=== PATIENT | male | born 1945 | race Caucasian/White ===

== ENCOUNTER 2016-12-24 14:32 | Inpatient (IN) | payer MEDICARE ==
[~2016-12-24] VITALS: Ht 182.9 cm; Wt 102.5 kg
[2016-12-24] VITALS (10 sets, daily range): BP systolic 120–185; BP diastolic 52–72; PULSE 92–110; RESP 22–29; O2SAT 88–95
[~2016-12-24 14:32] MED LIST: ALBU8.5H4 IH; ASPI-628 PO; AZIT500T5 PO; CEFD300C3 PO; CHOL200012 PO; CITA10TA9 PO; DOCU-41 PO; FOLI1TAB18 PO; INSU100V28 SUBQ; INSU100V7 SUBQ; LOSA25TA2 PO; MELA1TAB11 PO; MULT-892 PO; Metoprolol Tartrate PO; PANT40TA2 PO; QUET25TA PO; SYMINH IH; TAMS0.4C29 PO
[2016-12-24] MEDS ORDERED: 0.9% Sodium Chloride 1,000 ML IV ONE ×2 (14:45→16:25)
[2016-12-24] MEDS ORDERED: Albuterol-Ipratropium 3 mL Inhalation Solution NEB ONE (14:45)
[2016-12-24] MEDS ORDERED: MethylprednisoLONE Sodium Succinate 62.5 mg/mL 2 mL Inj IVPUSH ONE (14:45)
[2016-12-24] MEDS ORDERED: cefTRIAXone Inj 2,000 MG in Dextrose 5% Minibag Plus 50 ML IV ONE (15:15)
[2016-12-24] MEDS ORDERED: Magnesium Sulf 2 Gm/50mL Water 2 GM in IV Premix 1 EACH IV ONE (15:15)
[2016-12-24] MEDS ORDERED: Azithromycin Inj 500 MG in Dextrose 5% w/Vial Mate 250 ML IV ONE (15:15)
[2016-12-24 15:25] LABS: BASOPHILS % (AUTO) 0 % (0-3); EOSINOPHILS % (AUTO) 0 % (0-5); MONOCYTES % (AUTO) 5.6 % (4-12); Mean Corpuscular Hemoglobin 37.4 pg (27.0-35.0); Mean Corpuscular Volume 108.4 fL (81-100); NEUTROPHILS % (AUTO) 91.6 % (40-74); Platelet Count 134 bil/L (150-400)
[2016-12-24 16:11] LABS: APPEARANCE,URINE CLEAR (CLEAR,HAZY); COLOR,URINE YELLOW (YELLOW); OCCULT BLOOD,URINE NEGATIVE (NEGATIVE); PH,URINE 5.5 (5.0-8.0); UROBILINOGEN,URINE NORMAL (NORMAL)
--- NOTE | 2016-12-24 16:17 | DRSVH ---
PROCEDURE: X-RAY CHEST ONE VIEW, PORTABLE ([id number]) INDICATIONS: SHORT OF BREATH TECHNIQUE: One view of the chest was acquired. COMPARISON: [facility], CR, XR CHEST 2VW, 12/18/2016, 12:10. FINDINGS: Surgical changes and devices: None. Lungs and pleura: Slight appearance of increased streaky opacities within the bases, appearing more p rominent when compared to prior exam. Mediastinum: Mediastinal contours appear normal. Heart size is normal. Bones and chest wall: No suspicious bony lesions. Overlying soft tissues appear unremarkable. IMPRESSION: Mild increased prominence of streaky opacities within the bases. Developing infiltrates, atelectasis or focal edema cannot be excluded. Dictated by: Izabela Stockton M.D. on 12/24/2016 at 16:15 Approved by: Izabela Stockton M.D. on 12/24/2016 at 16:16
--- NOTE | 2016-12-24 16:19 | ED.REPORT ---
HPI-Dyspnea / Wheezing Date of Service Dec 24, 2016 ED Provider: Mohamud Stevenson MD Pt is a 71 year old male with a hx of DM, COPD, HTN and prostate cancer presenting to the ED via EMS in respiratory distress. Associated symptoms include SOB onset 4 days ago, dyspnea on exertion, productive cough, weakness, chills. Denies fever, diaphoresis. He states that he has been sick for the past few days and his is sick as well. He denies symptoms this severe previously , and also denies hx of heart problems or recent travel. He reports usually using his Albuterol inhaler two times per day. Nursing Notes Stated Complaint: RULEOUT SEPSIS Chief Complaint: Respiratory Distress Nursing Notes Reviewed: Yes (YouFastUnlock not reconciled) Allergies: Coded Allergies: No Known Allergies (Verified Allergy, Unknown, 06/06/14) Scheduled Alendronate/Vitamin D3 (Alendronate/Vitamin D3) 1 Each Tablet 1 TAB PO every friday Amlodipine (Amlodipine) 10 Mg Tablet 10 MG PO DAILY Aspirin (Aspirin) 81 Mg Tablet 81 MG PO DAILY Bicalutamide (Bicalutamide) 50 Mg Tablet 100 MG PO DAILY Cholecalciferol (Vitamin D3) (Vitamin D3) 2,000 Unit Tablet 2,000 UNIT PO DAILY Folic Acid (Folic Acid) 1 Mg Tablet 1 MG PO DAILY Insulin Glargine (Lantus U100 Insulin Vial) 100 Unit/Ml Vial 15 UNIT SUBQ HS Losartan/HCTZ 50-12.5 mg (Losartan/HCTZ 50-12.5 mg) 1 Each Tablet 1 EACH PO DAILY Meloxicam (Meloxicam) 15 Mg Tablet 15 MG PO DAILY Potassium Chloride (Potassium Chloride) 10 Meq Tab.er.prt 20 MEQ PO BID Tamsulosin ER (Tamsulosin ER) 0.4 Mg Cap.er.24h 0.4 MG PO HS Trazodone (Trazodone) 50 Mg Tablet 50-100 MG PO HS Scheduled PRN Albuterol Sulfate (Ventolin HFA Inhaler) 200 Puff/18 Gm Inhaler 2 PUFFS INH q4- 6 hours PRN PRN For Shortness of Breath Insulin Aspart (NovoLOG U100 Insulin Vial) 100 Unit/Ml Mdv 5 UNITS SUBQ TIDWM PRN PRN hyperglycemia Ketoconazole (Ketoconazole) 120 Ml Shampoo 1 APPLIC TOP DAILY PRN PRN prn General Time Seen by MD: 15:01 Chief Complaint Shortness of breath Hx Obtained From: Patient, EMS Arrived By: Ambulance Sudden in Onset?: No Onset Occurred: 5 - 8 hours ago Symptom Duration: Since onset Severity: Current: No pain currently Severity: Maximum: No pain Recent Healthcare: No recent hospitalization, Recent doctor visit Similar Sx Previous: No Past Medical History Past Medical History 1. Hypertension. 2. Type 2 diabetes mellitus, on insulin. 3. Dyslipidemia. Cholesterol 199, HDL 63, cholesterol/HDL ratio 3.16, LDL 114.2 (June 11, 2013). The patient is not receiving statin therapy. 4. Paroxysmal atrial fibrillation. Echocardiogram (April 11, 2013) showed LVEF 65%-70%; normal valves. A nuclear medicine stress test (May 11, 2013) showed normal myocardial perfusion, normal LV volume and systolic function and no diagnostic ECG changes for ischemia. 5. COPD. 6. History of diverticulosis. 7. Prostate cancer. The patient says he is now receiving Lupron. 8. Prostatism. 9. History of L2 compression fractures and rib fractures. Past Surgical History Reports: Appendectomy Family History His father of COPD. His mother of Alzheimer's disease. Smoking History Current Every Day Smoker, Heavy Tobacco Smoker Social History Drug Use: Denies drug use Other Social History: [place] Review of Systems Constitutional: Reports: Chills, Denies: Fever Respiratory: Reports: Dyspnea on exertion, Prod cough, clear, Shortness of breath, Wheezing Skin: Denies Diaphoresis Complete sys rev & neg: except as marked. Neurologic: Reports: Weakness Physical Exam Initial Vital Signs Vital Signs (First) Date Time Temp Pulse Resp B/P Pulse Ox O2 Delivery O2 Flow Rate FiO2 12/24/16 14:40 37.7 108 22 185/57 95 Nasal Cannula 3 Initial VS: Reviewed, Vital signs abnormal (Temp borderline, tachy RR incr on O2) Head / Eyes: Atraumatic, Normocephalic, PERRL ENT: Mucous membranes moist, Conjunctiva normal, No scleral icterus Abdomen / GI: Soft, Non-tender Neurologic: Alert, Oriented, Nonfocal Psychiatric: Mood/affect normal, Behavior normal, Normal thought content General/Constitutional: Awake, Alert Mildly diaphoretic Neck: No JVD Respiratory / Chest: No chest tenderness Resp Distress / Stridor: Positive: Resp distress moderate Persistant hacking cough. Poor air movement initially with bronchospasm. Cardiovascular: No murmurs Heart Rate / Rhythm: Positive: Tachycardia Lower Extremity / Pelvis / MS: No edema Interpretation & Diagnostics Lab Results Interpretation Result Diagram: 12/24/16 1510 12/24/16 1510 Test 12/24/16 15:10 12/24/16 15:36 White Blood Count 6.5th/mm3 (3.8-10.1) Red Blood Count 2.97mil/mm3 (4.40-5.80) Hemoglobin 11.1g/dL (13.8-17.2) Hematocrit 32.2% (41.0-50.0) Mean Corpuscular Volume 108.4fL (81-100) Mean Corpuscular Hemoglobin 37.4pg (27.0-35.0) Mean Corpuscular Hemoglobin Concent 34.5% (32.0-37.0) Red Cell Distribution Width 12.4% (12.3-15.4) Platelet Count 134bil/L (150-400) Neutrophils (%) (Auto) 91.6% (40-74) Lymphocytes (%) (Auto) 2.6% (14-46) Monocytes (%) (Auto) 5.6% (4-12) Eosinophils (%) (Auto) 0% (0-5) Basophils (%) (Auto) 0% (0-3) Sodium Level 133mEq/L (134-144) Potassium Level 4.4mEq/L (3.5-5.2) Chloride Level 96mEq/L (97-108) Carbon Dioxide Level 17mmol/L (18-29) Blood Urea Nitrogen 23mg/dL (8-27) Creatinine 1.04mg/dL (0.76-1.27) Estimat Glomerular Filtration Rate 74mL/min (>59) Glucose Level 225mg/dL (60-99) Lactic Acid Level 2.8mmol/L (0.4-2.0) Calcium Level 7.8mg/dL (8.5-10.1) Magnesium Level 1.7mg/dL (1.6-2.6) Total Bilirubin 0.7mg/dL (0.0-1.2) Aspartate Amino Transf (AST/SGOT) 29U/L (0-50) Alanine Aminotransferase (ALT/SGPT) 25U/L (0-44) Alkaline Phosphatase 45U/L (25-160) Troponin T < 0.010ug/L (0.0-0.011) Total Protein 6.5g/dL (6.4-8.4) Albumin 4.2g/dL (3.4-5.0) Procalcitonin 0.21ng/mL (0.00-0.08) Urine Color Yellow (YELLOW) Urine Appearance Clear (CLEAR,HAZY) Urine pH 5.5 (5.0-8.0) Urine Specific [place] 1.025 (1.003-1.035) Urine Protein Negativemg/dL (NEG,TRACE) Urine Glucose (UA) Negativemg/dL (NEGATIVE) Urine Ketones Negativemg/dL (NEGATIVE) Urine Occult Blood Negative (NEGATIVE) Urine Nitrite Negative (NEGATIVE) Urine Bilirubin Negative (NEGATIVE) Urine Urobilinogen Normalmg/dL (NORMAL) Urine Leukocyte Esterase Negative (NEGATIVE) Urine RBC 0-2/hpf (0-2) Urine WBC 0-5/hpf (0-5) Urine Epithelial Cells None/hpf (NONE-MOD) Urine Crystals None seen (NONE SEEN) Urine Bacteria None/hpf (NONE-FEW) Urine Hyaline Casts None/lpf (NONE) Urine Granular Casts None seen (NONE SEEN) Urine Waxy Casts None seen (NONE SEEN) Urine Red Blood Cell Casts None seen (NONE SEEN) Urine White Blood Cell Casts None seen (NONE SEEN) Urine Mucus None seen (None Seen) Urine Trichomonas None seen (NONE SEEN) Urine Yeast None (NONE SEEN) Urinalysis Comment None Urine Culture Reflexed Not indicated Lab Results Interpretation: CBC normal MP mildly low CO2 Glucose mildly elevated Lactate is elevated, the patient received aggressive albuterol which can increase the lactate Troponin is negative blood cultures are pending [place] calcitonin mildly elevated Influenza is negative Dr Crystal Rodríguez sent a PCR which is positive for RSV ECG Interpretation ECG Interpretation: Sinus tachycardia, rate 108. Nonspecific ST depression versus wandering baseline. Without cardiac ischemia. Time: 13:52 Interpreted by: ED physician X-Ray Chest Interpretation Chest Xray Interpretation: IMPRESSION: Mild increased prominence of streaky opacities within the bases. Developing infiltrates, atelectasis or focal edema cannot be excluded. Dictated by: Izabela Stockton M.D. on 12/24/2016 at 16:15 View: Portable, 1 view Interpretation / Wet Read by: Interpret - Radiologist Re-Eval/Medical Decision Med Decision/Clinical Course This is a 71-year-old male with baseline CBC last #on an inhaler, but not on home O2 develop a cough, chills and worsening shortness breath over the past few days. He arrives in the department in moderate distress and is Profoundly bronchospastic, short of breath, mildly hypoxic (he is not on home O2), borderline febrile on arrival-reaction went on the spica fulminant fever while in the department. The patient however did respond to aggressive, repeated, multiple doses of albuterol. He did receive Atrovent. He received empiric steroids, magnesium, IV fluids-and Tylenol once he spiked a fever. His chest x-ray to my interpretation is suspicious for pneumonia, as is his clinical presentation and the differential includes COPD exacerbation, he is febrile, so there is a low threshold for Anaprox in this setting. So ceftriaxone and Zithromax were initiated. His formal influenza is negative, but is later PCR is positive for RSV and suggests a component of a viral infection, although not sure the question of whether catheter secondary bacterial infection has been truly answered given his presentation. He is improved, no longer in bridger distress, but is being admitted for continued management. He is still bronchospastic at time of admission. Source of Hx: Old records Re-Evaluation/Progress #1: Time of Eval: 15:08 Patient Status: Condition improved Re-Evaluation/Progress Note: Discussed history of present illness. Re-Evaluation/Progress #2: Time of Eval: 15:50 Patient Status: Condition improved Re-Evaluation/Progress Note: Discussed plan for admission. Pt understands and agrees with plan. Re-Evaluation/Progress #3: Time of Eval: 16:22 Patient Status: Condition improved Re-Evaluation/Progress Note: Pt is still wheezing, not as short of breath but has spiked a fever. Consultation : Referral / Consult Name: Sumeet Beltre MD Consulted With: Hospitalist Call Returned at: 16:33 Attendant [place]ground: Will see patient, Agrees with plan, Accepts admit Counseled Regarding: Diagnosis, Lab results, Need for follow-up, When/why to return to ED Discharge & Departure Impression: Primary Impression: COPD with acute exacerbation Additional Impressions: Pneumonia Pneumonia type: due to unspecified organism Laterality: right Lung location : lower lobe of lung Qualified Code: J18.9 - Pneumonia, unspecified organism RSV (acute bronchiolitis due to respiratory syncytial virus) Disposition: ADMITTED TO HOSPITAL Discharge Condition All VS Reviewed: Yes Condition: Improved Referrals: Luther Fierro MD (PCP) Adinaibjaron Attestation Portions of this note were transcribed by Jennifer Teran. I, Dr. Stevenson personally performed the history, physical exam and medical decision-making; I reviewed and confirmed the accuracy of the information in the transcribed note. Signed by: Victor Hugo Fletcher, 12/24/2016 and 1646. copies to: Luther Fierro MD, Matthew F MD Dec 24, 2016 16:18 JENNIFER TERAN Dec 24, 2016 16:23
[2016-12-24 16:20] LABS: Magnesium 1.7 mg/dL (1.6-2.6); TROPONIN T < 0.010 ug/L (0.0-0.011)
[2016-12-24] MEDS ORDERED: Albuterol 2.5 mg/3 mL Inhalation Solution NEB ONE (16:25)
[2016-12-24] MEDS ORDERED: Ondansetron 2 mg/mL 2 mL Inj IVPUSH PRN (17:10)
[2016-12-24] MEDS ORDERED: Alum-Mag Hydrox-Simeth 30 mL Suspension PO PRN (17:10)
[2016-12-24] MEDS ORDERED: BICA50TA PO (18:07)
[2016-12-24] MEDS ORDERED: LOSA1TAB69 PO (18:07)
[2016-12-24] MEDS ORDERED: NOV100I SUBQ (18:07)
[2016-12-24] MEDS ORDERED: ALBU18HF INH (18:07)
[2016-12-24] MEDS ORDERED: POTA10TA38 PO (18:07)
[2016-12-24] MEDS ORDERED: ALEN70TA46 PO (18:07)
[2016-12-24] MEDS ORDERED: AMLO10TA3 PO (18:07)
[2016-12-24] MEDS ORDERED: KETO120S3 TOP (18:07)
[2016-12-24] MEDS ORDERED: TRAZ-115 PO (18:07)
[2016-12-24] MEDS ORDERED: MELO-253 PO (18:07)
[2016-12-24] MEDS ORDERED: ASPI-973 PO (18:08)
[2016-12-24] MEDS ORDERED: CHOL200025 PO (18:08)
--- NOTE | 2016-12-24 18:39 | NUR ---
Admit to [facility] Pt arrived to [facility] at 1800 from ED. Pt able to ambulate from stretcher to bed, however pt very dyspneic. AAOx3. LS coarse. SpO2 87% on 2L NC, increased to 3L, SpO2 88%. RT called, this RN requested neb tx, RT states they will come up MELIA. Denies pain. Urinal to void. NS at 125 via PIV. Addendum: 12/24/16 at 1916 by DEEPTHI VENTURA RN correction: NS at 100cc/hr
--- NOTE | 2016-12-24 18:47 | PCM.HPMED ---
Subjective Date of Service Dec 24, 2016 Primary Provider: Admitting Physician: Sumeet Beltre MD Primary Care Physician: Luther Fierro MD Attending Physician: Sumeet Beltre MD Chief Complaint: Shortness of breath History of Present Illness: This is a 71 years old male with past medical history of COPD secondary to medical, patient on oxygen at home. He does not have a history of insulin-dependent diabetes mellitus type II, hypertension, prostate cancer, hyperlipidemia. Patient presented to the hospital complaining about expiratory distress/difficulty breathing that has been going on for approximately 4 days and worsening. Patient stated she will get short of minimal exertion such for few steps. He stated his was recently with flulike symptoms Patient endorsed cough with whitish sputum production. He uses his nebulizer with minimal relief of his septum and today he decided to come to the ER. Patient denied chest pain, no fever, no chills, no nausea, no vomiting, no abdominal pain On presentation patient was found to be hypoxic with an oxygen saturation in the mid 80s, which improved peripheral excision via nasal cannula and nebulizer treatment. Chest x-ray showed pneumonia. . Review of Systems: Comprehensive review of system x 12 points is negative except for what is described above in history of present illness Allergies Coded Allergies: No Known Allergies (Verified Allergy, Unknown, 06/06/14) Home Medications ([Metoprolol Tartrate]) 25 MG TABLET 25 MG PO BID Aspirin (Aspir 81) 81 Mg Tablet.dr 81 MG PO DAILY Azithromycin (Azithromycin) 500 Mg Tablet 500 MG PO DAILY Budesonide/Formoterol 160-4.5 mcg Inh (Symbicort 160-4.5 mcg Inh) 1 Puff Inha 2 PUFF IH BID Cefdinir (Cefdinir) 300 Mg Capsule 300 MG PO BID Cholecalciferol (Vitamin D3) (D3-2000) 2,000 Unit Capsule 2,000 UNIT PO DAILY Citalopram (Citalopram) 10 Mg Tablet 10 MG PO DAILY Folic Acid (Folic Acid) 1 Mg Tablet 1 MG PO DAILY Insulin Glargine (Lantus U100 Insulin Vial) 100 Unit/Ml Vial 15 UNIT SUBQ QAM Insulin Glargine (Lantus U100 Insulin Vial) 100 Unit/Ml Vial 10 UNIT SUBQ QPM Insulin Regular, Human (HUMulin-R U100 Insulin Vial) 100 Unit/1 Ml Vial UNIT SUBQ SS Losartan Potassium (Cozaar) 25 Mg Tablet 25 MG PO DAILY Melatonin/Pyridoxine (Melatonin 3 mg Tablet) 1 Each Tablet 1 EACH PO QPM Multivitamin (Daily Value) 1 Each Tablet 1 EACH PO DAILY Pantoprazole DR (Protonix) 40 Mg Tablet 40 MG PO DAILYAC Tamsulosin ER (Tamsulosin ER) 0.4 Mg Cap.er.24h 0.4 MG PO HS PMH 1. Hypertension. 2. Type 2 diabetes mellitus, on insulin. 3. Dyslipidemia. Cholesterol 199, HDL 63, cholesterol/HDL ratio 3.16, LDL 114.2 (June 11, 2013). The patient is not receiving statin therapy. 4. Paroxysmal atrial fibrillation. Echocardiogram (April 11, 2013) showed LVEF 65%-70%; normal valves. A nuclear medicine stress test (May 11, 2013) showed normal myocardial perfusion, normal LV volume and systolic function and no diagnostic ECG changes for ischemia. 5. COPD. 6. History of diverticulosis. 7. Prostate cancer. The patient says he is now receiving Lupron. 8. Prostatism. 9. History of L2 compression fractures and rib fractures Surgical History Reports: Appendectomy Family History Family history reviewed. His father of COPD. His mother of Alzheimer's disease. Social History Hx Alcohol Use: Yes Alcoholic Drinks Per Day: 1/2 5th vodka per day Hx Substance Use: No Smoking Status: Current Every Day Smoker, Heavy Tobacco Smoker Exam Vital Signs Vital Sign - Last Date Time Temp Pulse Resp B/P Pulse Ox O2 Delivery O2 Flow Rate FiO2 12/24/16 18:11 105 12/24/16 17:12 29 147/67 90 Nasal Cannula 2 12/24/16 15:54 38.8 Exam General: Obese man in bed comfortably, not in distress, able to speak in full sentences. HEENT: PERRL, sclerae anicteric. Neck: Trachea is midline, no tenderness, no cervical lymphadenopathy, no JVD Chest: No use of accessory muscles of respiration, no chest wall tenderness. This better effort is shallow Lung: Decreased air entry bilaterally, bilateral wheezing. No crackles. Heart: S1, S2 regular rate and rhythm, no gallop, no murmur. Abdomen: Audible bowel sounds present, obese, nontender, distended. Extremity: 1+ edema bilaterally, no calf tenderness, no cyanosis. Skin: No rash, no ulcers. Neuro: Awake, alert oriented 3. Grossly nonfocal. Lab and Diagnostics Result Diagram: 12/24/16 1510 12/24/16 1510 Microbiology Blood culture: In process X-Rays, CTs and MRIs Chest x-ray reviewed IMPRESSION: Mild increased prominence of streaky opacities within the bases. Developing infiltrates, atelectasis or focal edema cannot be excluded. Assessment & Plan 1. Acute hypoxic respiratory failure : acute present on admission. - Supplemental oxygen 2 L via nasal cannula for adequate saturation - Nebulizer, pulmonary toilet, bronchodilator: DuoNeb every 6 hours. - Respiratory failure is due to pneumonia and COPD exacerbation. 2. Pneumonia : Acute,present on admission. Stat empiric levofloxacin. 3. COPD exacerbation : Acute, with emissions Bronchodilator as above #1 Solu-Medrol 40 mg IV every 8 hours. Smoking cessation counseling provided Nicotine patch for smoking average Chronic medical problems : 1. Obesity : Chronic 2. Insulin-dependent diabetes mellitus type II : Diabetic diet. Home insulin regimen. Sliding scale with coverage 3. Hypertension : Continue home antihypertensive medication 4. Prostate cancer : On Becalutamide 5. Paroxysmal atrial fibrillation : Normal sinus rhythm. Not on anticoagulation for unknown reasons 6. Hyperlipidemia : Statins 7. Tobaccoism This is a very sick patient admitted with respiratory failure secondary to pneumonia and COPD exacerbation. Patient has long-standing COPD but not on oxygen at home. He is an avid smoker despite his COPD. Plan of care is as above and will be adjusted as per clinical course. Heparin for DVT prophylaxis [facility] in 3-4 days anticipated and recovery is expected. VTE Prophylaxis: Sub-Q Enoxaparin Time spent 75 minutes Sumeet Beltre MD Dec 24, 2016 18:47
[2016-12-24] MEDS: MethylprednisoLONE Sodium Succinate 40 mg/mL Inj IVPUSH SCH (18:53)
[2016-12-24] MEDS: 0.9% Sodium Chloride 1,000 ML IV SCH ×2 (18:55)
[2016-12-24] MEDS: Albuterol-Ipratropium 3 mL Inhalation Solution NEB SCH (20:16)
[2016-12-24] MEDS: Insulin Human REGular 300 Unit/3 mL Inj SUBQ SCH (20:30)
[2016-12-24] MEDS: Insulin GLARgine 100 Unit/mL Syringe SUBQ SCH (21:44)
[2016-12-25] VITALS (16 sets, daily range): BP systolic 117–183; BP diastolic 55–89; PULSE 88–112; RESP 20–34; O2SAT 88–98
[2016-12-25] MEDS: MethylprednisoLONE Sodium Succinate 40 mg/mL Inj IVPUSH SCH ×3 (02:04→16:29)
[2016-12-25] MEDS: Albuterol-Ipratropium 3 mL Inhalation Solution NEB SCH ×4 (02:18→22:19)
[2016-12-25] MEDS: Insulin Human REGular 300 Unit/3 mL Inj SUBQ SCH ×2 (02:59→08:56)
[2016-12-25] MEDS: 0.9% Sodium Chloride 1,000 ML IV SCH ×4 (05:04→13:06)
--- NOTE | 2016-12-25 05:42 | NUR ---
activity Pt remained in bed for the shift, used urinal, no complaints of pain. Coughing intermittently with clear to white sputum. On cont. pulse ox and 3L O2 with sats at 90 to 93%. Left room with call light at bedside.
[2016-12-25 07:20] LABS: Mean Corpuscular Hemoglobin 37.4 pg (27.0-35.0); Mean Corpuscular Volume 109.7 fL (81-100)
[2016-12-25] MEDS ORDERED: levoFLOXacin Inj 750 MG in IV Premix 1 EACH IV SCH (08:30)
[2016-12-25] MEDS ORDERED: Influenza (Adult) Vaccine 0.5 mL Syringe IM ONE (08:30)
[2016-12-25] MEDS ORDERED: predniSONE 20 mg Tablet PO SCH (08:40)
[2016-12-25] MEDS ORDERED: Glucose 40% Oral Gel 15 Gm Tube PO PRN (10:50)
--- NOTE | 2016-12-25 11:17 | NUR ---
SOB pt complains of SOB. sat pt upright, instructed pt on pursed lip breathing pt thinks that his O2 level is low because he has been talking a lot
[2016-12-25] MEDS ORDERED: cefTRIAXone Inj 2,000 MG in Dextrose 5% Minibag Plus 50 ML IV SCH (12:15)
[2016-12-25] MEDS: Insulin LISPRO 300 Unit/3 mL Inj SUBQ SCH ×3 (12:17→22:18)
--- NOTE | 2016-12-25 14:14 | NUR ---
Social Work: Initial Assessment Data: Pt is a 71 y/o male admitted for COPD, pneumonia. Pt's PCP is Dr Fierro, pt's insurance is Medicare. EMR reviewed, readmit score is 3, high. METAL WEIGHER met with pt at bedside, role explained. Pt states that he lives on [address] with his spouse in a single story home where he uses no DME. Pt dries, has hx of HH with [facility], hx of SNF at [facility], no LTC or VA benefits, and is not a caregiver. Pt states he does not have an AD/DPOA, pt accepted info given by METAL WEIGHER. METAL WEIGHER addressed pts alcohol use, see Chemical Dependency Assessment. Likely no further d/c planning needs. METAL WEIGHER will continue to follow if needs arise. Assessment: Pt who is independent at baseline, alcohol abuse. Plan: Pt will d/c home via POV with spouse when medically stable. See Chemical Dependency Assessment. Likely no further d/c planning needs. METAL WEIGHER will continue to follow if needs arise. BRETT Calabrese Addendum: 12/25/16 at 1417 by MARIAH HALL Amended: Links added.
[2016-12-25] MEDS: cefTRIAXone Inj 2,000 MG in Dextrose 5% Minibag Plus 50 ML IV SCH (14:53)
--- NOTE | 2016-12-25 15:27 | DRSVH ---
PROCEDURE: X-RAY CHEST ONE VIEW, PORTABLE ([id number]) INDICATIONS: sob TECHNIQUE: One view of the chest was acquired. COMPARISON: Merged With [facility], CR, XR CHEST 1VW (PORTABLE), 12/24/2016, 14:37. [facility], CR, XR CHEST 2VW, 12/18/2016, 12:10. FINDINGS: Surgical changes and devices: None. Lungs and pleura: No pleural effusions or pneumothorax. Lungs are abnormal with pneumonia at each l ower and midlung, greater on the right than the left. Mediastinum: Mediastinal contours appear normal. Heart size is normal. Bones and chest wall: No suspicious bony lesions. Overlying soft tissues appear unremarkable. IMPRESSION: Right-sided pneumonia is greater than on the left and both lungs have pneumonia infiltrat ion within the middle and lower thirds of the parenchyma. No effusion is seen. Dictated by: Pernell Garcia M.D. on 12/25/2016 at 15:19 Approved by: Pernell Garcia M.D. on 12/25/2016 at 15:25
[2016-12-25] MEDS ORDERED: MethylprednisoLONE Sodium Succinate 40 mg/mL Inj IVPUSH SCH (16:30)
[2016-12-25] MEDS: Albuterol 2.5 mg/3 mL Inhalation Solution NEB PRN ×2 (16:30→19:27)
--- NOTE | 2016-12-25 17:19 | NUR ---
Social Work: Chemical Dependency Assessment Current Circumstances/ Reason for referral: Pt was admitted on 12/24/16 for COPD, Pneumonia. Pt states he is here for these reasons. Pt reported per H&P that he used to drink 5th of vodka per day. RN states pt told them that his last drink was 2 weeks ago. [facility] [employer] following up for chemical dependency assessment. Hx of substance abuse: Pt states he started drinking in his 20s. Pt states he has had one period of sobriety for 10 years in the 90s. Hx of treatment: Pt states he has been to treatment twice for alcoholism at [facility] and once in [place], but he could not remember the name of it. Pt also reports going to in the past and has no hx with outpt treatment for CD. Hx of withdrawal: Pt reports hx of shakes, no seizures. Family support: Pt states both of his parents drank and one of his brothers. Hx of Sobriety and supports: Pt states his is his best support, he states his brother who no longer drinks is also a good support. Pt states that he plans to go to AA as that has been a good support in his past. Pts perception of use: Pt states he plans to continue sobriety. He does not want to drink any longer. Suicide Risk Assessment: Pt reports no suicide or homicidal thoughts, ideation, or plans. Recommendations: [facility] [employer] recommended pt speak with his further about staying sober. Pt accepted CD resources in the areas and states he plans to call. [facility] [employer] offered assistance if pt needed it, pt declined. [facility] [employer] provided rethinking drinking resources. BRETT Calabrese
--- NOTE | 2016-12-25 18:18 | PCM.PNMED ---
Subjective Date of Service Dec 25, 2016 Subjective Patient is a 71 year-old man with COPD not on oxygen at home who presented to the hospital with worsening difficulty breathing for 4 days. In the ED, he had an O2 saturation of mid-80s. This is day 2. Overnight there were no acute events. Patient reports easier breathing. He is eating but not ambulating. Exam Vital Signs Vital Sign - Last Date Time Temp Pulse Resp B/P Pulse Ox O2 Delivery O2 Flow Rate FiO2 12/25/16 16:30 104 26 88 OxyMask 6.00 12/25/16 13:34 37.6 156/68 Intake and Output 12/24/16 12/24/16 12/25/16 Cumulative From/Thru 15:00 23:00 07:00 12/24/16 14:40 - 12/25/16 05:29 Intake Total 1300 ml 1462 ml 2762 ml Output Total 800 ml 800 ml Balance 1300 ml 662 ml 1962 ml Intake Oral 400 ml 400 ml IV Total 1300 ml 1062 ml 2362 ml Output Urine Total 800 ml 800 ml # Bowel Movements 0 0 Exam General: Obese man lying in bed in no distress and able to speak in full sentences. HEENT: sclerae anicteric. Neck: Trachea is midline, no tenderness, no cervical lymphadenopathy, no JVD Chest: No use of accessory muscles of respiration. Lung: Decreased air entry bilaterally, course breath sounds, bilateral expiratory wheezing. No crackles. Heart: S1, S2 regular rate and rhythm, no gallop, no murmur. Abdomen: Audible bowel sounds present, obese, nontender, distended. Extremity: No LE edema, no calf tenderness, no cyanosis. Skin: No rash, no ulcers. . IVs and Medications Medications Reviewed: Medications were reviewed in detail Lab and Diagnostics Result Diagram: 12/25/1662912/25/16629 Microbiology Blood culture: Negative first 24 hours Urine culture: Strep pneumonia + RSV + X-Rays, CTs and MRIs Chest x-ray reviewed IMPRESSION: Mild increased prominence of streaky opacities within the bases. Developing infiltrates, atelectasis or focal edema cannot be excluded. Assessment & Plan Patient is a 71 year-old man with COPD not on oxygen at home who presented to the hospital with worsening difficulty breathing for 4 days. In the ED, he had an O2 saturation of mid-80s. This is day 2. 1. Sepsis, present on admission, Resolved. - Fever 38.8; HR 108; RR 23 - Lactic acidosis 2.8 initially, now normal - IV NS 100ml/hr initially now 80 ml/hr - Treat underlying condition 2. Acute hypoxic respiratory failure, present on admission - Supplemental oxygen to keep sats between 88% and 92% - DuoNeb every 6 hours, albuterol PRN every 2 hours, acapella - Respiratory failure is due to pneumonia and COPD exacerbation. - Telemetry 3. Community acquired bibasilar pneumonia, RSV+, Strep pneumonia antigen positive, acute, present on admission. - Azithromycin and ceftriaxone daily - Rapid flu negative, blood cultures pending, legionella and strep antigens pending, MRSA pending - Repeat x-ray today: Right-sided pneumonia is greater than on the left and both lungs have pneumonia infiltration within the middle and lower thirds of the parenchyma. No effusion is seen. - Procalcitonin 2.1 4. COPD exacerbation, acute, present on admission Bronchodilators as above #1 Solu-Medrol 40 mg IV every 8 hours. Consider changing to 40mg PO daily Smoking cessation counseling provided Chronic: 5. Obesity, BMI 32 6. Alcohol use disorder, present on admission, chronic - Patient stated to nurse has not had alcohol in three weeks, but unknown if that is true - Ativan 0.5mg Q 8 hrs PRN - Consider CIWA - Thiamine 100mg IV daily X 2 days then PO - Folate 7. Insulin-using diabetes mellitus type II - A1c 7.1 - Diabetic diet. - Home insulin: patient uses 11 units lantus and 5 units humalog prior to meals daily unless his BG is normal than he skips the 5 units. - Reviewed in-house blood glucose readings and changed to 20 units lantus HS and 4 units of nutritional insulin plus a medium dose correction scale - Continue to review and adjust 8. Hypertension : Continue home antihypertensive medication 9. Prostate cancer : Continue Becalutamide and Flomax 10. Paroxysmal atrial fibrillation : - Curently normal sinus rhythm. - On aspirin. - Not on anticoagulation for unknown reasons. Will investigate this further prior to discharge - Telemetry 11. Hyperlipidemia: - Patient not on a statins. Will investigate this further prior to discharge 12. Tobacco use disorder, present on admission, chronic. - Nicotine patch Heparin for DVT prophylaxis [facility] in 3-4 days anticipated and recovery is expected. Disposition Home +/- oxygen VTE Prophylaxis: Sub-Q Enoxaparin Resuscitation Status: CPR: Attempt Resuscitation Attending Statement The patient was seen and examined together with Dr. Forbes on 12-25-16 and I agree with the history, exam and plan as outlined in the note above. Nazanin Forbes DO Dec 25, 2016 18:18 Corby Hernandez MD Dec 26, 2016 13:57
[2016-12-25] MEDS: LORazepam 0.5 mg Tablet PO PRN (18:36)
[2016-12-25] MEDS ORDERED: Furosemide 10 mg/mL 4 mL Inj ONE (22:02)
[2016-12-25] MEDS: Insulin GLARgine 100 Unit/mL Syringe SUBQ SCH (22:16)
--- NOTE | 2016-12-25 22:41 | NUR ---
Transfer Transferred to [facility] via bed with BiPAP, medications and personal belongings. Report given to receiving RN.
[2016-12-25] MEDS ORDERED: Furosemide 10 mg/mL 4 mL Inj IVPUSH ONE (22:45)
[2016-12-26] VITALS (14 sets, daily range): BP systolic 124–178; BP diastolic 59–90; PULSE 74–122; RESP 20–36; O2SAT 91–97
[2016-12-26] MEDS: 0.9% Sodium Chloride 1,000 ML IV SCH ×3 (00:25→17:55)
[2016-12-26] MEDS: MethylprednisoLONE Sodium Succinate 40 mg/mL Inj IVPUSH SCH ×3 (01:18→19:51)
[2016-12-26] MEDS: Albuterol-Ipratropium 3 mL Inhalation Solution NEB SCH ×4 (02:30→20:30)
[2016-12-26 03:02] LABS: BASOPHILS % (AUTO) 0 % (0-3); EOSINOPHILS % (AUTO) 0 % (0-5); Mean Corpuscular Hemoglobin 37.5 pg (27.0-35.0); Mean Corpuscular Volume 111.6 fL (81-100); Platelet Count 112 bil/L (150-400)
--- NOTE | 2016-12-26 03:08 | NUR ---
Transfer Pt transferred from [facility] via bed. Pt alert and oriented with a wet cough. On BIPAP at 40% Fi02. Stat order obtained for 40mg IV push Lasix. Sp02 96%.
--- NOTE | 2016-12-26 03:10 | NUR ---
Afib RVR Pt converted from ST to Afib RVR at 0302. HR 130-150. Asymptomatic. Pt has a history of paroxysmal afib. Stat EKG ordered, resident notified and ordered received for diltiazem 5mg IV push x3 doses if needed.
[2016-12-26 03:23] LABS: MONOCYTES % (AUTO) 4 % (4-12); NEUTROPHILS % (AUTO) 78 % (40-74)
[2016-12-26] MEDS: Diltiazem 5 mg/mL 5 mL Inj IVPUSH PRN ×3 (03:23→04:08)
[2016-12-26] MEDS: Diltiazem Inj 125 MG in Dextrose 5% 100 ML IV SCH ×2 (04:50→22:11)
--- NOTE | 2016-12-26 05:50 | NUR ---
HR Pt started on a diltiazem drip at 5ml/hr. HR in 60 mins ranges from 80-120. Target HR below 100. BP taken, 124/75. Diltiazem drip turned up to 10ml/hr. Continue to monitor.
[2016-12-26] MEDS: Insulin LISPRO 300 Unit/3 mL Inj SUBQ SCH ×4 (07:44→21:30)
[2016-12-26] MEDS: Thiamine Inj 100 MG in Dextrose 5% 50 ML IV SCH (09:13)
[2016-12-26] MEDS ORDERED: Furosemide 10 mg/mL 4 mL Inj IVPUSH ONE (12:30)
[2016-12-26] MEDS ORDERED: Glucose 40% Oral Gel 15 Gm Tube PO PRN (12:35)
--- NOTE | 2016-12-26 13:38 | CONS ---
[address] [address] CONSULTATION REPORT PATIENT: JAGDISH MATHIS : 1945 MR#: [id number] ADMIT: 12/24/2016 JOB ID: [id number] DATE OF SERVICE: 12/26/2016 INFECTIOUS DISEASE CONSULT: I thank Dr. Kimbrough for this timely consult. REASON FOR CONSULTATION: Pneumococcal pneumonia following respiratory syncytial viral infection. HISTORY OF THE PRESENT ILLNESS: The patient is a 71-year-old gentleman with multiple medical problems including COPD, alcoholism and a history of atrial arrhythmias. The patient has underlying COPD but does not use oxygen at home. He reports several days ago both he and his developed a flu-like illness characterized by cough and malaise. His symptoms accelerated over several days leading up to this admission and then he primarily just developed increasing shortness of breath. This was not associated, he states, with any fevers or chills, though he did feel quite fatigued. He notes that he may have had an increase in his chronic baseline cough but it was minimally productive of some whitish sputum and at no point was there any brown or red sputum production. He denies any pleuritic chest pain and was unable to say whether he had any pain with deep inspiration on either side of his chest. There was very little in the way of any other associated symptoms other than just weakness, decreased ability to get around, increased work of breathing and some increase in his cough. He denies associated sore throat. He has had a minimal headache in association with these other symptoms but really nothing else and specifically, no GI or symptoms. He was admitted to the hospital on the , two days ago, because he was evaluated and found in the ED to be desaturating and an x-ray showed new infiltrates. Since admission, the patient has been treated with antibiotics, which included ceftriaxone, Levaquin and azithromycin. The levofloxacin was discontinued and replaced basically with azithromycin. He reports he is starting to feel a little bit better but is still quite short of breath and requiring aggressive oxygen supplementation. He still has no fevers, chills, sweats, or pleuritic pain. PAST MEDICAL HISTORY: 1. COPD. 2. Hypertension. 3. Hyperlipidemia. 4. Paroxysmal atrial fibrillation. 5. Prostate cancer. 6. L2 compression fracture. 7. Alcohol abuse. ALLERGIES: The patient has no known allergies to antibiotics. SOCIAL HISTORY: The patient tells me he worked at a variety of jobs through his career. He has been consuming alcohol quite aggressively for many years including he tells me multiple drinks per day up until last week when he decided to quit. A note from one of the ED interviews suggests that he drank up to a half of a 5th of vodka daily, though he tells me more in the 3-5 shots range per day but in any event, a substantial amount of alcohol. He has also been a cigarette smoker his adult life and also reports that at the onset of his URI symptoms last week he decided to give up smoking as well. He has never lived outside the [place] has never served in the [place] and has no exotic exposures. FAMILY HISTORY: Negative for TB in his parents, siblings and children. His dad of COPD. REVIEW OF SYSTEMS: Done. It was a little bit difficult to do the review of systems because the patient has a BiPAP mask in place and his voice is a bit muffled but basically, he says he had some minimal headache over the last few days which is unusual for him but not severe. No stiff neck and no confusion. No change in vision. No problems with his nose, and no sore throat or stiff neck. He discusses his increasing work of breathing and cough as noted above. No pleuritic chest pain. No substernal chest pain. No nausea or vomiting. No diarrhea, dysuria, urgency, or frequency. No swelling of the joints. No skin rash and no neurologic complaints. Remainder of the review of systems is negative. PHYSICAL EXAMINATION: Reveals an afebrile gentleman lying in bed, using a BiPAP mask and conversing with the nurse when I first entered the room. His temperature is 37 degrees, and it was as high as 38.8 in the ED when he first presented. His pulse is 106, respiratory rate 34, blood pressure 146/59. He is saturating 92% on 40% inspired FiO2 on the BiPAP mask. His head is without evidence of trauma. His eyes without conjunctivitis. No scleral icterus. His mental status is clear. Oral cavity difficult to examine because he cannot take the BiPAP off but I see no herpetic lesions or obvious thrush. I cannot see the posterior pharynx. His neck is fairly supple without notable adenopathy. He has full range of motion of his neck. His lungs are notable for rales at the right lower lung field which are quite that unilateral, as none are heard on the left. Cardiac tones distant but regular rate and rhythm at this point, and I do not appreciate a significant murmur but it is hard to hear over the BiPAP machine. His abdomen is somewhat distended, soft and nontender. No hepatosplenomegaly or ascites. No suprapubic fullness. He does not have a Molina catheter. Examination of the extremities reveals no significant edema, and his feet are actually fairly well perfused with good capillary refill. Sensation and good strength in the lower extremities. In general, he is well muscled and without any muscle tenderness or pain with palpation. No evidence of synovitis anywhere, and no skin rash. No thyromegaly is noted. His back is without notable abnormality. Remainder of the physical benign. LABORATORIES: Include white count 15,000 yesterday, now 9000. He has 14% bands, so he has quite a dramatic left shift. His creatinine 1.05. Liver function tests normal despite his alcohol history. Procalcitonin 0.21 on admission, the . I have ordered a repeat for this morning. Albumin 4.1. Glucose 308. Urinalysis without white cells. Urine legionella antigen negative but urine pneumococcal antigen is positive. On the multiplex PCR respiratory panel, the RSV is positive. Blood cultures are negative. IMAGING: I carefully reviewed his imaging. he has quite an extensive right-sided pneumonia. There is lesser degree of a left-sided pneumonia. IMPRESSION: This unfortunate gentleman has longstanding chronic obstructive pulmonary disease with ongoing cigarette smoking, as well as heavy alcohol consumption. He and his both acquired what sounds to be a respiratory syncytial virus upper respiratory tract infection which sets our patient up for pneumococcal pneumonia. His pneumococcal pneumonia is bilateral, though the vast majority of the infiltrate is on the right side. He is not bacteremic but we do have a diagnosis on the basis of our urine antigen test which is very highly specific. All isolates of pneumococcus isolated last year at [facility] are sensitive to penicillin and ceftriaxone at levels achieved outside the cerebrospinal fluid and so, either of these will be acceptable as the main drug for treatment of this infection. There is some evidence in the literature that the addition of a macrolide such as azithromycin to the beta-lactam improves survival but this seems to be confined to the people that are bacteremic and as of yet, it appears this patient is not bacteremic but rather just has a positive urine antigen. Bilateral pneumococcal pneumonia is associated with a fairly significant mortality rate and will be more likely to prove mortal in a patient such as this who has underlying chronic obstructive pulmonary disease and alcohol issues. The patient will obviously need to be a very aggressively managed here in the hospital over the next several days and probably most of his beta-lactam antibiotic therapy will be intravenous just because of the severity of his illness and the likelihood of a prolonged hospital stay. RECOMMENDATIONS: 1. I agree with the azithromycin but I would limit its use to about five days, and I have entered a stop date in the computer. 2. We could use ceftriaxone or penicillin, and there is probably little difference between the two as our main treatment. He is already on ceftriaxone 2 g a day, and I think that is reasonable to continue, as it is more convenient than giving more frequent injections of penicillin. 3. I would keep an eye on the QTc interval, as we proceed to give this patient a g and a half or so of azithromycin. Should his QTc interval elongate significantly, I would simply discontinue the azithromycin, as it is probably not essential in this nonbacteremic case. Note that his QTc is 0.465 on the original EKG which is now in the chart. I would repeat one in a day or two. 4. The total duration of therapy for a serious pneumococcal pneumonia like this should probably be about one week. I repeat a procalcitonin today, and I would follow it going forward. If the procalcitonin is elevated today and then comes back down to levels less than 0.25, that would be helpful in terms of helping manage his duration of therapy but if the procalcitonin turns out not to be a very good marker, I would simply figure on about one week of intravenous therapy. If he does extremely well, he could be discharged earlier on high-dose oral amoxicillin to finish his one-week course of therapy. 5. As I will be leaving the country for about 10 days later today, I will go ahead and sign off on this case of what appears to be a fairly straightforward serious pneumococcal pneumonia, complicating COPD. If there are questions about this or any other patients, I can be reached by telephone through tomorrow morning and after that by email, so it will be a bit cumbersome.
[2016-12-26] MEDS: cefTRIAXone Inj 2,000 MG in Dextrose 5% Minibag Plus 50 ML IV SCH (14:08)
--- NOTE | 2016-12-26 15:47 | NUR ---
BiPAP/ Diltiazem Patient on BiPAP FiO2 at 40%. Maintaining SPO2 in the high 80s-low 90s. Patient desats to low 80s with any activity. Attempted to take BiPAP off and eat breakfast wearing only NC at 6L, patient O2 levels dropped to low 80s within a few minutes. BiPAP immediately placed back on patient. Patient tolerating mask ok, small mount of redness on thelma. Mepilex in place for protection. Patient on diltiazem drip at 15mg/hr for Afib. Patient has been on A fib throughout shift, rate in the 100s-120s. Patient on MP30 for close monitoring.
--- NOTE | 2016-12-26 15:53 | PCM.PNMED ---
Subjective Date of Service Dec 26, 2016 Subjective Patient is a 71 year-old man with COPD not on oxygen at home who presented to the hospital with worsening difficulty breathing for 4 days. In the ED, he had an O2 saturation of mid-80s. This is day 2. Overnight events: Patient has history of paroxysmal afib and overnight his heart flipped into A fib with RvR, started to require increasing amounts of O2 from 7L to 14L and was subsequently placed on BiPAP. Today: Patient remains on BiPAP. Exam Vital Signs Vital Sign - Last Date Time Temp Pulse Resp B/P Pulse Ox O2 Delivery O2 Flow Rate FiO2 12/26/16 11:29 37.0 106 34 146/59 92 BiPAP 40 12/25/16 19:39 15.00 Intake and Output 12/25/16 12/25/16 12/26/16 Cumulative From/Thru 15:00 23:00 07:00 12/24/16 14:40 - 12/26/16 07:00 Intake Total 2449 ml 270 ml 5481 ml Output Total 1550 ml 600 ml 2950 ml Balance 899 ml -330 ml 2531 ml Intake Oral 1420 ml 100 ml 1920 ml IV Total 1029 ml 170 ml 3561 ml Output Urine Total 1550 ml 600 ml 2950 ml # Voids 1 1 # Bowel Movements 0 0 0 Exam General: Obese man lying in bed with respiratory needs supported with BIPAP at 40 % FiO2.. HEENT: sclerae anicteric. Neck: Trachea is midline, no tenderness, no cervical lymphadenopathy, no JVD Chest: No use of accessory muscles of respiration. Lung: Decreased air entry bilaterally, course breath sounds, bilateral expiratory wheezing. No crackles. Heart: S1, S2 regular rate and rhythm, no gallop, no murmur. Abdomen: Audible bowel sounds present, obese, nontender, distended. Extremity: No LE edema, no calf tenderness, no cyanosis. Skin: No rash, no ulcers. . IVs and Medications Medications Reviewed: Medications were reviewed in detail Lab and Diagnostics Result Diagram: 12/26/1625612/26/16256 Microbiology Blood culture: Negative first 24 hours Urine culture: Strep pneumonia + RSV + X-Rays, CTs and MRIs Chest x-ray reviewed IMPRESSION: Mild increased prominence of streaky opacities within the bases. Developing infiltrates, atelectasis or focal edema cannot be excluded. Assessment & Plan Patient is a 71 year-old man with COPD not on oxygen at home who presented to the hospital with worsening difficulty breathing for 4 days. In the ED, he had an O2 saturation of mid-80s. This is day 3. 1. Acute hypoxic respiratory failure, present on admission. Active. - Placed on BiPAP. - DuoNeb every 6 hours, albuterol PRN every 2 hours, acapella - Respiratory failure is due to bacterial and viral pneumonia and COPD exacerbation. - Telemetry 2. Community acquired bibasilar pneumonia, RSV+, Strep pneumonia antigen positive, acute, present on admission. - Azithromycin and Ceftriaxone daily - Infectious disease following, time and recommendations appreciated. - Rapid flu negative, blood cultures pending, legionella and strep antigens pending, MRSA pending - Repeat x-ray today: Right-sided pneumonia is greater than on the left and both lungs have pneumonia infiltration within the middle and lower thirds of the parenchyma. No effusion is seen. - Procalcitonin 2.1 3. COPD exacerbation, acute, present on admission - Bronchodilators as above #1 - Solu-Medrol 40 mg IV every 12 hours. will Decrease to 40 IV Daily tomorrow. - Smoking cessation counseling provided 4. Sepsis, present on admission, Resolved. - Fever 38.8; HR 108; RR 23 - Lactic acidosis 2.8 initially, now normal - IV NS 100ml/hr initially now 80 ml/hr - Treat underlying condition Chronic: 5. Obesity, BMI 32 6. Alcohol use disorder, present on admission, chronic - Patient stated to nurse has not had alcohol in three weeks, but unknown if that is true - Ativan 0.5mg Q 8 hrs PRN - Consider CIWA - Thiamine 100mg IV daily X 2 days then PO - Folate 7. Insulin-using diabetes mellitus type II - A1c 7.1 - Diabetic diet. - Home insulin: patient uses 11 units lantus and 5 units humalog prior to meals daily unless his BG is normal than he skips the 5 units. - Reviewed in-house blood glucose readings and changed to 20 units lantus HS and 4 units of nutritional insulin plus a High dose correction scale - Continue to review and adjust 8. Hypertension : Continue home antihypertensive medication 9. Prostate cancer : Continue Becalutamide and Flomax 10. Paroxysmal atrial fibrillation converted to Afib with RVR. - Continue Diltiazem ggt. - Curently normal sinus rhythm. - On aspirin. - Not on anticoagulation for unknown reasons. Will investigate this further prior to discharge - Telemetry 11. Hyperlipidemia: - Patient not on a statins. Will investigate this further prior to discharge 12. Tobacco use disorder, present on admission, chronic. - Nicotine patch Heparin for DVT prophylaxis [facility] in 3-4 days anticipated and recovery is expected. Disposition Home +/- oxygen Pain Evaluation: Adequate Pain Control VTE Prophylaxis: Sub-Q Enoxaparin VTE Mechanical Devices: Venous Foot Pump Resuscitation Status: CPR: Attempt Resuscitation Attending Statement The patient was seen and examined together with Dr. Waddell on 12/26/2016 and I agree with the history, exam and plan as outlined in the note above. . DAVI WADDELL DO Dec 26, 2016 15:53 Tyler Kimbrough MD Dec 29, 2016 08:32
[2016-12-26] MEDS ORDERED: Labetalol 5 mg/mL 4 mL Inj IVPUSH ONE (16:30)
--- NOTE | 2016-12-26 18:07 | NUR ---
Hypertension Patient increasingly hypertensive throughout shift. BP 178/82 this afternoon. MD notified and 20mg labetalol ordred and given. Systolic BP in the 120s. Will continue to monitor.
[2016-12-26] MEDS: Insulin GLARgine 100 Unit/mL Syringe SUBQ SCH (21:06)
[2016-12-27] VITALS (12 sets, daily range): BP systolic 119–160; BP diastolic 61–86; PULSE 75–117; RESP 18–28; O2SAT 90–93
[2016-12-27 03:06] LABS: BASOPHILS % (AUTO) 0 % (0-3); EOSINOPHILS % (AUTO) 0 % (0-5); MONOCYTES % (AUTO) 4.3 % (4-12); Mean Corpuscular Hemoglobin 37.4 pg (27.0-35.0); Mean Corpuscular Volume 113.9 fL (81-100); Platelet Count 129 bil/L (150-400)
--- NOTE | 2016-12-27 04:58 | NUR ---
Cardiac/ Respiratory: Tele Afib 70-100 overnight. Dilt gtt titrated to 10ml/hr. BP stable- SBP 120-130. Pt on BIPAP @40%- Sp02 88- low 90s. Pt a/ox3. Pt tolerating BIPAP being removed for oral care/ sips of water.
--- NOTE | 2016-12-27 05:18 | ABG ---
DateTimeAnalyzed 05:10:00 -_ pH ____7.475 - 7.350 7.450 pCO2 ___29.1__ -mmHg 35.0 45.0 pO2 ___73.3__ -mmHg 69.0 116 HCO3- ___21.2__ -mmol/L 22.0 26.0 ABE ___-1.3__ -mmol/L -2.0 2.0 tHb ___10.1__ -g/dL O2Hb ___93.4__ -% COHb ____1.5__ -% MetHb ____0.9__ -% sO2 ___95.7__ -% 25.0 FIO2 ___40.0__ -% CPAP ___12.0__ -cmH2O PEEP ____6.0__ -cmH2O Set_RR ___20.0__ -b/min Drawn By MK - Date/Time Notified____ 05:17:00 -_ Spontaneous_RR ___26.0__ -b/min Oxygen Device 1 ____BIPAP - B 760 -mmHg tO2 ___13.4__ -Vol% Reza test _Positive -
[2016-12-27] MEDS: Albuterol-Ipratropium 3 mL Inhalation Solution NEB SCH ×4 (05:19→20:22)
[2016-12-27] MEDS: 0.9% Sodium Chloride 1,000 ML IV SCH (07:15)
[2016-12-27] MEDS: Diltiazem Inj 125 MG in Dextrose 5% 100 ML IV SCH ×2 (08:14→17:16)
[2016-12-27] MEDS: MethylprednisoLONE Sodium Succinate 40 mg/mL Inj IVPUSH SCH ×2 (08:14→20:29)
[2016-12-27] MEDS: Thiamine Inj 100 MG in Dextrose 5% 50 ML IV SCH (08:14)
[2016-12-27] MEDS: Insulin LISPRO 300 Unit/3 mL Inj SUBQ SCH ×4 (08:18→20:33)
--- NOTE | 2016-12-27 10:10 | NUR ---
NUTRITION ASSESSMENT Assess: 71 yo M w/ acute respiratory failure related to COPD and pneumonia. Pt requiring BiPAP. PO intake has been poor. Visited pt while trialing PO intake on nasal cannula. Pt amenable to having Glucerna sent to boost protein/calorie intake. PMHx: DM 2, HTN, Dyslipidemia, Afib, COPD, Diverticulosis, Prostate cancer LABS: Reviewed. Na 146, BUN 41, Glu 240, Ca 7.6 MEDICATIONS: Reviewed. Solumedrol, Thiamine, Folic Acid, Insulin DIET: Consistent Carb, PO 10-50% NUTRITION FOCUSED PHYSICAL ASSESSMENT: GI symptoms/stool: BM x1 12/26Braden: 16 Skin integrity: No issues noted Overall Appearance: Obese man eating breakfast w/ nasal cannula in place - no signs of wasting. ANTHROPOMETRICS: Current Wt: 100.6 kg BMI: 30.1 kg.[id number] Wt: 100.6 kg IBW: 80.9 kgRecent wt changes: None noted ESTIMATED NEEDS: COPD/BMI Calories: 2787-1566 kcal/d (22-25 kcal/kg/d) Protein: 120-145 g/d (1.5-1.8 g/kg/d IBW) Fluids: 7622-3272 ml/d (22-25 ml/kcal/d) NUTRITION DIAGNOSIS: 1) Increased nutrient needs related to increased work of breathing as evidenced by COPD. 2) Inadequate PO intake related to acute illness as evidenced by need for BiPAP and PO intake of 10-50%. INTERVENTION: 1) Will send Glucerna TID. MONITOR/EVALUATE: PO intake, Labs, Wt, Nutrition status, POC. Will follow per moderate nutrition risk guidelines.
--- NOTE | 2016-12-27 10:55 | DRSVH ---
PROCEDURE: X-RAY CHEST ONE VIEW, PORTABLE ([id number]) INDICATIONS: Respiratory failure TECHNIQUE: One view of the chest was acquired. COMPARISON: [facility], CR, XR CHEST 1VW (PORTABLE), 12/25/2016, 14:35. FINDINGS: Surgical changes and devices: None. Lungs and pleura: Lung volumes and increased and there is persistent widespread, bilateral interstiti al and airspace opacities, right greater than left. Mediastinum: Mediastinal contours appear normal. Heart size is normal. Bones and chest wall: No suspicious bony lesions. Overlying soft tissues appear unremarkable. IMPRESSION: Pulmonary edema and/or diffuse bilateral pneumonia similar to prior examination. Dictated by: Brian Wilson RR Interpreted: Pernell Garcia MD on 12/27/2016 at 10:53 Transcribed by: MAHSA on 12/27/2016 at 10:54 Approved by: Pernell Garcia M.D. on 12/27/2016 at 16:22
--- NOTE | 2016-12-27 12:01 | NUR ---
Evaluation completed. Please go to "Notes" then click on "Assessments and Notes" (bottom left corner of screen). Then select appropriate discipline tab on top of screen.
[2016-12-27] MEDS ORDERED: Insulin GLARgine 100 Unit/mL Syringe SUBQ ONE (12:05)
--- NOTE | 2016-12-27 12:31 | NUR ---
took over patient care 1230pm
[2016-12-27] MEDS: cefTRIAXone Inj 2,000 MG in Dextrose 5% Minibag Plus 50 ML IV SCH (14:55)
[2016-12-27] MEDS: LORazepam 0.5 mg Tablet PO PRN (18:15)
--- NOTE | 2016-12-27 18:19 | NUR ---
Bipap/O2/Anxiety The pt was on bipap @40% for approx 50% of the day, and on 10-14L oxymask the rest of the day. The pt was able to alert staff as to when he felt the need to be back on bipap, and was able to eat without significant desat's. He got up with PT to the side of the bed, and began to desat, needing bipap to recover. This evening, he became anxious on bipap, and was given lorazepam to help.
--- NOTE | 2016-12-27 19:03 | PCM.PNMED ---
Subjective Date of Service Dec 27, 2016 Subjective Patient is a 71 year-old man with COPD not on oxygen at home who presented to the hospital with worsening difficulty breathing for 4 days. In the ED, he had an O2 saturation of mid-80s. This is day 3. Overnight events: Patient has history of paroxysmal afib and overnight his heart flipped into A fib with RvR, started to require increasing amounts of O2 from 7L to 14L and was subsequently placed on BiPAP. Today: Patient remains on BiPAP. Exam Vital Signs Vital Sign - Last Date Time Temp Pulse Resp B/P Pulse Ox O2 Delivery O2 Flow Rate FiO2 12/27/16 16:20 36.9 80 18 137/65 91 BiPAP 40 12/27/16 12:00 12.00 Intake and Output 12/26/16 12/26/16 12/27/16 Cumulative From/Thru 15:00 23:00 07:00 12/24/16 14:40 - 12/27/16 05:18 Intake Total 582 ml 777 ml 6840 ml Output Total 1100 ml 400 ml 4450 ml Balance -518 ml 377 ml 2390 ml Intake Oral 200 ml 0 ml 2120 ml IV Total 382 ml 777 ml 4720 ml Output Urine Total 1100 ml 400 ml 4450 ml # Voids 1 # Bowel Movements 1 1 Exam General: Obese man lying in bed with respiratory needs supported with BIPAP at 40 % FiO2.. HEENT: sclerae anicteric. Neck: Trachea is midline, no tenderness, no cervical lymphadenopathy, no JVD Chest: No use of accessory muscles of respiration. Lung: Decreased air entry bilaterally, course breath sounds, bilateral expiratory wheezing. No crackles. Heart: S1, S2 regular rate and rhythm, no gallop, no murmur. Abdomen: Audible bowel sounds present, obese, nontender, distended. Extremity: No LE edema, no calf tenderness, no cyanosis. Skin: No rash, no ulcers. IVs and Medications Medications Reviewed: Medications were reviewed in detail Lab and Diagnostics Result Diagram: 12/27/1624012/27/16240 Microbiology Blood culture: Negative first 24 hours Urine culture: Strep pneumonia + RSV + X-Rays, CTs and MRIs Chest x-ray reviewed IMPRESSION: Mild increased prominence of streaky opacities within the bases. Developing infiltrates, atelectasis or focal edema cannot be excluded. Assessment & Plan Patient is a 71 year-old man with COPD not on oxygen at home who presented to the hospital with worsening difficulty breathing for 4 days. In the ED, he had an O2 saturation of mid-80s. This is day 3. 1. Acute hypoxic respiratory failure, present on admission. Active. - Placed on BiPAP at night. - DuoNeb every 6 hours, albuterol PRN every 2 hours, acapella - Respiratory failure is due to bacterial and viral pneumonia and COPD exacerbation. - Telemetry 2. Community acquired bibasilar pneumonia, RSV+, Strep pneumonia antigen positive, acute, present on admission. - Azithromycin and Ceftriaxone daily - Infectious disease following, time and recommendations appreciated. - Rapid flu negative, blood cultures pending, legionella and strep antigens pending, MRSA pending - Repeat x-ray today: Right-sided pneumonia is greater than on the left and both lungs have pneumonia infiltration within the middle and lower thirds of the parenchyma. No effusion is seen. - Procalcitonin 4.79 3. COPD exacerbation, acute, present on admission - Bronchodilators as above #1 - Solu-Medrol 40 mg IV daily. - Smoking cessation counseling provided 4. Sepsis, present on admission, Resolved. - Fever 38.8; HR 108; RR 23 - Lactic acidosis 2.8 initially, now normal - IV NS 100ml/hr initially now 80 ml/hr - Treat underlying condition Chronic: 5. Obesity, BMI 32 6. Alcohol use disorder, present on admission, chronic - Patient stated to nurse has not had alcohol in three weeks, but unknown if that is true - Ativan 0.5mg Q 8 hrs PRN - Consider CIWA - Thiamine 100mg IV daily X 2 days then PO - Folate 7. Insulin-using diabetes mellitus type II - A1c 7.1 - Diabetic diet. - Home insulin: patient uses 11 units lantus and 5 units humalog prior to meals daily unless his BG is normal than he skips the 5 units. - Reviewed in-house blood glucose readings and changed to 20 units lantus HS, 10 lantus daily, and 4 units of nutritional insulin plus a High dose correction scale - Continue to review and adjust 8. Hypertension : Continue home antihypertensive medication 9. Prostate cancer : Continue Becalutamide and Flomax 10. Paroxysmal atrial fibrillation converted to Afib with RVR. - Continue Diltiazem ggt. - Curently normal sinus rhythm. - On aspirin. - Not on anticoagulation for unknown reasons. Will investigate this further prior to discharge - Telemetry 11. Hyperlipidemia: - Patient not on a statins. Will investigate this further prior to discharge 12. Tobacco use disorder, present on admission, chronic. - Nicotine patch Heparin for DVT prophylaxis [facility] in 3-4 days anticipated and recovery is expected. Disposition Home +/- oxygen Pain Evaluation: Adequate Pain Control VTE Prophylaxis: Sub-Q Enoxaparin VTE Mechanical Devices: Venous Foot Pump Resuscitation Status: CPR: Attempt Resuscitation Attending Statement The patient was seen and examined together with Dr. Waddell on 12/27/2016 and I agree with the history, exam and plan as outlined in the note above. . DAVI WADDELL DO Dec 27, 2016 19:03 Tyler Kimbrough MD Dec 29, 2016 08:33
[2016-12-27] MEDS: Insulin GLARgine 100 Unit/mL Syringe SUBQ SCH (20:30)
[2016-12-28] VITALS (19 sets, daily range): BP systolic 128–164; BP diastolic 58–112; PULSE 72–108; RESP 17–27; O2SAT 87–94
[2016-12-28] MEDS: Albuterol-Ipratropium 3 mL Inhalation Solution NEB SCH ×4 (02:30→20:39)
[2016-12-28 03:24] LABS: BASOPHILS % (AUTO) 0.1 % (0-3); EOSINOPHILS % (AUTO) 0 % (0-5); MONOCYTES % (AUTO) 5.4 % (4-12); Mean Corpuscular Hemoglobin 37.2 pg (27.0-35.0); Mean Corpuscular Volume 108.8 fL (81-100); NEUTROPHILS % (AUTO) 84.8 % (40-74); Platelet Count 142 bil/L (150-400)
[2016-12-28] MEDS: 0.9% Sodium Chloride 1,000 ML IV SCH ×2 (03:26→18:06)
--- NOTE | 2016-12-28 06:05 | NUR ---
Bipap and Diltazem Patient rested comfortably in bed for most of the night and remained on bipap. Patient had short periods of time where he was transferred to the oxymask to take a rest and drink fluids. Patient maintained O2 saturations between 88-93%. Patient denies shortness of breath at rest. Patient remained in Afib on the monitor with a rate mostly in the 70-90s. Diltazem drip infusing at 15ml/hr and patient tolerating well. NS infusing at 60ml/hr and patient tolerating well. Vitals remained stable throughout the night.
[2016-12-28] MEDS ORDERED: Insulin GLARgine 100 Unit/mL Syringe SUBQ SCH (08:30)
[2016-12-28] MEDS: Insulin LISPRO 300 Unit/3 mL Inj SUBQ SCH ×4 (08:56→20:36)
--- NOTE | 2016-12-28 10:00 | NUR ---
V-tach 0935 pt had 5 beats V-tach per pressure testing technician; K+ 5.1. made aware in rounds this AM. No new orders. Will continue to monitor with frequent rounds.
[2016-12-28] MEDS: Diltiazem Inj 125 MG in Dextrose 5% 100 ML IV SCH ×2 (10:06→18:23)
[2016-12-28] MEDS: MethylprednisoLONE Sodium Succinate 40 mg/mL Inj IVPUSH SCH (10:10)
[2016-12-28] MEDS: LORazepam 0.5 mg Tablet PO PRN ×2 (10:54→16:39)
[2016-12-28] MEDS: Thiamine Inj 100 MG in Dextrose 5% 50 ML IV SCH (10:54)
[2016-12-28] MEDS: Albuterol 2.5 mg/3 mL Inhalation Solution NEB PRN (12:45)
[2016-12-28] MEDS: cefTRIAXone Inj 2,000 MG in Dextrose 5% Minibag Plus 50 ML IV SCH (15:12)
--- NOTE | 2016-12-28 16:55 | PCM.PNMED ---
Subjective Date of Service Dec 28, 2016 Subjective Patient is a 71 year-old man with COPD not on oxygen at home who presented to the hospital with worsening difficulty breathing for 4 days. In the ED, he had an O2 saturation of mid-80s. This is day 4. Overnight events: Patient has history of paroxysmal afib and overnight his heart flipped into A fib with RvR, started to require increasing amounts of O2 from 7L to 14L and was subsequently placed on BiPAP. Today: Patient continuing to require either BiPAP/oxymask at 14 L/ or High flow O2. Exam Vital Signs Vital Sign - Last Date Time Temp Pulse Resp B/P Pulse Ox O2 Delivery O2 Flow Rate FiO2 12/28/16 15:57 36.9 98 128/60 92 High flow 12/28/16 12:47 26 14.00 12/28/16 09:03 40 Intake and Output 12/27/16 12/27/16 12/28/16 Cumulative From/Thru 15:00 23:00 07:00 12/24/16 14:40 - 12/28/16 06:47 Intake Total 1756 ml 2586 ml 30184 ml Output Total 1050 ml 750 ml 6250 ml Balance 706 ml 1836 ml 4932 ml Intake Oral 1756 ml 637 ml 4513 ml IV Total 1949 ml 6669 ml Output Urine Total 1050 ml 750 ml 6250 ml # Voids 1 # Bowel Movements 1 Exam General: Obese man lying in bed with respiratory needs supported with BIPAP at 40 % FiO2.. HEENT: sclerae anicteric. Neck: Trachea is midline, no tenderness, no cervical lymphadenopathy, no JVD Chest: No use of accessory muscles of respiration. Lung: Decreased air entry bilaterally, course breath sounds, bilateral expiratory wheezing. No crackles. Heart: S1, S2 regular rate and rhythm, no gallop, no murmur. Abdomen: Audible bowel sounds present, obese, nontender, distended. Extremity: No LE edema, no calf tenderness, no cyanosis. Skin: No rash, no ulcers. IVs and Medications Medications Reviewed: Medications were reviewed in detail Lab and Diagnostics Result Diagram: 12/28/162 12/28/16 0242 Microbiology Blood culture: Negative first 24 hours Urine culture: Strep pneumonia + RSV + X-Rays, CTs and MRIs Chest x-ray reviewed IMPRESSION: Mild increased prominence of streaky opacities within the bases. Developing infiltrates, atelectasis or focal edema cannot be excluded. Assessment & Plan Patient is a 71 year-old man with COPD not on oxygen at home who presented to the hospital with worsening difficulty breathing for 4 days. In the ED, he had an O2 saturation of mid-80s. This is day 4. 1. Acute hypoxic respiratory failure, present on admission. Active. - Placed on BiPAP at night. - DuoNeb every 6 hours, albuterol PRN every 2 hours, acapella - Respiratory failure is due to bacterial and viral pneumonia and COPD exacerbation. - Telemetry 2. Community acquired bibasilar pneumonia, RSV+, Strep pneumonia antigen positive, acute, present on admission. - Azithromycin and Ceftriaxone daily - Infectious disease following, time and recommendations appreciated. - Rapid flu negative, blood cultures pending, legionella and strep antigens pending, MRSA pending - Repeat x-ray today: Right-sided pneumonia is greater than on the left and both lungs have pneumonia infiltration within the middle and lower thirds of the parenchyma. No effusion is seen. - Procalcitonin 4.79 (12/26) 3. COPD exacerbation, acute, present on admission - Bronchodilators as above #1 - Solu-Medrol 40 mg IV daily. - Will transition to prednisone tomorrow PO - Smoking cessation counseling provided 4. Sepsis, present on admission, Resolved. - Fever 38.8; HR 108; RR 23 - Lactic acidosis 2.8 initially, now normal - IV NS 100ml/hr initially now 80 ml/hr - Treat underlying condition Chronic: 5. Obesity, BMI 32 6. Alcohol use disorder, present on admission, chronic - Patient stated to nurse has not had alcohol in three weeks, but unknown if that is true - Ativan 0.5mg Q 8 hrs PRN - Consider CIWA - Thiamine 100mg IV daily X 2 days then PO - Folate 7. Insulin-using diabetes mellitus type II - A1c 7.1 - Diabetic diet. - Home insulin: patient uses 11 units lantus and 5 units humalog prior to meals daily unless his BG is normal than he skips the 5 units. - Reviewed in-house blood glucose readings and changed to 20 units lantus HS, 20 lantus daily, and 4 units of nutritional insulin plus a High dose correction scale - Continue to review and adjust 8. Hypertension : Continue home antihypertensive medication 9. Prostate cancer : Continue Becalutamide and Flomax 10. Paroxysmal atrial fibrillation converted to Afib with RVR. - Continue Diltiazem ggt. - Curently normal sinus rhythm. - On aspirin. - Not on anticoagulation for unknown reasons. Will investigate this further prior to discharge - Telemetry 11. Hyperlipidemia: - Patient not on a statins. Will investigate this further prior to discharge 12. Tobacco use disorder, present on admission, chronic. - Nicotine patch Heparin for DVT prophylaxis [facility] in 3-4 days anticipated and recovery is expected. Disposition Home +/- oxygen Pain Evaluation: Adequate Pain Control VTE Prophylaxis: Sub-Q Enoxaparin VTE Mechanical Devices: Intermittant Pneumatic CD, Venous Foot Pump Resuscitation Status: CPR: Attempt Resuscitation Attending Statement The patient was seen and examined together with Dr. Waddell on 12/28/2016 and I agree with the history, exam and plan as outlined in the note above. . DAVI WADDELL DO Dec 28, 2016 16:55 Tyler Kimbrough MD Dec 29, 2016 08:33
--- NOTE | 2016-12-28 17:07 | NUR ---
Social Work: Continued Discharge Planning D: Pt discussed in am rounds. Pt is not medically stable for discharge; team is still working to control pt's heart rate, correct pt's glucose and addressing pt's increase 02 needs. Pt anticipated to be here through the weekend. PT evaluation was completed with pt on 12/27 at this time recommendation is for SNF as pt is unable to ambulate further than EOB without unsafe desaturation of 02. THERAPEUTIC CASE MANAGER met with pt at bedside to discuss SNF option. SNF Choice List Provided. Pt is reviewing and would like to see how his ambulation progresses as his 02 needs and heart rate improves. A: Pt who was previously I at lives at home with his spouse. P: Evolving; THERAPEUTIC CASE MANAGER to follow closely; pt to likely require skilled rehab if unable to safely ambulate. THERAPEUTIC CASE MANAGER to r/o 02 needs at time of discharge. BRETT Toney
[2016-12-28] MEDS: Insulin GLARgine 100 Unit/mL Syringe SUBQ SCH (20:26)
--- NOTE | 2016-12-28 22:26 | NUR ---
HIGH FLOW/BIPAP/RIGHT TOE Pt has tolerated high flow nasal cannula @ 60% 60L quite well this evening. Pt started coughing more around 2200, which caused the pt to become slightly SOB. Pt became slightly anxious and requested to go back on BiPAP. During physical assessment pt had right big toe wrapped with tape, which he says he did himself. RN removed tape, pt's right big toe is discolored and toe nail is quite loose. No dressing applied at this time. No other issues noted. Dilt gtt still running @ 15ml/hr and NS @ 60. Blood sugars 309 @ HS, sliding scale 7 units and 20 units Lantus given. Addendum: 12/29/16 at 0420 by ALFRED WILKINS RN HIGH FLOW/BIPAP Pt requested to be taken off the BiPAP around 0400. Back to high flow 60% 60L. No other issues noted at this time.
[2016-12-29] VITALS (19 sets, daily range): BP systolic 134–184; BP diastolic 61–86; PULSE 80–106; RESP 18–26; O2SAT 90–97
[2016-12-29] MEDS: Albuterol 2.5 mg/3 mL Inhalation Solution NEB PRN ×2 (01:18→11:58)
[2016-12-29 02:46] LABS: BASOPHILS % (AUTO) 0.5 % (0-3); EOSINOPHILS % (AUTO) 0 % (0-5); MONOCYTES % (AUTO) 9.3 % (4-12); Mean Corpuscular Hemoglobin 37.5 pg (27.0-35.0); Mean Corpuscular Volume 113.8 fL (81-100); Platelet Count 143 bil/L (150-400)
[2016-12-29] MEDS: Diltiazem Inj 125 MG in Dextrose 5% 100 ML IV SCH ×2 (02:49→10:43)
[2016-12-29] MEDS: Albuterol-Ipratropium 3 mL Inhalation Solution NEB SCH ×4 (03:16→20:27)
--- NOTE | 2016-12-29 04:29 | ABG ---
DateTimeAnalyzed 04:23:00 -_ pH ____7.498 - 7.350 7.450 pCO2 ___29.7__ -mmHg 35.0 45.0 pO2 ___60.4__ -mmHg 69.0 116 HCO3- ___22.8__ -mmol/L 22.0 26.0 ABE ____0.5__ -mmol/L -2.0 2.0 tHb ____9.6__ -g/dL O2Hb ___90.6__ -% COHb ____1.7__ -% MetHb ____0.8__ -% sO2 ___92.9__ -% 25.0 FIO2 ___40.0__ -% Pressure_Support ___12.0__ -cmH2O PEEP ____6.0__ -cmH2O Vt __890.0__ -L Drawn By cf - Date/Time Notified____ 04:28:00 -_ Spontaneous_RR ___26.0__ -b/min Oxygen Device 1 ____BIPAP - Notified By cf - Notified Whom ___Dr. Mccart - B 751 -mmHg tO2 ___12.2__ -Vol% Reza test _Positive -
--- NOTE | 2016-12-29 07:51 | DRSVH ---
PROCEDURE: X-RAY CHEST ONE VIEW, PORTABLE ([id number]) INDICATIONS: dyspnea TECHNIQUE: One view of the chest was acquired. COMPARISON: [facility], CR, XR CHEST 1VW (PORTABLE), 12/24/2016, 14:37. [facility], CR, XR CHEST 1VW (PORTABLE), 12/27/2016, 4:29. FINDINGS: Surgical changes and devices: property assessment monitor leads are seen over the chest. Lungs and pleura: There is minimal thickening of the minor fissure. No effusions are seen otherwise. There are prominent central lung markings and there is some patchy area of density in the right mid l bonnie field. Mediastinum: Mediastinal contours appear normal. Heart size is normal. Bones and chest wall: No suspicious bony lesions. Overlying soft tissues appear unremarkable. IMPRESSION: X-ray findings are suspicious for pneumonia than failure with slight worsening in the rig ht midlung field. Dictated by: Bo Davidson M.D. on 12/29/2016 at 7:48 Approved by: Bo Davidson M.D. on 12/29/2016 at 7:50
[2016-12-29] MEDS: Insulin LISPRO 300 Unit/3 mL Inj SUBQ SCH ×4 (08:35→20:18)
[2016-12-29] MEDS: Insulin GLARgine 100 Unit/mL Syringe SUBQ SCH ×2 (08:35→20:17)
[2016-12-29] MEDS: MethylprednisoLONE Sodium Succinate 40 mg/mL Inj IVPUSH SCH (08:36)
--- NOTE | 2016-12-29 10:00 | NUR ---
[facility] Signed
[2016-12-29] MEDS: 0.9% Sodium Chloride 1,000 ML IV SCH (12:13)
[2016-12-29] MEDS: cefTRIAXone Inj 2,000 MG in Dextrose 5% Minibag Plus 50 ML IV SCH (14:42)
--- NOTE | 2016-12-29 15:51 | NUR ---
Social Work: Continued Discharge Planning D: Pt discussed with . SNF recommendation was reviewed with MD. MD does not feel pt will require SNF at discharge based. He anticipates that as pt's respiratory and HR is controlled, pt will be able to get back to his baseline mobility. He anticipates pt will likely require 3-5 more days of hospitalization as his progress is slow. A: Pt who is I at baseline. P: Anticipate pt to discharge home when medically stable pending safe demonstration of ambulation; R/o and [place] [phone] for pt at d/c. Gali Solomon MSW
[2016-12-29] MEDS: LORazepam 0.5 mg Tablet PO PRN (15:56)
--- NOTE | 2016-12-29 18:11 | PCM.PNMED ---
Subjective Date of Service Dec 29, 2016 Subjective Overnight: Pt was on high flow nasal cannula but developed worsening cough/ shortness of breath and was placed back on BiPAP. He has been weaning off the diltiazem drip. Today: This morning, he was able to return to high flow nasal cannula without difficulties and is fairly comfortable at this time. He reports some mild shortness of breath but denies chest pain, fevers, chills, N/V/D, coughing, wheezing. Exam Vital Signs Vital Sign - Last Date Time Temp Pulse Resp B/P Pulse Ox O2 Delivery O2 Flow Rate FiO2 12/29/16 15:41 36.9 103 24 168/61 90 high flow 12/29/16 15:16 65 45 Intake and Output 12/28/16 12/28/16 12/29/16 Cumulative From/Thru 15:00 23:00 07:00 12/24/16 14:40 - 12/29/16 06:11 Intake Total 1320 ml 1530 ml 62432 ml Output Total 1675 ml 1200 ml 9125 ml Balance -355 ml 330 ml 4907 ml Intake Oral 470 ml 700 ml 5683 ml IV Total 850 ml 830 ml 8349 ml Output Urine Total 1675 ml 1200 ml 9125 ml # Voids 1 # Bowel Movements 2 3 Exam General: Obese man lying in bed with respiratory needs supported with nasal cannula. HEENT: Sclerae anicteric. Neck: Trachea is midline, no tenderness, no cervical lymphadenopathy, no JVD Chest: No use of accessory muscles of respiration. Lung: Decreased air entry bilaterally, course breath sounds, bilateral expiratory wheezing. No crackles. Heart: S1, S2 regular rate and rhythm, no gallop, no murmur. Abdomen: Audible bowel sounds present, obese, nontender, distended. Extremity: No LE edema, no calf tenderness, no cyanosis. Skin: No rash, no ulcers. Lab and Diagnostics Result Diagram: 12/29/16 0236 12/29/16 0236 Microbiology Blood culture: Negative first 24 hours Urine culture: Strep pneumonia + RSV + X-Rays, CTs and MRIs Chest x-ray reviewed IMPRESSION: Mild increased prominence of streaky opacities within the bases. Developing infiltrates, atelectasis or focal edema cannot be excluded. Assessment & Plan Patient is a 71 year-old man with COPD not on oxygen at home who presented to the hospital with worsening difficulty breathing for 4 days. 1. Acute hypoxic respiratory failure, present on admission. Active. - Respiratory failure is due to bacterial and viral pneumonia and COPD exacerbation. - Placed on BiPAP at night. - DuoNeb every 6 hours, albuterol PRN every 2 hours, acapella - Telemetry 2. Community acquired bibasilar pneumonia, RSV+, Strep pneumonia antigen positive, acute, present on admission. - Azithromycin and Ceftriaxone daily - Infectious disease following, time and recommendations appreciated. - Rapid flu negative, blood cultures pending, legionella and strep antigens pending, MRSA pending - Repeat x-ray today: Right-sided pneumonia is greater than on the left and both lungs have pneumonia infiltration within the middle and lower thirds of the parenchyma. No effusion is seen. - Procalcitonin 4.79 (12/26) 3. COPD exacerbation, acute, present on admission - Bronchodilators as above #1 - Solu-Medrol 40 mg IV daily. - Will transition to prednisone tomorrow PO - Smoking cessation counseling provided 4. Paroxysmal atrial fibrillation converted to Afib with RVR. - Diltiazem drip - switching to Diltiazem 60 mg PO q6h - On aspirin. - Not on anticoagulation for unknown reasons. Will investigate this further prior to discharge - Telemetry 5. Sepsis, present on admission, Resolved. - Fever 38.8; HR 108; RR 23 - Lactic acidosis 2.8 initially, now normal - IV NS 100ml/hr initially now 80 ml/hr - Treat underlying condition 6. Alcohol use disorder, present on admission, chronic - Patient stated to nurse has not had alcohol in three weeks, but unknown if that is true - Ativan 0.5mg Q 8 hrs PRN - Consider CIWA - Thiamine 100mg IV daily X 2 days then PO - Folate 7. Insulin-using diabetes mellitus type II - A1c 7.1 - Diabetic diet. - Home insulin: patient uses 11 units lantus and 5 units humalog prior to meals daily unless his BG is normal than he skips the 5 units. - Reviewed in-house blood glucose readings and changed to 20 units lantus HS, 20 lantus daily, and 4 units of nutritional insulin plus a High dose correction scale - Continue to review and adjust 8. Hypertension : Continue home antihypertensive medication 9. Prostate cancer : Continue Becalutamide and Flomax 10. Hyperlipidemia: - Patient not on a statins. Will investigate this further prior to discharge 11. Tobacco use disorder, present on admission, chronic. - Nicotine patch 12. Obesity, BMI 32 Hospital discharge in 3-4 days anticipated and recovery is expected. Disposition Home +/- oxygen VTE Prophylaxis: Sub-Q Enoxaparin VTE Mechanical Devices: Intermittant Pneumatic CD Resuscitation Status: CPR: Attempt Resuscitation Attending Statement The patient was seen and examined together with Dr. Meraz on 12/29/2016 and I agree with the history, exam and plan as outlined in the note above. . Cisco Meraz Dec 29, 2016 18:11 Tyler Kimbrough MD Jan 11, 2017 16:40
[2016-12-30] VITALS (13 sets, daily range): BP systolic 102–160; BP diastolic 59–80; PULSE 87–120; RESP 18–30; O2SAT 92–99
[2016-12-30 02:46] LABS: BASOPHILS % (AUTO) 0.4 % (0-3); EOSINOPHILS % (AUTO) 0.1 % (0-5); MONOCYTES % (AUTO) 10.4 % (4-12); Mean Corpuscular Hemoglobin 37.1 pg (27.0-35.0); Mean Corpuscular Volume 112.2 fL (81-100); NEUTROPHILS % (AUTO) 71.1 % (40-74); Platelet Count 150 bil/L (150-400)
[2016-12-30] MEDS: Albuterol-Ipratropium 3 mL Inhalation Solution NEB SCH ×4 (04:13→21:53)
[2016-12-30] MEDS: 0.9% Sodium Chloride 1,000 ML IV SCH (05:15)
--- NOTE | 2016-12-30 05:48 | NUR ---
Bipap and high flow Patient spent most of my shift on the bipap and reported that he was feeling well. Intermittently the patient requested to transferred onto high flow to give him a break from the bipap. Patient maintained O2 saturations in the 90s and denied SOB. Patient slept for most of my shift.
[2016-12-30] MEDS: LORazepam 0.5 mg Tablet PO PRN ×4 (06:05→20:19)
[2016-12-30] MEDS: Insulin LISPRO 300 Unit/3 mL Inj SUBQ SCH ×4 (08:00→22:07)
[2016-12-30] MEDS: MethylprednisoLONE Sodium Succinate 40 mg/mL Inj IVPUSH SCH (09:15)
[2016-12-30] MEDS: Insulin GLARgine 100 Unit/mL Syringe SUBQ SCH ×2 (09:15→22:07)
[2016-12-30] MEDS: predniSONE 20 mg Tablet PO SCH (09:50)
--- NOTE | 2016-12-30 11:13 | PCM.PNMED ---
Subjective Date of Service Dec 30, 2016 Subjective Overnight: Pt was on high flow nasal cannula but developed worsening cough/ shortness of breath and was placed back on BiPAP again overnight. He has been weaning off the diltiazem drip. Positive stool cold and black tarry stools overnight. Today: This morning, he was able to return to high flow nasal cannula without difficulties and is fairly comfortable at this time. Patient with good appetite. He reports some mild shortness of breath but denies chest pain, fevers , chills, N/V/D, coughing, wheezing. Exam Vital Signs Vital Sign - Last Date Time Temp Pulse Resp B/P Pulse Ox O2 Delivery O2 Flow Rate FiO2 12/30/16 10:35 119 30 94 Nasal Cannula 50 40 12/30/16 07:47 36.7 156/72 Intake and Output 12/29/16 12/29/16 12/30/16 Cumulative From/Thru 15:00 23:00 07:00 12/24/16 14:40 - 12/30/16 06:14 Intake Total 2525 ml 1774 ml 17262 ml Output Total 2050 ml 2300 ml 05347 ml Balance 475 ml -526 ml 4856 ml Intake Oral 1760 ml 400 ml 7843 ml IV Total 765 ml 1374 ml 05930 ml Output Urine Total 2050 ml 2300 ml 64057 ml # Voids 6 7 # Bowel Movements 2 5 Exam General: Obese man lying in bed with respiratory needs supported with nasal cannula. HEENT: Sclerae anicteric. Neck: Trachea is midline, no tenderness, no cervical lymphadenopathy, no JVD Chest: No use of accessory muscles of respiration. Lung: Decreased air entry bilaterally, course breath sounds, bilateral expiratory wheezing. No crackles. Heart: S1, S2 regular rate and rhythm, no gallop, no murmur. Abdomen: Audible bowel sounds present, obese, nontender, distended. Extremity: No LE edema, no calf tenderness, no cyanosis. Skin: No rash, no ulcers. IVs and Medications Medications Reviewed: Medications were reviewed in detail Lab and Diagnostics Result Diagram: 12/30/1622112/30/16221 Microbiology Blood culture: Negative first 24 hours Urine culture: Strep pneumonia + RSV + X-Rays, CTs and MRIs Chest x-ray reviewed IMPRESSION: Mild increased prominence of streaky opacities within the bases. Developing infiltrates, atelectasis or focal edema cannot be excluded. Cardiac Echo Impressions Echocardiogram Report Interpretation Summary Technically difficult study due to COPD. Valve and LV wall endothelial visualization poor. 1) Mild concentric hypertrohpy with grossly normal left ventricular size and normal systolic function (EF 60-65%). 2) Normal right ventricular size and function. 3) No significant valvular abnormalities. 4) Mildly enlarged ascending aorta (diameter 3.7cm). 5) Hypertension present during the study (BP 152/78). 6) Compared to the Echo done 04/11/2013, no significant change. Assessment & Plan Patient is a 71 year-old man with COPD not on oxygen at home who presented to the hospital with worsening difficulty breathing for 4 days. 1. Acute on chronic hypoxic and hypercapneic respiratory failure, present on admission. Active. - Respiratory failure is due to bacterial and viral pneumonia and COPD exacerbation. - Placed on BiPAP at night. - DuoNeb every 6 hours, albuterol PRN every 2 hours, acapella - Telemetry 2. Community acquired bibasilar pneumonia, RSV+, Strep pneumonia antigen positive, acute, present on admission. - Ceftriaxone daily (12/25 start date). Azithromycin d/c'd on Day 5. - Infectious disease following, time and recommendations appreciated. - Rapid flu negative, blood cultures negative, legionella and strep antigens negative, MRSA negative. - Repeat x-ray today: Right-sided pneumonia is greater than on the left and both lungs have pneumonia infiltration within the middle and lower thirds of the parenchyma. No effusion is seen. - Procalcitonin 4.79 will repeat tomorrow. - CXR pending. 3. COPD exacerbation, acute, present on admission, active. - Bronchodilators as above #1 - 40mg prednisone PO - Smoking cessation counseling provided. - phos and mag pending. 4. Acute anemia, not present on admission. Active. - Patient is hemodynamically stable and drop in hemoglobin most likely represents delusion from IV fluids. However we will continue to watch daily and recommend outpatient follow-up if patient continues to remain stable. - Patient has a history of unknown source of GI bleeding with colonoscopy and polyp removal, several years back. - Patient had some small-volume black tarry stools today and positive physical cold. - Hemoglobin of 9.1 which is considerably dropping from 11.1 on admission. - We will discuss with patient regarding transfusion if necessary. - Following HH, will Transfuse Hgb <7.0 5. Paroxysmal atrial fibrillation converted to Afib with RVR. - Diltiazem 90 mg PO q6h.added low dose metoprolol 12.5mg bid - On aspirin. - Not on anticoagulation as an outpatient to discuss starting upon discharge. We are currently holding anticoagulation due to positive fecal occult stool. - Telemetry. - ECHO as above. Normal EF with out significant changes from previous study 04/11. 6. Sepsis, present on admission, Resolved. - Fever 38.8; HR 108; RR 23 - Lactic acidosis 2.8 initially, now normal - DC IV fluids. - Treat underlying condition 7. Alcohol use disorder, present on admission, chronic - Patient stated to nurse has not had alcohol in three weeks, but unknown if that is true - Ativan 0.5mg Q 8 hrs PRN - Consider CIWA - Thiamine 100mg IV daily X 2 days then PO - Folate 8. Insulin-using diabetes mellitus type II - A1c 7.1 - Diabetic diet. - Home insulin: patient uses 11 units lantus and 5 units humalog prior to meals daily unless his BG is normal than he skips the 5 units. - Reviewed in-house blood glucose readings and changed to 20 units lantus HS, 20 lantus daily, and 4 units of nutritional insulin plus a High dose correction scale - Continue to review and adjust 9. Hypertension : Continue home antihypertensive medication 10. Prostate cancer : Continue Becalutamide and Flomax 11. Hyperlipidemia: - Patient not on a statins. Will investigate this further prior to discharge 12. Tobacco use disorder, present on admission, chronic. - Nicotine patch 13. Obesity, BMI 32 Acetaminophen for mild pain when necessary. Bowel regimen Senna and MiraLAX scheduled and PRN. Zo lilly when necessary for nausea and vomiting. SubQ heparin held for now. SCDs in place. High risk medications: Hospital discharge in 3-4 days anticipated and recovery is expected. Disposition Home +/- oxygen Pain Evaluation: Adequate Pain Control VTE Prophylaxis: Sub-Q Enoxaparin VTE Mechanical Devices: Intermittant Pneumatic CD Resuscitation Status: CPR: Attempt Resuscitation Attending Statement The patient was seen and examined together with Dr. Waddell on 12/30/2016 and I agree with the history, exam and plan as outlined in the note above. . DAVI WADDELL DO Dec 30, 2016 11:13 Jovani Kim MD Dec 30, 2016 18:44
[2016-12-30] MEDS: cefTRIAXone Inj 2,000 MG in Dextrose 5% Minibag Plus 50 ML IV SCH (16:10)
--- NOTE | 2016-12-30 16:52 | DRSVH ---
[facility] [address] [place] [address] Echocardiogram Report Name: JAGDISH MATHIS FStudy Date: 12/30/2016 Height: 72 in Hospital Exam Location: [facility] Weight: 226 lb Gender: Male BSA: 2.2 m2 : 1945 Age: 71 yrs BP: 152/78 mmHg Reason For Study: DYSPNEA History: COPD,SMOKER-CURRENT Ordering Physician: Performed By: Priscila Holt Referring Physician: Mariano Fierro Interpretation Summary Technically difficult study due to COPD. Valve and LV wall endothelial visualization poor. 1) Mild concentric hypertrohpy with grossly normal left ventricular size and normal systolic function (EF 60-65%). 2) Normal right ventricular size and function. 3) No significant valvular abnormalities. 4) Mildly enlarged ascending aorta (diameter 3.7cm). 5) Hypertension present during the study (BP 152/78). 6) Compared to the Echo done 04/11/2013, no significant change. Procedure: A two-dimensional transthoracic echocardiogram with color flow and Doppler was performed. Image quality is very poor due to COPD. A contrast injection of Definity was performed to improve assessment of LV function. A total of 4 cc of contrast was given. Comparison is made with the echocardiogram of 04-11-2013. The patient was in atrial fibrillation with rapid ventricular response during the exam with a heart rate exceeding 100 bpm. The heart rate ranged between 85-138 bpm during the study. The patient did well with the Definity Contrast. No complications were noted. Left Ventricle: The left ventricle is not well visualized. The left ventricle is grossly normal size. There is mild concentric left ventricular hypertrophy. Left ventricular systolic function is normal without focal wall motion abnormalities. The ejection fraction is estimated to be 60-65%. Diastolic function could not be accurately assessed due to atrial fibrillation. Right Ventricle: The right ventricle is not well visualized. The right ventricle grossly appears normal in size with probable normal systolic function. Atria: The left atrium is mildly dilated. The right atrium grossly appears normal in size. Mitral Valve: The mitral valve is grossly normal. There is at least mild mitral regurgitation noted. Best seen from the subcostal 4 chamber view. Aortic Valve: The aortic valve is trileaflet. The aortic valve opens well. There is no aortic valve stenosis. No aortic regurgitation is present. Tricuspid Valve: The tricuspid valve is not well visualized. There is at least trace to mild tricuspid regurgitation noted. Pulmonary artery pressures cannot be estimated because of the lack of a measurable TR jet velocity. Pulmonic Valve: The pulmonic valve is not well visualized. There is no pulmonic valvular regurgitation. Great Vessels: The aortic root is normal size. The ascending aorta is mildly enlarged. The pulmonary is not well visualized. The IVC is dilated (diameter is greater than 2.1 cm) yet it collapses greater than 50% with a sniff. This suggests a right atrial pressure of 8 mm Hg. Pericardium/ Pleura There is no pericardial effusion. There is no pleural effusion. MMode/2D Measurements & Calculations LVIDd: 5.1 cm LA dimension RA long axis LVOT diam IVSd: 1.1 cm LVPWd: 1.2 cm LA A2 area RA area AoV Opening : 16.6 cm Ao root diam LA A4 area RA vol: 43.6 ml RA Aortic Jxn LA length (vol) : 19.4 mm2 asc Aorta Diam LA vol: 80.6 ml LA vol index : 35.9 ml/m2 LV awlden. diameter/BSA (cm/m^2): 2.3 Doppler Measurements & Calculations Ao V2 max MV E max sage Med Peak E' Sage PA V2 max : 131.3 cm/sec : 108.6 cm/sec : 90.9 cm/sec Ao max PG E/E' med: 10.8 PA mean P.1 mmHg : 6.9 mmHg Lat Peak E' Sage PA Accel Time Ao mean PG : 0.07 sec E/E' lat: 7.0 LVOT Max Sage E/e' average: 8.9 : 104.4 cm/sec BALJEET(I,D): 2.5 cm sev ratio Ao V2 mean LV V1 max PG PA V2 mean BALJEET indexed to BSA : 98.8 cm/sec : 70.1 cm/sec (cm^2/m^2): 1.1 Ao V2 VTI: 21.9 cmLV V1 VTI: 16.6 cm BALJEET(V,D): 2.7 cm2 Reading Physician:04:51 PM
--- NOTE | 2016-12-30 19:33 | NUR ---
High Flow/ Positive Guaiac/Afib Cardiac: Pt denies chest pain; Tele: Afib 90-120's with occasional PVC's; Pt switched to Dilt PO last night. Rate trending down through shift. Resp: Pt reports mild SOB at rest. Patient is on high flow titrated down to 35% fio2 and 50L/pm SPo2 93%. GI/: Pt denies N/V. Bowel movement this AM in bedpan, black tarry loose/diarrhea. Guaiac Positive. Neuro: A&Ox3, REYES, answers questions appropriately and follows commands. Pt worked with PT this AM.
[2016-12-30 21:34] LABS: INR 1.07 ratio
--- NOTE | 2016-12-30 23:21 | NUR ---
Bruising Noted purplish bruise to penis. States it is new today, and thinks he did it using the urinal. Also has bruises on arms and abdomen. On Lovenox. notified and orders for labs. These are WNL and HS dose of Lovenox administered per orders.
[2016-12-31] VITALS (16 sets, daily range): BP systolic 104–151; BP diastolic 54–82; PULSE 92–136; RESP 12–22; O2SAT 90–97
[2016-12-31] MEDS: Albuterol-Ipratropium 3 mL Inhalation Solution NEB SCH ×4 (01:50→20:59)
[2016-12-31] MEDS: Diltiazem Inj 125 MG in Dextrose 5% 100 ML IV SCH (02:08)
[2016-12-31] MEDS: LORazepam 0.5 mg Tablet PO PRN ×2 (03:17→18:00)
[2016-12-31 03:40] LABS: Mean Corpuscular Hemoglobin 36.8 pg (27.0-35.0); Mean Corpuscular Volume 112.3 fL (81-100); Platelet Count 174 bil/L (150-400)
[2016-12-31 04:37] LABS: BASOPHILS % (AUTO) 0.3 % (0-3); EOSINOPHILS % (AUTO) 0.3 % (0-5); NEUTROPHILS % (AUTO) 67.2 % (40-74)
--- NOTE | 2016-12-31 04:46 | NUR ---
Pain C/o right groin pain. States he thinks he pulled a muscle when he was working with PT earlier today. Tylenol/ice not effective. Requesting Ibuprofen. Notified MD and received one time order. Given and will assess effectiveness. On bipap much of the night with sats in the mid-90's. Requested to be put back on high flow oxygen this morning. Taking PO cardizem and tele has been afib in 80's and 90's most of the night.
[2016-12-31 05:04] LABS: Magnesium 2.3 mg/dL (1.6-2.6); Phosphorus 5.3 mg/dL (2.5-4.9)
--- NOTE | 2016-12-31 06:35 | NUR ---
Pain/tarry stool States right groin/leg pain is better, but now has low back pain. Applied hot pack to this. States he takes Tramadol at home for this. Also, had dark tarry stool on bedpan. H&H is lower today. MD notified of above. States will consult with day MD regarding both issues.
[2016-12-31] MEDS ORDERED: Pantoprazole 20 mg ER24 Tablet PO SCH (07:30)
[2016-12-31] MEDS: Insulin LISPRO 300 Unit/3 mL Inj SUBQ SCH ×4 (07:53→20:40)
[2016-12-31] MEDS: Insulin GLARgine 100 Unit/mL Syringe SUBQ SCH ×2 (07:54→20:39)
[2016-12-31] MEDS: predniSONE 20 mg Tablet PO SCH (07:54)
--- NOTE | 2016-12-31 10:52 | DRSVH ---
PROCEDURE: X-RAY CHEST ONE VIEW, PORTABLE ([id number]) INDICATIONS: pneumonia r/o fluid overload TECHNIQUE: One view of the chest was acquired. COMPARISON: [facility], CR, XR CHEST 1VW (PORTABLE), 12/29/2016, 4:46. FINDINGS: Surgical changes and devices: None. Lungs and pleura: Interval decrease in airspace opacity involving the right upper lobe and persistent mild bilateral interstitial opacities are present. Mediastinum: Mediastinal contours appear normal. Heart size is normal. Bones and chest wall: No suspicious bony lesions. Overlying soft tissues appear unremarkable. IMPRESSION: Findings suspicious for resolving aspiration or pneumonia within the right upper lung and mild persistent pulmonary edema. Dictated by: Brian Wilson RRA Interpreted: Izabela Stockton MD on 12/31/2016 at 10:51 Transcribed by: DANIELLE on 12/31/2016 at 10:52 Approved by: Izabela Stockton M.D. on 12/31/2016 at 17:24
[2016-12-31] MEDS ORDERED: 0.9% Sodium Chloride 250 ML ONE ×2 (11:30→19:19)
--- NOTE | 2016-12-31 11:31 | NUR ---
NUTRITION FOLLOW UP Assess: 71 yo M w/ acute respiratory failure related to COPD and pneumonia. Pt requiring BiPAP at night and nasal cannula during day. PO intake is improving. Pt amenable to having Glucerna sent to boost protein/calorie intake. Per notes, pt experienced dark, tarry stools last night. GI is being consulted for possible GI bleed. PMHx: DM 2, HTN, Dyslipidemia, Afib, COPD, Diverticulosis, Prostate cancer LABS: Reviewed. BUN 32, Gluc 177, Phos 5.3, Alb 3.2, Procalcitonin 0.20 MEDICATIONS: Reviewed. Folic Acid, Insulin, Prednisone DIET: Diabetic - Consistent Carb, PO 50-75% GI symptoms/stool: BM x 2 (12/30) dark, tarry stools Skin integrity: Vincent 16 - No issues noted ANTHROPOMETRICS: Current Wt: 100.3 kg BMI: 30.0 kg/m2 Admit Wt: 100.6 kg IBW: 80.9 kg ESTIMATED NEEDS: COPD/BMI Calories: 8810-6761 kcal/d (22-25 kcal/kg/d) Protein: 120-145 g/d (1.5-1.8 g/kg/d IBW) Fluids: 7125-4999 ml/d (22-25 ml/kcal/d) NUTRITION DIAGNOSIS: 1) Increased nutrient needs related to increased work of breathing as evidenced by COPD.---PERSISTS 2) Inadequate PO intake related to acute illness as evidenced by need for BiPAP and PO intake of 10-50%.---IMPROVED W/ PO 50-75% INTERVENTION: 1) Will continue to send Glucerna TID to ensure adequate protein and calorie intake. MONITOR/EVALUATE: PO intake, GI, Labs, Wt, Nutrition status, POC. Will follow per moderate nutrition risk guidelines. Addendum: 12/31/16 at [address] I have read and agree with above student documentation. Susan Stover RD, CD.
[2016-12-31] MEDS: Pantoprazole Inj 80 MG in 0.9% Sodium Chloride 80 ML IV SCH ×2 (11:36→20:37)
[2016-12-31] MEDS: HYDROmorphone 0.5 mg/0.5 mL iSecure Syringe IVPUSH PRN ×4 (11:36→22:08)
[2016-12-31] MEDS ORDERED: Furosemide 10 mg/mL 4 mL Inj IVPUSH ONE (12:10)
--- NOTE | 2016-12-31 12:51 | NUR ---
Faxed referral to [facility] per [employer] REPRESENTATIVE
--- NOTE | 2016-12-31 13:12 | PCM.PNMED ---
Subjective Date of Service Dec 31, 2016 Subjective Overnight: Patient reports increased low back pain from PT and lying in bed, similar to his chronic LBP. No acute events overnight. Positive stool cold and black tarry stools continue overnight. Today: This morning, he was tolerating high flow nasal cannula down to 30 %. He remains fairly comfortable at this time. Patient with good appetite. He reports some mild shortness of breath but denies chest pain, fevers, chills, N/V /D, coughing, wheezing. Exam Vital Signs Vital Sign - Last Date Time Temp Pulse Resp B/P Pulse Ox O2 Delivery O2 Flow Rate FiO2 12/31/16 10:02 Supplement Oxygen CPAP/BIPAP 12/31/16 08:58 109 22 95 35 12/31/16 08:58 50 12/31/16 07:45 36.8 151/79 Intake and Output 12/30/16 12/30/16 12/31/16 Cumulative From/Thru 15:00 23:00 07:00 12/24/16 14:40 - 12/31/16 05:00 Intake Total 2310 ml 468 ml 32809 ml Output Total 1050 ml 525 ml 39725 ml Balance 1260 ml -57 ml 6059 ml Intake Oral 2017 ml 468 ml 65616 ml IV Total 293 ml 84864 ml Output Urine Total 1050 ml 525 ml 67375 ml # Voids 7 # Bowel Movements 2 0 7 Exam General: Obese man lying in bed with respiratory needs supported with nasal cannula. HEENT: Sclerae anicteric. Neck: Trachea is midline, no tenderness, no cervical lymphadenopathy, no JVD Chest: No use of accessory muscles of respiration. Lung: Decreased air entry bilaterally, course breath sounds, bilateral expiratory wheezing. No crackles. Heart: S1, S2 regular rate and rhythm, no gallop, no murmur. Abdomen: Audible bowel sounds present, obese, nontender, distended. Extremity: No LE edema, no calf tenderness, no cyanosis. Skin: No rash, no ulcers. IVs and Medications Medications Reviewed: Medications were reviewed in detail Lab and Diagnostics Result Diagram: 12/31/1630912/31/16309 Microbiology Blood culture: Negative first 24 hours Urine culture: Strep pneumonia + RSV + X-Rays, CTs and MRIs Chest x-ray reviewed IMPRESSION: Mild increased prominence of streaky opacities within the bases. Developing infiltrates, atelectasis or focal edema cannot be excluded. Cardiac Echo Impressions Echocardiogram Report Interpretation Summary Technically difficult study due to COPD. Valve and LV wall endothelial visualization poor. 1) Mild concentric hypertrohpy with grossly normal left ventricular size and normal systolic function (EF 60-65%). 2) Normal right ventricular size and function. 3) No significant valvular abnormalities. 4) Mildly enlarged ascending aorta (diameter 3.7cm). 5) Hypertension present during the study (BP 152/78). 6) Compared to the Echo done 04/11/2013, no significant change. Assessment & Plan Patient is a 71 year-old man with COPD not on oxygen at home who presented to the hospital with worsening difficulty breathing for 4 days. He was diagnosed with COPD and RSV + Strep p. pneumonia. 1. Acute on chronic hypoxic and hypercapneic respiratory failure, present on admission. Active. - Respiratory failure is multifactorial :due to bacterial and viral pneumonia and COPD exacerbation. - Placed on BiPAP at night. - DuoNeb every 6 hours, albuterol PRN every 2 hours, acapella - Telemetry - Lasix 40 IV due to signs of fluid overload on CXR . 2. Community acquired bibasilar pneumonia, RSV+, Strep pneumonia antigen positive, acute, present on admission. - Ceftriaxone daily (12/25 start date). Azithromycin daily. - Infectious disease following, time and recommendations appreciated. - Rapid flu negative, blood cultures negative, legionella and strep antigens negative, MRSA negative. - Procalcitonin 4.79 will trending down to 0.20 today. - CXR as above. resolving pneumonia with poss fluid overload. 3. COPD exacerbation, acute, present on admission, active. - Bronchodilators as above #1 - 40mg prednisone PO daily. - Smoking cessation counseling provided. - phos and mag pending. 4. Acute anemia, not present on admission. Active. - Patient is hemodynamically stable and drop in hemoglobin most likely represents delusion from IV fluids. However we will continue to watch daily and recommend outpatient follow-up if patient continues to remain stable. - Patient has a history of unknown source of GI bleeding with colonoscopy and polyp removal, 2013. - Patient had some small-volume black tarry stools today again now for 2-3 days. and positive Fecal occult. - GI consulted, time and recommendations greatly appreciated. - Start PPI ggt. Stop ASA, lovenox. - GI would like to hold off colonoscopy for now, advise medical management and transfusion if needed for now. Will readdress tomorrow. - HH at 1900 tonight. Crossmatch 2 Units today. Transfuse if Hgb is <7.6 5. Paroxysmal atrial fibrillation converted to Afib with RVR. - Diltiazem decreased from 90 mg PO q6h to 30mg PO Q6H. - Increased metoprolol 12.5 mg bid to 25 mg PO BID. - Holding Aspirin, due to low grade GI Bleed. - Not on anticoagulation as an outpatient to discuss starting upon discharge. We are currently holding anticoagulation due to positive fecal occult stool. - Telemetry. - ECHO as above. Normal EF with out significant changes from previous study 04/11. -plan to discharge him on BB which seems to work better for his Afib 6. Sepsis, present on admission, Resolved. - Fever 38.8; HR 108; RR 23 - Lactic acidosis 2.8 initially, now normal - Treat underlying condition 7. Alcohol use disorder, present on admission, chronic - Patient stated to nurse has not had alcohol in three weeks, but unknown if that is true - Ativan 0.5mg Q 8 hrs PRN - Consider CIWA - Thiamine 100mg IV daily X 2 days then PO - Folate 8. Insulin-using diabetes mellitus type II - A1c 7.1 - Diabetic diet. - Home insulin: patient uses 11 units lantus and 5 units humalog prior to meals daily unless his BG is normal than he skips the 5 units. - Reviewed in-house blood glucose readings and changed to 20 units lantus HS, 20 lantus daily, and 4 units of nutritional insulin plus a High dose correction scale - Continue to review and adjust 9. Hypertension : Continue home antihypertensive medication 10. Prostate cancer : Continue Becalutamide and Flomax 11. Hyperlipidemia: - Patient not on a statins. Will investigate this further prior to discharge 12. Tobacco use disorder, present on admission, chronic. - Nicotine patch 13. Obesity, BMI 32 14. chronic liver cirrhosis. - 2nd to ETOH and chronic Hep C. Acetaminophen for mild pain when necessary. Bowel regimen Senna and MiraLAX scheduled and PRN. Zo lilly when necessary for nausea and vomiting. SubQ heparin held for now. SCDs in place. High risk medications: Hospital discharge in 2-3 days anticipated and recovery is expected. Disposition Home with oxygen Pain Evaluation: Adequate Pain Control VTE Prophylaxis: Sub-Q Enoxaparin VTE Mechanical Devices: Intermittant Pneumatic CD Resuscitation Status: CPR: Attempt Resuscitation Attending Statement The patient was seen and examined together with Dr. Waddell on 12/31/2016 and I agree with the history, exam and plan as outlined in the note above. . DAVI WADDELL DO Dec 31, 2016 10:20 Jovani Kim MD Dec 31, 2016 15:59
--- NOTE | 2016-12-31 13:20 | NUR ---
Social Work Note: Continued Discharge Planning Data& Assessment: EMR reviewed. Per PT, pt requires SNF at time of discharge for rehab. SW met with pt at bedside to discuss discharge planning, SNF list provided for preferences. Pt explained that staying close to his home on [address] is important to him. SW explained that [facility] is not able to accept new pt's at this time. SW requested referral be sent to [facility] as that is the second closest facility to his home. Pt plans to review SNF list for other preferences just in case [facility] is unable to accept him. SW to continue to follow. Plan: Anticipated discharge to SNF pending acceptance. [facility] reviewing pt at this time. Pt denies any other needs at this time. SW to continue to follow. BRETT Ravi
[2016-12-31] MEDS: cefTRIAXone Inj 2,000 MG in Dextrose 5% Minibag Plus 50 ML IV SCH (15:46)
[2016-12-31] MEDS ORDERED: Pantoprazole 4 mg/mL 10 mL Inj IVPUSH SCH (16:30)
--- NOTE | 2016-12-31 17:55 | NUR ---
O2/Blood/POC the pt maintained O2 sats in the low to mid 90's on high flow NC (30). HR is still afib in the 100+ - MD's aware and are adjusting medications. 2 units PRBC have been ordered for the pt, and will be given on NOC shift. The POC is to wean down on O2, level out HR, figure out where the GI bleed is, and then to DC to either a SNF or home with home health.
--- NOTE | 2016-12-31 18:56 | PCM.CHPMED ---
Subjective Date of Service: Dec 31, 2016 Primary Physician: Admitting Physician: Sumeet Beltre MD Primary Care Physician: Luther Fierro MD Attending Physician: Sumeet Beltre MD Chief Complaint: Chief Complaint: GI consult note: Black tarry stools History of Present Illness: This is a 71-year-old male with past medical history significant for COPD, diabetes mellitus type II, hypertension, chronic pain with NSAID use, tobacco use, previous hepatitis C infection that was treated, history of GI bleed, and alcoholism who was diagnosed with pneumonia. While in the hospital it was noted that the patient had black tarry stools as well as a hemoglobin that was trending down and GI was consulted. The patient reports his last GI bleed was in 2013 and at that time a colonoscopy and EGD were performed but Dr. Carrion. The colonoscopy showed colon polyps, mild hemorrhoids, and no sign of active bleeding. Pathology showed fragments of tubular adenoma, negative for malignancy The EGD showed proximal duodenopathy, small slight hiatal hernia, but otherwise visually unremarkable EGD. Three year follow-up was recommended and patient was asked to continue a PPI. The patient was also seen by gastroenterology in September of 2015 due to his chronic hepatitis C infection (genotype 2b). He was treated with a 12 week course of Sovaldi and Ribavarin. Ultrasound of patient's abdomen in May 2016 showed echogenic liver consistent with fatty infiltration as well as mild gallbladder wall thickening. The patient states beginning approximately one week ago he began having black tarry stools every day. He denied any bright red blood.. Historically the patient states that his stools are brown, soft and occur daily. He denies any abdominal pain. Patient's home medications include aspirin and meloxicam. Patient states that up until one weeks ago he was drinking 3 glasses of vodka a day with about 3 shots per glass. Of note, the patient was also on alendronate weekly. In the hospital he has been receiving steroids. On admission the patient's hemoglobin was 11.1. Today the patient's hemoglobin is 8.4 with MCV of 112.3 and platelets of 174. INR 1.07. BUN 32, creatinine 0.82. AST 20, ALT 33, alkaline phosphatase 32 and total bilirubin 0.3. Over last 24 hours patient has had two stool occult blood tests that were positive. Along with treating the patient's pneumonia and other medical problems the patient was placed on a PPI drip for possible GI bleed. PMH Past Medical History History of chronic hepatitis C which was treated. History of alcoholism COPD Diabetes mellitus type II History of prostate cancer receiving Lupron Calcium pyrophosphate crystal disease Erectile dysfunction Chronic pain with history of NSAID use Hypertension Hyperlipidemia Paroxysmal atrial fibrillation History of diverticulosis History of macrocytic anemia Bedside Blood Glucose: 234 Surgical History Appendectomy at age of [age] years old. Home Medications albuterol sulfate HFA 90 mcg/actuation aerosol inhaler inhale 2 puff by inhalation route every 4 - 6 hours as needed alendronate 70 mg tablet take 1 tablet by oral route every week in the morning , at least 30 min before first food, beverage, or medication of day amlodipine 5 mg tablet take 1 tablet by oral route every day aspirin 81 mg tablet,delayed release take 1 tablet by oral route every day bicalutamide 50 mg tablet take 2 tablet by oral route every day Calcium 500 500 mg calcium (1,250 mg) chewable tablet 1 po bid cholecalciferol (vitamin D3) 2,000 unit capsule take 1 Capsule by Oral route once per day Flomax 0.4 mg capsule take 1 capsule daily at bedtime FOLIC ACID 1 MG TABLET 1 MG TAB TAKE 1 TABLET DAILY Insulin Syringe Use one withinsulin 4-5 times per day. ketoconazole 2 % shampoo Apply to scalp two times per week, wash off and shower LANTUS 100 UNITS/ML VIAL 100/ML VIAL inject 15 units in the morning and 10 units at bedtime losartan 50 mg-hydrochlorothiazide 12.5 mg tablet take 1 tablet by oral route every day NOVOLOG 100 UNIT/ML VIAL 100/ML VIAL INJECT 5 UNITS 3 TIMES DAILY potassium chloride ER 10 mEq tablet,extended release(part/cryst) TAKE 2 TABLETS TWICE A DAY WITH FOOD. tramadol 50 mg tablet 1 po bid prn hip pain TRAZODONE 50 MG TABLET 50 MG TAB take 1 tablet every evening and 1-2 at bedtime Allergies: Coded Allergies: No Known Allergies (Verified Allergy, Unknown, 06/06/14) Family History Family History Patient denies any history of gastrointestinal cancer in his family. Social History Hx Alcohol Use: YesAlcoholic Drinks Per Day: 1/2 5th vodka per dayHx Substance Use: No Smoking Status: Current Every Day Smoker Heavy Tobacco Smoker Exam Vital Signs Vital Sign - Last Date Time Temp Pulse Resp B/P Pulse Ox O2 Delivery O2 Flow Rate FiO2 12/31/16 12:10 36.8 105 20 143/82 94 high flow 12/31/16 08:58 35 12/31/16 08:58 50 Intake and Output 12/30/16 12/30/16 12/31/16 Cumulative From/Thru 15:00 23:00 07:00 12/24/16 14:40 - 12/31/16 05:00 Intake Total 2310 ml 468 ml 02798 ml Output Total 1050 ml 525 ml 44217 ml Balance 1260 ml -57 ml 6059 ml Intake Oral 2017 ml 468 ml 91362 ml IV Total 293 ml 02806 ml Output Urine Total 1050 ml 525 ml 86385 ml # Voids 7 # Bowel Movements 2 0 7 Additional Information: General: Patient was resting comfortably in hospital bed. HEENT: Normocephalic, atraumatic. External ears without defect. Pupils equal, round, and reactive to light and accommodation. Anicteric sclerae, moist conjunctivae, and no lid lag. Oropharynx free of erythema and cobble stoning with moist mucosa. Neck: Supple with full range of motion. No jugular venous distension. No bruits. No lymphadenopathy or thyromegaly. Cardiovascular: Regular rate and rhythm with no murmurs, rubs, or gallops appreciated Pulmonary: Coarse breath sound and scattered wheezing bilaterally. Normal respiratory effort with no use of accessory muscles. Abdomen: Bowel tones present. Soft, nontender, obese No hepatosplenomegaly or masses appreciated. Extremities: No clubbing, cyanosis, edema, or lymphadenopathy appreciated. Skin: Normal temperature, turgor, and texture; no rash, ulcers, or subcutaneous nodules appreciated. Neurological: Cranial nerves grossly intact. Psychiatric: Normal mood and affect. Lab and Diagnostics Result Diagram: 12/31/16 0310 12/31/16 0310 X-Rays, CTs and MRIs Chest x-ray 12/30/2016: IMPRESSION: Findings suspicious for resolving aspiration or pneumonia within the right upper lung and mild persistent pulmonary edema. Dictated by: Brian RILEY Interpreted: Izabela Stockton MD on 12/31/2016 at 10:51 Assessment & Plan Assessment This is a 71-year-old male with history significant for alcoholism, chronic NSAID use, and history of GI bleed who presented to the GI team with black tarry stools. He states that the black tarry stools began about a week ago and are not accompanied by abdominal pain. Patient does admit to using meloxicam and drinking about 9 shots of vodka per day. He has had a history of GI bleeds with the last in 2013 at which time colonoscopy and EGD were performed and he was asked to follow-up in 3 years. He was also asked to take a PPI which he has not been taking at home. The patient has multiple risk factors for GI bleed. His hemoglobin continues to slowly trend down. On admit his hemoglobin was 11.1 and today his hemoglobin is 8.4. He has 2 positive fecal occult blood tests. At the current moment due to patient's need for high flow oxygen due to underlying COPD with acute pneumonia he is likely not a candidate for a EGD or colonoscopy. Plan: -Trend hemoglobin and hematocrit -Continue PPI drip -Consider transfusion. Will hold on EGD or colonoscopy for now and will reevaluate depending on patient 's hemoglobin and clinical course. - Problems: Pain Evaluation: Adequate Pain Control VTE Prophylaxis: Sub-Q Enoxaparin VTE Mechanical Devices: Intermittant Pneumatic CD Resuscitation Status: CPR: Attempt Resuscitation Attending Statement Patient seen and examined. Agree with assessment and plan as described by Dr Hahn. Patient admitted for numerous cardiopulmonary issues. These are still active with patient O2 dependent. Afib c RVR. Not in great shape for upper endoscopy at present. I suspect NSAID/etoh induced PUD. Will continue to follow and proceed with EGD only if emergency develops with accelerated bleeding symptoms. Otherwise, temporary avoidance of all NSAIDs and aggressive PPI therapy will result in spontaneous hemostasis. Nicholas Hahn DO Dec 31, 2016 13:47 Vernon Carrion MD Dec 31, 2016 21:53
[2016-12-31] MEDS ORDERED: Diltiazem 5 mg/mL 5 mL Inj IV ONE ×2 (22:50)
[2016-12-31] MEDS ORDERED: Diltiazem Inj 125 MG in Dextrose 5% 100 ML IV SCH (23:56)
[2017-01-01] VITALS (24 sets, daily range): BP systolic 100–154; BP diastolic 46–91; PULSE 67–120; RESP 14–25; O2SAT 91–95
[2017-01-01] MEDS: HYDROmorphone 0.5 mg/0.5 mL iSecure Syringe IVPUSH PRN ×5 (01:49→16:12)
[2017-01-01 02:35] LABS: BASOPHILS % (AUTO) 0.3 % (0-3); EOSINOPHILS % (AUTO) 1.3 % (0-5); MONOCYTES % (AUTO) 8.2 % (4-12); Mean Corpuscular Hemoglobin 36.4 pg (27.0-35.0); Mean Corpuscular Volume 112.9 fL (81-100); NEUTROPHILS % (AUTO) 70.1 % (40-74); Platelet Count 204 bil/L (150-400)
[2017-01-01] MEDS: Albuterol-Ipratropium 3 mL Inhalation Solution NEB SCH ×4 (02:43→20:33)
[2017-01-01 02:58] LABS: Phosphorus 7.5 mg/dL (2.5-4.9)
--- NOTE | 2017-01-01 03:00 | NUR ---
Heart rate and diltiazem. Patient heart rate has trended up for several hours and when I came on shift it was sustaining in the 120s, with bursts up to the 140s. Patient is resting comfortably in bed and is free from complaints. Provider Garber was contacted and orders for 10mg of IV push Diltiazem was received. After 10mg of Diltazem the patients heart rate remained elevated. Patient was started back on a Diltazem drip at 5ml/hr and then titrated to 10ml/hr. Patient tolerated well and blood pressures remained stable. Patient heart rate started to trend down shortly after the start of the drip. Patient remains on high flow at 30% fio2 and 40LPM. Saturations are in the low 90s. Patient denies SOB.
[2017-01-01] MEDS: Pantoprazole Inj 80 MG in 0.9% Sodium Chloride 80 ML IV SCH ×2 (05:43→16:10)
--- NOTE | 2017-01-01 07:27 | PCM.PNMED ---
Subjective Date of Service Jan 01, 2017 Subjective GI progress note: This is a 71 year old male who presented to [facility] with numerous cardiopulmonary issues including copd exacerbation, pneumonia, and afib with rvr. The GI team was contacted due to the patient's black stools and hemoglobin that was slowly trending down. Patient had two positive fecal occult stool tests while in the hospital. Last EGD and Colonoscopy in 2013 with three year followup. Overnight patient's hemoglobin trended down from 8.4 yesterday to 7.9 this morning. Today, patient states that he has not yet had a bowel movement. His last bowel movement was yesterday afternoon and described as black. He is tolerating a full liquid diet. He denies any abdominal pain, nausea, vomiting, dizziness. Exam Vital Signs Vital Sign - Last Date Time Temp Pulse Resp B/P Pulse Ox O2 Delivery O2 Flow Rate FiO2 01/01/17 04:47 116 22 94 Nasal Cannula 40 30 01/01/17 02:07 36.5 128/56 Intake and Output 12/31/16 12/31/16 01/01/17 Cumulative From/Thru 15:00 23:00 07:00 12/24/16 14:40 - 01/01/17 05:41 Intake Total 807 ml 700 ml 27603 ml Output Total 840 ml 600 ml 93053 ml Balance -33 ml 100 ml 6126 ml Intake Oral 687 ml 400 ml 91272 ml IV Total 120 ml 300 ml 98818 ml Output Urine Total 840 ml 600 ml 04106 ml # Voids 7 # Bowel Movements 2 0 9 Exam General: Patient was resting comfortably in hospital bed. HEENT: Normocephalic, atraumatic. Neck: Supple with full range of motion. Cardiovascular: Regular rate and rhythm with no murmurs, rubs, or gallops appreciated Pulmonary: Coarse breath sound and scattered wheezing bilaterally. Normal respiratory effort with no use of accessory muscles. Abdomen: Bowel tones present. Soft, nontender, obese No hepatosplenomegaly or masses appreciated. Extremities: No clubbing, cyanosis, edema, or lymphadenopathy appreciated. Skin: Normal temperature, turgor, and texture; no rash, ulcers, or subcutaneous nodules appreciated. Neurological: Cranial nerves grossly intact. Psychiatric: Normal mood and affect. Lab and Diagnostics Result Diagram: 01/01/1720301/01/17203 Microbiology Blood culture: Negative first 24 hours Urine culture: Strep pneumonia + RSV + X-Rays, CTs and MRIs Chest x-ray reviewed IMPRESSION: Mild increased prominence of streaky opacities within the bases. Developing infiltrates, atelectasis or focal edema cannot be excluded. Cardiac Echo Impressions Echocardiogram Report Interpretation Summary Technically difficult study due to COPD. Valve and LV wall endothelial visualization poor. 1) Mild concentric hypertrohpy with grossly normal left ventricular size and normal systolic function (EF 60-65%). 2) Normal right ventricular size and function. 3) No significant valvular abnormalities. 4) Mildly enlarged ascending aorta (diameter 3.7cm). 5) Hypertension present during the study (BP 152/78). 6) Compared to the Echo done 04/11/2013, no significant change. Assessment & Plan This is a 71 year old male who presented to [facility] with copd exacerbation, pneumonia, and afib with rvr. GI team consulted for black stools and hemoglobin that was slowly trending down. Patient had two positive fecal occult stool tests while in the hospital. Last EGD and Colonoscopy in 2013 with three year followup recommended. Patient continues to require high flow oxygen. His hemoglobin continues trend down and today is hemoglobin was 7.9. Endoscopic evaluation in a patient with multiple acute cardiopulmonary issues would carry significant risks. We advise to continue trending hemoglobin and recommend transfusion. Plan: -Trend hemoglobin and hematocrit every 8 hours. -Continue PPI drip -Recommend transfusion as patient's hemoglobin this morning is 7.9. -Patient on full liquid diet and tolerating. -Will hold on EGD or colonoscopy for now and will reevaluate depending on patient's hemoglobin and clinical course. If patient develops accelerated bleed would consider endoscopic evaluation. -Recommend patient followup in outpatient GI clinic for further evaluation of need for endoscopic evaluation once his acute cardiopulmonary issues are resolved. VTE Prophylaxis: Sub-Q Enoxaparin VTE Mechanical Devices: Intermittant Pneumatic CD Resuscitation Status: CPR: Attempt Resuscitation Attending Statement Patient seen and examined. Agree with the assessment and plan as described by Dr Rose. Patient stable. Pulse improved. Received blood transfusion. 2 melenic stools today. NSAIDs remain on hold and PPI infusion continues. Will continue to monitor but attempt to avoid EGD with current cardiopulmonary status especially with updated CT chest report. Nicholas Hahn DO Jan 01, 2017 07:26 Vernon aCrrion MD Jan 01, 2017 22:44
[2017-01-01] MEDS: Insulin LISPRO 300 Unit/3 mL Inj SUBQ SCH ×4 (07:43→20:19)
[2017-01-01] MEDS: Insulin GLARgine 100 Unit/mL Syringe SUBQ SCH ×2 (07:44→20:18)
[2017-01-01] MEDS: predniSONE 20 mg Tablet PO SCH (07:44)
[2017-01-01] MEDS ORDERED: Furosemide 10 mg/mL 2 mL Inj IVPUSH ONE (08:30)
--- NOTE | 2017-01-01 09:09 | DRSVH ---
PROCEDURE: X-RAY CHEST ONE VIEW, PORTABLE ([id number]) INDICATIONS: pneumonia TECHNIQUE: One view of the chest was acquired. COMPARISON: [facility], CR, XR CHEST 1VW (PORTABLE), 12/30/2016, 16:52. FINDINGS: Surgical changes and devices: None. Lungs and pleura: Persistent airspace opacities in mid lungs and the lung bases not significantly alejandro nged. No pleural effusion or pneumothorax. Mediastinum: Mediastinal contours appear normal. Heart size is normal. Bones and chest wall: No suspicious bony lesions. Overlying soft tissues appear unremarkable. IMPRESSION: Bilateral pneumonia not significantly changed. Dictated by: Brian Wilson RRA Interpreted: Monica Raman MD on 01/01/2017 at 9:08 Transcribed by: JEAN-PIERRE on 01/01/2017 at 9:09 Approved by: Monica Raman MD, PhD on 01/01/2017 at 17:16
--- NOTE | 2017-01-01 10:01 | NUR ---
O2 Per MD request, the pt has been removed from high flow NC and has been placed on 10L oxymask as a trial run for a CT scan. Sats holding in the low to mid 90's currently.
--- NOTE | 2017-01-01 10:18 | PCM.PNMED ---
Subjective Date of Service Jan 01, 2017 Subjective Overnight: Patient reports continued low back pain however much better today after new pain meds. No new black tarry stools. No BM last night. Today: This morning, he was tolerating high flow nasal cannula down to 30 %. He remains fairly comfortable at this time. Patient with good appetite. He reports some mild shortness of breath but denies chest pain, fevers, chills, N/V /D, coughing, wheezing. Exam Vital Signs Vital Sign - Last Date Time Temp Pulse Resp B/P Pulse Ox O2 Delivery O2 Flow Rate FiO2 01/01/17 08:27 119 20 91 Nasal Cannula 40 30 01/01/17 07:30 36.9 154/55 Intake and Output 12/31/16 12/31/16 01/01/17 Cumulative From/Thru 15:00 23:00 07:00 12/24/16 14:40 - 01/01/17 05:41 Intake Total 807 ml 700 ml 84908 ml Output Total 840 ml 600 ml 20548 ml Balance -33 ml 100 ml 6126 ml Intake Oral 687 ml 400 ml 60787 ml IV Total 120 ml 300 ml 95647 ml Output Urine Total 840 ml 600 ml 11067 ml # Voids 7 # Bowel Movements 2 0 9 Exam General: Obese man lying in bed with respiratory needs supported with nasal cannula. HEENT: Sclerae anicteric. Neck: Trachea is midline, no tenderness, no cervical lymphadenopathy, no JVD Chest: No use of accessory muscles of respiration. Lung: Decreased air entry bilaterally, course breath sounds, bilateral expiratory wheezing. No crackles. Heart: S1, S2 regular rate and rhythm, no gallop, no murmur. Abdomen: Audible bowel sounds present, obese, nontender, distended. Extremity: No LE edema, no calf tenderness, no cyanosis. Skin: No rash, no ulcers. IVs and Medications Medications Reviewed: Medications were reviewed in detail Lab and Diagnostics Result Diagram: 01/01/1720301/01/17203 Microbiology Blood culture: Negative first 24 hours Urine culture: Strep pneumonia + RSV + X-Rays, CTs and MRIs Chest x-ray reviewed IMPRESSION: Mild increased prominence of streaky opacities within the bases. Developing infiltrates, atelectasis or focal edema cannot be excluded. PROCEDURE: CT CHEST WITHOUT CONTRAST ([id number]) INDICATIONS: pneumonia TECHNIQUE: Noncontrast 5 mm thick sections acquired from the pulmonary apices to the posterior costophrenic angles. 7 mm thick coronal and sagittal MIP reformats were then acquired. For radiation dose reduction, the following was used: automated exposure control, adjustment of mA and/or kV according to patient size. COMPARISON: None. FINDINGS: Image quality: Excellent. Lungs and pleura: There is severe centrilobular emphysema with apical predominance. There is moderate right and mild left upper lobe interlobular septal thickening. Focal consolidation is present within the dependent portions of the right upper lobe, right lower lobe, and left lower lobe. There is a small low density right and a trace of low-density left pleural effusion. Mediastinum: Heart size is normal. No pericardial effusion. No mediastinal adenopathy by size criteria. Thoracic aorta and central pulmonary arteries are normal in size. Scattered atheromatous calcifications are present within the aortic arch. Esophagus is normal in caliber. No hiatal hernia. Bones and chest wall: No suspicious bony lesions. No vertebral body compression fractures. No axillary or supraclavicular adenopathy by size criteria. Thyroid gland is unremarkable. Abdomen: Diaphragmatic scarring or trace free fluid is present within the right posterior perirenal space. Visualized upper abdominal solid organs and bowel loops appear normal in the absence of contrast. IMPRESSION: 1. Bilateral, multifocal pulmonary consolidation and bilateral pleural effusions suspicious for multifocal pneumonia. Continued surveillance to resolution of these findings is recommended to exclude underlying neoplasm. 2. Questionable trace right perirenal fluid versus scar. This may be associated with the right pleural effusion. If further characterization is warranted, CT of the abdomen may be helpful. Dictated by: Cate Davila M.D. on 01/01/2017 at 11:52 Cardiac Echo Impressions Echocardiogram Report Interpretation Summary Technically difficult study due to COPD. Valve and LV wall endothelial visualization poor. 1) Mild concentric hypertrohpy with grossly normal left ventricular size and normal systolic function (EF 60-65%). 2) Normal right ventricular size and function. 3) No significant valvular abnormalities. 4) Mildly enlarged ascending aorta (diameter 3.7cm). 5) Hypertension present during the study (BP 152/78). 6) Compared to the Echo done 04/11/2013, no significant change. Assessment & Plan Patient is a 71 year-old man with COPD not on oxygen at home who presented to the hospital with worsening difficulty breathing for 4 days. He was diagnosed with COPD and RSV + Strep p. pneumonia. 1. Acute on chronic hypoxic and hypercapneic respiratory failure, present on admission. Active. - Respiratory failure is multifactorial :due to bacterial and viral pneumonia and COPD exacerbation. - Placed on BiPAP at night. - DuoNeb every 6 hours, albuterol PRN every 2 hours, acapella - Telemetry - Lasix 40 IV due to signs of fluid overload on CXR . - CT Chest ordered 01/01. 2. Community acquired bibasilar pneumonia, RSV+, Strep pneumonia antigen positive, acute, present on admission. - Infectious disease following, time and recommendations appreciated. - Rapid flu negative, blood cultures negative, legionella and strep antigens negative, MRSA negative. - Procalcitonin 4.79 will trending down to 0.20 (12/31) - CT chest (01/01) - Ceftriaxone daily (12/25 start date). Azithromycin daily. CT chest as above -discontinue antibiotics,dc isolation 3. COPD exacerbation, acute, present on admission, active. - Bronchodilators as above #1 - Smoking cessation counseling provided. - Continue 40mg prednisone PO daily. - phos high today at 7.5 up from 5.3, will continue to follow. - mag normal. 4. Acute Kidney Injury, not present on admission. Active. - Cre increased from admission 1.04 now from 0.82 to 1.41 overnight. Possibly due to Lasix IV 40 mg yesterday. - 2 U PRBC's may help with fluid status and O delivery. Continue to monitor. 5. Acute anemia, not present on admission. Active. - Patient is hemodynamically stable and drop in hemoglobin most likely represents delusion from IV fluids. However we will continue to watch daily and recommend outpatient follow-up if patient continues to remain stable. - Patient has a history of unknown source of GI bleeding with colonoscopy and polyp removal, 2013. - Patient had some small-volume black tarry stools today again now for 2-3 days. and positive Fecal occult. - GI consulted, time and recommendations greatly appreciated. - Start PPI ggt. Stop ASA, lovenox. - GI would like to hold off colonoscopy for now, advise medical management and transfusion if needed for now. Will readdress tomorrow. - Transfuse 2 Units PRBC's today. Hgb 7.9. 6. Afib with RVR. Not present on admission, Active. - Holding Aspirin, due to low grade GI Bleed. - Not on anticoagulation as an outpatient to discuss starting upon discharge. We are currently holding anticoagulation due to positive fecal occult stool. - Telemetry. - ECHO as above. Normal EF with out significant changes from previous study . - On Dilt ggt, will start weening off and transitioning to PO. avoiding Digoxin due to new CARIE. continue Metoprolol for now. 7. Sepsis, present on admission, Resolved. - Fever 38.8; HR 108; RR 23 - Lactic acidosis 2.8 initially, now normal - Treat underlying condition 8. Alcohol use disorder, present on admission, chronic - Patient stated to nurse has not had alcohol in three weeks, but unknown if that is true - Ativan 0.5mg Q 8 hrs PRN - Consider CIWA - Thiamine 100mg IV daily X 2 days then PO - Folate 9. Insulin-using diabetes mellitus type II - A1c 7.1 - Diabetic diet. - Home insulin: patient uses 11 units lantus and 5 units humalog prior to meals daily unless his BG is normal than he skips the 5 units. - Reviewed in-house blood glucose readings and changed to 20 units lantus HS, 20 lantus daily, and 4 units of nutritional insulin plus a High dose correction scale - Continue to review and adjust 10. Hypertension : Continue home antihypertensive medication 11. Prostate cancer : Continue Becalutamide and Flomax 12. Hyperlipidemia: - Patient not on a statins. Will investigate this further prior to discharge 13. Tobacco use disorder, present on admission, chronic. - Nicotine patch 14. Obesity, BMI 32 15. chronic liver cirrhosis. - 2nd to ETOH and chronic Hep C. Acetaminophen for mild pain when necessary. Bowel regimen Senna and MiraLAX scheduled and PRN. Zo lilly when necessary for nausea and vomiting. SubQ heparin held for now. SCDs in place. High risk medications: Hospital discharge in 2-3 days anticipated and recovery is expected. Discharge to SNF for PT and poss pulm rehab with oxygen Pain Evaluation: Adequate Pain Control VTE Prophylaxis: Sub-Q Enoxaparin VTE Mechanical Devices: Intermittant Pneumatic CD Resuscitation Status: CPR: Attempt Resuscitation Attending Statement The patient was seen and examined together with Dr. Waddell on 01/01/2017 and I agree with the history, exam and plan as outlined in the note above. DAVI WADDELL DO Jan 01, 2017 10:17 Jovani Kim MD Jan 01, 2017 13:32
--- NOTE | 2017-01-01 12:00 | DRSVH ---
PROCEDURE: CT CHEST WITHOUT CONTRAST ([id number]) INDICATIONS: pneumonia TECHNIQUE: Noncontrast 5 mm thick sections acquired from the pulmonary apices to the posterior costophrenic angl es. 7 mm thick coronal and sagittal MIP reformats were then acquired. For radiation dose reduction, the following was used: automated exposure control, adjustment of mA and/or kV according to patient size. COMPARISON: None. FINDINGS: Image quality: Excellent. Lungs and pleura: There is severe centrilobular emphysema with apical predominance. There is moderate right and mild left upper lobe interlobular septal thickening. Focal consolidation is present within the dependent portions of the right upper lobe, right lower lobe, and left lower lobe. There is a sm all low density right and a trace of low-density left pleural effusion. Mediastinum: Heart size is normal. No pericardial effusion. No mediastinal adenopathy by size crit eria. Thoracic aorta and central pulmonary arteries are normal in size. Scattered atheromatous calci fications are present within the aortic arch. Esophagus is normal in caliber. No hiatal hernia. Bones and chest wall: No suspicious bony lesions. No vertebral body compression fractures. No axil natividad or supraclavicular adenopathy by size criteria. Thyroid gland is unremarkable. Abdomen: Diaphragmatic scarring or trace free fluid is present within the right posterior perirenal space. Visualized upper abdominal solid organs and bowel loops appear normal in the absence of contra st. IMPRESSION: 1. Bilateral, multifocal pulmonary consolidation and bilateral pleural effusions suspicious for multi focal pneumonia. Continued surveillance to resolution of these findings is recommended to exclude und erlying neoplasm. 2. Questionable trace right perirenal fluid versus scar. This may be associated with the right pleura l effusion. If further characterization is warranted, CT of the abdomen may be helpful. Dictated by: Cate Davila M.D. on 01/01/2017 at 11:52 Approved by: Cate Davila M.D. on 01/01/2017 at 11:58
[2017-01-01] MEDS: 0.9% Sodium Chloride 250 ML IV SCH (12:29)
--- NOTE | 2017-01-01 17:35 | NUR ---
O2/HR/Blood The pt has been weaned down to 4 L NC with sats holding between 88-92%. After 2 units PRBC and PO dilt, the pt's HR has come down to the 80's-90's. The dilt IVD has been DC'ed. The pt tolerated the two units of blood well, and H&H re-draw is at 1830. The pt had another dark stool today - MD aware.
[2017-01-02] VITALS (12 sets, daily range): BP systolic 112–134; BP diastolic 60–94; PULSE 75–110; RESP 12–24; O2SAT 94–98
[2017-01-02] MEDS: HYDROmorphone 0.5 mg/0.5 mL iSecure Syringe IVPUSH PRN ×2 (00:34→05:12)
[2017-01-02] MEDS: Pantoprazole Inj 80 MG in 0.9% Sodium Chloride 80 ML IV SCH ×3 (01:17→20:29)
[2017-01-02] MEDS: Albuterol-Ipratropium 3 mL Inhalation Solution NEB SCH ×4 (03:29→20:46)
[2017-01-02 05:10] LABS: BASOPHILS % (AUTO) 0.2 % (0-3); EOSINOPHILS % (AUTO) 3.8 % (0-5); MONOCYTES % (AUTO) 7.6 % (4-12); Mean Corpuscular Volume 104.1 fL (81-100); NEUTROPHILS % (AUTO) 72.8 % (40-74); Platelet Count 151 bil/L (150-400)
[2017-01-02 05:32] LABS: Magnesium 2.3 mg/dL (1.6-2.6); Phosphorus 4.3 mg/dL (2.5-4.9)
--- NOTE | 2017-01-02 06:33 | NUR ---
Oxygenation Patients respiratory status continued to improve over my shift. Patient denies shortness of breath and is now maintaining saturations on a NC at 4lpm. O2 saturations are in the low 90s. Patient is free of complaints.
[2017-01-02] MEDS: Insulin LISPRO 300 Unit/3 mL Inj SUBQ SCH ×4 (08:57→20:29)
[2017-01-02] MEDS: predniSONE 20 mg Tablet PO SCH (08:59)
[2017-01-02] MEDS: Insulin GLARgine 100 Unit/mL Syringe SUBQ SCH ×2 (09:13→20:27)
[2017-01-02] MEDS: 0.9% Sodium Chloride 250 ML IV SCH (10:42)
--- NOTE | 2017-01-02 12:04 | NUR ---
Social Work: Continued Discharge Planning D: Pt discussed in am rounds. Pt is not medically stable for discharge at this time but may be ready in the next 1-2 days. PT continues to work with pt with recommendations for SNF/[facility] as pt is only able to tolerate standing for 2-3 minutes before feeling fatigued and requiring return to bed. Pt not currently ambulating. SEWING ROOM SUPERVISOR met with pt at bedside to discuss discharge planning. Pt states his preference is for [facility]. SEWING ROOM SUPERVISOR reminded pt that [facility] is not currently accepting pts at this time. Pt states his next preference is for [facility]. SEWING ROOM SUPERVISOR discussed with pt the need to have two choices. Pt is not wanting to go further than [facility] however was agreeable to a referral being sent to [facility]. SEWING ROOM SUPERVISOR spoke with [facility] who will provide referral to [facility]. t/c to [facility] to inquire about admission status; no answer. Left Message requesting they review pt for admission with anticipate d/c for tomorrow. PPW and PASSR completed and on chart. A: Pt who is I at baseline. P: Anticipate pt to require skilled rehab at time of d/c; [facility] and [facility] reviewing. BRETT Toney
[2017-01-02] MEDS: Diltiazem CD 240 mg ER24 Capsule PO SCH (13:02)
--- NOTE | 2017-01-02 13:39 | NUR ---
Faxed referral to [facility] per APPLICATION SYSTEMS ADMINISTRATOR
--- NOTE | 2017-01-02 15:30 | PCM.PNMED ---
Subjective Date of Service Jan 02, 2017 Subjective GI progress note: This is a 71 year old male who presented to [facility] with numerous cardiopulmonary issues including copd exacerbation, pneumonia, and afib with rvr. The GI team was contacted due to the patient's black stools and hemoglobin that was slowly trending down. Patient had two positive fecal occult stool tests while in the hospital. Last EGD and Colonoscopy in 2013 with three year followup. Overnight patient's hemoglobin has been stable. He continues on PPI drip. He is now off high flow oxygen and currently on 4l by NM. Over the last 24 hours he has had two bowel movements each described as black. He is tolerating a full liquid diet. He denies any abdominal pain, nausea, vomiting, dizziness. Exam Vital Signs Vital Sign - Last Date Time Temp Pulse Resp B/P Pulse Ox O2 Delivery O2 Flow Rate FiO2 01/02/17 15:17 103 18 134/63 95 Nasal Cannula 4.00 01/02/17 08:25 37.0 01/01/17 08:27 30 Intake and Output 01/01/17 01/01/17 01/02/17 Cumulative From/Thru 15:00 23:00 07:00 12/24/16 14:40 - 01/02/17 05:06 Intake Total 500 ml 1660 ml 540 ml 26258 ml Output Total 750 ml 800 ml 30400 ml Balance 500 ml 910 ml -260 ml 7276 ml Intake Oral 680 ml 450 ml 77333 ml IV Total 50 ml 980 ml 90 ml 09831 ml Packed Cells 450 ml 450 ml Output Urine Total 750 ml 800 ml 13623 ml # Voids 7 # Bowel Movements 3 1 13 Exam General: Patient was resting comfortably in hospital bed. HEENT: Normocephalic, atraumatic. Neck: Supple with full range of motion. Cardiovascular: Regular rate and rhythm with no murmurs, rubs, or gallops appreciated Pulmonary: Coarse breath sound and scattered wheezing bilaterally. Normal respiratory effort with no use of accessory muscles. Abdomen: Bowel tones present. Soft, nontender, obese No hepatosplenomegaly or masses appreciated. Extremities: No clubbing, cyanosis, edema, or lymphadenopathy appreciated. Skin: Normal temperature, turgor, and texture; no rash, ulcers, or subcutaneous nodules appreciated. Neurological: Cranial nerves grossly intact. Psychiatric: Normal mood and affect. Lab and Diagnostics Result Diagram: 01/02/17 0425 01/02/17 0425 Microbiology Blood culture: Negative first 24 hours Urine culture: Strep pneumonia + RSV + X-Rays, CTs and MRIs Chest x-ray reviewed IMPRESSION: Mild increased prominence of streaky opacities within the bases. Developing infiltrates, atelectasis or focal edema cannot be excluded. PROCEDURE: CT CHEST WITHOUT CONTRAST ([id number]) INDICATIONS: pneumonia TECHNIQUE: Noncontrast 5 mm thick sections acquired from the pulmonary apices to the posterior costophrenic angles. 7 mm thick coronal and sagittal MIP reformats were then acquired. For radiation dose reduction, the following was used: automated exposure control, adjustment of mA and/or kV according to patient size. COMPARISON: None. FINDINGS: Image quality: Excellent. Lungs and pleura: There is severe centrilobular emphysema with apical predominance. There is moderate right and mild left upper lobe interlobular septal thickening. Focal consolidation is present within the dependent portions of the right upper lobe, right lower lobe, and left lower lobe. There is a small low density right and a trace of low-density left pleural effusion. Mediastinum: Heart size is normal. No pericardial effusion. No mediastinal adenopathy by size criteria. Thoracic aorta and central pulmonary arteries are normal in size. Scattered atheromatous calcifications are present within the aortic arch. Esophagus is normal in caliber. No hiatal hernia. Bones and chest wall: No suspicious bony lesions. No vertebral body compression fractures. No axillary or supraclavicular adenopathy by size criteria. Thyroid gland is unremarkable. Abdomen: Diaphragmatic scarring or trace free fluid is present within the right posterior perirenal space. Visualized upper abdominal solid organs and bowel loops appear normal in the absence of contrast. IMPRESSION: 1. Bilateral, multifocal pulmonary consolidation and bilateral pleural effusions suspicious for multifocal pneumonia. Continued surveillance to resolution of these findings is recommended to exclude underlying neoplasm. 2. Questionable trace right perirenal fluid versus scar. This may be associated with the right pleural effusion. If further characterization is warranted, CT of the abdomen may be helpful. Dictated by: Cate Davila M.D. on 01/01/2017 at 11:52 Cardiac Echo Impressions Echocardiogram Report Interpretation Summary Technically difficult study due to COPD. Valve and LV wall endothelial visualization poor. 1) Mild concentric hypertrohpy with grossly normal left ventricular size and normal systolic function (EF 60-65%). 2) Normal right ventricular size and function. 3) No significant valvular abnormalities. 4) Mildly enlarged ascending aorta (diameter 3.7cm). 5) Hypertension present during the study (BP 152/78). 6) Compared to the Echo done 04/11/2013, no significant change. Assessment & Plan This is a 71 year old male who presented to [facility] with copd exacerbation, pneumonia, and afib with rvr. GI team consulted for black stools and hemoglobin that was slowly trending down. Patient had two positive fecal occult stool tests while in the hospital. Last EGD and Colonoscopy in 2013 with three year followup recommended. Endoscopic evaluation in a patient with multiple acute cardiopulmonary issues would carry significant risks. We advise to continue trending hemoglobin and recommend transfusion. Patient is now off high flow oxygen and requiring 4l by in. He is still having black stool. Plan: -Trend hemoglobin and hematocrit. -Continue PPI drip -Patient on full liquid diet and tolerating. -Will hold on EGD or colonoscopy for now and will reevaluate depending on patient's hemoglobin and clinical course. If patient develops accelerated bleed would consider endoscopic evaluation. -Recommend patient followup in outpatient GI clinic for further evaluation of need for endoscopic evaluation once his acute cardiopulmonary issues are resolved. VTE Prophylaxis: Sub-Q Enoxaparin VTE Mechanical Devices: Intermittant Pneumatic CD Resuscitation Status: CPR: Attempt Resuscitation Attending Statement Patient seen and examined. Agree with assessment and plan as described by Dr Hahn. Overall, hemodynamics improved. 2 dark bm's today. H/H up. Hungry. Desires advancement of diet. Will continue hold off on any endoscopic examination until fulling recovered from cardiopulmonary issues. I advanced diet. Switched from IV PPI to BID oral PPI starting tomorrow. Nicholas Hahn DO Jan 02, 2017 15:30 Vernon Carrion MD Jan 02, 2017 21:46
--- NOTE | 2017-01-02 15:35 | NUR ---
[facility] declined to accept pt due to ETOH use
--- NOTE | 2017-01-02 18:08 | PCM.PNMED ---
Subjective Date of Service Jan 02, 2017 Subjective Overnight: Patient reports continued low back pain however much better today after new pain meds. Continued black tarry stools. Today: This morning, he was tolerating 4L nasal canula. He remains fairly comfortable at this time. Patient with good appetite. He denies chest pain, fevers, chills, N/V/D, coughing, wheezing. Exam Vital Signs Vital Sign - Last Date Time Temp Pulse Resp B/P Pulse Ox O2 Delivery O2 Flow Rate FiO2 01/02/17 17:46 Supplement Oxygen 01/02/17 17:15 85 22 95 4.00 01/02/17 15:17 134/63 01/02/17 08:25 37.0 01/01/17 08:27 30 Intake and Output 01/01/17 01/01/17 01/02/17 Cumulative From/Thru 15:00 23:00 07:00 12/24/16 14:40 - 01/02/17 05:06 Intake Total 500 ml 1660 ml 540 ml 63589 ml Output Total 750 ml 800 ml 41014 ml Balance 500 ml 910 ml -260 ml 7276 ml Intake Oral 680 ml 450 ml 23506 ml IV Total 50 ml 980 ml 90 ml 93782 ml Packed Cells 450 ml 450 ml Output Urine Total 750 ml 800 ml 72717 ml # Voids 7 # Bowel Movements 3 1 13 Exam General: Obese man lying in bed with respiratory needs supported with nasal cannula. HEENT: Sclerae anicteric. Neck: Trachea is midline, no tenderness, no cervical lymphadenopathy, no JVD Chest: No use of accessory muscles of respiration. Lung: Decreased air entry bilaterally, course breath sounds, bilateral expiratory wheezing. No crackles. Heart: S1, S2 regular rate and rhythm, no gallop, no murmur. Abdomen: Audible bowel sounds present, obese, nontender, distended. Extremity: No LE edema, no calf tenderness, no cyanosis. Skin: No rash, no ulcers. IVs and Medications Medications Reviewed: Medications were reviewed in detail Lab and Diagnostics Result Diagram: 01/02/1742401/02/17424 Microbiology Blood culture: Negative first 24 hours Urine culture: Strep pneumonia + RSV + X-Rays, CTs and MRIs Chest x-ray reviewed IMPRESSION: Mild increased prominence of streaky opacities within the bases. Developing infiltrates, atelectasis or focal edema cannot be excluded. PROCEDURE: CT CHEST WITHOUT CONTRAST ([id number]) INDICATIONS: pneumonia TECHNIQUE: Noncontrast 5 mm thick sections acquired from the pulmonary apices to the posterior costophrenic angles. 7 mm thick coronal and sagittal MIP reformats were then acquired. For radiation dose reduction, the following was used: automated exposure control, adjustment of mA and/or kV according to patient size. COMPARISON: None. FINDINGS: Image quality: Excellent. Lungs and pleura: There is severe centrilobular emphysema with apical predominance. There is moderate right and mild left upper lobe interlobular septal thickening. Focal consolidation is present within the dependent portions of the right upper lobe, right lower lobe, and left lower lobe. There is a small low density right and a trace of low-density left pleural effusion. Mediastinum: Heart size is normal. No pericardial effusion. No mediastinal adenopathy by size criteria. Thoracic aorta and central pulmonary arteries are normal in size. Scattered atheromatous calcifications are present within the aortic arch. Esophagus is normal in caliber. No hiatal hernia. Bones and chest wall: No suspicious bony lesions. No vertebral body compression fractures. No axillary or supraclavicular adenopathy by size criteria. Thyroid gland is unremarkable. Abdomen: Diaphragmatic scarring or trace free fluid is present within the right posterior perirenal space. Visualized upper abdominal solid organs and bowel loops appear normal in the absence of contrast. IMPRESSION: 1. Bilateral, multifocal pulmonary consolidation and bilateral pleural effusions suspicious for multifocal pneumonia. Continued surveillance to resolution of these findings is recommended to exclude underlying neoplasm. 2. Questionable trace right perirenal fluid versus scar. This may be associated with the right pleural effusion. If further characterization is warranted, CT of the abdomen may be helpful. Dictated by: Cate Davila M.D. on 01/01/2017 at 11:52 Cardiac Echo Impressions Echocardiogram Report Interpretation Summary Technically difficult study due to COPD. Valve and LV wall endothelial visualization poor. 1) Mild concentric hypertrohpy with grossly normal left ventricular size and normal systolic function (EF 60-65%). 2) Normal right ventricular size and function. 3) No significant valvular abnormalities. 4) Mildly enlarged ascending aorta (diameter 3.7cm). 5) Hypertension present during the study (BP 152/78). 6) Compared to the Echo done 04/11/2013, no significant change. Assessment & Plan Patient is a 71 year-old man with COPD not on oxygen at home who presented to the hospital with worsening difficulty breathing for 4 days. He was diagnosed with COPD and RSV + Strep p. pneumonia. #. Acute on chronic hypoxic and hypercapneic respiratory failure, present on admission. Improved. - Respiratory failure is multifactorial :due to bacterial and viral pneumonia and COPD exacerbation. - Placed on BiPAP at night. - DuoNeb every 6 hours, albuterol PRN every 2 hours, acapella. - Telemetry. - Lasix 40 IV due to signs of fluid overload on CXR . - CT Chest ordered 01/01. - O2 requirements down to 4L NC down from 40FIO2 High flow. #. Community acquired bibasilar pneumonia, RSV+, Strep pneumonia antigen positive, acute, present on admission. - Infectious disease following, time and recommendations appreciated. - Rapid flu negative, blood cultures negative, legionella and strep antigens negative, MRSA negative. - Procalcitonin 4.79 will trending down to 0.20 (12/31). - CT chest (01/01). - completed 7 days abx:Ceftriaxone (12/25 start date). Azithromycin daily. CT chest as above. #. COPD exacerbation, acute, present on admission, Improving. - Bronchodilators as above #1 - Smoking cessation counseling provided. - Continue 40mg prednisone PO daily. - Phos high today at 7.5 up from 5.3, will continue to follow. - Mag normal. #. Acute Kidney Injury, not present on admission. Active. - Cre increased from admission 1.04 now from 0.82 to 1.41 overnight. Possibly due to Lasix IV 40 mg yesterday. - 2 U PRBC's was helpful with fluid status and O delivery. Continue to monitor. # suspected upper GI bleeding ,acute,not poa -possibly due to gastritis -hold any AC or NSAIDs -GI recommends conservative mx -follow up GI outpatient #. Acute anemia, not present on admission. Improving and stable. - Patient is hemodynamically stable and drop in hemoglobin most likely represents delusion from IV fluids. However we will continue to watch daily and recommend outpatient follow-up if patient continues to remain stable. - Patient has a history of unknown source of GI bleeding with colonoscopy and polyp removal, 2013. - Patient had some small-volume black tarry stools today again now for 2-3 days. and positive Fecal occult. - GI consulted, time and recommendations greatly appreciated. - Start PPI ggt. Stop ASA, lovenox. - GI would like to hold off colonoscopy for now, advise medical management and transfusion if needed for now. Will readdress tomorrow. - Transfusee 2 Units PRBC's yesterday.01/01/17. Hgb 9.3. - Will hold on EGD or colonoscopy for now and will reevaluate depending on patient's hemoglobin and clinical course. If patient develops accelerated bleed would consider endoscopic evaluation. Recommend patient followup in outpatient GI clinic for further evaluation of need for endoscopic evaluation once his acute cardiopulmonary issues are resolved. #. Afib with RVR. Not present on admission, Active. - Holding Aspirin, due to low grade GI Bleed. - Not on anticoagulation as an outpatient to discuss starting upon discharge. We are currently holding anticoagulation due to positive fecal occult stool. - Telemetry. - ECHO as above. Normal EF with out significant changes from previous study . - On Dilt ggt, will start weening off and transitioning to PO. avoiding Digoxin due to new CARIE. continue Metoprolol for now. #. Sepsis, present on admission, Resolved. - Fever 38.8; HR 108; RR 23 - Lactic acidosis 2.8 initially, now normal - Treat underlying condition #. Alcohol use disorder, present on admission, chronic - Patient stated to nurse has not had alcohol in three weeks, but unknown if that is true - Ativan 0.5mg Q 8 hrs PRN. - Consider CIWA. - Thiamine 100mg IV daily X 2 days then PO. - Folate. #. Insulin-using diabetes mellitus type II - A1c 7.1 - Diabetic diet. - Home insulin: patient uses 11 units lantus and 5 units humalog prior to meals daily unless his BG is normal than he skips the 5 units. - Reviewed in-house blood glucose readings and changed to 20 units lantus HS, 20 lantus daily, and 4 units of nutritional insulin plus a High dose correction scale - Continue to review and adjust #. Hypertension : Continue home antihypertensive medication #. Prostate cancer : Continue Becalutamide and Flomax #. Hyperlipidemia: - Patient not on a statins. Will investigate this further prior to discharge #. Tobacco use disorder, present on admission, chronic. - Nicotine patch #. Obesity, BMI 32 #. chronic liver cirrhosis. - 2nd to ETOH and chronic Hep C. Acetaminophen for mild pain when necessary. Bowel regimen Senna and MiraLAX scheduled and PRN. Zofran when necessary for nausea and vomiting. SubQ heparin held for now. SCDs in place. High risk medications: Hospital discharge tomorrow to SNF for PT and poss pulmonary rehab with oxygen. Pain Evaluation: Adequate Pain Control VTE Prophylaxis: Sub-Q Enoxaparin VTE Mechanical Devices: Intermittant Pneumatic CD Resuscitation Status: CPR: Attempt Resuscitation Attending Statement The patient was seen and examined together with Dr. Waddell on 01/02/2017 and I agree with the history, exam and plan as outlined in the note above. DAVI WADDELL DO Jan 02, 2017 18:08 Jovani Kim MD Jan 02, 2017 19:07
--- NOTE | 2017-01-02 18:13 | NUR ---
Pain pt reported pain of right thigh, stating " i think I pulled it the other day with PT." rating 7-8/10. prn oxycodone given per MD order will continue to monitor.
[2017-01-03] VITALS (7 sets, daily range): BP systolic 111–126; BP diastolic 62–68; PULSE 73–136; RESP 18–20; O2SAT 95–100
[2017-01-03] MEDS: HYDROmorphone 0.5 mg/0.5 mL iSecure Syringe IVPUSH PRN (02:00)
[2017-01-03 03:06] LABS: BASOPHILS % (AUTO) 0.1 % (0-3); EOSINOPHILS % (AUTO) 2.2 % (0-5); MONOCYTES % (AUTO) 8.4 % (4-12); Mean Corpuscular Hemoglobin 35.4 pg (27.0-35.0); Mean Corpuscular Volume 106.7 fL (81-100); NEUTROPHILS % (AUTO) 79.1 % (40-74); Platelet Count 173 bil/L (150-400)
[2017-01-03] MEDS: Albuterol-Ipratropium 3 mL Inhalation Solution NEB SCH ×2 (05:01→11:34)
--- NOTE | 2017-01-03 05:39 | NUR ---
Rest Patient had a restful evening and slept well. Vitals remained stable and O2 saturations were in the low 90's.
[2017-01-03] MEDS ORDERED: Pantoprazole 40 mg ER24 Tablet PO SCH (07:30)
[2017-01-03] MEDS: Insulin LISPRO 300 Unit/3 mL Inj SUBQ SCH ×2 (08:00→12:00)
--- NOTE | 2017-01-03 10:19 | NUR ---
Called and spoke with Lilly and she is still working on the review of this patient. She knows patient is ready and she will get back to me within the hour. Called and left message for Conchita or Kahlil at [facility], patient has been compliant during this stay and there should be no issues with alcohol. Asked for call back to discuss patient and reconsider denial. Updated PEDIATRIC SPEECH LANGUAGE PATHOLOGIST
[2017-01-03] MEDS: predniSONE 20 mg Tablet PO SCH (10:21)
[2017-01-03] MEDS: Diltiazem CD 240 mg ER24 Capsule PO SCH (10:23)
[2017-01-03] MEDS: Insulin GLARgine 100 Unit/mL Syringe SUBQ SCH (10:26)
[2017-01-03] MEDS ORDERED: PANT40TA3 PO (11:19)
[2017-01-03] MEDS ORDERED: NICO1PAT6 TOPICAL (11:19)
[2017-01-03] MEDS ORDERED: METO25TA6 PO (11:19)
[2017-01-03] MEDS ORDERED: DILT240C85 PO (11:19)
[2017-01-03] MEDS ORDERED: OXYC1TAB24 PO (11:19)
[2017-01-03] MEDS ORDERED: PRED-508 PO (11:19)
[2017-01-03] MEDS ORDERED: IPRA3AMP NEB (11:19)
[2017-01-03] MEDS ORDERED: LIP40 PO (11:21)
--- NOTE | 2017-01-03 11:25 | PCM.DIMED ---
DAVI WADDELL DO 01/03/17 1044: Discharge Instructions Date of Service Jan 03, 2017 Dates of Hospitalization Dec 24, 2016 at 16:41 Discharge Diagnosis Discharge Diagnosis #. Acute on chronic hypoxic and hypercapneic respiratory failure, present on admission. Improved. #. Community acquired bibasilar pneumonia, RSV+, Strep pneumonia antigen positive, acute, present on admission. Likely resolved. #. COPD exacerbation, acute, present on admission, Improving. #. Acute Kidney Injury, not present on admission. Resolved.. # Suspected upper GI bleeding ,acute,not poa. Stable. #. Acute anemia, not present on admission. Improving and stable. #. Afib with RVR. Not present on admission, Stable. #. Sepsis, present on admission, Resolved. #. Alcohol use disorder, present on admission, chronic #. Insulin-using diabetes mellitus type II #. Hypertension : Continue home antihypertensive medication #. Prostate cancer : Continue Becalutamide and Flomax #. Hyperlipidemia: #. Tobacco use disorder, present on admission, chronic. #. Obesity, BMI 32 #. chronic liver cirrhosis. Medication Instructions Atorvastatin 40 mg Daily Diltiazem (Cardizem CD) 240 mg Daily. Metoprolol 50 mg twice a day. Protonix 40 mg Twice a day. Percocet 5/325 Every 4 hours as needed for pain. #60 Prednisone Taper: 20 mg daily for 5 days then 10 mg daily for 5 days. Continue Other Home medications: Diet Heart Healthy, Diabetic Call your provider Fever or Chills, Shortness of breath, Chest pain Patient Instructions Follow-up plan Follow up with your primary care physician regarding recent hospitalization to address: - Anticoagulation options with recent GI bleed. - Right thigh pain. - Statin therapy. - Increase in Metoprolol 50 mg BID. - Diltiazem 240 Daily. - Spirometry and additional home COPD medications. - Gastroenterology follow up for minor GI bleed and hx of GI bleed. Follow-up Provider: Vernon Carrion MD Follow-up with PCP in: 2 weeks Provider: Luther Fierro MD Follow-up in: 2 weeks Mid-level Provider (F9): [facility] Follow-up with Mid-level in: 2 weeks Jovani Kim MD 01/03/17 2527: Discharge Instructions Patient Instructions You were hospitalized due to COPD exacerbation due to pneumococcal pneumonia and RSV infection. You completed antibiotic treatment. You also had atrial fibrillation with rapid heart rate. Please continue metoprolol and Cardizem. You also had dark stool( suspect bleeding from stomach). Please continue pantoprazole. Please follow-up with pathology laboratory technologist outpatient. Please discuss with PCP regarding anticoagulation for atrial fibrillation once bleeding stops. DAVI WADDELL DO Jan 03, 2017 10:44 Jovani Kim MD Jan 03, 2017 14:37
[2017-01-03] MEDS: 0.9% Sodium Chloride 250 ML IV SCH (11:26)
--- NOTE | 2017-01-03 11:28 | PCM.DC.MED ---
Discharge Summary Date of Service Jan 03, 2017 Dates of Hospitalization Date of Hospital Admission Dec 24, 2016 at 16:41 Date of Discharge: Jan 03, 2017 Providers: Admitting Physician: Sumeet Beltre MD Primary Care Physician: Luther Fierro MD Attending Physician: Sumeet Beltre MD Diagnosis at Time of Discharge Diagnosis at Time of Discharge #. Acute on chronic hypoxic and hypercapneic respiratory failure, present on admission. Improved. #. Community acquired bibasilar pneumonia, RSV+, Strep pneumonia antigen positive, acute, present on admission. Likely resolved. #. COPD exacerbation, acute, present on admission, Improving. #. Acute Kidney Injury, not present on admission. Resolved.. # Suspected upper GI bleeding ,acute,not poa. Stable. #. Acute anemia, not present on admission. Improving and stable. #. Afib with RVR. Not present on admission, Stable. #. Sepsis, present on admission, Resolved. #. Alcohol use disorder, present on admission, chronic #. Insulin-using diabetes mellitus type II #. Hypertension : Continue home antihypertensive medication #. Prostate cancer : Continue Becalutamide and Flomax #. Hyperlipidemia: #. Tobacco use disorder, present on admission, chronic. #. Obesity, BMI 32 #. chronic liver cirrhosis. Procedures XRay, CTs & MRIs Chest x-ray reviewed IMPRESSION: Mild increased prominence of streaky opacities within the bases. Developing infiltrates, atelectasis or focal edema cannot be excluded. PROCEDURE: CT CHEST WITHOUT CONTRAST ([id number]) INDICATIONS: pneumonia TECHNIQUE: Noncontrast 5 mm thick sections acquired from the pulmonary apices to the posterior costophrenic angles. 7 mm thick coronal and sagittal MIP reformats were then acquired. For radiation dose reduction, the following was used: automated exposure control, adjustment of mA and/or kV according to patient size. COMPARISON: None. FINDINGS: Image quality: Excellent. Lungs and pleura: There is severe centrilobular emphysema with apical predominance. There is moderate right and mild left upper lobe interlobular septal thickening. Focal consolidation is present within the dependent portions of the right upper lobe, right lower lobe, and left lower lobe. There is a small low density right and a trace of low-density left pleural effusion. Mediastinum: Heart size is normal. No pericardial effusion. No mediastinal adenopathy by size criteria. Thoracic aorta and central pulmonary arteries are normal in size. Scattered atheromatous calcifications are present within the aortic arch. Esophagus is normal in caliber. No hiatal hernia. Bones and chest wall: No suspicious bony lesions. No vertebral body compression fractures. No axillary or supraclavicular adenopathy by size criteria. Thyroid gland is unremarkable. Abdomen: Diaphragmatic scarring or trace free fluid is present within the right posterior perirenal space. Visualized upper abdominal solid organs and bowel loops appear normal in the absence of contrast. IMPRESSION: 1. Bilateral, multifocal pulmonary consolidation and bilateral pleural effusions suspicious for multifocal pneumonia. Continued surveillance to resolution of these findings is recommended to exclude underlying neoplasm. 2. Questionable trace right perirenal fluid versus scar. This may be associated with the right pleural effusion. If further characterization is warranted, CT of the abdomen may be helpful. Dictated by: Cate Davila M.D. on 01/01/2017 at 11:52 Cardiac Echo Impression Echocardiogram Report Interpretation Summary Technically difficult study due to COPD. Valve and LV wall endothelial visualization poor. 1) Mild concentric hypertrohpy with grossly normal left ventricular size and normal systolic function (EF 60-65%). 2) Normal right ventricular size and function. 3) No significant valvular abnormalities. 4) Mildly enlarged ascending aorta (diameter 3.7cm). 5) Hypertension present during the study (BP 152/78). 6) Compared to the Echo done 04/11/2013, no significant change. Brief History This is a 71-year-old male with past medical history significant for COPD, diabetes mellitus type II, hypertension, chronic pain with NSAID use, tobacco use, previous hepatitis C infection that was treated, history of GI bleed, and alcoholism who was diagnosed with pneumonia. While in the hospital it was noted that the patient had black tarry stools as well as a hemoglobin that was trending down and GI was consulted. The patient reports his last GI bleed was in 2013 and at that time a colonoscopy and EGD were performed but Dr. Carrion. The colonoscopy showed colon polyps, mild hemorrhoids, and no sign of active bleeding. Pathology showed fragments of tubular adenoma, negative for malignancy The EGD showed proximal duodenopathy, small slight hiatal hernia, but otherwise visually unremarkable EGD. Three year follow-up was recommended and patient was asked to continue a PPI. The patient was also seen by gastroenterology in September of 2015 due to his chronic hepatitis C infection (genotype 2b). He was treated with a 12 week course of Sovaldi and Ribavarin. Ultrasound of patient's abdomen in May 2016 showed echogenic liver consistent with fatty infiltration as well as mild gallbladder wall thickening. The patient states beginning approximately one week ago he began having black tarry stools every day. He denied any bright red blood.. Historically the patient states that his stools are brown, soft and occur daily. He denies any abdominal pain. Patient's home medications include aspirin and meloxicam. Patient states that up until one weeks ago he was drinking 3 glasses of vodka a day with about 3 shots per glass. Of note, the patient was also on alendronate weekly. In the hospital he has been receiving steroids. On admission the patient's hemoglobin was 11.1. Today the patient's hemoglobin is 8.4 with MCV of 112.3 and platelets of 174. INR 1.07. BUN 32, creatinine 0.82. AST 20, ALT 33, alkaline phosphatase 32 and total bilirubin 0.3. Over last 24 hours patient has had two stool occult blood tests that were positive. Along with treating the patient's pneumonia and other medical problems the patient was placed on a PPI drip for possible GI bleed. Hospital Course Patient is a 71 year-old man with COPD not on oxygen at home who presented to the hospital with worsening difficulty breathing for 4 days. He was diagnosed with COPD and RSV + Strep p. pneumonia. #. Acute on chronic hypoxic and hypercapneic respiratory failure, present on admission. Improved. - Respiratory failure is multifactorial :due to bacterial and viral pneumonia and COPD exacerbation. - DuoNeb every 6 hours, albuterol PRN every 2 hours, acapella. - O2 requirements down to 4L [place] . May need to arrange home oxygen upon discharge to home from SNF #. Community acquired bibasilar pneumonia, RSV+, Strep pneumonia antigen positive, acute, present on admission. - Rapid flu negative, blood cultures negative, legionella and strep antigens negative, MRSA negative. - Procalcitonin 4.79 will trending down to 0.20 (12/31). - Completed 7 days abx:Ceftriaxone (12/25 start date). Azithromycin daily. CT chest as above with multifocal pneumonia #. COPD exacerbation, acute, present on admission, Improving. - Bronchodilators as above #1 - Smoking cessation counseling provided. - Continue 20mg prednisone PO daily for 5 days #. Acute Kidney Injury, not present on admission. Active. Resolved # suspected upper GI bleeding ,acute,not poa -possibly due to gastritis -hold any AC or NSAIDs -GI recommends conservative mx -follow up GI outpatient [address] Carrion. #. Acute anemia requiring transfusion, not present on admission. Improving and stable. - Patient is hemodynamically stable and drop in hemoglobin most likely represents delusion from IV fluids. However we will continue to watch daily and recommend outpatient follow-up if patient continues to remain stable. - Patient has a history of unknown source of GI bleeding with colonoscopy and polyp removal, 2013. - Patient had some small-volume black tarry stools today again now for 2-3 days. and positive Fecal occult. - GI consulted, time and recommendations greatly appreciated. -Treated with PPI ggt. Stop ASA, lovenox. - GI would like to hold off colonoscopy for now, advise medical management and transfusion if needed for now. Will readdress tomorrow. - Transfused 2 Units PRBC's yesterday.01/02/17. Hgb 9.3. - per GI Will hold on EGD or colonoscopy for now and will reevaluate depending on patient's hemoglobin and clinical course. If patient develops accelerated bleed would consider endoscopic evaluation. Recommend patient followup in outpatient GI clinic for further evaluation of need for endoscopic evaluation once his acute cardiopulmonary issues are resolved. #. Afib with RVR. Not present on admission, Active. - Holding Aspirin, due to low grade GI Bleed. - Not on anticoagulation as an outpatient to discuss starting upon discharge. We are currently holding anticoagulation due to positive fecal occult stool. - Telemetry. - ECHO as above. Normal EF with out significant changes from previous study . - Diltiazem 240 xr, metoprolol 50 BID. #. Sepsis, present on admission, Resolved. - Initial Fever 38.8; HR 108; RR 23 - Lactic acidosis 2.8 initially, now normal - Treated underlying condition #. Alcohol use disorder, present on admission, chronic - Patient stated to nurse has not had alcohol in three weeks, but unknown if that is true - Ativan 0.5mg Q 8 hrs PRN. - Received Thiamine 100mg IV daily X 2 days then PO. - Treated with Folate. #. Insulin-using diabetes mellitus type II - A1c 7.1 - Diabetic diet. - Home insulin: patient uses 11 units lantus and 5 units humalog prior to meals daily unless his BG is normal than he skips the 5 units. - Reviewed in-house blood glucose readings and changed to 20 units lantus HS, 20 lantus daily, and 4 units of nutritional insulin plus a High dose correction scale #. Hypertension : Continue home antihypertensive medication #. Prostate cancer : Continue Becalutamide and Flomax #. Hyperlipidemia: - Patient not on a statins. Will investigate this further prior to discharge #. Tobacco use disorder, present on admission, chronic. - Nicotine patch #. Obesity, BMI 32 #. chronic liver cirrhosis. - 2nd to ETOH and chronic Hep C. Acetaminophen for mild pain when necessary. Bowel regimen Senna and MiraLAX scheduled and PRN. Zofran when necessary for nausea and vomiting. Hospital discharge to SNF. Condition on discharge stable Exam Vital Signs (Last) Date Time Temp Pulse Resp B/P Pulse Ox O2 Delivery O2 Flow Rate FiO2 01/03/17 08:00 117 01/03/17 05:01 20 95 Nasal Cannula 4.00 01/03/17 04:51 36.6 126/67 01/01/17 08:27 30 Exam General: Obese man lying in bed with respiratory needs supported with nasal cannula. HEENT: Sclerae anicteric. Neck: Trachea is midline, no tenderness, no cervical lymphadenopathy, no JVD Chest: No use of accessory muscles of respiration. Lung: Decreased air entry bilaterally, course breath sounds, bilateral expiratory wheezing. No crackles. Heart: S1, S2 regular rate and rhythm, no gallop, no murmur. Abdomen: Audible bowel sounds present, obese, nontender, distended. Extremity: No LE edema, no calf tenderness, no cyanosis. Skin: No rash, no ulcers. Test 12/24/16 15:10 12/24/16 15:36 12/25/16 20:28 12/26/16 02:57 Hemoglobin A1c 7.1% (4.8-5.6) Troponin T < 0.010ug/L (0.0-0.011) Urine Color Yellow (YELLOW) Urine Appearance Clear (CLEAR,HAZY) Urine pH 5.5 (5.0-8.0) Urine Specific [place] 1.025 (1.003-1.035) Urine Protein Negativemg/dL (NEG,TRACE) Urine Glucose (UA) Negativemg/dL (NEGATIVE) Urine Ketones Negativemg/dL (NEGATIVE) Urine Occult Blood Negative (NEGATIVE) Urine Nitrite Negative (NEGATIVE) Urine Bilirubin Negative (NEGATIVE) Urine Urobilinogen Normalmg/dL (NORMAL) Urine Leukocyte Esterase Negative (NEGATIVE) Urine RBC 0-2/hpf (0-2) Urine WBC 0-5/hpf (0-5) Urine Epithelial Cells None/hpf (NONE-MOD) Urine Crystals None seen (NONE SEEN) Urine Bacteria None/hpf (NONE-FEW) Urine Hyaline Casts None/lpf (NONE) Urine Granular Casts None seen (NONE SEEN) Urine Waxy Casts None seen (NONE SEEN) Urine Red Blood Cell Casts None seen (NONE SEEN) Urine White Blood Cell Casts None seen (NONE SEEN) Urine Mucus None seen (None Seen) Urine Trichomonas None seen (NONE SEEN) Urine Yeast None (NONE SEEN) Urinalysis Comment None Urine Culture Reflexed Not indicated Urine Legionella pneumophilia Ag Negative (Negative) Lactic Acid Level 2.3mmol/L (0.4-2.0) Vitamin B12 Level 255pg/mL (211-946) Folate 19.1ng/mL (>3.0) Test 12/30/16 20:59 12/31/16 03:10 01/02/17 04:25 01/03/17 02:35 Prothrombin Time 11.5sec (8.1-12.5) Prothromb Time International Ratio 1.07ratio Activated Partial Thromboplast Time 29.1sec (22.8-33.0) Band Neutrophils % 5% (1-5) Pro-B-Type Natriuretic Peptide 4324pg/mL (0-376) Procalcitonin 0.20ng/mL (0.00-0.08) Phosphorus Level 4.3mg/dL (2.5-4.9) Magnesium Level 2.3mg/dL (1.6-2.6) White Blood Count 9.3th/mm3 (3.8-10.1) Red Blood Count 2.54mil/mm3 (4.40-5.80) Hemoglobin 9.0g/dL (13.8-17.2) Hematocrit 27.1% (41.0-50.0) Mean Corpuscular Volume 106.7fL (81-100) Mean Corpuscular Hemoglobin 35.4pg (27.0-35.0) Mean Corpuscular Hemoglobin Concent 33.2% (32.0-37.0) Red Cell Distribution Width 18.6% (12.3-15.4) Platelet Count 173bil/L (150-400) Neutrophils (%) (Auto) 79.1% (40-74) Lymphocytes (%) (Auto) 9.0% (14-46) Monocytes (%) (Auto) 8.4% (4-12) Eosinophils (%) (Auto) 2.2% (0-5) Basophils (%) (Auto) 0.1% (0-3) Sodium Level 137mEq/L (134-144) Potassium Level 4.7mEq/L (3.5-5.2) Chloride Level 100mEq/L (97-108) Carbon Dioxide Level 25mmol/L (18-29) Blood Urea Nitrogen 27mg/dL (8-27) Creatinine 0.88mg/dL (0.76-1.27) Estimat Glomerular Filtration Rate 90mL/min (>59) Glucose Level 166mg/dL (60-99) Calcium Level 8.4mg/dL (8.5-10.1) Total Bilirubin 0.6mg/dL (0.0-1.2) Aspartate Amino Transf (AST/SGOT) 32U/L (0-50) Alanine Aminotransferase (ALT/SGPT) 39U/L (0-44) Alkaline Phosphatase 34U/L (25-160) Total Protein 5.4g/dL (6.4-8.4) Albumin 3.2g/dL (3.4-5.0) Microbiology Results Blood culture: Negative first 24 hours Urine culture: Strep pneumonia + RSV + Discharge Medications Discharge Medications Alendronate/Vitamin D3 (Alendronate/Vitamin D3) 1 Each Tablet 1 TAB PO every friday (Reported) Amlodipine (Amlodipine) 10 Mg Tablet 10 MG PO DAILY (Reported) Aspirin (Aspirin) 81 Mg Tablet 81 MG PO DAILY (Reported) Atorvastatin (Lipitor) 40 Mg Tablet 40 MG PO DAILY Prescribed by: DAVI P MCCART, DO Bicalutamide (Bicalutamide) 50 Mg Tablet 100 MG PO DAILY (Reported) Cholecalciferol (Vitamin D3) (Vitamin D3) 2,000 Unit Tablet 2,000 UNIT PO DAILY (Reported) Diltiazem ER (Cardizem CD) 240 Mg Cap.er.24h 240 MG PO DAILY Prescribed by: DAVI WADDELL DO Folic Acid (Folic Acid) 1 Mg Tablet 1 MG PO DAILY (Reported) Insulin Glargine (Lantus U100 Insulin Vial) 100 Unit/Ml Vial 15 UNIT SUBQ HS ( Reported) Ipratropium/Albuterol Sulfate (Iprat-Albut 0.5-3(2.5) mg/3 mL Inhalant Soln) 3 Ml Ampul.neb 3 ML NEB Q6 Prescribed by: DAVI WADDELL DO Losartan/HCTZ 50-12.5 mg (Losartan/HCTZ 50-12.5 mg) 1 Each Tablet 1 EACH PO DAILY (Reported) Meloxicam (Meloxicam) 15 Mg Tablet 15 MG PO DAILY (Reported) Metoprolol Tartrate (Metoprolol Tartrate) 25 Mg Tablet 50 MG PO BID Prescribed by: DAVI WADDELL DO Nicotine 21 mg/24 hr Patch (Nicotine 21 mg/24 hr Patch) 1 Each Patch.td24 1 PATCH TOPICAL Q24H Prescribed by: DAVI WADDELL DO Pantoprazole (Pantoprazole DR) 40 Mg Tablet.dr 40 MG PO BIDAC Prescribed by: DAVI WADDELL DO Potassium Chloride (Potassium Chloride) 10 Meq Tab.er.prt 20 MEQ PO BID ( Reported) Prednisone (Deltasone) 20 Mg Tablet 10 MG PO DAILY Prescribed by: DAVI WADDELL DO Tamsulosin ER (Tamsulosin ER) 0.4 Mg Cap.er.24h 0.4 MG PO HS (Reported) Trazodone (Trazodone) 50 Mg Tablet 50-100 MG PO HS (Reported) As needed Albuterol Sulfate (Ventolin HFA Inhaler) 200 Puff/18 Gm Inhaler 2 PUFFS INH q4- 6 hours PRN PRN For Shortness of Breath (Reported) Insulin Aspart (NovoLOG U100 Insulin Vial) 100 Unit/Ml Mdv 5 UNITS SUBQ TIDWM PRN PRN hyperglycemia (Reported) Ketoconazole (Ketoconazole) 120 Ml Shampoo 1 APPLIC TOP DAILY PRN PRN prn ( Reported) oxyCODONE-Acetaminophen 5-325 mg (oxyCODONE-Acetaminophen 5-325 mg) 1 Each Tablet 1 TAB PO Q4H PRN PRN For Pain Prescribed by: DAVI WADDELL DO Additional med instructions Atorvastatin 40 mg Daily Diltiazem (Cardizem CD) 240 mg Daily. Metoprolol 50 mg twice a day. Protonix 40 mg Twice a day. Percocet 5/325 Every 4 hours as needed for pain. #60 Prednisone Taper: 20 mg daily for 5 days then 10 mg daily for 5 days. Continue Other Home medications: Followup Plan Disposition: SNF Follow-up plan Follow up with your primary care physician regarding recent hospitalization to address: - Anticoagulation options with recent GI bleed. - Right thigh pain. - Statin therapy. - Increase in Metoprolol 50 mg BID. - Diltiazem 240 Daily. - Spirometry and additional home COPD medications. - Gastroenterology follow up for minor GI bleed and hx of GI bleed. Discharge Diet: Heart Healthy, Diabetic Discharge Activity: Other (continue physical therapy at nursing home facility) Patient Instructions Follow-up Provider: Vernon Carrion MD Follow-up with PCP in: 2 weeks Provider: Luther Fierro MD Follow-up in: 2 weeks Mid-level Provider: [facility] Follow-up with Mid-level in: 2 weeks Time spent 40 minutes coordinating discharge Attending Statement The patient was seen and examined together with Dr. Waddell on 01/03/2017 and I agree with the discharge summary and plan as outlined in the note above. DAVI WADDELL DO Jan 03, 2017 11:28 Jovani Kim MD Jan 03, 2017 15:44
--- NOTE | 2017-01-03 11:29 | NUR ---
HR Pt HR in the 120s-130s per laboratory monitor and VS, prior to medications. Pt assymptomatic, denies chest pain or SOB. Notified MD. MD aware. Care continues. HR is trending down an hour after medication administration.
--- NOTE | 2017-01-03 14:05 | NUR ---
Social Work: Discharge D: Pt discussed in am rounds. Pt is medically stable for discharge to skilled rehab. [facility] declined the pt[facility] for [facility]. CREATIVE CONSULTANT met with the pt at bedside to review discharge plan. Pt is declining SNF at this time and states that he wishes to go home however after MD discussion with pt, pt is agreeable to go. Pt has not ambulated and is in great amount of pain. CREATIVE CONSULTANT spoke with pt about transportation. Pt has been unable to get in touch with his and family. CREATIVE CONSULTANT has also attempted contact with his and step-daughter with no success. [facility] obtained private pay cabulance ride which is $145. Pt states he has no way to pay for this expense as he recently lost his wallet and does not own a credit card. CREATIVE CONSULTANT spoke with [facility] who staffed with diabetes territory manager. As pt is unable to pay for this expense and [facility] is not able to, [facility] will pay for this transport. [facility] has arranged for transportation at 3:30 today. CREATIVE CONSULTANT updated pt and bedside RN. CREATIVE CONSULTANT left message for pt's to notify of pt's discharge to [facility]. A: Pt who is not currently ambulating and requiring SNF discharge. P: Pt to discharge to [facility] today via cabulance; PPW, orders and prescriptions faxed to [facility]. Copies on chart. BRETT Toney
--- NOTE | 2017-01-03 14:30 | NUR ---
Arranged Care E Me with wheelchair van for transport to [facility], spoke with SENIOR STRATEGY ANALYST Structures Engineer and we will pay for this transport. Transport is arranged for 1530. Updated SENIOR STRATEGY ANALYST
--- NOTE | 2017-01-03 16:41 | NUR ---
Discharge Patient left at approximately 1600 via cabulance to [facility]. Called to give report to Nurse Gray at 1632, pt still enroute per nurse. Patient given packet for SNF, acknowledged and understood information. IV's DC'd by Charge Keren Simmons RN. Pt able to transfer to wheelchair with cane unassisted. Pt left with O2, personal belongings and SNF packet. Escorted by Cabulance hazmat truck driver.
--- NOTE | 2017-01-03 17:25 | PROG NOTE ---
[address] [address] PROGRESS NOTE PATIENT: JAGDISH MATHIS : 1945 MR#: [id number] ADMIT: 12/24/2016 JOB ID: [id number] DATE: 01/03/2017 SUBJECTIVE: The patient's stool has started to become more brown in color, less black. H and H is stable. OBJECTIVE: Vitals are stable. The patient overall looks improved. He still on nasal cannula oxygen. LABORATORY DATA: Hemoglobin 9.0, hematocrit 27.1, MCV 106.7, platelets 173, white count 9.3. Comprehensive metabolic panel unremarkable. ASSESSMENT AND RECOMMENDATIONS: A 71-year-old male with upper GI bleeding by clinical signs and symptoms. I suspect this is going to turn down man to have been NSAID-induced peptic ulcer disease. He is to hold all the ibuprofen and meloxicam. I would recommend continuation of b.i.d. PPI for the next couple of weeks, then moving to once daily PPI thereafter. I have requested a followup in my office to see how he is getting on in the next 2-3 weeks. At that point we can consider endoscopy as he has made a full and complete rasp recovery from a cardiopulmonary standpoint.
== END 2017-01-03 16:05 | DRG 871 ==
LOC: SED 14:32 → MPC 16:41 → PCC 12-25 20:04 → SOU 01-01 12:25 → PCC 01-01 12:27
PROVIDERS: ADMIT Internal Medicine; ATTEND Internal Medicine
PROC: 4A033R1 Measurement of Arterial Saturation, Peripheral, Percutaneous Approach (ICD-10-PCS; principal; 2016-12-29)
PROC: 30233N1 Transfusion of Nonautologous Red Blood Cells into Peripheral Vein, Percutaneous Approach (ICD-10-PCS; 2016-12-31)
DX: A41.9 Sepsis, unspecified organism (principal); J96.01 Acute respiratory failure with hypoxia; J12.1 Respiratory syncytial virus pneumonia; J13 Pneumonia due to Streptococcus pneumoniae; J44.1 Chronic obstructive pulmonary disease with (acute) exacerbation; N17.9 Acute kidney failure, unspecified; K92.2 Gastrointestinal hemorrhage, unspecified; R65.20 Severe sepsis without septic shock; I10 Essential (primary) hypertension; E11.9 Type 2 diabetes mellitus without complications; Z79.4 Long term (current) use of insulin; E78.5 Hyperlipidemia, unspecified; F17.210 Nicotine dependence, cigarettes, uncomplicated; I48.0 Paroxysmal atrial fibrillation; F10.10 Alcohol abuse, uncomplicated; E66.9 Obesity, unspecified; Z68.32 Body mass index [BMI] 32.0-32.9, adult; C61 Malignant neoplasm of prostate; D64.9 Anemia, unspecified; K70.30 Alcoholic cirrhosis of liver without ascites; B18.2 Chronic viral hepatitis C

== ENCOUNTER 2017-01-13 19:08 | Inpatient (IN) | payer MEDICARE ==
[~2017-01-13] VITALS: Ht 182.9 cm; Wt 132.1 kg
[~2017-01-13 19:08] MED LIST changes: +ALBU18HF INH; -ALBU8.5H4 IH; +ALEN70TA46 PO; +AMLO10TA3 PO; -ASPI-628 PO; +ASPI-973 PO; -AZIT500T5 PO; +BICA50TA PO; -CEFD300C3 PO; -CHOL200012 PO; +CHOL200025 PO; -CITA10TA9 PO; +DILT240C85 PO; -DOCU-41 PO; -INSU100V28 SUBQ; +IPRA3AMP NEB; +KETO120S3 TOP; +LIP40 PO; +LOSA1TAB69 PO; -LOSA25TA2 PO; -MELA1TAB11 PO; +MELO-253 PO; +METO25TA6 PO; -MULT-892 PO; -Metoprolol Tartrate PO; +NICO1PAT6 TOPICAL; +NOV100I SUBQ; +OXYC1TAB24 PO; -PANT40TA2 PO; +PANT40TA3 PO; +POTA10TA38 PO; +PRED-508 PO; -QUET25TA PO; -SYMINH IH; +TRAZ-115 PO
[2017-01-13 20:30] VITALS: BP 114/48; PULSE 106; RESP 30; O2SAT 96
--- NOTE | 2017-01-13 20:30 | NUR ---
Pt arrived via transport team from [facility]. Pt is a/o x3. suppl. 02 at 4 lmp via [place] with sats in the mid 90's. Levophed running at 6 mcg/kg with concentration at 4mg/250ml. levophed changed over to a concentration of 8mg/250ml with rate at 0.06 mcg/kg. Vital signs stable. HR is a-flutter. Will cont. to monitor pt closely.
[2017-01-13] MEDS ORDERED: Norepinephrine 8,000 mCg/250 mL NS Premix IV ONE (20:52)
[2017-01-13] MEDS ORDERED: Norepineph 8,000 mCg/250 mL NS 8,000 MCG in IV Premix 1 EACH IV SCH (20:54)
[2017-01-13] MEDS ORDERED: Senna-Docusate 8.6-50 mg Tablet PO PRN (20:55)
[2017-01-13] MEDS ORDERED: Polyethylene Glycol (PEG) 17 Gm Powder PO PRN (20:55)
[2017-01-13] MEDS ORDERED: Alum-Mag Hydrox-Simeth 30 mL Suspension PO PRN (20:55)
[2017-01-13] MEDS ORDERED: Ondansetron 2 mg/mL 2 mL Inj IVPUSH PRN (20:55)
[2017-01-13 21:15] LABS: Mean Corpuscular Hemoglobin 35.9 pg (27.0-35.0); Mean Corpuscular Volume 106.4 fL (81-100); Platelet Count 203 bil/L (150-400)
--- NOTE | 2017-01-13 21:21 | PCM.HPMED ---
Subjective Date of Service Jan 13, 2017 Primary Provider: Admitting Physician: Julieth Albarran DO Primary Care Physician: Luther Fierro MD Attending Physician: Julieth Albarran DO Admit Status: Direct Admit Chief Complaint: dyspnea, generalized weakness History of Present Illness: 71yoM with past medical history of COPD, DM2, HTN, chronic pain, and tobacco use transferred from [facility] with septic shock and CARIE. Patient history is limited d/t dyspnea and fatigue. Unable to speak at this time in more than a few words per sentence. Minimal documentation available from OSH. Patient states that following discharge from [facility] he became increasingly weak until prior to admission where he fell and was brought into the ED. At this time he denies chest pain, chest tightness, lightheadedness and dizziness but endorses fatigue, dyspnea and also diarrhea prior to admission in addition to a distended abdomen although non-tender. Imaging completed at OSH include c-spine and CXR. Concern for multifocal PNA with acute onset of dyspnea in the setting of CARIE prompted transfer d/t limited nephrology services at OSH. Images unavailable following transfer. 2L NS given prior to transfer and patient was then started on norepinephrine. Piperacillin-tazobactam and vancomycin started d/t concern for HCAP. Upon arrival patient was on norepinephrine at 0.05 with map >65, RR 30, HR 106 sat 96 % on 4L NC. Most recent admission at [facility] 12/24 -01/03 where he was treated with abx for PNA, COPD exacerbation and UGIB. Review of Systems: complete review of systems obtained. positive as per HPI otherwise negative Allergies Coded Allergies: No Known Allergies (Verified Allergy, Unknown, 06/06/14) Home Medications As per discharge summary 17 Discharge Medications Alendronate/Vitamin D3 (Alendronate/Vitamin D3) 1 Each Tablet 1 TAB PO every friday (Reported) Amlodipine (Amlodipine) 10 Mg Tablet 10 MG PO DAILY (Reported) Aspirin (Aspirin) 81 Mg Tablet 81 MG PO DAILY (Reported) Atorvastatin (Lipitor) 40 Mg Tablet 40 MG PO DAILY Prescribed by: DAVI WADDELL DO Bicalutamide (Bicalutamide) 50 Mg Tablet 100 MG PO DAILY (Reported) Cholecalciferol (Vitamin D3) (Vitamin D3) 2,000 Unit Tablet 2,000 UNIT PO DAILY (Reported) Diltiazem ER (Cardizem CD) 240 Mg Cap.er.24h 240 MG PO DAILY Prescribed by: DAVI WADDELL DO Folic Acid (Folic Acid) 1 Mg Tablet 1 MG PO DAILY (Reported) Insulin Glargine (Lantus U100 Insulin Vial) 100 Unit/Ml Vial 15 UNIT SUBQ HS ( Reported) Ipratropium/Albuterol Sulfate (Iprat-Albut 0.5-3(2.5) mg/3 mL Inhalant Soln) 3 Ml Ampul.neb 3 ML NEB Q6 Prescribed by: DAVI WADDELL DO Losartan/HCTZ 50-12.5 mg (Losartan/HCTZ 50-12.5 mg) 1 Each Tablet 1 EACH PO DAILY (Reported) Meloxicam (Meloxicam) 15 Mg Tablet 15 MG PO DAILY (Reported) Metoprolol Tartrate (Metoprolol Tartrate) 25 Mg Tablet 50 MG PO BID Prescribed by: DAVI WADDELL DO Nicotine 21 mg/24 hr Patch (Nicotine 21 mg/24 hr Patch) 1 Each Patch.td24 1 PATCH TOPICAL Q24H Prescribed by: DAVI WADDELL DO Pantoprazole DR (Pantoprazole DR) 40 Mg Tablet.dr 40 MG PO BIDAC Prescribed by: DAVI WADDELL DO Potassium Chloride (Potassium Chloride) 10 Meq Tab.er.prt 20 MEQ PO BID ( Reported) Prednisone (Deltasone) 20 Mg Tablet 10 MG PO DAILY Prescribed by: DAVI WADDELL DO Tamsulosin ER (Tamsulosin ER) 0.4 Mg Cap.er.24h 0.4 MG PO HS (Reported) Trazodone (Trazodone) 50 Mg Tablet 50-100 MG PO HS (Reported) As needed Albuterol Sulfate (Ventolin HFA Inhaler) 200 Puff/18 Gm Inhaler 2 PUFFS INH q4- 6 hours PRN PRN For Shortness of Breath (Reported) Insulin Aspart (NovoLOG U100 Insulin Vial) 100 Unit/Ml Mdv 5 UNITS SUBQ TIDWM PRN PRN hyperglycemia (Reported) Ketoconazole (Ketoconazole) 120 Ml Shampoo 1 APPLIC TOP DAILY PRN PRN prn ( Reported) oxyCODONE-Acetaminophen 5-325 mg (oxyCODONE-Acetaminophen 5-325 mg) 1 Each Tablet 1 TAB PO Q4H PRN PRN For Pain Prescribed by: DAVI WADDELL DO Additional med instructions Atorvastatin 40 mg Daily Diltiazem (Cardizem CD) 240 mg Daily. Metoprolol 50 mg twice a day. Protonix 40 mg Twice a day. Percocet 5/325 Every 4 hours as needed for pain. #60 Prednisone Taper: 20 mg daily for 5 days then 10 mg daily for 5 days. Continue Other Home medications: PMH CAD CHF Cirrhosis Collapse of vertebrae COPD DM2, insulin dependent Dyspnea HLD HTN Insomnia Obesity Pneumonia Prostate CA GERD V-fib Surgical History Cyst removal from coccyx Appendectomy Fracture repair Skin CA removal Tonsillectomy Adenoidectomy Family History Unable to obtain from patient d/t dyspnea. Reviewed EMR His father of COPD. His mother of Alzheimer's disease. Social History Hx Alcohol Use: Yes Hx Substance Use: No Smoking Status: Current Every Day Smoker, Heavy Tobacco Smoker Exam Vital Signs per HPI Exam General: Alert, Oriented X3, Cooperative, mild respiratory distress Eyes: PERRLA, Scleral Anicteric Mouth: Mouth Normal, Mucous Membranes Moist/[place], Neck: Supple, no Thyromegaly, trachea central. Chest & Lungs: mild crackles throughout, no wheeze, poor inspiratory effort Cardiovascular: Normal S1, Normal S2, No Murmurs/Rubs/Gallops, Tachy /Rhythm, Murmur, (No JVD, no peripheral edema) Pulses: Radial (present and equal), Dorsalis Pedi (present R) Abdomen: Soft, Non-tender, distended, Normoactive bowel tones. Ecchymosis left lower Musculoskeletal: Unremarkable. Normal range of motion, no swollen or erythematous joints Extremities: no pitting edema, no cyanosis, no clubbing. abrasions and ecchymosis noted Skin: No rashes. Warm and dry, no erythematous areas Neurological: Grossly neurologically intact, has generalized weakness, slurred Speech but baseline, Sensation Intact Lymphatic: Lymph nodes Cervical and Axillary not palpable. Lab and Diagnostics X-Rays, CTs and MRIs abd CT pending Assessment & Plan 71yoM with past medical history of COPD, DM2, HTN, chronic pain, and tobacco use transferred from [facility] with septic shock and CARIE. Septic shock, acute, POA -patient transferred from OSH following near syncopal event, requiring norepinephrine -concern for bilateral pneumonia, CT abd pelvis noncon pending, new diarrhea -recent admission (d/c 01/03), started on levofloxacin as an outpatient -no imaging results available on transfer -request imaging to be pushed, radiology results requested -PICC line attempted to be placed -requested central line placement with anesthesia, request was declined, AM team to re-consult anesthesia for line placement Respiratory failure with hypoxia, acute, POA -patient with recent admission with hypoxic / hypercap resp failure -patient continues to be hypoxic on presentation requiring oxygen -continue treatment as below, oxygen saturation 88-92% Bilateral pneumonia, acute, POA -acute dyspnea as outpatient with suspected PNA (recent admit with RSV+, strep antigen + PNA) -no other s/s of infection at this time -UA pending, procalcitonin pending -piperacillin-tazobactam and vancomycin given at OSH -will continue broad spectrum to cover HCAP, cefepime and linezolid given renal function -consider ID consultation Acute renal failure, acute, POA -normal creatinine on discharge 01/03 -elevated at 3.8 on presentation at OSH -likely prerenal / intrarenal given septic presentation -will complete CT non contrast to eval intraabd source -repeat creatinine and electrolytes pending -will likely require nephrology consult, AM team to contact Hyperkalemia, acute -2/2 to carie -monitor closely - kayexalate given Metabolic acidosis, acute -2/2 carie -repeat labs in 4 hours to reassess Elevated troponin, acute, POA -likely 2/2 CARIE -trend Hyponatremia, acute, POA -mild -ctm Macrocytic anemia, unknown chronicity -continue to monitor -consider B12 / folate levels COPD, chronic, POA -not acute exacerbation at this time -recent prednisone dosing however patient can't recall if he is on this at this time -consideration to steroid dosing, nebs PRN Probable upper GIB -concern expressed during the previous admission for UGIB -H&H is low on admission -repeat pending -continue PPI 40 BID -Trend H&H if downtrending from OSH Afib, acute, POA -new diagnosis during last admission -aflutter noted at OSH, EKG reviewed on arrival -repeat EKG in AM -optimize electrolytes in the setting of CARIE Alcohol use disorder -monitor for withdrawal Diabetes type 2, insulin dependent, chronic POA -SSI at this time HTN, chronic -hold home antihypertensive medications 2/2 sepsis HLD, chronic -continue statin when appropriate Tobacco dependence, chronic -discussed the importance of cessation with patient -nicotine replacement available upon request Obesity, BMI32 Chronic liver cirrhosis, chronic, POA -as per past documentation 45minutes critical care time spent with care management, plan development and assessment Pain Evaluation: Adequate Pain Control GI Prophylaxis: Proton Pump Inhibitor VTE Prophylaxis: Sub-Q Heparin (Unfractionated) Resuscitation Status: CPR: Attempt Resuscitation Julieth Albarran DO Jan 13, 2017 21:21
[2017-01-13] MEDS ORDERED: Albuterol 2.5 mg/3 mL Inhalation Solution NEB PRN (21:25)
[2017-01-13 21:43] LABS: TROPONIN T 0.019 ug/L (0.0-0.011)
[2017-01-13 21:45] LABS: BASOPHILS % (AUTO) 0 % (0-3); EOSINOPHILS % (AUTO) 1 % (0-5); MONOCYTES % (AUTO) 23 % (4-12); NEUTROPHILS % (AUTO) 46 % (40-74)
[2017-01-13 21:54] LABS: Magnesium 1.8 mg/dL (1.6-2.6); Phosphorus 4.8 mg/dL (2.5-4.9)
[2017-01-13] MEDS ORDERED: Glucose 40% Oral Gel 15 Gm Tube PO PRN (22:00)
[2017-01-13] MEDS: Insulin LISPRO 300 Unit/3 mL Inj SUBQ SCH (22:00)
--- NOTE | 2017-01-13 22:20 | NUR ---
PICC attempt This RN attempted x [address] a PICC on the right side. After being able to access the vein and insert the introducer I was not able to advance the catheter farther than [address] Ceballos infromed and states she will call Anesthesia for a central line placement. Thomas Rosales RN
[2017-01-13] MEDS ORDERED: Cefepime Inj 2 GM in IV Premix 1 EACH IV ONE (22:30)
[2017-01-13] MEDS ORDERED: Cefepime Inj 2,000 MG in Dextrose 5% 50 ML IV ONE (22:30)
[2017-01-13] MEDS: Linezolid Inj 600 MG in IV Premix 1 EACH IV SCH (23:35)
[2017-01-13] MEDS: HYDROmorphone 1 mg/mL Inj IVPUSH PRN (23:40)
[2017-01-14] VITALS (12 sets, daily range): BP systolic 92–128; BP diastolic 49–94; PULSE 107–128; RESP 15–26; O2SAT 94–97
[2017-01-14] MEDS ORDERED: PANT40SU PO (00:43)
[2017-01-14] MEDS ORDERED: BISA-67 PO (00:43)
[2017-01-14] MEDS ORDERED: ACET325T51 PO (00:43)
[2017-01-14] MEDS ORDERED: SENN-133 PO (00:43)
[2017-01-14] MEDS: Vancomycin 125 mg Oral Capsule PO SCH ×2 (02:46→08:04)
[2017-01-14] MEDS: Albuterol-Ipratropium 3 mL Inhalation Solution NEB SCH ×3 (02:47→16:00)
[2017-01-14] MEDS: HYDROmorphone 1 mg/mL Inj IVPUSH PRN ×4 (03:41→12:10)
[2017-01-14 04:10] LABS: Mean Corpuscular Hemoglobin 35.8 pg (27.0-35.0); Platelet Count 246 bil/L (150-400)
--- NOTE | 2017-01-14 04:16 | ABG ---
DateTimeAnalyzed 04:13:00 -_ pH ____7.327 - 7.350 7.450 pCO2 ___24.2__ -mmHg 35.0 45.0 pO2 ___70.8__ -mmHg 69.0 116 HCO3- ___12.3__ -mmol/L 22.0 26.0 ABE __-11.9__ -mmol/L -2.0 2.0 tHb ___12.1__ -g/dL O2Hb ___91.1__ -% COHb ____2.0__ -% MetHb ____0.8__ -% sO2 ___93.7__ -% 25.0 FIO2 ___28.0__ -% Drawn By MM - Date/Time Notified____ 04:16:00 -_ Liter_Flow ____2.0__ -L/min Oxygen Device 1 __CANNULA - Notified By MM - Notified Whom NEPTALI, RN - B 753 -mmHg tO2 ___15.5__ -Vol% Reza test _Positive -
[2017-01-14] MEDS ORDERED: Insulin Human REGular-Omnicell 100 Unit/mL IV ONE (05:15)
[2017-01-14] MEDS ORDERED: Sodium Bicarb (50 mEq) 8.4% 1 mEq/mL 50 mL Syringe IVPUSH ONE (05:15)
[2017-01-14 05:45] LABS: BASOPHILS % (AUTO) 0 % (0-3); EOSINOPHILS % (AUTO) 0 % (0-5); MONOCYTES % (AUTO) 26 % (4-12); NEUTROPHILS % (AUTO) 45 % (40-74)
--- NOTE | 2017-01-14 06:48 | NUR ---
Unable to obtain sputum through the night. Pt unable to cough anything up.
--- NOTE | 2017-01-14 07:05 | NUR ---
Attempt to get cvl access through the night. picc line attempt failed. Dr. Albarran stated that anesthesia vehicle calibration engineer refused to come in and place a central line. anesthesia vehicle calibration engineer said it was fine to run levophed throught a peripheral iv.
[2017-01-14] MEDS ORDERED: Pantoprazole 4 mg/mL 10 mL Inj IVPUSH SCH (07:30)
[2017-01-14] MEDS: Insulin LISPRO 300 Unit/3 mL Inj SUBQ SCH ×4 (08:02→22:27)
[2017-01-14] MEDS: Linezolid Inj 600 MG in IV Premix 1 EACH IV SCH (08:03)
[2017-01-14] MEDS ORDERED: Cosyntropin 0.25 mg/mL Inj IV ONE (08:10)
[2017-01-14] MEDS ORDERED: Tigecycline Inj 100 MG in 0.9% Sodium Chloride 100 ML IV ONE (08:55)
[2017-01-14] MEDS ORDERED: Tigecycline Inj 50 MG in 0.9% Sodium Chloride 100 ML IV SCH (08:55)
[2017-01-14] MEDS ORDERED: 0.9% Sodium Chloride 1,000 ML IV ONE ×3 (09:25→10:05)
[2017-01-14] MEDS ORDERED: Vancomycin 100 mg/mL Oral Solution G-TUBE ONE (10:00)
[2017-01-14] MEDS ORDERED: Vancomycin 250 mg Oral Capsule PO ONE (10:25)
[2017-01-14] MEDS ORDERED: Cefepime Inj 2,000 MG in Dextrose 5% 50 ML IV SCH (10:30)
[2017-01-14] MEDS ORDERED: Vancomycin 125 mg Oral Capsule PO ONE (10:40)
--- NOTE | 2017-01-14 10:45 | ABG ---
DateTimeAnalyzed 10:42:00 -_ pH ____7.256 - 7.350 7.450 pCO2 ___31.5__ -mmHg 35.0 45.0 pO2 ___85.1__ -mmHg 69.0 116 HCO3- ___13.5__ -mmol/L 22.0 26.0 ABE __-12.2__ -mmol/L -2.0 2.0 tHb ___10.8__ -g/dL O2Hb ___92.5__ -% COHb ____2.0__ -% MetHb ____0.9__ -% sO2 ___95.3__ -% 25.0 FIO2 ___60.0__ -% Drawn By nb - Date/Time Notified____ 10:45:00 -_ Spontaneous_RR ___20.0__ -b/min Oxygen Device 1 hi flow o2 - Notified By nb - Notified Whom DR Kendregan - B 751 -mmHg tO2 ___14.2__ -Vol% Reza test N/A -
--- NOTE | 2017-01-14 10:53 | DRSVH ---
PROCEDURE: X-RAY CHEST ONE VIEW, PORTABLE ([id number]) INDICATIONS: cvp placement, sob TECHNIQUE: One view of the chest was acquired. COMPARISON: Merged With [facility], CR, XR CHEST 1VW (PORTABLE), 01/01/2017, 5:53. FINDINGS: Surgical changes and devices: A new central venous catheter, tip of which is projected over the lower SVC and cavoatrial junction. Lungs and pleura: Patchy opacities persist at the upper aspect of the right upper lobe. There are inc reased consolidative opacities at the left lung base when compared with the prior plain film dated 11/19. Mediastinum: Mediastinal contours appear normal. Heart size is normal. Bones and chest wall: No suspicious bony lesions. Overlying soft tissues appear unremarkable. IMPRESSION: 1. Central venous catheter as above. 2. Unchanged right upper lobe radiopacities. 3. Increased left basilar radiopacities. Short interval followup is recommended with resolution of the patient's symptoms to ensure there is n o underlying pulmonary pathology. Dictated by: Cate Davila M.D. on 01/14/2017 at 10:49 Approved by: Cate Davila M.D. on 01/14/2017 at 10:52
[2017-01-14] MEDS ORDERED: Sodium Chloride LOK Flush 10 mL Syringe IVFLUSH PRN ×2 (10:55)
--- NOTE | 2017-01-14 11:11 | CONS ---
[address] [address] CONSULTATION REPORT PATIENT: JAGDISH MATHIS : 1945 MR#: [id number] ADMIT: 01/13/2017 JOB ID: [id number] DATE OF SERVICE: 01/14/2017 INFECTIOUS DISEASE CONSULTATION: I thank Dr. Fidel Salas for this timely consult and Dr. Hernandez as well. REASON FOR CONSULTATION: Septic shock and renal failure due to fulminant C. difficile colitis. HISTORY OF THE PRESENT ILLNESS: The patient is a 71-year-old gentleman who is well known to us from a recent admission in late December when he was admitted to this facility with proven pneumococcal pneumonia following RSV respiratory tract infection. The patient has a complicated past medical history even predating that December admission to this facility in that he has known COPD, atrial arrhythmias and alcoholism. The patient was hospitalized in late December with a multi-day history of a flu-like illness, which progressively worsened with fever and shortness of breath and at that time, he was proven to have RSV and pneumococcal pneumonia. He was successfully discharged home on January 03 and at that time, was doing very well and his respiratory status was much improved and was back basically to his normal state of health. It is notable that during that admission, his creatinine did bump up but returned to his baseline of 0.8 prior to his discharge on January 03. At the time of discharge, the patient was sent home on albuterol, atorvastatin, diltiazem, metoprolol, Protonix and a prednisone taper, which was supposed to take him through basically today before he completely tapered off the prednisone that had been started because of this potential COPD exacerbation caused by the RSV. The patient seemed to do well for several days following his discharge but then developed diarrhea, fever, chills, sweats and progressive weakness. These symptoms started on or about the 10 of January and led him to [facility] ED yesterday. at that time, he was evaluated with a variety of studies including a CT scan of the abdomen, and subsequently transferred to this facility. While he was there, he was noted to have a creatinine of 3.8, as opposed to 0.8 only 10 days previously. His potassium was 5.7, and his white blood count was only 8800 but with a dramatic left shift including 16% bands. He was transferred here with concern about impending sepsis. His procalcitonin was also known to be 3.8 at the time of transfer. He was transferred here to evaluate sepsis, as well as his renal failure. Lactic acid was also noted in the ED at [facility] to be 2.8. Since his arrival here, the patient has been in obvious septic shock and requiring vasopressor agents. He has been struggling to breathe, and there has been some indecision about whether or not he is a candidate for intubation or any surgical interventions because he has a form signed indicating he does not want to be intubated or resuscitated. During rounds this morning this case was urgently discuss, given that he was in extremis from a respiratory point of view, and additional discussions were held with the patient who now allows that HE WOULD CONSENT TO INTUBATION FOR A SHORT-TERM OR FOR SURGERY INDICATED TO GET HIM THROUGH THIS ILLNESS. In speaking to the patient this morning, he is critically ill and not yet intubated, so we were able to get a little bit of history but he is so sick that he can only speak one or two words at a time secondary to shortness of breath and abdominal distention and pain. He tells me the beginning a few days ago he developed diarrhea, which has been frequent and severe, in association with abdominal distention and some pain. He also noted the coincident with this his urine output has dropped off considerably over the last three or four days and over the one or two days, he has become short of breath but without much cough and without any pleuritic chest pain. He also notes that his vision has been different in the last few days but he really cannot tell me in what way. He states he has had no headache or stiff neck. As noted, no productive cough and no pleuritic chest pain. Just shortness of breath. His urination has not been painful but the volume of urine has dropped dramatically. He really is not able to give any more history and unable to complete a real review of systems because he is so sick and so short of breath at this point. This case was discussed extensively during ICU rounds and in the room with a variety of people including the ICU team, Respiratory Therapy, Nursing and the PICC Line team. PAST MEDICAL HISTORY: 1. COPD. 2. Hypertension. 3. Hyperlipidemia. 4. Paroxysmal atrial fibrillation. 5. Prostate cancer. 6. L2 compression fracture. 7. Alcohol abuse. ALLERGIES: The patient has no known allergies. SOCIAL HISTORY: The patient reports that he usually has multiple drinks a day but he decided to quit in about mid December. Up until that point he apparently drank 3-5 shots a day, though there are some notes in the chart suggesting somewhat more and note this, of course, was hard liquor. He decided in mid December when he developed the RSV pneumonitis that he would stopped smoking, and it is unclear to me if he has resumed smoking after his discharge here on January 03 but in any event, he may have been cigarette free for about a month or so and similarly alcohol free for a month or so according to his most recent history we have available. He has no history of foreign travel. FAMILY HISTORY: Negative for TB in first and second-degree relatives. His dad of COPD. REVIEW OF SYSTEMS: Almost impossible due to the patient's shortness of breath and probable impending intubation. He tells us he has had no headaches. He has had some blurry vision, though he is not sure for how many days. No sore throat. No trouble swallowing. No stiff neck. He has been short of breath without a cough and without pleuritic chest pain. He notes his abdomen has become more distended and painful with diarrhea for 3-4 days, and that he has had diminished urine output but without dysuria. He has also been extremely weak and unable to ambulate. Beyond that, review of systems cannot be continued because of the patient's critical illness. PHYSICAL EXAMINATION: Reveals a very ill gentleman who looks much different than when I saw him three weeks or so ago here in the hospital. He is lying in bed, very short of breath. Respiratory rate in the 30s, his pulse is in the 120s and he is actively struggling to breathe, though that improved a bit when he was given some high-flow nasal oxygen as opposed to low-flow. His current temperature is 36.9. He has been afebrile during his overnight stay here. Pulse currently 128, respiratory rate 25-30. Blood pressure 102/60 but he is requiring moderately high doses of norepinephrine to support that blood pressure. He is saturating reasonably well at this moment on high-flow oxygen. He is awake and knows where he is but he is obviously scared and very dyspneic. Examination of the head reveals no trauma. No conjunctival or scleral changes are noted. Nose appears normal. Oral cavity with dry mucous membranes. No thrush is noted. His neck is reasonably supple. No cervical adenopathy is noted. His lungs are notable for coarse breath sounds at the bases bilaterally. Cardiac tones very tachycardic. Unable to appreciate if there is a murmur or not. Abdomen tremendously distended and silent really to auscultation. The abdomen is surprisingly not too tender despite massive distention of the abdomen, and there is no Alfonzo or Galvan-Couch signs noted. No clear-cut ascites is noted. Patient's scrotum and penis appear normal. A Molina catheter has been placed. His left hand has severe Dupuytren contracture, as was noted during his last admission. Right hand is more normal. His hands are reasonably well perfused but his radial pulses bilaterally are quite weak consistent with his hypotension and vasopressor requirement. He does not have significant edema of the lower extremities but his feet are quite cool, and we are unable to palpate any pulses in his feet. Capillary refill is several seconds in both feet. There are no ischemic ulcers seen on the feet, however. The patient is able to move all four extremities for us without difficulty, and he clearly is alert and following commands with intact motor function. There is no appreciable skin rash anywhere, and the remainder of the physical exam essentially unremarkable. LABORATORIES: Include a white count which was 9000 when he left and it is 8000 now but the white count today has a pronounced left shift with 18% bands and 1% metamyelocytes. His platelet count is 246. His creatinine 3.39. note that it was 0.8 just 10 days ago when he left. urinalysis has not been done on this admission, though it has been ordered and is pending. Urine Legionella antigen is negative. MRSA screen pending. Blood cultures pending. The stool for multiplex PCR has already come back just while we are seeing the patient and positive for C. diff. IMAGING: Includes a CT of the abdomen and pelvis that was done last night at [facility]. That CT scan shows a thickening of the bowel consistent with ischemic or inflammatory colitis. IMPRESSION: This elderly gentleman survived pneumococcal pneumonia in late December which was treated with ceftriaxone and has now, unfortunately, developed Clostridium difficile colitis, which is likely related to his earlier antibiotic therapy. His Clostridium difficile colitis would be properly characterized as life threatening, given his renal failure, hyperkalemia, shock and pronounced left shift. His mental status is still seemingly intact, so I see no evidence of encephalopathy at this point. The management of life-threatening Clostridium difficile colitis such as this involves vancomycin in maximal dose of 500 q.6 h. to be given by the oral route. Enemas may be beneficial when there is a pronounced ileus, which may be relevant in this case. The other way to give vancomycin in this situation is to do a cecotomy and place a drain through the cecum and simply irrigate the large bowel with voluminous quantities of vancomycin. A surgical journal article several years ago described this technique, and it has been used with variable success in a variety of institutions including our institution a couple of times in the past two years. Most would add supplemental IV Flagyl in this situation at a dose of 500 q.8 h. The use of tigecycline has been advocated by some in this situation based on anecdotal reports. My personal experience with this has been fairly extensive and is not clear cut, and those results are published in the International Journal of Infectious Disease. My own mediocre experience with this agent not withstanding I think it makes reasonable sense to try in this circumstance because there are reports of dramatic improvement in some cases and we probably need some broad-spectrum antibiotic coverage in addition to our oral vancomycin and IV Flagyl. RECOMMENDATIONS: 1. I would discontinue his current antibiotics in favor of vancomycin 500 mg p.o. q.6 h., Flagyl 500 IV q.8 h. and tigecycline 50 mg q.12 h. after 1/3 mg load dose. 2. In addition to those therapies I would consider either vancomycin enemas for a cecotomy with irrigation of the colon, and I have strongly recommended to the team they contact Dr. Jarvis Logan or Dr. Burks to institute this cecal drainage system, if possible. 3. Other antibiotics are being discontinued at this time, as they would be likely to make his C. diff somewhat worse. 4. This case discussed extensively with Dr. Salas and the other members of the team including Dr. Hernandez and multiple others.
[2017-01-14] MEDS: metroNIDAZOLE Inj 500 MG in IV Premix 1 EACH IV SCH ×2 (11:15→22:08)
--- NOTE | 2017-01-14 11:17 | DRSVH ---
PROCEDURE: CT ABDOMEN AND PELVIS WITHOUT CONTRAST ([id number]) INDICATIONS: jose martin, sepsis TECHNIQUE: Noncontrast 5 mm thick sections acquired from the diaphragms to the symphysis. 5 mm coronal and sagi ttal reformats were then performed. For radiation dose reduction, the following was used: automated exposure control, adjustment of mA and/or kV according to patient size. COMPARISON: [facility], CT, ABD/PELVIS W/CON (PN), 06/11/2012, 14:59. FINDINGS: Image quality: Excellent. ABDOMEN: Lung bases: Bibasilar consolidations are present, with minimal superimposed pleural effusions.. Solid organs: Liver and spleen are normal in size. Gallbladder is unremarkable. Pancreas is normal in contours. No adrenal nodules. Kidneys are normal in size, without hydronephrosis or nephrolithi asis. Peritoneum and bowel: Unenhanced bowel loops demonstrate thickening of the transverse and left colon . There is prominent fluid filled loops of transverse and right-sided colon noted. There is fluid and air identified within the rectum. There is trace perihepatic and perisplenic fluid as well as mild f luid within the paracolic gutters and in the pelvis. Nodes and vessels: No retroperitoneal or mesenteric adenopathy by size criteria. Aorta and inferior vena cava are normal in caliber. Miscellaneous: No ventral hernias. PELVIS: Genitourinary: Bladder wall thickness is normal. Miscellaneous: No inguinal hernias or adenopathy. Bones: No suspicious bony lesions. Old vertebral compression deformity is again noted. IMPRESSION: 1. Fluid-filled prominence of the colon with thickening in the transverse and left colon as above. Fi ndings can be a reflective of colitis secondary to inflammatory or infectious etiology. Ischemic coli tis should also be considered. Recommend interval followup should document resolution of thickening a nd exclude presence of mass lesion including obscured visualization of the rectum secondary to fluid. 2. Bibasilar areas of effusion and consolidation, with the latter medical collections representative of atelectasis and/o r pneumonia. Dictated by: Izabela Stockton M.D. on 01/14/2017 at 11:11 Approved by: Izabela Stockton M.D. on 01/14/2017 at 11:15
--- NOTE | 2017-01-14 12:54 | NUR ---
line placement/surgical consult 729 upon initial assessment pt appears markedly SOB, pagehimanshu, O2 increased to 6LNC. 1000 Pt continues to be SOB. 1000 Central line inserted at bedside. 1020 Arterial line inserted at bedside. 1130 Abdominal pressure monitor connected, 25, rechecked and abd pressure is 25 again, notified. Surgical consult done by . 1230 Surgeon speaks with pt and family. Possibly go to OR sometime after 1500. Addendum: 01/14/17 at 1742 by KRUPA SCOTT RN 1500 dialysis catheter placed via R groin. 1600 dialysis started. FMS inserted. While on dialysis HR up to 180's, levophed up to 0.3 m/k/m. Notified Dr Ponce , pheneylephrine added in. Plan for surgery after dialysis.
--- NOTE | 2017-01-14 13:15 | CONS ---
[address] [address] CONSULTATION REPORT PATIENT: JAGDISH MATHIS : 1945 MR#: [id number] ADMIT: 01/13/2017 JOB ID: [id number] DATE OF SERVICE: 01/14/2017 RENAL CONSULTATION: HISTORY: The patient is a rather unfortunate 71-year-old gentleman who was transferred to [facility] for acute kidney injury and sepsis. Renal consultation is being sought for further evaluation and management of his acute kidney injury. He had a recent hospitalization at [facility] last month for pneumonia due to pneumococcus and respiratory syncytial virus. At that time he was given a series of antibiotics with some improvement and was subsequently discharged to rehabilitation facility. At time of his discharge, he was on Protonix, prednisone, metoprolol, diltiazem, atorvastatin, albuterol. He was at the facility for several days and had been making some progression in his improvement in his overall condition. Several days prior to admission, he began to have significant abdominal distention, pain and copious diarrhea. Yesterday when he was seen at [facility], a CT without contrast was performed and showed large loops of dilated bowel. Also his creatinine at that time was found to be markedly elevated at 3.8. At time of his discharge on December 31, 2016, his creatinine was normal at 0.82 mg/dL. His lactic acid was also found to be elevated at 2.8 and has risen since that time. Our service was asked to consult this morning for worsening acidemia and acute kidney injury. The patient is somewhat of a difficult historian because of his current medical situation. He does have apparently a long-standing history of alcohol abuse, diabetes, hypertension and COPD. He denies any recent rash, difficulty urination, nausea, vomiting, chest pain or wheezing. His main complaint is the diarrhea and distention. His diarrhea has tested positive for C. difficile. An intra-abdominal pressure was obtained following my consultation this morning and is found to be markedly elevated at 25 mmHg. PAST MEDICAL HISTORY: Is significant for: 1. Diabetes with diabetic neuropathy. 2. Hypertension with hypertensive heart disease and hypertensive nephrosclerosis. 3. Atrial fibrillation. 4. COPD. 5. Prostate cancer. 6. Alcohol abuse. ALLERGIES: He is not allergic to any food or any medication. SOCIAL HISTORY: The patient states that he has not had any alcohol since his recent illness in December. Prior to that, he was drinking between three and five shots of alcohol a day. There is also history of current tobacco use prior to admission. He does not use oxygen at home. FAMILY HISTORY: Noncontributory. REVIEW OF SYSTEMS: Is detailed above. Otherwise is unobtainable. MEDICATIONS: He is currently receiving Tygacil, oral vancomycin, sodium chloride IV, metronidazole IV, Protonix, a number of nebulizers, linezolid, insulin and has been given a dose of Kayexalate. PHYSICAL EXAMINATION: Revealed a morbidly obese, somewhat plethoric appearing 71-year-old white male who was mildly somnolent and in some marked abdominal and respiratory distress at time of my evaluation. HEENT examination is remarkable for pale sclerae. Neck is supple without adenopathy or thyromegaly. However, there was jugular venous distention noted at 90 degrees. His chest examination shows a marked increase in AP diameter, dullness to percussion, diffuse end-expiratory wheezes, rhonchi, and bibasilar rales. Heart was irregularly irregular. Abdomen is markedly distended and quite tense. The bowel sounds are absent and there is diffuse tympany to percussion. A limited abdominal examination was undertaken because of the tense nature and pain for the patient. As noted above, his intra-abdominal pressure was 25 mmHg. Extremities showed some mild trivial lower extremity edema but no evidence of any clubbing or cyanosis. Skin turgor is good and there is no evidence of any rashes. LABORATORY EXAMINATION: This morning, his white count is 8.1, hemoglobin of 12.6, hematocrit 38.0. MCV is elevated 108. Platelet count is 246. His differential shows 45 neutrophils, 10 lymphs, 26 monos, 18 bands and one metamyelocyte. Urinalysis is not available at this time. His sodium is 126, potassium is 6.1, chloride 95, bicarbonate of 14. BUN and creatinine were 56 and 3.39. Glucose is 211. Lactic acid is 4.0. His liver function studies were remarkable only for an albumin of 2.2 and a procalcitonin of 1.97. I have reviewed the patient's CT examination and he has bilateral pleural effusions, a little more pronounced on the left as compared to the right. He also has considerable gas in his bowel but no evidence of any free air under the diaphragm. IMPRESSION: 1. Acute tubular necrosis secondary to sepsis from C. difficile colitis, hypovolemia from diarrhea and sepsis, severe intra-abdominal hypertension with likely bowel and abdominal ischemia. 2. Acute interstitial nephritis from medications. 3. Lactic acidosis secondary to #1. 4. Diabetic nephropathy. 5. Hyponatremia. 6. Hyperkalemia. RECOMMENDATION: 1. At this point, the most critical issue is his intra-abdominal hypertension. At a level of 25, he is at extremely high risk for diffuse abdominal ischemia, and until this is addressed, I feel there is little else that can be done. Apparently surgery and GI have both been consulted. 2. I would like to get a renal ultrasound once his abdominal situation is clarified. 3. Urine free eosinophils. 4. I would like to change his intravenous fluids to sodium bicarbonate, and in light of his severe hypoalbuminemia, I would like to supplement several doses of albumin. Once again, I would like to thank you for allowing me to participate in the care of this pleasant but very unfortunate patient. I will be following him closely with you.
--- NOTE | 2017-01-14 13:19 | CONS ---
[address] [address] CONSULTATION REPORT PATIENT: JAGDISH MATHIS : 1945 MR#: [id number] ADMIT: 01/13/2017 JOB ID: [id number] DATE OF SERVICE: 01/14/2017 CHIEF COMPLAINT/IDENTIFICATION: I have been asked by the hospitalist and ICU service to see this 71-year-old man admitted with C. difficile colitis for consideration of that double-barrel ileostomy creation. HISTORY OF PRESENT ILLNESS: The patient was in the hospital last month for approximately 10 days, discharged 10 days ago, for pneumonia and COPD exacerbation. During that hospitalization he received antibiotics and presented to the emergency department at [facility] last night with complaints of progressive weakness, dyspnea, and diarrhea. He has been diagnosed with severe C. difficile colitis. He was transferred here last night, arrived around 9 p.m., and since that time has been fluid resuscitated. He has been seen in consultation by Dr. Palma. The patient has been placed on oral vancomycin as well as IV Flagyl, other broad-spectrum, and tigecycline with discontinuation of other antibiotics. Surgical consultation has been obtained for consideration of a laparoscopic double-barreled ileostomy for both stool diversion and ability to irrigate the colon with anti C. diff therapy. PAST MEDICAL HISTORY: COPD, hypertension, hyperlipidemia, atrial fibrillation, prostate cancer, L2 compression fracture, history of alcohol abuse. MEDICATIONS: See med list. ALLERGIES: No allergies reported. SOCIAL HISTORY: Recently stopped smoking, recently stopped drinking within the past two months. REVIEW OF SYSTEMS: Per admission history and physical. PHYSICAL EXAMINATION: Ill-appearing man laying on the hospital bed with nasal cannula, in Trendelenburg. His pulse is recorded at 116 and is currently 105. His respirations are recorded at 22 and I concur with this. His blood pressure was last recorded at 102/60, and with high-flow nasal cannula O2 his saturation is 97%. He appears quite ill, though he is conversant. He is pale. Lungs have bilateral wheezes. Heart sounds are irregularly irregular. His abdomen is distended, quite quiet, without percussion tenderness. Diffuse mild tenderness to general palpation in all four quadrants. LABORATORY DATA: His admission white count at 9 p.m. yesterday was 6.7, with a marked left shift, and this morning it is 8.1, continued left shift. His platelet count was 203 and is now 246. His admission hematocrit was 31.7, and is now 38. Chemistries show persistent hyponatremia of 127, mild hyperkalemia now up to 6.1, and bicarbonate of 15, now 14. His calculated anion gap is 18. Creatinine is elevated above his baseline of 0.8 to 3.31 on admission and is now 3.39. His blood glucose is 211. Lactic acid has trended up from 1.8 and his admission last night to 3.4 up to 4. Troponin was 0.019. IMAGING: He had a CT scan of the abdomen and pelvis last night, and I have reviewed these films as well as the report. I concur that he has a fluid-filled colon, with some thickening in the transverse and left colon; nothing to suggest toxic megacolon. The cecum is not overly distended. I believe that he has a small amount of ascites, as well as bibasilar areas of consolidation consistent with atelectasis or residual pneumonia. IMPRESSION AND PLAN: A 72-year-old man with significant medical comorbidities, now almost two weeks out from antibiotic therapy for pneumonia, now with the severe C. difficile colitis. Some of his parameter seem not to be responding to fluid resuscitation and I will review his medical management with the ICU team. The patient was seen initially around 10 a.m. in the morning and he will be followed throughout the course of the day. If he does not seem to be responding to fluid resuscitation and medical management, consideration will be given to going off to the operating room, either for subtotal colectomy with end ileostomy, or perhaps a diversion loop ileostomy. I have had discussion with the patient about the possible need for an operation within the next 24 hours that would involve a ileostomy that would most likely be temporary, on the order of 3-6 months. He indicates that if that was what was needed to save his life that he would certainly want to do that. I will follow him along with the medicine service and reexamine him several times through the course of the day.
--- NOTE | 2017-01-14 13:23 | NUR ---
NUTRITION ASSESSMENT Assess: 71 yo M admitted w/ septic shock, respiratory failure w/ hypoxia, bilateral pneumonia, and acute renal failure. Pt requiring high flow oxygen. Possible C. Diff. Pt w/ increased abdominal pressure. Surgery possible this afternoon. PMHx: CAD, CHF, Cirrhosis, Collapsed vertebrae, COPD, DM 2, Dyspnea, HLD, HTN, Insomnia, Obesity, Pneumonia, Prostate cancer, GERD, V-vib, Cyst removal from coccyx, skin cancer removal LABS: Na 127, K 6.1, Cl 95, CO2 14, BUN 56, Cr 3.39, Glu 211, Lactic acid 4.0, Ca 8.3, Albumin 2.2, Lipase 7 MEDICATIONS: Reviewed. Insulin DIET: NPO x1 GI symptoms/stool: BM x3 01/14 Skin integrity: No issues noted; Vincent: 15 ANTHROPOMETRICS: Current Wt: 109.6 kg BMI: 32.8 kg/s0Vtdzi Wt: 108 kg IBW: 80.9 kgRecent wt changes: None noted ESTIMATED NEEDS: BMI/COPD Calories: 7750-1090 kcal/d (22-25 kcal/kg/d) Protein: 95-145 g/d (1.2-1.8 g/kg/d) Fluids: 0706-9015 ml/d (1 ml/kcal/d) NUTRITION DIAGNOSIS: 1) Increased nutrient needs related to increased work of breathing as evidenced by COPD. INTERVENTION: 1) Will monitor for diet advancement and PO intake and add supplements or recommend nutrition support if needed. MONITOR/EVALUATE: PO intake, Labs, Wt, Nutrition status, POC. Will follow per moderate nutrition risk guidelines.
[2017-01-14] MEDS ORDERED: fentaNYL-PF 50 mCg/mL 2 mL Inj ONE (13:46)
[2017-01-14] MEDS ORDERED: Rocuronium 10 mg/mL 5 mL Inj ONE (13:46)
--- NOTE | 2017-01-14 14:18 | PROG NOTE ---
[address] [address] PROGRESS NOTE PATIENT: JAGDISH MATHIS : 1945 MR#: [id number] ADMIT: 01/13/2017 JOB ID: [id number] DATE: 01/14/2017 NARRATIVE: The patient has been examined serially over the course of the day. Despite fluid resuscitation he remains on pressors. His mentation remains about the same. His breathing is more rapid and shallow. His abdominal distention has increased, as has his abdominal tenderness, though he still does not have diffuse peritonitis. Intra-abdominal pressures, as measured through his bladder, are increasing. Urine output continues to low. Followup labs are pending but overall, he seems to be deteriorating. I have discussed his care with Dr. Palma and Dr. Salas and Dr Hernandez, and all feel that despite maximal medical therapy he seems to be worsening from his C. diff colitis. I have recommended to the patient and his that we go to the operating room for a laparoscopic possible open exploration with anticipated subtotal colectomy and end ileostomy. Intraoperative consideration of a more limited operation involving a loop ileostomy for stool diversion and allowing irrigation of the colon with vancomycin via the distal hole of the ostomy will be considered but I have explained that subtotal colectomy is what most surgeons would do and that is likely what he will come out with. They understand that this ostomy will be reversible down the road on the order of 3-6 months. I also told the patient that almost certainly he will be intubated postoperatively. He agrees to proceed. I will discuss the case with Anesthesia, and recheck labs preoperatively.
[2017-01-14] MEDS ORDERED: Vancomycin 125 mg Oral Capsule PO SCH (14:30)
[2017-01-14 14:34] LABS: Mean Corpuscular Hemoglobin 35.6 pg (27.0-35.0); Mean Corpuscular Volume 107.4 fL (81-100); Platelet Count 225 bil/L (150-400)
[2017-01-14 14:39] LABS: INR 1.31 ratio
[2017-01-14] MEDS ORDERED: HYDROmorphone 1 mg/mL Inj IVPUSH PRN (14:50)
[2017-01-14 15:07] LABS: BASOPHILS % (AUTO) 0 % (0-3); EOSINOPHILS % (AUTO) 0 % (0-5); MONOCYTES % (AUTO) 28 % (4-12); NEUTROPHILS % (AUTO) 36 % (40-74)
[2017-01-14] MEDS ORDERED: Albumin 25% 25 GM in IV Premix 1 EACH IV ONE (15:15)
[2017-01-14] MEDS: Sodium Bicarb 8.4% Inj 150 MEQ in Dextrose 5% 1,000 ML IV SCH (15:19)
--- NOTE | 2017-01-14 15:51 | PCM.CHPMED ---
Subjective Date of Service: Jan 14, 2017 Provider requesting consult: Corby Hernandez MD Primary Physician: Admitting Physician: Julieth Albarran DO Primary Care Physician: Luther Fierro MD Attending Physician: Julieth Albarran DO Admit Status: From the Emergency Department, Full Admit Chief Complaint: Chief Complaint: Septic Shock. . History of Present Illness: Pulmonology/Intensive Care Consultation Note: Attending Dr. Maritza Serrato Elio is a 71-year-old male with a complex past medical history most significant for recent RSV complicated by strep pneumonia requiring hospitalization who was transferred from [facility] for septic shock and an acute kidney injury. We were consulted for management of worsening septic shock. HPI unobtainable due to patient status, therefore, HPI Per Dr. Albarran's admit note today 01/14/17: Patient history is limited d/t dyspnea and fatigue. Unable to speak at this time in more than a few words per sentence. Minimal documentation available from OSH. Patient states that following discharge from [facility] he became increasingly weak until prior to admission where he fell and was brought into the ED. At this time he denies chest pain, chest tightness, lightheadedness and dizziness but endorses fatigue, dyspnea and also diarrhea prior to admission in addition to a distended abdomen although non-tender. Imaging completed at OSH include c-spine and CXR. Concern for multifocal PNA with acute onset of dyspnea in the setting of CARIE prompted transfer d/t limited nephrology services at OSH. Images unavailable following transfer. 2L NS given prior to transfer and patient was then started on norepinephrine. Piperacillin-tazobactam and vancomycin started d/t concern for HCAP. Upon arrival patient was on norepinephrine at 0.05 with map >65, RR 30, HR 106 sat 96 % on 4L NC. Most recent admission at [facility] 12/24 -01/03 where he was treated with abx for PNA, COPD exacerbation and UGIB. . Review of Systems: A comprehensive review of systems was not obtained due to the patients status. . PMH Past Medical History Unable to obtain from patient due to septic shock and dyspnea, therefore, past histories below obtained from history of present illness on admission: 1. CAD. 2. CHF. 3. Cirrhosis. 4. Collapse of vertebrae. 5. COPD. 6. Diabetes mellitus type II, insulin using. 7. Dyspnea. 8. Hyperlipidemia. 9. Hypertension. 10. Insomnia. 11. Obesity. 12. History of pneumonia. 13. Prostate cancer. 14. GERD 15. V-fib. . Bedside Blood Glucose: 183 Surgical History 1. Cyst removal from coccyx. 2. Appendectomy. 3. Fracture repair. 4. Skin CA removal. 5. Tonsillectomy. 6. Adenoidectomy. . Home Medications As per discharge summary 01/03/2017: Scheduled Medications: Alendronate/Vitamin D3 (Alendronate/Vitamin D3) 1 Each Tablet 1 TAB PO every friday (Reported) Amlodipine (Amlodipine) 10 Mg Tablet 10 MG PO DAILY (Reported) Aspirin (Aspirin) 81 Mg Tablet 81 MG PO DAILY (Reported) Atorvastatin (Lipitor) 40 Mg Tablet 40 MG PO DAILY Prescribed by: DAVI WADDELL DO Bicalutamide (Bicalutamide) 50 Mg Tablet 100 MG PO DAILY (Reported) Cholecalciferol (Vitamin D3) (Vitamin D3) 2,000 Unit Tablet 2,000 UNIT PO DAILY (Reported) Diltiazem ER (Cardizem CD) 240 Mg Cap.er.24h 240 MG PO DAILY Prescribed by: DAVI WADDELL DO Folic Acid (Folic Acid) 1 Mg Tablet 1 MG PO DAILY (Reported) Insulin Glargine (Lantus U100 Insulin Vial) 100 Unit/Ml Vial 15 UNIT SUBQ HS ( Reported) Ipratropium/Albuterol Sulfate (Iprat-Albut 0.5-3(2.5) mg/3 mL Inhalant Soln) 3 Ml Ampul.neb 3 ML NEB Q6 Prescribed by: DAVI WADDELL DO Losartan/HCTZ 50-12.5 mg (Losartan/HCTZ 50-12.5 mg) 1 Each Tablet 1 EACH PO DAILY (Reported) Meloxicam (Meloxicam) 15 Mg Tablet 15 MG PO DAILY (Reported) Metoprolol Tartrate (Metoprolol Tartrate) 25 Mg Tablet 50 MG PO BID Prescribed by: DAVI WADDELL DO Nicotine 21 mg/24 hr Patch (Nicotine 21 mg/24 hr Patch) 1 Each Patch.td24 1 PATCH TOPICAL Q24H Prescribed by: DAVI WADDELL DO Pantoprazole DR (Pantoprazole DR) 40 Mg Tablet.dr 40 MG PO BIDAC Prescribed by: DAVI WADDELL DO Potassium Chloride (Potassium Chloride) 10 Meq Tab.er.prt 20 MEQ PO BID ( Reported) Prednisone (Deltasone) 20 Mg Tablet 10 MG PO DAILY Prescribed by: DAVI WADDELL DO Tamsulosin ER (Tamsulosin ER) 0.4 Mg Cap.er.24h 0.4 MG PO HS (Reported) Trazodone (Trazodone) 50 Mg Tablet 50-100 MG PO HS (Reported) As needed medications: Albuterol Sulfate (Ventolin HFA Inhaler) 200 Puff/18 Gm Inhaler 2 PUFFS INH q4- 6 hours PRN PRN For Shortness of Breath (Reported) Insulin Aspart (NovoLOG U100 Insulin Vial) 100 Unit/Ml Mdv 5 UNITS SUBQ TIDWM PRN PRN hyperglycemia (Reported) Ketoconazole (Ketoconazole) 120 Ml Shampoo 1 APPLIC TOP DAILY PRN PRN prn ( Reported) oxyCODONE-Acetaminophen 5-325 mg (oxyCODONE-Acetaminophen 5-325 mg) 1 Each Tablet 1 TAB PO Q4H PRN PRN For Pain Prescribed by: DAVI WADDELL DO . Allergies: Coded Allergies: No Known Allergies (Verified Allergy, Unknown, 06/06/14) Family History Family History His father of COPD. His mother of Alzheimer's disease. . Social History Hx Alcohol Use: YesHx Substance Use: No Smoking Status: Current Every Day Smoker Heavy Tobacco Smoker Exam Vital Signs Vital Sign - Last Date Time Temp Pulse Resp B/P Pulse Ox O2 Delivery O2 Flow Rate FiO2 01/14/17 12:47 37.1 114 25 127/93 96 high flow NC 01/14/17 09:00 60 50 Intake and Output 01/13/17 01/13/17 01/14/17 Cumulative From/Thru 15:00 23:00 07:00 01/13/17 22:15 - 01/14/17 06:41 Intake Total 1506 ml 1506 ml Output Total 150 ml 150 ml Balance 1356 ml 1356 ml Intake Oral 120 ml 120 ml IV Total 1386 ml 1386 ml Output Urine Total 150 ml 150 ml # Bowel Movements 3 3 General: Alert, Moderate Distress, Other (diaphoretic) Head: Normal Eyes: PERRLA, EOMI, Scleral Anicteric Mouth: Mouth Normal, Mucous Membranes Dry Chest & Lungs: Clear to auscultation & percussion, Diminished breath sounds, Other (tachypneic) Cardiovascular: No Murmurs/Rubs/Gallops, Other (irregularly irregular) Abdomen: Tender (diffusely throughout), Distended (moderate to severe distention), Other (scattered ecchymosis throughout abdominal wall) Genitourinary: Molina Present Extremities: No cyanosis/clubbing/edma bilat Lab and Diagnostics Labs Item Value Date Time Lactic Acid Level 1.8 mmol/L 01/13/172104 Lactic Acid Level 3.4 mmol/L H 01/14/17 0350 Result Diagram: 01/14/17 1400 01/14/17 1400 X-Rays, CTs and MRIs X-RAY CHEST ONE VIEW, PORTABLE IMPRESSION: 1. Central venous catheter as above. 2. Unchanged right upper lobe radiopacities. 3. Increased left basilar radiopacities. Short interval followup is recommended with resolution of the patient's symptoms to ensure there is no underlying pulmonary pathology. Dictated by: Cate Davila M.D. on 01/14/2017 at 10:49 CT ABDOMEN AND PELVIS WITHOUT CONTRAST IMPRESSION: 1. Fluid-filled prominence of the colon with thickening in the transverse and left colon as above. Findings can be a reflective of colitis secondary to inflammatory or infectious etiology. Ischemic colitis should also be considered. Recommend interval followup should document resolution of thickening and exclude presence of mass lesion including obscured visualization of the rectum secondary to fluid. 2. Bibasilar areas of effusion and consolidation, with the latter personal financial representative of atelectasis and/or pneumonia. Dictated by: Izabela Stockton M.D. on 01/14/2017 at 11:11 . 12-lead ECG EKG: Atrial fibrillation, heart rate 128. . Assessment & Plan Assessment Rojelio Ballard is a 71-year-old male with a complex past medical history most significant for recent RSV complicated by strep pneumonia requiring hospitalization who was transferred from [facility] for septic shock and an acute kidney injury. We were consulted for management of worsening septic shock. 1. Acute severe septic shock, present on admission. Active. - SIRS criteria met include:Tachypnea (respiratory rate 30), tachycardic (pulse 106), bandemia 20% neutrophils, lactic acidosis 3.4, with GI as source and hypotension refractory to fluid resuscitation requiring vasopressors. - Early goal-directed therapy met including: Broad-spectrum antibiotic coverage and IV fluid resuscitation. - Continue norepinephrine and titrate if needed. 2. Acute severe life threatening C. difficile colitis, present on admission. Active. - Patient was recently treated with antibiotics for RSV complicated by strep pneumonia. - Patient currently receiving linezolid, cefepime, metronidazole and oral vancomycin pending IDs recommendations. - CT abdomen and pelvis revealed colitis,as above. - PCR positive for C. difficile and per Dr. Palma very virulent strain. - Infectious disease consulted during ICU rounds. - Consider surgery and nephrology consult. 3. Abdominal compartment syndrome, present on admission. Active. - IAP 25 and likely contributing to acute kidney failure. - Consider surgery consultation per ID. 4. Acute hypoxemic respiratory failure, present on admission. Active. - Patient put on high flow oxygen which we will continue as needed. - Discussed CODE STATUS with the patient's who agrees to intubation if temporary and/or needed for surgery. 5. Anion gap metabolic acidosis, present on admission. Active. - Anion gap of 20 with calculated correction for albumin. - Lactic acidosis with initial lactic acid of 3.4. Trending up. - Continue IV fluids with 1L NS boluses. - Correct underlying cause as above in problem #2. 6. Acute kidney injury, present on admission. Active. - Continue IV fluids as above under problem #4. - Avoid nephrotoxic agents. - Continue to monitor urine output and renal function daily. - Recommend nephrology consultation for possible temporary hemodialysis. 7. Hyperkalemia, present on admission. Active. - See plan above under problem #5. - Recommend nephrology consultation for possible temporary hemodialysis. Chronic problems for management of primary team Disposition: Tenuous as patient is severely ill with severe septic shock secondary to virulent C. difficile colitis. Problems: Pain Evaluation: Adequate Pain Control GI Prophylaxis: Proton Pump Inhibitor VTE Prophylaxis: Sub-Q Heparin (Unfractionated) VTE Mechanical Devices: Intermittant Pneumatic CD Resuscitation Status: CPR: Attempt Resuscitation Attending Statement The patient was seen and examined together with Dr. Lam on 01/14/2017 and I agree with the history, exam and plan as outlined in the note above. Nicole Lam DO Jan 14, 2017 15:51 Fidel Salas MD Jan 15, 2017 11:30
[2017-01-14] MEDS ORDERED: Albumin 25% 25 Gm/100 mL IV PRN ×2 (16:00→17:10)
--- NOTE | 2017-01-14 16:02 | PCM.PNNEPH ---
Subjective Date of Service Jan 14, 2017 Subjective Patient's condition is continued to deteriorate throughout the day. His abdomen continues to enlarge and his most recent intra-abdominal pressure was 17. She has toxic megacolon and will be going to surgery later. In the interim due to his hyperkalemia and metabolic acidosis from this will put a dialysis catheter in and short treatment. She has be dialyzed today for 2-1/2-3 hours, on a revaclear dialyzer, 1 potassium bath, no heparin, and 40 bicarbonate. Will attempt to take off 1-2 kg of fluid as tolerated. History given 25 g of albumin and start of treatment and 25 g every hour 2 doses. Most likely he will be dialyzed again tomorrow. Exam Vital Signs Vital Sign - Last Date Time Temp Pulse Resp B/P Pulse Ox O2 Delivery O2 Flow Rate FiO2 01/14/17 12:47 37.1 114 25 127/93 96 high flow NC 01/14/17 09:00 60 50 Intake and Output 01/13/17 01/13/17 01/14/17 Cumulative From/Thru 15:00 23:00 07:00 01/13/17 22:15 - 01/14/17 06:41 Intake Total 1506 ml 1506 ml Output Total 150 ml 150 ml Balance 1356 ml 1356 ml Intake Oral 120 ml 120 ml IV Total 1386 ml 1386 ml Output Urine Total 150 ml 150 ml # Bowel Movements 3 3 Lab and Diagnostics Result Diagram: 01/14/17 1400 01/14/17 1400 X-Rays, CTs and MRIs abd CT pending Plan Plan The patient will continue hyperbaric treatments. Will return () for treatment #() Delfin Pat DO Jan 14, 2017 16:02
--- NOTE | 2017-01-14 16:07 | PCM.PROC ---
Procedure Note Date of Service: Jan 14, 2017 Pre Procedure Diagnosis: Acute tubular necrosis, acute hyperkalemia, and severe metabolic acidosis Post Procedure Diagnosis: Same Procedure: Insertion of right femoral venous dialysis catheter Provider and Vehicle Maintenance Supervisor: Delfin Pat D.O. Indication for Procedure: Acute kidney injury, hyperkalemia, and metabolic acidosis. Procedure Details: After informed consent was obtained from the patient's the area of the right femoral vein was palpated and then visualized using ultrasonography. Once the vein was visualized the probe was withdrawn and area was prepped and draped in a sterile manner. Local anesthesia was obtained with local infiltration via 5 mL 1% Xylocaine. Once anesthesia was obtained the femoral vein which had previously been visualized was removed with a precinct police captain nadirs as noted by the flash of venous blood. The precinct police captain needle was withdrawn and a 10 mL syringe was connected to a Cook needle and flushed with saline. Following the previous tract. The right femoral vein was entered with a Cook needle was noted once again by the flash of venous blood. Leaving the Cook needle and placed the syringe was withdrawn and a flexible guidewire wire was then passed through the Cook needle into the femoral vein and the needle was withdrawn and the guidewire in place. A small incision was made on the inferior aspect over the guidewire and a series of graduated dilators was subsequently passed through the guidewire to a large the track into the femoral vein. A 24 cm Mahurkur catheter which had been previously flushed with sterile saline, was introduced through the guidewire and into the vein. The guidewire was then withdrawn through the hub of the catheter. Reports were then flushed with several moles of sterile saline and the stopcock were applied and Mr. WERE then placed upon the ellington both both ports. It was sutured in place with 2 interrupted sutures using 4-0 silk. The area was cleaned and a sterile dressing was applied. Delfin Pat DO Jan 14, 2017 16:07
[2017-01-14] MEDS: Hydrocortisone 50 mg/mL 2 mL Inj IVPUSH SCH (16:27)
[2017-01-14] MEDS: Phenylephrine Inj 20,000 MCG in 0.9% Sodium Chloride 250 ML IV SCH ×2 (17:04→22:09)
[2017-01-14] MEDS: Albumin 25% 25 GM in IV Premix 1 EACH IV PRN ×2 (18:00→18:01)
--- NOTE | 2017-01-14 18:01 | PCM.HPANE ---
Patient Data Surgeon Admitting Provider:Julieth Albarran DO Attending Provider:Julieth Albarran DO Primary Care Physician:Luther Fierro MD Other Provider: Reason for Visit Sepsis, Arf Ht/WT & BMI Height (Feet): 6 Weight (Kilograms): 109.600 Body Mass Index 32.25 Allergies Coded Allergies: No Known Allergies (Verified Allergy, Unknown, 06/06/14) Past Anesthesia History Anesthesia History: Denies:: Abnormal Airway, Anesthesia Reactions, Difficult Intubation, Fam Anesthesia Reaction, Fam Malignant Hypertherm, Malignant Hyperthermia Diabetes History Hx Diabetes?: Yes Current Bedside Blood Glucose: 183 MRSA MRSA: No Medications Active Scripts Atorvastatin (Lipitor)40 Mg Vwopiv47 Mg PO DAILY #30 TABLET Ref 3 Prov:DAVI WADDELL DO 01/03/17 oxyCODONE-Acetaminophen 5-325 mg 1 Each Tablet1 Tab PO Q4H PRN For Pain #60 TABLET Ref 0 Prov:DAVI WADDELL P DO 01/03/17 Diltiazem ER (Cardizem CD)240 Mg Cap.er.11i034 Mg PO DAILY #30 Ref 2 Prov:DAVI WADDELL P DO 01/03/17 Metoprolol Tartrate 25 Mg Iidgcm07 Mg PO BID #60 TABLET Ref 2 Prov:DAVI WADDELL DO 01/03/17 Nicotine 21 mg/24 hr Patch 1 Each Patch.td241 Patch TOPICAL Q24H 30 Days Prov:DAVI WADDELL DO 01/03/17 Ipratropium/Albuterol Sulfate (Iprat-Albut 0.5-3(2.5) mg/3 mL Inhalant Soln)3 Ml Ampul.neb3 Ml NEB Q6 60 Days Prov:DAVI WADDELL P DO 01/03/17 Reported Medications Bisacodyl (Dulcolax)5 Mg Tablet.dr5 Mg PO PRN For Constipation Ref 0 01/14/17 Acetaminophen 325 Mg Mikwyy175 Mg PO PRN For Pain Ref 0 01/14/17 Pantoprazole Sodium (Protonix Granules)40 Mg Granpkt.dr40 Mg PO DAILY 30 Days Ref 0 01/14/17 Sennosides (Senna)8.6 Mg Tablet8.6 Mg PO PRN For Constipation 01/14/17 Aspirin 81 Mg Gxdjrh43 Mg PO DAILY Ref 0 12/24/16 Trazodone 50 Mg Ybqhsj25-038 Mg PO HS #90 12/24/16 Albuterol Sulfate (Ventolin HFA Inhaler)200 Puff/18 Gm Inhaler2 Puffs INH q4-6 hours PRN For Shortness of Breath #18 12/24/16 Potassium Chloride 10 Meq Tab.er.prt20 Meq PO DAILY #120 12/24/16 Insulin Aspart (NovoLOG U100 Insulin Vial)100 Unit/Ml Mdv5 Units SUBQ TIDWM PRN hyperglycemia #10 12/24/16 Meloxicam 15 Mg Dtszrd33 Mg PO DAILY #30 12/24/16 Losartan/HCTZ 50-12.5 mg 1 Each Tablet1 Each PO DAILY #90 12/24/16 Ketoconazole 120 Ml Shampoo1 Applic TOP DAILY PRN prn #120 12/24/16 Bicalutamide 50 Mg Lprnph397 Mg PO DAILY #180 12/24/16 Amlodipine 10 Mg Drdvzt65 Mg PO DAILY #30 12/24/16 Alendronate/Vitamin D3 1 Each Tablet1 Tab PO every friday #12 12/24/16 Tamsulosin ER 0.4 Mg Cap.er.24h0.4 Mg PO HS 30 Days Ref 0 06/06/14 Insulin Glargine (Lantus U100 Insulin Vial)100 Unit/Ml Vial15 Unit SUBQ HS #1 VIAL Ref 0 06/06/14 Folic Acid 1 Mg Tablet1 Mg PO DAILY 30 Days 06/06/14 Discontinued Reported Medications Cholecalciferol (Vitamin D3) (Vitamin D3)2,000 Unit Tablet2,000 Unit PO DAILY 12/24/16 Discontinued Scripts Prednisone (Deltasone)20 Mg Gonnfd80 Mg PO DAILY #15 TABLET Prov:DAVI WADDELL DO 01/03/[address] 40 Mg Tablet.dr40 Mg PO BIDAC #60 Prov:DAVI WADDELL DO 01/03/17 History History of ENT Problems?: No HEENT History: Positive for:: Cataracts (L eye) Hearing Problem Denies:: Abnormal Airway Difficult Intubation Dysphagia Hx of Heart Problems?: Yes Cardiovascular History: Positive for:: Hypertension Denies:: AICD Atrial Fibrillation Cardiac Surgery Chest Pain Congestive Heart Failure Edema Heart Murmur Irregular Heartbeat Pacemaker Thrombophlebitis Valvular Heart Disease Hx of Respiratory Problem?: Yes Respiratory History: Positive for:: COPD Dyspnea Emphysema Pneumonia Denies:: Asthma Chest Surgery Cough Hemoptysis Tuberculosis Hx Neurologic Problems?: No Neurological History: Denies:: CVA Dementia Dizziness Headaches Parkinson's Disease Seizures Hx of GI Problems?: Yes Gastrointestinal History: Positive for:: Hepatitis (Hep C, geovani 2) Rectal Bleeding Denies:: Cirrhosis Diverticulitis Gastroesphageal Reflux Gastrointestinal Bleeding Heartburn Hiatal Hernia Hx of Problems?: No Genitourinary History: Denies:: Kidney Stones Urinary Tract Infection Male Hx: Positive for:: Prostate Problems (Prostate CA) Denies:: Scrotal Mass Testicular Surgery Hx Musculoskeletal Problems?: Yes Musculoskeletal History: Denies:: Back Injury Joint Replacement Musculoskeletal Trauma Hx of Psycho/Social Problems?: No Psycho Social History: Denies:: Anxiety Bipolar Disorder Hx Depression Suicide Attempt Hx Surgeries?: Yes (L femur, appy) Hx Any Other Health Problems?: Yes Other History: Positive for:: Cancer (Prostate CA) Hospitalization Denies:: Endocrine Disease Thyroid Disease History Blood Transfusions: Positive for:: Blood Transfusions Denies:: Blood Transfuse Reaction Hx Diabetes: YesBedside Blood Glucose: 183 Hx Alcohol Use: YesHx Substance Use: No Smoking Status: Current Every Day Smoker Heavy Tobacco Smoker Have You Smoked inLast 12 mo: Yes Stop/Bang Treated for Sleep Apnea?: No Do You Have a CPAP Machine?: No S-Snoring: Do You Snore Loudly: No T-Tired: feel tired, fatigued: Yes O-Obsered: Observed not breath: No P-Blood Pressure: treated: Yes B- Body Mass Index > 35 kg/m2: No A- Age over 50: Yes N- Neck Large Circumference: No G- Gender Male: Yes DOC Total Score: 3 Risk Assessment Category Category 1A: Patient has history of documented sleep apnea, and HAS NOT received any narcotic, sedative or anesthesia administration during this stay. Category 1B: Patient has history of documented sleep apnea, and HAS received any narcotic , sedative or anesthesia administration during this stay Category 2: Patient has SUSPECTED Obstructive Sleep Apnea, and HAS received any narcotic , sedative or anesthesia administration during this stay. Category 3: Patient has SUSPECTED Obstructive Sleep Apnea and HAS NOT received narcotic, sedative or anesthesia administration during this stay. Category 4: Outpatient in Procedural Areas with known sleep apnea or who screen positive for High Risk via the STOP/BANG questionnaire. Exam Exam Vital Signs Vital Signs Date Time Temp Pulse Resp B/P Pulse Ox O2 Delivery O2 Flow Rate FiO2 01/14/17 16:04 116 22 97 Nasal Cannula 60 50 01/14/17 16:00 107 26 94 hi flow o2/ 60% 50 01/14/17 13:00 116 22 97 Nasal Cannula 60 50 01/14/17 12:47 37.1 114 25 127/93 96 high flow NC 01/14/17 12:47 Supplement Oxygen 01/14/17 11:20 107 26 94 hi flow o2/ 60% General Appearance: Cooperative, Moderate Distress HEENT/AIRWAY: MP 2, Neck Movement (from) Lungs: Diminished, Crackles (bibasilar) Heart: Other (tachycardic) Additional Information dyspneic with signs of air hunger responsive to commands very protuberant abdomen Meds/Labs/Diagnostics Admission Meds Current Medications Norepinephrine (Norepineph 8,000 mCg/250 mL NS) 8,000 mcg STK-MED ONCE IV Last administered on 01/13/17 21:06; Start 01/13/17 at 20:52; Stop 01/13/17 at 20:53 ; Status DC Albuterol/ Ipratropium (DuoNEB Inh Soln) 3 ml Q6 NEB Last administered on 16:00; Start 01/14/17 at 02:30 Oxycodone HCl (Roxicodone IR) 5 mg OT ONCE PO Last administered on 01/13/17 21:57; Start 01/13/17 at 21:40; Stop 01/13/17 at 21:41; Status DC Insulin Human Lispro (HumaLOG Insulin Inj) Nutritional Dose to be given pr... [facility] SUBQ Last administered on 01/14/17 12:00; Start 01/13/17 at 22:00 Pantoprazole 40 mg 40 mg BIDAC IVPUSH Last administered on 01/14/17 08:03; Start 01/14/17 at 07:30; Stop 01/14/17 at 12:28; Status DC Linezolid/Premix (Zyvox Inj/IV Premix) 300 ml @ 300 mls/hr Q12 IV Last administered on 01/14/17 08:03; Start 01/13/17 at 23:00 Sodium Polystyrene Sulfonate 30 gm 30 gm ONCE ONCE PO Last administered on 23:35; Start 01/13/17 at 22:10; Stop 01/13/17 at 22:21; Status DC Cefepime HCl/ Dextrose/Water (Maxipime Inj/ D5W) 50 ml @ 100 mls/hr ONCE ONCE IV Last administered on 01/13/17 23:35; Start 01/13/17 at 22:30; Stop at 08:55; Status DC Vancomycin HCl (Vancomycin Oral Capsule) 125 mg Q6 PO Last administered on 01/14 08:04; Start 01/14/17 at 02:30; Stop 01/14/17 at 10:01; Status DC Sodium Bicarbonate (Sodium Bicarb(50 mEq) 8.4% Inj) 50 meq ONCE ONCE IVPUSH Last administered on 01/14/17 05:50; Start 01/14/17 at 05:15; Stop 01/14/17 at 05:16; Status DC Insulin Human Regular (HUMulin-R Insulin U-100 Inj) 10 unit ONCE ONCE IV Last administered on 01/14/17 05:49; Start 01/14/17 at 05:15; Stop 01/14/17 at 05:17 ; Status DC Dextrose/Water (D50 Syringe) 50 ml ONCE ONCE IVPUSH Last administered on 05:48; Start 01/14/17 at 05:15; Stop 01/14/17 at 05:17; Status DC Cosyntropin 0.25 mg 0.25 mg ONCE ONCE IV Last administered on 01/14/17 14:04 ; Start 01/14/17 at 08:10; Stop 01/14/17 at 09:23; Status DC Metronidazole/ Sodium Chloride 500 mg/Premix 100 ml @ 200 mls/hr Q12 IV Last administered on 01/14/17 11:15; Start 01/14/17 at 09:22 Tigecycline 100 mg/Sodium Chloride 110 ml @ 220 mls/hr OT ONCE IV Last administered on 01/14/17 11:14; Start 01/14/17 at 08:55; Stop 01/14/17 at 09:25 ; Status DC Sodium Chloride (Normal Saline) 1,000 ml @ 0 mls/hr Q0M ONCE IV Last administered on 01/14/17 11:15; Start 01/14/17 at 09:25; Stop 01/14/17 at 09:42 ; Status DC Vancomycin HCl 500 mg 500 mg Q6 PO Last administered on 01/14/17 15:58; Start 01/14/17 at 14:30; Stop 01/14/17 at 16:15; Status DC Sodium Chloride (Normal Saline) 1,000 ml @ 0 mls/hr Q0M ONCE IV Last administered on 01/14/17 11:21; Start 01/14/17 at 10:05; Stop 01/14/17 at 10:19 ; Status DC Vancomycin HCl 250 mg 250 mg ONCE ONCE PO Last administered on 01/14/17 10:40 ; Start 01/14/17 at 10:40; Stop 01/14/17 at 10:41; Status DC Sodium Bicarbonate/ Dextrose/Water (Sodium Bicarb 8.4% Inj/D5W) 1,150 ml @ 80 mls/hr [id number] IV Last administered on 01/14/17 15:19; Start 01/14/17 at 12:25 Hydrocortisone Sodium Succinate 100 mg 100 mg Q8 IVPUSH Last administered on 16:27; Start 01/14/17 at 16:30 Phenylephrine HCl/ Sodium Chloride (Duane-Synephrine Inj/Normal Saline) 252 ml @ 41.42 mls/ hr Q6H6M IV Last administered on 01/14/17 17:04; Start 01/14/17 at 16:31 Bedside Blood Glucose: 183 Labs Test 01/13/17 21:05 01/13/17 22:37 01/14/17 03:50 01/14/17 14:00 Phosphorus Level 4.8mg/dL (2.5-4.9) Magnesium Level 1.8mg/dL (1.6-2.6) Troponin T 0.019ug/L (0.0-0.011) Lipase 7U/L (13-60) Procalcitonin 1.97ng/mL (0.00-0.08) Hold Urine Received (Received) Metamyelocytes % 1% (0-0) White Blood Count 13.0th/mm3 (3.8-10.1) Red Blood Count 3.26mil/mm3 (4.40-5.80) Hemoglobin 11.6g/dL (13.8-17.2) Hematocrit 35.0% (41.0-50.0) Mean Corpuscular Volume 107.4fL (81-100) Mean Corpuscular Hemoglobin 35.6pg (27.0-35.0) Mean Corpuscular Hemoglobin Concent 33.1% (32.0-37.0) Red Cell Distribution Width 16.6% (12.3-15.4) Platelet Count 225bil/L (150-400) Neutrophils (%) (Auto) 36% (40-74) Lymphocytes (%) (Auto) 14% (14-46) Monocytes (%) (Auto) 28% (4-12) Eosinophils (%) (Auto) 0% (0-5) Basophils (%) (Auto) 0% (0-3) Band Neutrophils % 22% (1-5) Prothrombin Time 14.1sec (8.1-12.5) Prothromb Time International Ratio 1.31ratio Activated Partial Thromboplast Time 32.0sec (22.8-33.0) Sodium Level 129mEq/L (134-144) Potassium Level 6.2mEq/L (3.5-5.2) Chloride Level 100mEq/L (97-108) Carbon Dioxide Level 13mmol/L (18-29) Blood Urea Nitrogen 55mg/dL (8-27) Creatinine 3.40mg/dL (0.76-1.27) Estimat Glomerular Filtration Rate 19mL/min (>59) Glucose Level 197mg/dL (60-99) Lactic Acid Level 3.3mmol/L (0.4-2.0) Calcium Level 6.5mg/dL (8.5-10.1) Total Bilirubin 0.4mg/dL (0.0-1.2) Aspartate Amino Transf (AST/SGOT) 25U/L (0-50) Alanine Aminotransferase (ALT/SGPT) 19U/L (0-44) Alkaline Phosphatase 42U/L (25-160) Total Protein 4.2g/dL (6.4-8.4) Albumin 2.1g/dL (3.4-5.0) Test 01/14/17 14:30 3/14/17 16:30 Plan Impression Patient chart reviewed, patient interviewed and anesthestic plan with risks, benefits, and alternatives discussed, and informed consent obtained. NPO Status: >8h ASA Physical Status: ASA4 Plus Emergency Anesthetic Support Modalities: [place] Scope, Arterial Line, Central Line, Hemodynamic Monitoring Anesthetic Plan: GA Other on pressors with norepi and phenylephrine. ARF on dialysis emergently through right femoral line. Right IJ femoral line and left radial arterial line. Tyler Hernandez MD Jan 14, 2017 18:01
--- NOTE | 2017-01-14 18:22 | NUR ---
Dialysis note 2.5 hrs of HD completed. QB 200 thru R femoral catheter. QD 500. No UF removed. Art line and cuff readings fairly similar with cuff reading slightly higher. Initially not tolerating HD well with BP readings in the 80's systolic and SVT HR fluctuating from 130's as high as 190's. Total of rafal 800ml NS given in intervals per hospitalists, and multidisciplinary. Second hr of HD tolerated better with stable BP's in the 120's-130's systolic and HR in the 130's-150's. Total of 75GM Albumin given IV during tx. STAT BMP drawn at end of tx for pt to go to OR. Catheter dwelled with 1000/1 U Heparin and secured.
--- NOTE | 2017-01-14 18:43 | NUR ---
pt goes to OR Brian DUTTA and Dr Hernandez of Anesthesiology both given thorough report. All questions asked and answered. 1844 Pt transfered with OR team and Dr Hernandez.
--- NOTE | 2017-01-14 18:49 | PCM.PNMED ---
Subjective Date of Service Jan 14, 2017 Subjective overnight: could not place a picc. today: Patient states that his had diarrhea for approximately 1 week. He denies any blood in his diarrhea. He admits to some fever and chills. He denies any trouble with urination. He has had a cough but he denies a productive cough. The patient states is also having some shortness of breath recently. Exam Vital Signs Vital Sign - Last Date Time Temp Pulse Resp B/P Pulse Ox O2 Delivery O2 Flow Rate FiO2 01/14/17 04:30 36.9 128 24 102/60 94 Nasal Cannula 2.00 Intake and Output 01/13/17 01/13/17 01/14/17 Cumulative From/Thru 15:00 23:00 07:00 01/13/17 22:15 - 01/14/17 06:41 Intake Total 1506 ml 1506 ml Output Total 150 ml 150 ml Balance 1356 ml 1356 ml Intake Oral 120 ml 120 ml IV Total 1386 ml 1386 ml Output Urine Total 150 ml 150 ml # Bowel Movements 3 3 Exam General: Obese elderly appearing male, Alert, Oriented X3, Cooperative, moderate respiratory distress Eyes: PERRLA, EOMI Scleral Anicteric Mouth: Mouth Normal, Mucous Membranes Moist/[place], no cobblestoning mucosa, no tonsillar exudates Neck: Supple, no Thyromegaly, trachea central. No JVD Chest & Lungs: mild crackles throughout, mild isolated wheeze in upper airways on the left, decreased air movement throughout Cardiovascular: Tachycardic with regular rhythm, Normal S1, Normal S2, No Murmurs/Rubs/Gallops, Pulses: Also is equal bilaterally at radial and dorsalis pedis with decreased pulses Abdomen: Soft, Non-tender, distended, Normoactive bowel tones. Ecchymosis consistent with insulin injections in lower abdomen Musculoskeletal: Unremarkable. Normal range of motion, no swollen or erythematous joints Extremities: no pitting edema, no cyanosis, no clubbing. abrasions and ecchymosis noted Skin: No rashes. Warm and dry, no erythematous areas Neurological: Grossly neurologically intact, has generalized weakness, slurred Speech at baseline, follows all commands appropriately Psych: Flat affect and normal mood : Molina in place Lab and Diagnostics Result Diagram: 01/14/17 0350 01/14/17 0350 Microbiology Microbiology C DIFF TOXIN A AND B BY PCR Final 01/14/17-938 Organism 1 POS FOR CDIF TOXIN C DIF TOXIN A&B PCR DETECTED TIME CALLED: 936 DATE CALLED: 01/14/17 FLOOR/DOCTOR: BRY/KRUPA Brown CALLED BY: NORRIS PCR testing alone cannot distinquish C. difficile disease from a carrier state, and therefore correlation with clinical findings is required. X-Rays, CTs and MRIs CT ABDOMEN AND PELVIS WITHOUT CONTRAST IMPRESSION: 1. Fluid-filled prominence of the colon with thickening in the transverse and left colon as above. Findings can be a reflective of colitis secondary to inflammatory or infectious etiology. Ischemic colitis should also be considered. Recommend interval followup should document resolution of thickening and exclude presence of mass lesion including obscured visualization of the rectum secondary to fluid. 2. Bibasilar areas of effusion and consolidation, with the latter admitting representative of atelectasis and/or pneumonia. Dictated by: Izabela Stockton M.D. on 01/14/2017 at 11:11 Approved by: Izabela Stockton M.D. on 01/14/2017 at 11:15 X-RAY CHEST ONE VIEW, PORTABLE IMPRESSION: 1. Central venous catheter as above. 2. Unchanged right upper lobe radiopacities. 3. Increased left basilar radiopacities. Short interval followup is recommended with resolution of the patient's symptoms to ensure there is no underlying pulmonary pathology. Dictated by: Cate Davila M.D. on 01/14/2017 at 10:49 Approved by: Cate Davila M.D. on 01/14/2017 at 10:52 Additional Diagnostics DateTimeAnalyzed 04:13:00 -_ pH ____7.327 - 7.350 7.450 pCO2 ___24.2__ -mmHg 35.0 45.0 pO2 ___70.8__ -mmHg 69.0 116 HCO3- ___12.3__ -mmol/L 22.0 26.0 DateTimeAnalyzed 10:42:00 -_ pH ____7.256 - 7.350 7.450 pCO2 ___31.5__ -mmHg 35.0 45.0 pO2 ___85.1__ -mmHg 69.0 116 HCO3- ___13.5__ -mmol/L 22.0 26.0 Assessment & Plan 71yoM with past medical history of recent hospitalization for pneumonia and COPD , DM2, HTN, chronic pain, and tobacco use transferred from [facility] with septic shock and CARIE. Hospital Day 1 1 Septic shock secondary to Clostridium Difficile colitis, acute, POA, unstable - patient transferred from OSH following near syncopal event, requiring norepinephrine - concern for bilateral pneumonia, CT abd pelvis noncon pending, new diarrhea - recent admission for pneumonia (d/c 01/03), started on levofloxacin as an outpatient - CT imaging shows thickened colonic mucosa consistent with infectious colitis - Biofire shows C. difficile PCR - Pulmonology and critical care, nephrology, infectious disease, general surgery all CONSULTED and appreciate recommendations from time - Polst form states patient's wish to not be intubated, however patient has given consent to be intubated this hospitalization, also has given consent for intubation if necessary - Patient is currently on norepinephrine and phenylephrine drips for pressor support including IV fluids - Hydrocortisone 100 mg IV every 8 - IV albumin for oncotic pressor support given low albumin state - Patient is having potassium dialyzed per anesthesia requirements prior to surgery - Gen. surgery plans to take the patient back for a ileostomy colectomy given the patient's current deterioration 2 Respiratory failure with hypoxia, acute, POA - patient with recent admission with for pneumonia with hypoxic / hypercapnic respiratory failure - Polst form states patient's wish to not be intubated, however patient has given consent to be intubated this hospitalization, also has given consent for intubation if necessary - patient continues to be hypoxic on presentation requiring oxygen currently on high flow nasal cannula - continue treatment as below, oxygen saturation 88-92% - Hydrocortisone 100 mg IV every 8 3 Clostridium Difficile colitis, present on admission, acute - CT imaging shows thickened colonic mucosa consistent with infectious colitis - Biofire shows C. difficile PCR - Triple antibiotic coverage with vancomycin oral, Flagyl IV, tigecycline IV - Gen. surgery plans to take the patient back for a ileostomy colectomy given the patient's current deterioration 4 possible Bilateral pneumonia, acute, POA -acute dyspnea as outpatient with suspected PNA (recent admit with RSV+, strep antigen + PNA) -piperacillin-tazobactam and vancomycin given at OSH -will continue broad spectrum to cover HCAP, cefepime and linezolid is continued in favor of tigecycline and Flagyl -ID consultation appreciate recommendations in time 5 Acute renal failure, acute, POA -normal creatinine 0.88 on discharge 3/3 -elevated at 3.8 on presentation at OSH -likely prerenal / intrarenal given septic presentation - nephrology consulted, patient is currently being dialyzed to remove potassium per anesthesiology recommendations prior to surgery 6 Hyperkalemia, acute, -2/2 to carie - kayexalate given overnight by admitting team - nephrology consulted, patient is currently being dialyzed to remove potassium per anesthesiology recommendations prior to surgery 7 primary Metabolic acidosis with respiratory alkalosis compensation, acute, present on admission -Secondary to sepsis and lactic acidosis -Continue IV fluids -nephrology consulted, patient is currently being dialyzed to remove potassium per anesthesiology recommendations prior to surgery 8. Elevated troponin, acute, POA -likely 2/2 to demand ischemic secondary to hypotension induced tachycardia 9 Hyponatremia, acute, POA -Possibly secondary to SIADH secondary to long pathology/pneumonia -Continue IV fluid therapy -Nephrology following 10 Macrocytic anemia, unknown chronicity, present on admission -continue to monitor -consider B12 / folate levels 11. COPD, chronic, POA -not acute exacerbation at this time -recent prednisone dosing however patient can't recall if he is on this at this time -consideration to steroid dosing, nebs PRN 12 possible upper gastrointestinal bleed, present on admission, unknown chronicity -concern expressed during the previous admission for UGIB -H&H is low on admission -repeat pending -continue PPI 40 BID -Trend H&H if downtrending from OSH 13 Atrial fibrillation, acute, POA -new diagnosis during last admission -aflutter noted at OSH, EKG reviewed on arrival -repeat EKG in AM -optimize electrolytes in the setting of CARIE 14 history of Alcohol dependency, present on admission, chronic -monitor for withdrawal 15 Diabetes mellitus type 2, insulin dependent, chronic POA -correction scale insulin at this time 16 HTN, chronic, present on admission, present on admission -hold home antihypertensive medications 2/2 sepsis 17 HLD, chronic -continue statin when appropriate 18 Tobacco dependence, chronic, present on admission -discussed the importance of cessation with patient -nicotine replacement available upon request 19 Obesity, present on admission, chronic - BMI32 20 Chronic liver cirrhosis, chronic, POA -as per past documentation DVT prophylaxis to be held until after surgery and reconsidered at that time GI prophylaxis not indicated at this time High risk medications: Dilaudid Disposition: Patient will likely have a protracted hospital course given his current state of health, will require extensive rehabilitation likely secondary to the morbidity of the impending surgery. Pain Evaluation: Adequate Pain Control VTE Mechanical Devices: Intermittant Pneumatic CD Resuscitation Status: CPR: Attempt Resuscitation Attending Statement The patient was seen and examined together with Dr. Masters on 01-14-17 and I agree with the history, exam and plan as outlined in the note above. I spent over 60 minutes of critical care time managing this patient personally, this time does not include time placing CVP line or discussions with residents. Dae Masters DO Jan 14, 2017 06:45 Corby Hernandez MD Jan 15, 2017 09:06
--- NOTE | 2017-01-14 20:02 | ABG ---
DateTimeAnalyzed 19:58:00 -_ pH ____7.316 - 7.350 7.450 pCO2 ___37.2__ -mmHg 35.0 45.0 pO2 ___75.6__ -mmHg 69.0 116 HCO3- ___18.5__ -mmol/L 22.0 26.0 ABE ___-6.6__ -mmol/L -2.0 2.0 tHb ____9.6__ -g/dL O2Hb ___92.3__ -% COHb ____1.9__ -% MetHb ____0.9__ -% sO2 ___95.0__ -% 25.0 Drawn By ANESTHESIA - Oxygen Device 2 UNKNOWN FIO2 - Date/Time Notified____ 20:01:00 -_ Oxygen Device 1 VENTILATOR - Notified By blf - Notified Whom EVELINA RN - B 755 -mmHg tO2 ___12.6__ -Vol% Reza test N/A -
[2017-01-14] MEDS: Vancomycin 250 mg Oral Capsule PO SCH ×2 (20:30→22:09)
[2017-01-14] MEDS: Tigecycline Inj 50 MG in 0.9% Sodium Chloride 100 ML IV SCH (20:30)
[2017-01-14] MEDS ORDERED: Cefepime 1,000 MG in Dextrose 5% Minibag Plus 50 ML IV SCH (20:30)
--- NOTE | 2017-01-14 20:44 | PCM.PROC ---
Procedure Note Date of Service: Jan 14, 2017 Pre Procedure Diagnosis: Severe Sepsis with Septic Shock secondary to Cdiff Colitis Post Procedure Diagnosis: Severe Sepsis with Septic Shock secondary to Cdiff Colitis Procedure: attempted right subclavian central venous line Right Internal Jugular procedure Provider and Php Mysql Web Developer: Dr. Roldan Masters Indication for Procedure: Pressor support with norepinephrine and phenylephrine CVP monitoring for severe sepsis Procedural Analgesia: 1% Lidocaine 3mL instilled in the subcutaneous tissue over the right Internal jugular as well as 1% Lidocaine 3mL instilled in the subcutaneous tissue over the right subclavian Procedure Details: The patient was placed supine in a dependent position with her head rotated left appropriate for central line placement based on the right subclavian and right internal jugular vein to be cannulated. Initial attempted right subclavian was unsuccessful by Dr. Hernandez. The patients right chest was prepped with chlorhexidine and draped in sterile fashion. 1% Lidocaine was used to anesthetize the surrounding skin area. Initially a narrow gauge IV catheter needle was used to gain access to the right subclavian, however no blood was able to be pulled into the needle hub. Two more repeat attempts with the same catheter needle combo resulted in a failed attempt and the catheter was disposed of in an appropriate sharps container. The patient's right IJ was then localized using ultrasound imaging and marked with a skin marker. The patients right neck was prepped with chlorhexidine and draped in sterile fashion. 1% Lidocaine was used to anesthetize the surrounding skin area. Initially a large bore introduction needle was used to gain access to the right IJ, however this required two attempts to finally enter the right IJ and the guide wire was able to successfully tread into the right IJ. An 11 blade scalpel was then used to jules the skin for the dilater catheter to be threaded over the guidewire. A triple lumen 7 welsh triple lumen catheter was the introduced into the the internal jugular using the Seldinger technique and under ultrasound guidance with a sterile probe cover. The catheter was threaded smoothly over the guide wire to the 3cm manisha and appropriate blood return was obtained. Each lumen of the catheter was evacuated of air and flushed with sterile saline. The catheter was then secured in place to the skin with a sterile Tegaderm dressing applied. Perfusion to the extremity distal to the point of catheter insertion was checked and found to be adequate. Dr. Hernandez was present for the entire procedure. Estimated Total Blood Loss: <15mL> A follow up chest xray resulted in the 7 welsh triple lumen catheter being withdrawn an additional 5cm for the tip to the located within the superior vena cava. The patient tolerated the procedure well and there were no complications. Post Procedure Plan: Start Norepinephrine Gtt IV to keep mean arterial pressure above 65mmHg and continue to monitor CVP with goal >8mmHg Attending Statement The patient was seen and examined together with Dr. Masters on 01-14-17 and I was present dureing the whole procedure. Initially I tried a right subclavian approach but was unable to canulate the SC ford, there for we changed to an IJ approach with ultrasound with resident. Dr Masters did a very good job, patient tolerated the procedure well with no immediate complications noted. Follow up cxr ordered. Dae Masters DO Jan 14, 2017 20:44 Corby Hernandez MD Jan 15, 2017 09:04
--- NOTE | 2017-01-14 20:54 | PCM.PROC ---
Procedure Note Date of Service: Jan 14, 2017 Pre Procedure Diagnosis: Severe Sepsis with Septic Shock secondary to Cdiff Colitis Post Procedure Diagnosis: Severe Sepsis with Septic Shock secondary to Cdiff Colitis Procedure: left radial arterial line Provider and Bright Cutter: Dr. Roldan Masters Indication for Procedure: arterial pressure monitoring and ABG monitoring Procedural Analgesia: none Procedure Details: The patients left wrist was prepped and draped in sterile fashion with chlorhexidine. A 20G arterial line was introduced into the radial artery. The catheter was threaded over the guide wire and the needle was removed with appropriate pulsatile blood return. The catheter was then secured in place with a sterile Tegaderm dressing applied. Perfusion to the extremity distal to the point of catheter insertion was checked and found to be adequate. Dr Hernandez was immediately available but not present for the entire procedure. Estimated Blood Loss: 10mL The patient tolerated the procedure well and there were no complications Post Procedure Plan: arterial pressure monitoring and ABG monitoring Attending Statement The patient was seen and examined together with Dr. Masters on 01-16-17 and I agree with the procdural note as written. Patient tolerated the procedure well , no adverse events noted, arterial line well placed and functioning well. Dae Masters DO Jan 14, 2017 20:54 Corby Hernandez MD Jan 17, 2017 12:32
--- NOTE | 2017-01-14 21:30 | NUR ---
Pt back from OR. Report received from anesthesia. Levophed at 0.03 mcg, phenylepherine at 0.5 with stable vital signs. HR remains a-fib with rate in the 120's. Intubated with vent settings at 50/7/15/550. Pt is afebrile. WALDO drain present with sanquineous output. Ileostomy present with no output observed. Restraints applied to protect lines/drains. Will continue to monitor pt closely.
--- NOTE | 2017-01-14 21:57 | PCM.ANEP1 ---
Post Anesthesia Phase 1 PACU Phase 1 Assessment Date of Service: Jan 14, 2017 Vital Signs Vital Signs Date Time Temp Pulse Resp B/P Pulse Ox O2 Delivery O2 Flow Rate FiO2 01/14/17 18:05 115 15 92/65 95 40 01/14/17 17:00 Supplement Oxygen 01/14/17 16:04 116 22 97 Nasal Cannula 60 50 01/14/17 16:00 107 26 94 hi flow o2/ 60% 50 Anesthetic Administered: GA Level of Alertness: Drowsy, not talking REYES's with Equal Strength: No Pain: No Nausea or Vomiting: No Airway Device: Endotrachial Tube Oxygen Delivery: Mechanical Ventilator Lungs: Diminished, Crackles (bibasilar) Summary patient transferred intubated and sedated on low dose pressor support to ICU. Patient hemodynamically stable in ICU Tyler Hernandez MD Jan 14, 2017 21:57
[2017-01-14] MEDS ORDERED: Propofol 10,000 mCg/mL 100 mL Inj ONE (22:07)
--- NOTE | 2017-01-14 22:19 | PCM.ANEP2 ---
Post Anesthesia Evaluation ASA/CMS Post Anesthesia VS in Patient's Normal Range?: Yes Resp Stable; Airway Patent?: Yes CV Function & Hydration Stable: Yes Mental Status Recovered?: No Pain control Satisfactory?: Yes N/V Control Satisfactory?: Yes Additional Comments patient remains intubated and sedated on ventilator on low dose pressor support secondary to sepsis from c. diff colitis s/p subtotal colectomy Tyler Hernandez MD Jan 14, 2017 22:19
[2017-01-14] MEDS ORDERED: fentaNYL 2,500 mCg/250 mL IV Premix IV SCH (22:20)
[2017-01-14] MEDS: Norepineph 8,000 mCg/250 mL NS 8,000 MCG in IV Premix 1 EACH IV SCH (22:25)
[2017-01-14] MEDS: Propofol Inj 1,000,000 MCG in IV Premix 1 EACH IV SCH (22:25)
[2017-01-14] MEDS ORDERED: Propofol Inj 1,000,000 MCG in IV Premix 1 EACH IV SCH (22:25)
[2017-01-14] MEDS: Vancomycin 100 mg/mL Oral Solution PO SCH (23:04)
[2017-01-14] MEDS: fentaNYL 2,500 mCg/250 mL 2,500 MCG in IV Premix 1 EACH IV SCH (23:04)
--- NOTE | 2017-01-14 23:38 | OP ---
[address] [address] OPERATIVE REPORT PATIENT: JAGDISH MATHIS : 1945 MR#: [id number] ADMIT: 01/13/2017 JOB ID: [id number] DATE OF SURGERY: 01/14/2017 PREOPERATIVE DIAGNOSIS(ES): 1. Fulminant Clostridium difficile colitis. 2. Abdominal compartment syndrome. POSTOPERATIVE DIAGNOSIS(ES): 1. Fulminant Clostridium difficile colitis. 2. Abdominal compartment syndrome. PROCEDURE: Subtotal colectomy with end ileostomy. SURGEON: Sumeet Burks MD. QUILL PICKING MACHINE OPERATOR: Oralia Simmons PA-C. INDICATIONS: This is a 71-year-old man who was admitted the evening before to our hospital with a diagnosis of severe C. difficile colitis. Despite medical care in the ICU over the previous 18 hours he has shown progressive need for pressors, increased creatinine and increasing intra-abdominal pressures. As well, his clinical exam has worsened and earlier in the afternoon I recommended that we proceed with surgery to address his C. difficile colitis that was not responding to medical therapy. Surgery was delayed due to his rising potassium, for him to receive hemodialysis. Over that ensuing time his abdominal distention increased, as did his abdominal compartment pressures, and he is brought to the operating room in the evening after his followup potassium has been 3.9. FINDINGS: 1. The patient had increased intra-abdominal pressures as indicated by immediate changes in his CVP and pressor requirements after making the abdominal incision. 2. He had dilated inflamed colon from the ileocecal valve down toward the rectosigmoid junction. We performed a subtotal colectomy as described below. 3. assistant quality manager was medically necessary for the timely and safe completion of the operation. PROCEDURE: The patient was brought to the OR from the ICU. Appropriate monitoring lines were placed. General anesthetic was induced. The abdomen was prepped and draped in sterile fashion. We proceeded with a surgical time-out. SCOAP protocol was followed. However, given his fulminant C. difficile colitis, I chose not to give him additional intravenous antibiotics for prophylaxis above his current therapeutic IV Flagyl and tigecycline. I made a long midline incision. We entered the peritoneal cavity. Intra-abdominal pressures were quite high and the small bowel spontaneously eviscerated itself. The patient had a mild to moderate amount of ascites that was suctioned out, as well sampled for Gram stain and culture. This Gram stain turned out to show no polys and no organisms, consistent with sterile ascites. We proceeded to lengthen the incision to the left of the umbilicus eviscerated all the small bowel. The ascites was suctioned out and the abdomen was inspected. The patient had very thickened, inflamed transverse, descending and sigmoid colon. The cecum was tense and dilated. I elected to proceed with subtotal colectomy. We began by taking the greater omentum off of the transverse colon and preserving this. I then mobilized the hepatic flexure and then the ascending colon and ileocecal valve. I then divided the ileum just proximal to the fold of Treves using a AMITA stapler and then mesenteric dissection primarily using the LigaSure Impact device staying close to the bowel wall. We took the vessels to the right colon and proximal to mid transverse colon this way. Having done this, we were able to place much of the small bowel in the right abdomen and now mobilize the splenic flexure by approaching both from the proximal and the distal side after mobilizing the descending colon and incising the white line of Toldt with the LigaSure. We mobilized the splenic flexure and at this point I had the transverse and descending colon mobilized all the way to the proximal sigmoid. We now used the LigaSure to take down the mesentery, once again staying fairly close to the bowel throughout this. As we got down to the proximal sigmoid I then mobilized the sigmoid further distally and then divided the sigmoid at what I felt was close to the rectosigmoid junction. We now used the LigaSure Impact staying close to the colon to divide the mesentery. I did not identify the ureter specifically, but we were quite a distance away and I did mobilize the sigmoid and descending colon mesentery upward and medially, and did the division all under visualization. The specimen was now passed off. We irrigated out the abdomen. At this point, I realized that there was probably another 30-40 cm of sigmoid colon. I; therefore, identified the rectosigmoid junction and divided the sigmoid colon approximately 5 cm distal to this with a stapler and then took down the mesentery with the Impact device. This was added to our first specimen. We now irrigated out the abdomen. The staple line on the rectal stump was in good shape. After I irrigated out the abdomen, I did close a couple of defects in the greater omentum that represented potential internal hernias. This was done with running Vicryl. We now cut out a [place] of skin in the right abdomen at the site of the end ileostomy, made a cruciate incision in the fascia, and brought the terminal ileum up and out, having partially incised the mesentery to allow us to perform a nice Rosa Elena ileostomy. With the blind end of the ileum held with a [place] externally, we now placed a Aubrey-Garcia drain through a stab wound in the left lower abdomen and positioned the tip down in the pelvis near the staple line of the rectal stump, both to drain fluid, but also for prophylaxis in case the staple line were to break down. We now proceeded to close the abdomen with running looped PDS, followed by subcutaneous irrigation with dilute Betadine, followed by jessica for the skin. We now matured the ileostomy with 4-0 Vicryl in a Rosa Elena fashion. Appliance was placed on the bag. The Aubrey-Garcia was secured with nylon and placed to bulb suction. At this point, we began mobilizing the patient for transfer back to the ICU. I did open the specimen on the back table and it demonstrated marked thickening of the distal colon, marked thickening of the wall of the proximal colon, and pseudomembranes throughout with no other significant mucosal lesions. I would also note that there were pseudomembranes on the ileostomy as we consistent with pseudomembranous colitis of the small intestine. The patient tolerated the procedure well and at the time of this dictation is back in the ICU, remaining intubated at least overnight. Labs are pending. I have discussed his postoperative care with the hospitalist senior solutions engineer elza.
[2017-01-14 23:41] LABS: Mean Corpuscular Hemoglobin 34.6 pg (27.0-35.0); Mean Corpuscular Volume 107.4 fL (81-100); Platelet Count 168 bil/L (150-400)
[2017-01-15] VITALS (11 sets, daily range): BP systolic 83–125; BP diastolic 43–62; PULSE 111–142; RESP 15–20; O2SAT 96–100
[2017-01-15 00:06] LABS: BASOPHILS % (AUTO) 0 % (0-3); EOSINOPHILS % (AUTO) 0 % (0-5); MONOCYTES % (AUTO) 15 % (4-12); NEUTROPHILS % (AUTO) 64 % (40-74)
[2017-01-15 00:08] LABS: Phosphorus 5.2 mg/dL (2.5-4.9)
[2017-01-15] MEDS: Hydrocortisone 50 mg/mL 2 mL Inj IVPUSH SCH ×3 (00:14→16:18)
[2017-01-15] MEDS ORDERED: Calcium GLUCOnate 10% 1 Gm/50 mL NS IV ONE ×4 (00:30→21:50)
--- NOTE | 2017-01-15 04:44 | ABG ---
DateTimeAnalyzed 04:41:00 -_ pH ____7.412 - 7.350 7.450 pCO2 ___26.5__ -mmHg 35.0 45.0 pO2 109 -mmHg 69.0 116 HCO3- ___16.6__ -mmol/L 22.0 26.0 ABE ___-6.5__ -mmol/L -2.0 2.0 tHb ___10.4__ -g/dL O2Hb ___96.1__ -% COHb ____1.8__ -% MetHb ____1.0__ -% sO2 ___98.9__ -% 25.0 FIO2 ___50.0__ -% PEEP ____7.0__ -cmH2O Set_RR ___15.0__ -b/min Vt __550.0__ -L Drawn By MK - Spontaneous_RR ___19.0__ -b/min Oxygen Device 1 VENTILATOR - B 755 -mmHg tO2 ___14.2__ -Vol% Reza test N/A -
[2017-01-15 05:28] LABS: BASOPHILS % (AUTO) 0.3 % (0-3); EOSINOPHILS % (AUTO) 0.9 % (0-5); MONOCYTES % (AUTO) 10.2 % (4-12); Mean Corpuscular Hemoglobin 34.9 pg (27.0-35.0); Mean Corpuscular Volume 107.6 fL (81-100); NEUTROPHILS % (AUTO) 76.3 % (40-74); Platelet Count 163 bil/L (150-400)
[2017-01-15] MEDS: Vancomycin 100 mg/mL Oral Solution PO SCH ×3 (05:33→17:59)
[2017-01-15] MEDS: Phenylephrine Inj 20,000 MCG in 0.9% Sodium Chloride 250 ML IV SCH ×5 (05:33→23:01)
[2017-01-15 05:47] LABS: INR 1.39 ratio
[2017-01-15] MEDS: Sodium Bicarb 8.4% Inj 150 MEQ in Dextrose 5% 1,000 ML IV SCH ×3 (06:01→20:43)
[2017-01-15] MEDS: Propofol Inj 1,000,000 MCG in IV Premix 1 EACH IV SCH ×3 (06:36→19:23)
--- NOTE | 2017-01-15 06:50 | NUR ---
Pt had a stable night until 0630 this am. Able to wean down levo through the night and was even off for a few hrs. At approx. 0630 this am pt's HR shot up into the 180's and blood pressure shot up into the 200's systolically. Then pt's blood pressure dropped down to 80's systolic with MAP below 60. Levophed is back on and running at 0.07 mcg and pressures are still borderline. HR is down slightly with rate in the 140's. Hospitalist was paged about event but no call back as of yet. Will continue to monitor pt.
[2017-01-15] MEDS: Esmolol 2,500 mg/250 mL NS 2,500,000 MCG in IV Premix 1 EACH IV SCH ×3 (07:46→19:23)
[2017-01-15] MEDS: metroNIDAZOLE Inj 500 MG in IV Premix 1 EACH IV SCH ×3 (07:57→16:18)
[2017-01-15] MEDS: Insulin LISPRO 300 Unit/3 mL Inj SUBQ SCH ×4 (08:01→21:23)
[2017-01-15] MEDS: Albuterol-Ipratropium 3 mL Inhalation Solution NEB SCH ×5 (08:30→20:31)
--- NOTE | 2017-01-15 08:48 | PROG NOTE ---
[address] [address] PROGRESS NOTE PATIENT: JAGDISH MATHIS : 1945 MR#: [id number] ADMIT: 01/13/2017 JOB ID: [id number] DATE: 01/15/2017 REASON FOR FOLLOW UP: Fulminant C. difficile colitis with shock and renal failure. INTERVAL HISTORY: Recall that yesterday we saw this patient in consultation and were extremely concerned that he had life-threatening C. difficile colitis. Dr. Burks of General Surgery was consulted almost immediately, and there were extensive discussions during the day about when he might be a candidate for surgery and what procedure would be performed. Eventually, because of rising intra-abdominal pressures and general deterioration, the patient was taken to the operating room, and Dr. Burks performed a subtotal colectomy with formation of ileostomy. Abdominal drains were also placed. Through the night, the patient has remained critically ill in the ICU, requiring two vasopressor agents with ongoing renal failure, septic shock, ventilatory dependent, respiratory failure and atrial fibrillation with rapid ventricular response. This case was discussed at the bedside with the entire ICU team this morning. The patient remains intubated, heavily sedated and on vasopressor, so of course there is no additional history from him. PHYSICAL EXAMINATION: Reveals an afebrile gentleman, he has been afebrile since admission. Temperature 37.2, pulse 119, blood pressure 104/47, but that is on moderately high-dose phenylephrine as well as moderately high dose norepinephrine. His pulse is atrial fibrillation with rapid ventricular response, and he is on an esmolol drip for that. He is on 40% inspired oxygen through his endotracheal tube, and saturating well. The patient is, of course, unresponsive as he is heavily sedated. His pupils are mid range, no conjunctivitis. Oral endotracheal tube, orogastric tube noted. He also has a right forearm peripheral line, the left radial A-line and a right neck triple lumen CVP line, as well as a right groin dialysis line. He also has a Molina catheter and FMS. Examination of the neck reveals no notable abnormalities. Lungs with coarse breath sounds bilaterally. Cardiac tones irregular rate and rhythm with tachycardia. Abdomen is distended. The Aubrey-Garcia drain is present, as is a new ileostomy which appears viable. Abdomen is overall very distended. The patient now has a scrotal hematoma which has been attributed to a fall, though I do not recall seeing this yesterday when we initially evaluated the patient, and wonder if this could be a complication of surgery in some way. In any event, there is no evidence for scrotal ischemia or cellulitis. Molina catheter is present. The patient's feet are not well-perfused and are quite cool this morning. His hands, on the other hand, are well perfused. LABORATORIES: Include white count 7700. The diff is surprisingly normal, is only 76% segs without band forms. Creatinine is 2.6, relatively stable. LFTs are normal. Procalcitonin 1.58, slightly decreased from 2, 36 hours ago. Hepatitis serologies are pending. Stool, of course, was positive for C diff. Blood cultures and other studies have been negative. A sputum Gram stain from yesterday shows moderate polys, some mixed tc on the Gram stain. Peritoneal fluid was taken yesterday in the OR by Dr. Burks. No polys, no organisms seen, and that culture is pending. This morning's chest x-ray without significant change. The patient has diffuse opacities as before. IMPRESSION: This patient was treated last month in this hospital for pneumococcal pneumonia and did well. He then developed diarrhea and rapidly progressive decline associated with profound shock due to Clostridium difficile colitis. Yesterday, the patient was rapidly going downhill with refractory shock, renal failure, hyperkalemia and rising intra-abdominal pressures. He was most appropriately taken to the operating room where he underwent a subtotal colectomy. Overnight, his condition has remained relatively stable, though obviously still debbie from an overall point of view, as he remains on dual vasopressor agents with renal failure. RECOMMENDATIONS: 1. Will continue with our antibiotic coverage which includes at this point oral vancomycin down the NG tube as well as IV Flagyl and IV tigecycline. 2. We will continue to closely follow this extremely complex patient with you. 3. Will continue to follow the many pending cultures including especially those of the peritoneal fluid to make sure we have adequate coverage on board, but at this point, I am comfortable with our triple antibiotic approach to his very severe C. diff.
[2017-01-15] MEDS: Tigecycline Inj 50 MG in 0.9% Sodium Chloride 100 ML IV SCH ×2 (09:41→20:42)
[2017-01-15] MEDS: Chlorhexidine 0.12% 15 mL Oral Solution MT SCH ×3 (09:41→20:42)
[2017-01-15] MEDS: Norepineph 8,000 mCg/250 mL NS 8,000 MCG in IV Premix 1 EACH IV SCH ×2 (09:43→17:59)
--- NOTE | 2017-01-15 09:59 | PCM.PNSURG ---
Subjective Date of Service: Jan 15, 2017 Visit Information: Reason for Visit Sepsis, Arf Surgery/Surgery Date Post-Op Day # 1 Date of Admission: Jan 13, 2017 at 20:50 Hospital Day # Pain Management: Other (fentanyl infusion) Postop Activity: Other (bedrest) Objective Vital Sign- Last 8 Hours Date Time Temp Pulse Resp B/P Pulse Ox O2 Delivery O2 Flow Rate FiO2 01/15/17 09:03 119 96/50 100 45 01/15/17 07:46 Ventilator 01/15/17 07:46 37.8 142 19 105/62 97 Mechanical Ventilator 45 01/15/17 04:49 119 104/47 100 45 01/15/17 04:30 Ventilator 01/15/17 04:30 37.2 111 15 95/46 100 Mechanical Ventilator 50 Intake and Output- Last 8 Hour 01/15/17 Cumulative From/Thru 07:00 01/13/17 22:15 - 01/15/17 06:47 Intake Total 3054 ml 7566 ml Output Total 1370 ml 1645 ml Balance 1684 ml 5921 ml Intake Oral 120 ml IV Total 3054 ml 7446 ml Output Urine Total 450 ml 725 ml Stool Total 120 ml 120 ml Gastric Drainage Total 130 ml 130 ml Drainage Total 670 ml 670 ml Ultrafiltrate 0 ml # Bowel Movements 3 General: Anicteric, Other (intubated, ventilated, sedated) Lungs: Clear to Auscultation (in the anterolateral granda) Heart: Regular Rate/Rhythm, No Murmurs/Rubs/Gallops Abdomen: Soft, Protuberant, Ostomy pink & viable (with scant serous liquid in the bag) SURGICAL WOUND : Wound General Appearence: Jeremy, Intact, No Erythema, No Discharge Wound Drainage Type: WALDO Drain #1 (670 mL of serosanguineous output over the last 8 hours) Catheters: Urethral 2 Way Molina Result Diagram: 01/15/1750901/15/17509 Assessment & Plan Impression Primary diagnoses: 1. Fulminant Clostridium difficile colitis. 2. Abdominal compartment syndrome. 3. Hepatitis C 4. Septic shock secondary to Clostridium difficile colitis, unstable. 5. Acute hypoxic respiratory failure. 6. Acute renal failure Other diagnoses: 1. CAD 2. CHF 3. Cirrhosis 4. Collapse of vertebrae 5. COPD 6. DM2, insulin dependent 7. Dyspnea 8. HLD 9. HTN 10. Insomnia 11. Obesity 12. History of Pneumonia 13. History of Prostate CA 14. GERD 15. History of V-fib 16. Daily cigarette smoker Problems: Plan Subcutaneous heparin for DVT prophylaxis Pain Management: Fentanyl infusion Resuscitation Status: CPR: Attempt Resuscitation Misael Daniel PA-C Jan 15, 2017 09:59
--- NOTE | 2017-01-15 10:18 | DRSVH ---
PROCEDURE: X-RAY CHEST ONE VIEW, PORTABLE ([id number]) INDICATIONS: acute respiratory failure TECHNIQUE: One view of the chest was acquired. COMPARISON: [facility], CR, XR CHEST 1VW (PORTABLE), 01/14/2017, 10:24. FINDINGS: Surgical changes and devices: Stable position ETT, nasogastric tube and right IJ CVL. Lungs and pleura: Slight decrease in right upper lobe airspace opacity and persistent opacity at the left lung base. Mediastinum: Mediastinal contours appear normal. Heart size is normal. Bones and chest wall: No suspicious bony lesions. Overlying soft tissues appear unremarkable. IMPRESSION: 1. Decreasing opacity within the right upper lobe likely related to resolving pneumonia and persisten t pneumonia versus atelectasis involving the left lung base. Dictated by: Brian Wilson A Interpreted: Monica Raman MD on 01/15/2017 at 10:17 Transcribed by: JEAN-PIERRE on 01/15/2017 at 10:18 Approved by: Monica Raman MD, PhD on 01/15/2017 at 17:02
[2017-01-15] MEDS: Sucralfate 100 mg/mL 10 mL Suspension PO SCH ×3 (11:08→20:42)
--- NOTE | 2017-01-15 11:10 | PCM.PNMED ---
Subjective Date of Service Jan 15, 2017 Subjective Overnight: The patient was titrated down on norepinephrine weaned off. However , he became hypertensive and tachycardic and subsequently hypotensive and norepinephrine was restarted. Telemetry overnight: Atrial fibrillation, heart rate 105 to 125, with RVR up to 170's and rare PVC. Subjective exam and review of system is unobtainable as patient is intubated and sedated. The patient is able to follow commands and is able to open eyes, squeeze hands and wiggle toes. . Exam Vital Signs Vital Sign - Last Date Time Temp Pulse Resp B/P Pulse Ox O2 Delivery O2 Flow Rate FiO2 01/15/17 09:03 119 96/50 100 45 01/15/17 07:46 Ventilator 01/15/17 07:46 37.8 19 01/14/17 16:04 60 Intake and Output 01/14/17 01/14/17 01/15/17 Cumulative From/Thru 15:00 23:00 07:00 01/13/17 22:15 - 01/15/17 06:47 Intake Total 3006 ml 3054 ml 7566 ml Output Total 125 ml 1370 ml 1645 ml Balance 2881 ml 1684 ml 5921 ml Intake Oral 120 ml IV Total 3006 ml 3054 ml 7446 ml Output Urine Total 125 ml 450 ml 725 ml Stool Total 120 ml 120 ml Gastric Drainage Total 130 ml 130 ml Drainage Total 670 ml 670 ml Ultrafiltrate 0 ml 0 ml # Bowel Movements 3 Exam General: Elderly male lying in bed and in no acute distress, intubated and sedated. HEENT: Normocephalic, atraumatic. External ears without defect. Pupils equal, round, and reactive to light and accommodation. Anicteric sclerae, moist conjunctivae, and no lid lag. Oropharynx free of erythema and cobble stoning with moist mucosa. Neck: Supple with full range of motion. No jugular venous distension. No bruits. No lymphadenopathy or thyromegaly. Cardiovascular: Irregularly irregular without murmurs, rubs, or gallops appreciated Pulmonary: Clear to auscultation bilaterally with no crackles, wheezes, or rhonchi. Normal respiratory effort with no use of accessory muscles. Abdomen: Soft, tenderness to palpation in mid abdomen, mildly distended, bowel sounds hypoactive. No hepatosplenomegaly or masses appreciated. Genitourinary: Molina catheter in place. Extremities: No clubbing, cyanosis, or edema. SCDs in place Skin: Normal temperature, turgor, and texture; no rash, ulcers, or subcutaneous nodules appreciated. Neurological: The patient is able to open eyes, squeeze hands, wiggle toes on command. Ventilator settings: PRVC. Tidal volume 550. Respiratory rate 15. FiO2 40 %. PEEP 7.0. ABG: PH 7.412. PCO2 26.5. PO2 109. HCO3 16.6. On PRBC with an FiO2 of 50% and an SPO2 of 98.9%. IV drips and Sedatives: Esmolol 25 g/kg/min, norepinephrine 0.12 g/min/kg, phenylephrine 0.5 g/kg/min, fentanyl 100 g/hr, propofol 20 g/kg/hr. IV lines: Right IJ, left radial arterial line, right radial peripheral IV, ileostomy in right mid abdomen, WALDO drain in left lower quadrant of abdomen, and Molina catheter. I&O: Net [id number]. . IVs and Medications Medications Reviewed: Medications were reviewed in detail Lab and Diagnostics Item Value Date Time Procalcitonin 1.97 ng/mL H 01/13/17 2105 Procalcitonin 1.58 ng/mL H 01/15/17 0510 Item Value Date Time Lactic Acid Level 2.5 mmol/L H 01/14/17 2330 Lactic Acid Level 4.0 mmol/L H 01/15/17 0510 Item Value Date Time Calcium Level 6.3 mg/dL *L 01/15/17 05 Total Bilirubin 0.7 mg/dL 01/15/17 0510 Aspartate Amino Transf (AST/SGOT) 23 U/L 01/15/17 0510 Alanine Aminotransferase (ALT/SGPT) 15 U/L 01/15/17 0510 Alkaline Phosphatase 32 U/L 01/15/17 0510 Total Protein 4.4 g/dL L 01/15/17 0510 Albumin 2.3 g/dL L 01/15/17 0510 Result Diagram: 01/15/17 0501/15/17 05 Microbiology Blood cultures 2 show no growth after 24 hours. MRSA screening negative. Stool PCR positive for C. difficile NAP 1. Sputum culture has no growth to date. Peritoneal fluid has no growth to date. . X-Rays, CTs and MRIs X-RAY CHEST ONE VIEW, PORTABLE IMPRESSION: 1. Decreasing opacity within the right upper lobe likely related to resolving pneumonia and persistent pneumonia versus atelectasis involving the left lung base. Dictated by: Brian RILEY Interpreted: Monica Raman MD on 01/15/2017 at 10:17 CT ABDOMEN AND PELVIS WITHOUT CONTRAST IMPRESSION: 1. Fluid-filled prominence of the colon with thickening in the transverse and left colon as above. Findings can be a reflective of colitis secondary to inflammatory or infectious etiology. Ischemic colitis should also be considered. Recommend interval followup should document resolution of thickening and exclude presence of mass lesion including obscured visualization of the rectum secondary to fluid. 2. Bibasilar areas of effusion and consolidation, with the latter business services representative of atelectasis and/or pneumonia. Dictated by: Izabela Stockton M.D. on 01/14/2017 at 11:11 X-RAY CHEST ONE VIEW, PORTABLE IMPRESSION: 1. Central venous catheter as above. 2. Unchanged right upper lobe radiopacities. 3. Increased left basilar radiopacities. Short interval followup is recommended with resolution of the patient's symptoms to ensure there is no underlying pulmonary pathology. Dictated by: Cate Davila M.D. on 01/14/2017 at 10:49 . Assessment & Plan Rojelio Ballard is a 71-year-old male with a complex past medical history most significant for recent RSV complicated by strep pneumonia requiring hospitalization who was transferred from [facility] for septic shock and an acute kidney injury. We were consulted for management of worsening septic shock secondary to acute severe life-threatening C. difficile colitis and abdominal compartment syndrome. 1. Acute severe septic shock, present on admission. Active. - SIRS criteria met include:Tachypnea (respiratory rate 30), tachycardic (pulse 106), bandemia 20% neutrophils, lactic acidosis 3.4, with GI as source and hypotension refractory to fluid resuscitation requiring vasopressors. - Early goal-directed therapy met including: Broad-spectrum antibiotic coverage and IV fluid resuscitation. - Continue norepinephrine and phenylephrine and titrate down as tolerated. 2. Acute severe life threatening C. difficile colitis, status post subtotal colectomy, present on admission. Active. - Patient was recently treated with antibiotics for RSV complicated by strep pneumonia. - Patient currently receiving linezolid, cefepime, metronidazole and oral vancomycin pending IDs recommendations. - CT abdomen and pelvis revealed colitis,as above. - PCR positive for C. difficile NAP [address] Palma is a very virulent strain. - Infectious disease consulted during ICU rounds. - Dr. Burks of general surgery was consulted and performed a subtotal colectomy please see operative note for details. 3. Abdominal compartment syndrome, present on admission. Active. - IAP 25 initially and likely contributed to acute kidney failure. Continue to monitor - Dr. Burks of general surgery was consulted and performed a subtotal colectomy please see operative note for details. 4. Acute hypoxemic respiratory failure, present on admission. Active. - Patient remains mechanically ventilated status post subtotal colectomy. - Discussed CODE STATUS with the patient's who agrees to intubation if temporary and/or as needed for surgery. - Continue mechanical ventilator with settings, as above. - Continue to manage ventilator with daily ABG. - Chest x-ray revealed resolving pneumonia, as above. - Once patient has stabilized we will consider sedation vacations and SBT. 5. Anion gap metabolic acidosis, present on admission. Active. - Anion gap of 20 initially with calculated correction for albumin. - Lactic acidosis with initial lactic acid of 3.4. Stable but upward trending. - Continue IV fluids per primary medical team and nephrology recommendations. - Correct underlying cause as above in problem #2. 6. Acute kidney injury, present on admission. Active. - Continue IV fluids as above under problem #4. - Avoid nephrotoxic agents. - Continue to monitor urine output and renal function daily. - Nephrology consulted and patient is receiving temporary hemodialysis per their recommendations. 7. Hyperkalemia, present on admission. Active. - See plan above under problem #6. - Recommend nephrology consultation for possible temporary hemodialysis. Chronic problems for management of primary team: DVT prophylaxis: Heparin subcutaneous every 8 hours. GI prophylaxis: Sucralfate 1 g every 6 hours. Disposition: Tenuous as patient is severely ill with severe septic shock secondary to virulent C. difficile colitis. VTE Mechanical Devices: Intermittant Pneumatic CD Resuscitation Status: CPR: Attempt Resuscitation Attending Statement The patient was seen and examined together with Dr. Lam on 01/15/2017 and I agree with the history, exam and plan as outlined in the note above. Nicole Lam DO Jan 15, 2017 11:10 Fidel Salas MD Jan 26, 2017 10:39 -consideration to steroid dosing, nebs PRN 12 possible upper gastrointestinal bleed, present on admission, unknown chronicity -concern expressed during the previous admission for UGIB -H&H is low on admission -repeat pending -continue PPI 40 BID -Trend H&H if downtrending from OSH 13 Atrial fibrillation, acute, POA -new diagnosis during last admission -aflutter noted at OSH, EKG reviewed on arrival -repeat EKG in AM -optimize electrolytes in the setting of CARIE 14 history of Alcohol dependency, present on admission, chronic -monitor for withdrawal 15 Diabetes mellitus type 2, insulin dependent, chronic POA -correction scale insulin at this time 16 HTN, chronic, present on admission, present on admission -hold home antihypertensive medications 2/2 sepsis 17 HLD, chronic -continue statin when appropriate 18 Tobacco dependence, chronic, present on admission -discussed the importance of cessation with patient -nicotine replacement available upon request 19 Obesity, present on admission, chronic - BMI32 20 Chronic liver cirrhosis, chronic, POA -as per past documentation DVT prophylaxis to be held until after surgery and reconsidered at that time GI prophylaxis not indicated at this time High risk medications: Dilaudid Disposition: Patient will likely have a protracted hospital course given his current state of health, will require extensive rehabilitation likely secondary to the morbidity of the impending surgery. VTE Mechanical Devices: Intermittant Pneumatic CD Resuscitation Status: CPR: Attempt Resuscitation Nicole Lam DO Jan 15, 2017 11:10
--- NOTE | 2017-01-15 11:36 | NUR ---
Wound/ostomy care Orders received to alert service to new ileostomy, stoma is normal, draining sanguinous fluid, pouch intact and not leaking. Currently no teaching needed to be done regarding new ileostomy, will follow as appropriate.
[2017-01-15] MEDS ORDERED: Albumin 25% 100 ML IV ONE (14:50)
[2017-01-15] MEDS ORDERED: Albumin 25% 100 ML IV SCH (15:00)
[2017-01-15 15:18] LABS: Magnesium 1.6 mg/dL (1.6-2.6)
[2017-01-15] MEDS: Albumin 25% 100 ML IV SCH ×2 (15:26→17:00)
--- NOTE | 2017-01-15 15:39 | NUR ---
Social Work Note: Attempted Initial Assessment Data& Assessment: EMR reviewed. Rojelio Ballard is a 71 year old male admitted on 01/13/2017 for sepsis. Per MD, pt remains on the vent and medically complex at this time. Pt has Medicare insurance coverage and sees Luther Fierro MD for primary care. SW attempted to complete initial assessment with pt Nadine via Phone Call, but did not reach her. SW left a voicemail and requested a call back when possible or to ask for SW next time she comes to the hospital. SW to follow up with pt to complete initial assessment when possible. SW to continue to follow. Plan: Pt remains medically complex and on the vent per MD. SW to follow up with pt to complete initial assessment when possible. SW to continue to follow. BRETT Ravi
[2017-01-15] MEDS: Heparin 5,000 Unit/mL Inj SUBQ SCH (16:19)
--- NOTE | 2017-01-15 17:38 | NUR ---
dialysis note Second HD tx today. 3.5 hrs. total UF 1500ml removed. Art line initial readings in the 80's and not tolerating UF. Albumin given 25gm over two doses one hr apart and substantial increase in BP after Albumin, readings into the 120's systolic with some variation, for the remainder of tx. Pt ventilated and sedated and comfortable thru tx. See DTR for complete vitals readings. Catheter dwelled with 1000/1 U heparin and secured to thigh post tx.
--- NOTE | 2017-01-15 17:39 | PCM.PNNEPH ---
Subjective Date of Service Jan 15, 2017 Subjective Events over the last 24 hours have been reviewed and the op note also reviewed. The patient is semi-stable however he is on a ventilator, sedated, and right now on pressors. This morning his lab shows a hemoglobin of 10.1, sodium 145, potassium 5.0, chloride 99, bicarbonate 15, BUN and creatinine were 49 and 2.6, albumin 2.3 and lactic acid 4.0. Exam Vital Signs Vital Sign - Last Date Time Temp Pulse Resp B/P Pulse Ox O2 Delivery O2 Flow Rate FiO2 01/15/17 16:05 37.3 137 20 99/48 97 Mechanical Ventilator 45 01/14/17 16:04 60 Intake and Output 01/14/17 01/14/17 01/15/17 Cumulative From/Thru 15:00 23:00 07:00 01/13/17 22:15 - 01/15/17 06:47 Intake Total 3006 ml 3054 ml 7566 ml Output Total 125 ml 1370 ml 1645 ml Balance 2881 ml 1684 ml 5921 ml Intake Oral 120 ml IV Total 3006 ml 3054 ml 7446 ml Output Urine Total 125 ml 450 ml 725 ml Stool Total 120 ml 120 ml Gastric Drainage Total 130 ml 130 ml Drainage Total 670 ml 670 ml Ultrafiltrate 0 ml 0 ml # Bowel Movements 3 Exam Patient is sedated and on a ventilator and nonresponsive. Lungs show distant scattered rhonchi with a few end expiratory wheezes. Heart rate is quite tachycardic. Abdomen is distended, non-tense, with absent bowel sounds. Extremities show some generalized edema throughout all 4 extremities. Lab and Diagnostics Result Diagram: 01/15/17 0510 01/15/17 1425 Microbiology Blood cultures 2 show no growth after 24 hours. MRSA screening negative. Stool PCR positive for C. difficile NAP 1. Sputum culture has no growth to date. Peritoneal fluid has no growth to date. . X-Rays, CTs and MRIs X-RAY CHEST ONE VIEW, PORTABLE IMPRESSION: 1. Decreasing opacity within the right upper lobe likely related to resolving pneumonia and persistent pneumonia versus atelectasis involving the left lung base. Dictated by: Brian RILEY Interpreted: Monica Raman MD on 01/15/2017 at 10:17 CT ABDOMEN AND PELVIS WITHOUT CONTRAST IMPRESSION: 1. Fluid-filled prominence of the colon with thickening in the transverse and left colon as above. Findings can be a reflective of colitis secondary to inflammatory or infectious etiology. Ischemic colitis should also be considered. Recommend interval followup should document resolution of thickening and exclude presence of mass lesion including obscured visualization of the rectum secondary to fluid. 2. Bibasilar areas of effusion and consolidation, with the latter help desk representative of atelectasis and/or pneumonia. Dictated by: Izabela Stockton M.D. on 01/14/2017 at 11:11 X-RAY CHEST ONE VIEW, PORTABLE IMPRESSION: 1. Central venous catheter as above. 2. Unchanged right upper lobe radiopacities. 3. Increased left basilar radiopacities. Short interval followup is recommended with resolution of the patient's symptoms to ensure there is no underlying pulmonary pathology. Dictated by: Cate Davila M.D. on 01/14/2017 at 10:49 . 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 difficile toxemia #2 severe lactic acidosis #3 hypercholesterolemia #4 Recommendations #10 medical issues for him to be dialyzed today for 3-1/2 hours on a revaclear dialyzer, 350-400 blood flow rate, 4 potassium bath, 40 bicarbonate, thousand units of heparin on him and tried to take 2 L of fluid office tolerated. I have also asked the nurse to give him 25 g of albumin at the start of dialysis and repeat this every hour for total of 3 doses. Most likely he will be requiring dialysis for the next several days. Plan The patient will continue hyperbaric treatments. Will return () for treatment #() Delfin Pat DO Jan 15, 2017 17:39
--- NOTE | 2017-01-15 18:49 | PCM.PNMED ---
Subjective Date of Service Jan 15, 2017 Subjective overnight: Levophed at 0.03 mcg, phenylepherine at 0.5 with stable vital signs. HR remains a-fib with rate in the 120's. Intubated with vent settings at FIO2 0.50/ PEEP 7 / RR 15 / VT 550. Pt is afebrile. WALDO drain present with sanguineous output. today: Patient remains intubated and sedated throughout the day on pressor support. This a.m. patient suffered from A. fib with RVR heart rates into the 160s to 180s requiring increased norepinephrine. The patient was started on an as small drip for ease of dosing and quick onset of action and short half life. Infectious disease will continue to treat with triple antibiotic coverage with tigecycline IV, vancomycin oral, and metronidazole IV. Plan to titrate off pressor support as patient allows. Exam Vital Signs Vital Sign - Last Date Time Temp Pulse Resp B/P Pulse Ox O2 Delivery O2 Flow Rate FiO2 01/15/17 04:49 119 104/47 100 45 01/15/17 04:30 Ventilator 01/15/17 04:30 37.2 15 01/14/17 16:04 60 Intake and Output 01/14/17 01/14/17 01/15/17 Cumulative From/Thru 15:00 23:00 07:00 01/13/17 22:15 - 01/15/17 05:40 Intake Total 3006 ml 4512 ml Output Total 125 ml 275 ml Balance 2881 ml 4237 ml Intake Oral 120 ml IV Total 3006 ml 4392 ml Output Urine Total 125 ml 275 ml Ultrafiltrate 0 ml 0 ml # Bowel Movements 3 Exam General: Obese elderly appearing male, Alert, Oriented X3, Cooperative, moderate respiratory distress Eyes: PERRLA, EOMI Scleral Anicteric Mouth: Intubated, no central cyanosis Neck: Supple, no Thyromegaly, trachea central. No JVD Chest & Lungs: mild crackles in bilateral axillary bases, decreased air movement throughout no wheezing or rhonchi noted Cardiovascular: Tachycardic with regular rhythm, Normal S1, Normal S2, No Murmurs/Rubs/Gallops, Pulses: Also is equal bilaterally at radial and dorsalis pedis with decreased pulses Abdomen: Soft, right-sided ileostomy, improved distended, hypoactive bowel tones , WALDO drain with serosanguineous clean dry bandaging. Ecchymosis consistent with insulin injections in lower abdomen Musculoskeletal: Unremarkable. Normal range of motion, no swollen or erythematous joints Extremities: no pitting edema, no cyanosis, no clubbing. abrasions and ecchymosis noted Skin: No rashes. Warm and dry, no erythematous areas Neurological: Intubated and sedated able to some commands Psych: Unable to assess : Molina in place Lab and Diagnostics Result Diagram: 01/15/1750901/15/17509 Microbiology Microbiology C DIFF TOXIN A AND B BY PCR Final 01/14/17-938 Organism 1 POS FOR CDIF TOXIN C DIF TOXIN A&B PCR DETECTED TIME CALLED: 936 DATE CALLED: 01/14/17 FLOOR/DOCTOR: BRY/KRUPA Brown CALLED BY: NORRIS PCR testing alone cannot distinquish C. difficile disease from a carrier state, and therefore correlation with clinical findings is required. X-Rays, CTs and MRIs CT ABDOMEN AND PELVIS WITHOUT CONTRAST IMPRESSION: 1. Fluid-filled prominence of the colon with thickening in the transverse and left colon as above. Findings can be a reflective of colitis secondary to inflammatory or infectious etiology. Ischemic colitis should also be considered. Recommend interval followup should document resolution of thickening and exclude presence of mass lesion including obscured visualization of the rectum secondary to fluid. 2. 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 Dictated by: Izabela Stockton M.D. on 01/14/2017 at 11:11 Approved by: Izabela Stockton M.D. on 01/14/2017 at 11:15 X-RAY CHEST ONE VIEW, PORTABLE IMPRESSION: 1. Central venous catheter as above. 2. Unchanged right upper lobe radiopacities. 3. Increased left basilar radiopacities. Short interval followup is recommended with resolution of the patient's symptoms to ensure there is no underlying pulmonary pathology. Dictated by: Cate Davila M.D. on 01/14/2017 at 10:49 Approved by: Cate Davila M.D. on 01/14/2017 at 10:52 Additional Diagnostics DateTimeAnalyzed 04:13:00 -_ pH ____7.327 - 7.350 7.450 pCO2 ___24.2__ -mmHg 35.0 45.0 pO2 ___70.8__ -mmHg 69.0 116 HCO3- ___12.3__ -mmol/L 22.0 26.0 DateTimeAnalyzed 10:42:00 -_ pH ____7.256 - 7.350 7.450 pCO2 ___31.5__ -mmHg 35.0 45.0 pO2 ___85.1__ -mmHg 69.0 116 HCO3- ___13.5__ -mmol/L 22.0 26.0 Assessment & Plan 71yoM with past medical history of recent hospitalization for pneumonia and COPD , DM2, HTN, chronic pain, and tobacco use transferred from [facility] with septic shock and CARIE. Hospital Day 2 1 Septic shock secondary to Clostridium Difficile colitis, acute, POA, unstable - patient transferred from [facility] following near syncopal event, requiring norepinephrine - concern for bilateral pneumonia, CT abd pelvis noncon pending, new diarrhea - recent admission for pneumonia (d/c 01/03), started on levofloxacin as an outpatient - CT imaging shows thickened colonic mucosa consistent with infectious colitis - Biofire shows C. difficile PCR - Pulmonology and critical care, nephrology, infectious disease, general surgery all CONSULTED and appreciate recommendations from time - Polst form states patient's wish to not be intubated, however patient has given consent to be intubated this hospitalization, also has given consent for intubation if necessary - Patient is currently on norepinephrine and phenylephrine drips for pressor support including IV fluids - Hydrocortisone 100 mg IV every 8 - IV albumin for oncotic pressor support given low albumin state on 01/14 - Gen. surgery performed and ileostomy and partial colectomy on the night of , Patient required potassium dialyzed per anesthesia requirements prior to surgery 2 Respiratory failure with hypoxia, acute, POA - patient with recent admission with for pneumonia with hypoxic / hypercapnic respiratory failure - Polst form states patient's wish to not be intubated, however patient has given consent to be intubated this hospitalization, also has given consent for intubation if necessary - patient continues to be hypoxic on presentation requiring oxygen currently intubated and sedated post surgery for ileostomy and partial colectomy - continue treatment as below, oxygen saturation 88-92% - Hydrocortisone 100 mg IV every 8 3 Clostridium Difficile colitis, present on admission, acute - CT imaging shows thickened colonic mucosa consistent with infectious colitis - Biofire shows C. difficile PCR - Triple antibiotic coverage with vancomycin oral, Flagyl IV, tigecycline IV - Gen. surgery performed and ileostomy and partial colectomy on the night of , Patient required potassium dialyzed per anesthesia requirements prior to surgery 4 possible Bilateral pneumonia, acute, POA -acute dyspnea as outpatient with suspected PNA (recent admit with RSV+, strep antigen + PNA) -piperacillin-tazobactam and vancomycin given at OSH -will continue broad spectrum to cover HCAP, cefepime and linezolid is continued in favor of tigecycline and Flagyl -ID consultation appreciate recommendations in time 5 Acute renal failure, acute, POA -normal creatinine 0.88 on discharge 01/03 -elevated at 3.8 on presentation at OSH -likely prerenal / intrarenal given septic presentation - nephrology consulted, patient is currently being dialyzed to remove potassium per anesthesiology recommendations prior to surgery 6 Hyperkalemia, acute, -2/2 to carie - kayexalate given overnight 01/13/2017 by admitting team - nephrology consulted, patient dialyzed to remove potassium per anesthesiology recommendations prior to surgery 7 primary Metabolic acidosis with respiratory alkalosis compensation, acute, present on admission -Secondary to sepsis and lactic acidosis -Continue IV fluids, currently on bicarbonate and normal saline -nephrology consulted, patient is currently being dialyzed to remove potassium per anesthesiology recommendations prior to surgery 8. Elevated troponin, acute, POA -likely 2/2 to demand ischemic secondary to hypotension induced tachycardia 9 Hyponatremia, acute, POA -Possibly secondary to SIADH secondary to long pathology/pneumonia -Continue IV fluid therapy with bicarbonate and normal saline -Nephrology following 10 Macrocytic anemia, unknown chronicity, present on admission -continue to monitor -consider B12 / folate levels 11. COPD, chronic, POA -not acute exacerbation at this time -recent prednisone dosing however patient can't recall if he is on this at this time -consideration to steroid dosing, nebs PRN 12 possible upper gastrointestinal bleed, present on admission, unknown chronicity -concern expressed during the previous admission for UGIB -H&H is low on admission -repeat pending -discontinue PPI 40 BID and start Carafate - Surgery recommendations to start DVT prophylaxis with subcutaneous heparin -Trend H&H 13 Atrial fibrillation with rapid ventricular response, acute, POA -new diagnosis during last admission -aflutter noted at OSH, EKG reviewed on arrival -repeat EKG in AM -optimize electrolytes in the setting of CARIE - Esmolol drip 14 history of Alcohol dependency, present on admission, chronic -monitor for withdrawal 15 Diabetes mellitus type 2, insulin dependent, chronic POA -correction scale insulin at this time 16 HTN, chronic, present on admission, present on admission - hold home antihypertensive medications 2/2 sepsis hypotension - Esmolol drip 17 HLD, chronic -continue statin when appropriate 18 Tobacco dependence, chronic, present on admission -discussed the importance of cessation with patient -nicotine replacement available upon request 19 Obesity, present on admission, chronic - BMI32 20 Chronic liver cirrhosis, chronic, POA -as per past documentation DVT prophylaxis heparin subcutaneous under surgery recommendations GI prophylaxis with Carafate High risk medications: Dilaudid Bowel regimen with scheduled docusate given opiates Disposition: Patient will likely have a protracted hospital course given his current state of health, will require extensive rehabilitation likely secondary to the morbidity of the impending surgery. VTE Mechanical Devices: Intermittant Pneumatic CD Resuscitation Status: CPR: Attempt Resuscitation Attending Statement The patient was seen and examined together with Dr. Masters on 01-15-17 and I agree with the history, exam and plan as outlined in the note above. Dae Masters DO Jan 15, 2017 06:46 Corby Hernandez MD Jan 16, 2017 08:01
[2017-01-15] MEDS: Vasopressin Inj 20 UNIT in 0.9% Sodium Chloride 100 ML IV SCH (19:23)
--- NOTE | 2017-01-15 19:35 | NUR ---
Note Lactic acid level this morning at 4.0- MD aware, Lab draw at 1425 during dialysis- potassium at 3.7 and magnesium at 1.6- MD aware- labs to redraw at 2000 today. Libel BP patient remained on Levophed and phenylephrine drips for BP support. BP dropped to 75-85 ranges with MAP 50-55 at the beginning of dialysis- DM aware- NS 250ml bolus over 30min was given. Patient received 50gm total of albumin administered by dough cutter as part of her protocol- BP stabilized. Heart this morning a fib with RVR up to 170s- patient was started on esmolol drip at low rate initially- BP dropped and patient required increase in pressure IV medications- MD aware- esmolol was stopped patient received 250ml IV NS bolus over 30 min at the time. Esmolol was resumed after bolus was finished and titrated up heart rate remained a-fib 120-140s even at higher dose of esmolol drip- MD aware no new orders were received at the time.
[2017-01-15 20:25] LABS: Mean Corpuscular Hemoglobin 35.3 pg (27.0-35.0); Mean Corpuscular Volume 105.6 fL (81-100); Platelet Count 115 bil/L (150-400)
[2017-01-15] MEDS: Albumin 25% 25 GM in IV Premix 1 EACH IV SCH (20:42)
[2017-01-15 20:43] LABS: Magnesium 1.7 mg/dL (1.6-2.6)
[2017-01-15 20:46] LABS: MONOCYTES % (AUTO) 6 % (4-12); NEUTROPHILS % (AUTO) 80 % (40-74)
[2017-01-15] MEDS ORDERED: Amiodarone 150 mg/100 mL D5W Premix IV ONE (21:51)
[2017-01-15] MEDS ORDERED: Amiodarone 150 mg/100 mL D5W IV ONE (21:55)
[2017-01-15] MEDS ORDERED: Amiodarone 360 mg/200 mL D5W Premix IV ONE (23:06)
[2017-01-15] MEDS: Amiodarone 360 mg/200 mL D5W 360 MG in IV Premix 1 EACH IV SCH (23:09)
[2017-01-16] VITALS (12 sets, daily range): BP systolic 98–124; BP diastolic 53–61; PULSE 105–117; RESP 15–22; O2SAT 92–96
[2017-01-16] MEDS: Esmolol 2,500 mg/250 mL NS 2,500,000 MCG in IV Premix 1 EACH IV SCH ×6 (00:02→20:11)
[2017-01-16] MEDS: Vancomycin 100 mg/mL Oral Solution PO SCH ×4 (00:30→16:23)
[2017-01-16] MEDS: metroNIDAZOLE Inj 500 MG in IV Premix 1 EACH IV SCH ×3 (00:30→16:21)
[2017-01-16] MEDS: fentaNYL 2,500 mCg/250 mL 2,500 MCG in IV Premix 1 EACH IV SCH ×2 (00:31→22:43)
[2017-01-16] MEDS: Heparin 5,000 Unit/mL Inj SUBQ SCH ×3 (00:31→16:15)
[2017-01-16] MEDS: Norepineph 8,000 mCg/250 mL NS 8,000 MCG in IV Premix 1 EACH IV SCH ×4 (00:32→22:44)
[2017-01-16] MEDS: Hydrocortisone 50 mg/mL 2 mL Inj IVPUSH SCH ×3 (00:32→16:15)
[2017-01-16] MEDS: Propofol Inj 1,000,000 MCG in IV Premix 1 EACH IV SCH ×5 (00:34→22:43)
--- NOTE | 2017-01-16 00:42 | ABG ---
DateTimeAnalyzed 00:39:00 -_ pH ____7.480 - 7.350 7.450 pCO2 ___33.2__ -mmHg 35.0 45.0 pO2 ___71.5__ -mmHg 69.0 116 HCO3- ___24.4__ -mmol/L 22.0 26.0 ABE ____1.5__ -mmol/L -2.0 2.0 tHb ____9.2__ -g/dL O2Hb ___92.8__ -% COHb ____1.8__ -% MetHb ____1.0__ -% sO2 ___95.5__ -% 25.0 FIO2 ___45.0__ -% PEEP ____7.0__ -cmH2O Set_RR ___15.0__ -b/min Vt __550.0__ -L Drawn By MK - Date/Time Notified____ 00:42:00 -_ Spontaneous_RR ___18.0__ -b/min Oxygen Device 1 VENTILATOR - Notified By MK - B 757 -mmHg tO2 ___12.1__ -Vol% Reza test N/A -
[2017-01-16] MEDS: Albumin 25% 25 GM in IV Premix 1 EACH IV SCH (01:55)
[2017-01-16] MEDS: Phenylephrine Inj 20,000 MCG in 0.9% Sodium Chloride 250 ML IV SCH ×4 (04:01→23:25)
--- NOTE | 2017-01-16 04:25 | ABG ---
DateTimeAnalyzed 04:23:00 -_ pH ____7.473 - 7.350 7.450 pCO2 ___32.2__ -mmHg 35.0 45.0 pO2 ___74.4__ -mmHg 69.0 116 HCO3- ___23.3__ -mmol/L 22.0 26.0 ABE ____0.4__ -mmol/L -2.0 2.0 tHb ____8.8__ -g/dL O2Hb ___93.3__ -% COHb ____1.8__ -% MetHb ____1.1__ -% sO2 ___96.1__ -% 25.0 FIO2 ___45.0__ -% PEEP ____7.0__ -cmH2O Set_RR ___15.0__ -b/min Vt __520.0__ -L Drawn By MK - Date/Time Notified____ 04:25:00 -_ Spontaneous_RR ___15.0__ -b/min Oxygen Device 1 VENTILATOR - Notified By MK - B 760 -mmHg tO2 ___11.6__ -Vol% Reza test N/A -
[2017-01-16] MEDS: Insulin LISPRO 300 Unit/3 mL Inj SUBQ SCH ×2 (04:33→08:34)
[2017-01-16] MEDS: Albuterol-Ipratropium 3 mL Inhalation Solution NEB SCH ×4 (04:35→23:28)
[2017-01-16 04:42] LABS: Mean Corpuscular Hemoglobin 35.2 pg (27.0-35.0); Mean Corpuscular Volume 107.8 fL (81-100); Platelet Count 88 bil/L (150-400)
[2017-01-16 04:56] LABS: INR 1.51 ratio
[2017-01-16 05:00] LABS: Magnesium 1.8 mg/dL (1.6-2.6); Phosphorus 3.9 mg/dL (2.5-4.9)
[2017-01-16] MEDS: Vasopressin Inj 20 UNIT in 0.9% Sodium Chloride 100 ML IV SCH ×2 (05:15→16:21)
[2017-01-16] MEDS: Sucralfate 100 mg/mL 10 mL Suspension PO SCH ×4 (05:15→22:44)
[2017-01-16] MEDS: Amiodarone 360 mg/200 mL D5W 360 MG in IV Premix 1 EACH IV SCH ×2 (05:24→15:16)
[2017-01-16 05:29] LABS: BASOPHILS % (AUTO) 0 % (0-3); EOSINOPHILS % (AUTO) 1 % (0-5); MONOCYTES % (AUTO) 2 % (4-12); NEUTROPHILS % (AUTO) 78 % (40-74)
--- NOTE | 2017-01-16 07:26 | NUR ---
Hypotension P: on levo gtt and neosynephrine gtt, CI 3.4-5.4, SVI 32-34, SVRI 932-954. I: started vasopressin gtt @ 0.03 units/min, weaned off phenylephrine Gtt. E: MAP >65. Afib w/ RVR P: HR 130-140s afib w/ RVR, already on esmolol gtt I: given amiodarone 150 mg IV bolus, then per protocol, tapered Off esmolol gtt. E: HR back in the 150s afib 30mins after esmolol gtt was stopped I: resumed esmolol gtt at previous rate. E: HR remain afib, now controlled rate 98-110 Labs P: CA 6.4, corrected CA 7.76, abg results: pH 7.48, pc02 33, p02 72, hco3 24, lactic acid 2.5. I: given 1gm calcium gluconate, d/cd bicarb gtt. Notified hospitalist Of labs.
--- NOTE | 2017-01-16 08:11 | DRSVH ---
PROCEDURE: X-RAY CHEST ONE VIEW, PORTABLE ([id number]) INDICATIONS: ficle enterocolitis TECHNIQUE: One view of the chest was acquired. COMPARISON: [facility], CR, XR CHEST 1VW (PORTABLE), 01/15/2017, 5:37. FINDINGS: Surgical changes and devices: Stable position of ETT in right IJ CVL. A well-positioned nasogastric tube. Laparotomy jessica present within the upper abdomen. Lungs and pleura: Right upper lobe and bibasilar airspace opacities are significant change. No pneum othorax. Mediastinum: Mediastinal contours appear normal. Heart size is enlarged. Bones and chest wall: No suspicious bony lesions. Overlying soft tissues appear unremarkable. IMPRESSION: Bilateral airspace opacities likely related to pneumonia not significantly changed and st able cardiomegaly is present. Dictated by: Brian Wilson [facility] Interpreted: Izabela Stockton MD on 01/16/2017 at 8:09 Transcribed by: DANIELLE on 01/16/2017 at 8:11 Approved by: Izabela Stockton M.D. on 01/16/2017 at 21:19
[2017-01-16] MEDS: Tigecycline Inj 50 MG in 0.9% Sodium Chloride 100 ML IV SCH ×2 (08:31→20:10)
[2017-01-16] MEDS: Chlorhexidine 0.12% 15 mL Oral Solution MT SCH ×2 (08:31→20:10)
[2017-01-16] MEDS ORDERED: Furosemide 10 mg/mL 10 mL Inj IVPUSH ONE (08:45)
[2017-01-16] MEDS ORDERED: Calcium GLUCO 10% (mEq) Inj 4.65 MEQ in Dextrose 5% 50 ML IV ONE (09:45)
--- NOTE | 2017-01-16 10:36 | PROG NOTE ---
[address] [address] PROGRESS NOTE PATIENT: JAGDISH MATHIS : 1945 MR#: [id number] ADMIT: 01/13/2017 JOB ID: [id number] DATE: 01/16/2017 INFECTIOUS DISEASE FOLLOWUP NOTE: REASON FOR FOLLOWUP: Septic shock, renal failure, ventilatory dependent respiratory failure, all secondary to C. difficile colitis. INTERVAL HISTORY: The patient is now on his second postop day following subtotal colectomy for life-threatening C. difficile colitis. He remains critically ill in the ICU. Though sedated, he can, to some degree, back closer hands and appears to attempt opening his eyes but is otherwise sufficiently sedated that he cannot provide any additional detailed history and he cannot, certainly, follow any complex commands. This case was discussed with the ICU team including the ICU nurse, Respiratory Therapy and the team. PHYSICAL EXAMINATION: Reveals an intubated, sedated gentleman currently on 45% FiO2 and 7 of PEEP. He is still receiving relatively high doses of norepinephrine at about 12 mcg per minute, and is also on vasopressin as a second pressor agent. He is also on esmolol and amiodarone for rhythm and rate control. The patient's current temperature is 37.6, but he was as high as 38.2 during the night. Blood pressure is 112/59 but, of course, he is on dual vasopressor agents. His current pulse is 115, and he is in atrial fibrillation. Respiratory rate is ventilator dependent. He is saturating reasonably well on 45 and 7, as mentioned. He can open his eyes occasionally on his own. There are no conjunctival or scleral abnormalities. Oral endotracheal tube and orogastric tube in good position. A right IJ is present, as well as a left radial A line, as well as a right peripheral IV. He also has a WALDO drain in his abdomen, as well as a new ileostomy, a Molina catheter and a right femoral dialysis catheter and FMS. The central line in the neck appears benign, as does his neck in general. Lungs: Some coarse rales at the bases. Cardiac tones are regular rate and rhythm without new murmur. Abdomen quite distended. Absent bowel sounds. A WALDO drain and ileostomy are present and appear functional. The patient has some bruising of the abdominal wall, as well as some bruising of the scrotum, which may be related to a fall. There is no evidence for scrotal cellulitis. The extremities are reasonably well perfused despite his ongoing very significant vasopressor use. Urine output is minimal, and the patient continues to receive dialysis. LABORATORIES: Include a white count stable at 21,000, still with very significant left shift, 12% bands, 5% metamyelocytes. Creatinine is 1.79, though he is on dialysis, of course. Procalcitonin down a little bit from 2 to 1.4. LFT reasonably normal. Bilirubin was 1.5. Serologic studies include a positive hep C. Micro includes negative blood cultures, negative MRSA screen. The peritoneal fluid that was obtained during surgery two days ago was culture negative. Stool for C. diff was positive. IMAGING: Includes today's chest radiograph, which shows bibasilar infiltrates as before. IMPRESSION: This is an extremely challenging case of a gentleman who was seen last month with pneumococcal pneumonia and did well with appropriate therapy. Subsequently presented with really fulminant Clostridium difficile and despite aggressive resuscitation and antibiotic measures, required a subtotal colectomy on January 14. At this point, he remains critically ill on dual vasopressor agents, still requiring dialysis and ventilatory support. As an incidental finding, it appears he is also hepatitis C positive but will need to investigate that, though, of course, is not a major issue at this point. RECOMMENDATIONS: 1. This case discussed in person with Dr. Burks of surgery today. 2. Will continue with our triple antibiotic coverage. At this point, I see no definitive indication to change. As we go forward, the patient will become at high risk for line infection, fungemia and other complications but at this point, I think we are reasonably confident in our current antibiotic management. 3. Hep C viral load and genotype will be ordered. 4. I will continue to closely follow this patient with you. Note that I will be out of the area for the next three days but I can be reached by telephone or text, and will be back to work on Friday morning. A resident from the Infectious Disease team will round tomorrow and will be contacting me by telephone with updates on the patients I am currently following.
--- NOTE | 2017-01-16 10:49 | PCM.PNMED ---
Subjective Date of Service Jan 16, 2017 Subjective Rojelio Ballard is a 71-year-old male with a complex past medical history most significant for recent RSV complicated by strep pneumonia requiring hospitalization who was transferred from [facility] for septic shock and an acute kidney injury. We were consulted for management of worsening septic shock secondary to acute severe life-threatening C. difficile colitis and abdominal compartment syndrome. Hospital day #4 and Post-op day #2. Telemetry overnight: Atrial fibrillation, heart rate 110's that gradually decreased to 100's, with rare triplet PVC. Subjective exam and review of system is unobtainable as patient is intubated and sedated. The patient is able to follow commands and is able to open eyes, squeeze hands and wiggle toes. . Exam Vital Signs Vital Sign - Last Date Time Temp Pulse Resp B/P Pulse Ox O2 Delivery O2 Flow Rate FiO2 01/16/17 09:25 110 122/59 94 45 01/16/17 07:26 37.6 18 Mechanical Ventilator 01/14/17 16:04 60 Intake and Output 01/15/17 01/15/17 01/16/17 Cumulative From/Thru 15:00 23:00 07:00 01/13/17 22:15 - 01/16/17 06:15 Intake Total 3957 ml 2088 ml 93801 ml Output Total 2105 ml 825 ml 4575 ml Balance 1852 ml 1263 ml 9036 ml Intake Oral 120 ml IV Total 3837 ml 1988 ml 73203 ml Tube Irrigant 120 ml 100 ml 220 ml Output Urine Total 275 ml 450 ml 1450 ml Stool Total 50 ml 75 ml 245 ml Gastric Drainage Total 100 ml 150 ml 380 ml Drainage Total 180 ml 150 ml 1000 ml Ultrafiltrate 1500 ml 1500 ml # Bowel Movements 3 Exam General: Elderly male lying in bed and in no acute distress, intubated and sedated. HEENT: Normocephalic, atraumatic. External ears without defect. Pupils equal, round, and reactive to light. Anicteric sclerae, moist conjunctivae, and no lid lag. Endotracheal and NG tube in place. Neck: No lymphadenopathy or thyromegaly. Cardiovascular: Irregularly irregular without murmurs, rubs, or gallops appreciated Pulmonary: Clear to auscultation bilaterally with no crackles, wheezes, or rhonchi. Abdomen: Soft, tenderness to palpation in mid abdomen, mildly distended, bowel sounds hypoactive. Surgical laparotomy scar with jessica in place. Genitourinary: Molina catheter and FMS in place. Extremities: No clubbing, cyanosis, or edema. SCD's in place Skin: Normal temperature, turgor, and texture; no rash, ulcers, or subcutaneous nodules appreciated. Neurological: The patient is able to open eyes, squeeze hands, wiggle toes on command. Ventilator settings: PRVC. Tidal volume 520. Respiratory rate 15. FiO2 45 %. PEEP 7.0. ABG: PH 7.473. PCO2 32.2. PO2 74.4. HCO3 23.3. On PRVC with an FiO2 of 50% and an SPO2 of 98.9%. IV drips and Sedatives: Esmolol 90 g/kg/min, amiodarone, norepinephrine 0.123 g/min/kg, vasopressin 0.3 g/kg/min, fentanyl 100 g/hr, propofol 20 g/kg/hr. IV lines: Right IJ, left radial arterial line, right radial peripheral IV, ileostomy in right mid abdomen, WALDO drain in left lower quadrant of abdomen, FMS and Molina catheter. I&O: Net +[id number]. . IVs and Medications Medications Reviewed: Medications were reviewed in detail Lab and Diagnostics Item Value Date Time Hepatitis B Surface Antigen Negative 01/14/17 1630 Hepatitis B Surface Antibody Non reactive 01/14/17 1630 Hepatitis B Core Total Antibody Negative 01/14/17 1630 Hepatitis C Antibody >11.0 s/co ratio H 01/14/17 1630 Item Value Date Time Procalcitonin 1.58 ng/mL H 01/15/17 0510 Procalcitonin 1.38 ng/mL H 01/16/17 0420 Item Value Date Time Calcium Level 6.4 mg/dL *L 01/16/17 0420 Phosphorus Level 3.9 mg/dL 01/16/17 0420 Magnesium Level 1.8 mg/dL 01/16/17 0420 Total Bilirubin 1.5 mg/dL H 01/16/17 0420 Aspartate Amino Transf (AST/SGOT) 30 U/L 01/16/17 0420 Alanine Aminotransferase (ALT/SGPT) 17 U/L 01/16/17 0420 Alkaline Phosphatase 38 U/L 01/16/17 0420 Total Protein 4.8 g/dL L 01/16/17419 Albumin 3.0 g/dL L 01/16/17419 Result Diagram: 01/16/1741901/16/17419 Microbiology Blood cultures 2 show no growth after 24 hours. MRSA screening negative. Stool PCR positive for C. difficile NAP 1. Sputum culture has no growth to date. Peritoneal fluid has no growth to date. . X-Rays, CTs and MRIs X-RAY CHEST ONE VIEW, PORTABLE IMPRESSION: Bilateral airspace opacities likely related to pneumonia not significantly changed and stable cardiomegaly is present. Dictated by: Brian Wilson RR Interpreted: Izabela Stockton MD on 01/16/2017 at 8: 09 CT ABDOMEN AND PELVIS WITHOUT CONTRAST IMPRESSION: 1. Fluid-filled prominence of the colon with thickening in the transverse and left colon as above. Findings can be a reflective of colitis secondary to inflammatory or infectious etiology. Ischemic colitis should also be considered. Recommend interval followup should document resolution of thickening and exclude presence of mass lesion including obscured visualization of the rectum secondary to fluid. 2. Bibasilar areas of effusion and consolidation, with the latter commercial representative of atelectasis and/or pneumonia. Dictated by: Izabela Stockton M.D. on 01/14/2017 at 11:11 X-RAY CHEST ONE VIEW, PORTABLE IMPRESSION: 1. Central venous catheter as above. 2. Unchanged right upper lobe radiopacities. 3. Increased left basilar radiopacities. Short interval followup is recommended with resolution of the patient's symptoms to ensure there is no underlying pulmonary pathology. Dictated by: Cate Davila M.D. on 01/14/2017 at 10:49 . Assessment & Plan Rojelio Ballard is a 71-year-old male with a complex past medical history most significant for recent RSV complicated by strep pneumonia requiring hospitalization who was transferred from [facility] for septic shock and an acute kidney injury. We were consulted for management of worsening septic shock secondary to acute severe life-threatening C. difficile colitis and abdominal compartment syndrome. Hospital day #4 and Post-op day #2. 1. Acute severe septic shock, present on admission. Active. - SIRS criteria met include:Tachypnea (respiratory rate 30), tachycardic (pulse 106), bandemia 20% neutrophils, lactic acidosis 3.4, with GI as source and hypotension refractory to fluid resuscitation requiring vasopressors. - Early goal-directed therapy met including: Broad-spectrum antibiotic coverage and IV fluid resuscitation. - Continue norepinephrine and vasopressin, titrating down as tolerated. Phenylephrine off. 2. Acute severe life threatening C. difficile colitis, status post subtotal colectomy, present on admission. Active. - Patient was recently treated with antibiotics for RSV complicated by strep pneumonia. - Continue tigecycline, metronidazole and oral vancomycin per ID's recommendations. - CT abdomen and pelvis revealed colitis,as above. - PCR positive for C. difficile NAP [address] Palma is a very virulent strain. - Procalcitonin 1.97 and trending down. - The patient is on hydrocortisone 50 Q8H and may want to consider decreasing dose to smallest required amount or if possible discontinuing. - Infectious disease consulted and following. We appreciate their time and care of the patient. - Dr. Burks of general surgery was consulted and performed a subtotal colectomy please see operative note for details. 3. Abdominal compartment syndrome, present on admission. Active. - Status post subtotal colectomy as above under problem #2. - IAP 25 initially and likely contributed to acute kidney failure. Continue to monitor. - Dr. Burks of general surgery was consulted and performed a subtotal colectomy please see operative note for details. 4. Acute hypoxemic respiratory failure, present on admission. Active. - Patient remains mechanically ventilated status post subtotal colectomy. - Discussed CODE STATUS with the patient's who agrees to intubation if temporary and/or as needed for surgery. - Continue mechanical ventilator settings, as above. - Continue daily ABG for vent management. - Chest x-ray continues to demonstrate resolving pneumonia, as above. - Once patient has stabilized we will consider sedation vacations and SBT. 5. Anion gap metabolic acidosis, present on admission. Active. - Anion gap of 20 initially with calculated correction for albumin. - Lactic acidosis with initial lactic acid of 3.4. Trending down. - Continue IV fluids per primary medical team and nephrology recommendations. - Correct underlying cause as above in problem #2. 6. Acute kidney injury, present on admission. Active. - Continue IV fluids as above under problem #4. - Avoid nephrotoxic agents. - Continue to monitor urine output and renal function daily. - Nephrology consulted and following.The patient received one round of temporary hemodialysis.Nephrology planning to diurese the patient today. 7. Hyperkalemia, present on admission. Active. - See plan above under problem #6. - Recommend nephrology consultation for possible temporary hemodialysis. Chronic problems for management of primary team: DVT prophylaxis: Heparin subcutaneous every 8 hours. GI prophylaxis: Sucralfate 1 g every 6 hours. Disposition: Tenuous as patient is severely ill with severe septic shock secondary to virulent C. difficile colitis. . VTE Mechanical Devices: Intermittant Pneumatic CD Resuscitation Status: CPR: Attempt Resuscitation Attending Statement The patient was seen and examined together with Dr. Lam on 01/16/2017 and I agree with the history, exam and plan as outlined in the note above. Nicole Lam DO Jan 16, 2017 10:49 Fidel Salas MD Jan 26, 2017 10:47 13 Atrial fibrillation with rapid ventricular response, acute, POA -new diagnosis during last admission -aflutter noted at OSH, EKG reviewed on arrival -repeat EKG in AM -optimize electrolytes in the setting of CARIE - Esmolol drip 14 history of Alcohol dependency, present on admission, chronic -monitor for withdrawal 15 Diabetes mellitus type 2, insulin dependent, chronic POA -correction scale insulin at this time 16 HTN, chronic, present on admission, present on admission - hold home antihypertensive medications 2/2 sepsis hypotension - Esmolol drip 17 HLD, chronic -continue statin when appropriate 18 Tobacco dependence, chronic, present on admission -discussed the importance of cessation with patient -nicotine replacement available upon request 19 Obesity, present on admission, chronic - BMI32 20 Chronic liver cirrhosis, chronic, POA -as per past documentation DVT prophylaxis heparin subcutaneous under surgery recommendations GI prophylaxis with Carafate High risk medications: Dilaudid Bowel regimen with scheduled docusate given opiates Disposition: Patient will likely have a protracted hospital course given his current state of health, will require extensive rehabilitation likely secondary to the morbidity of the impending surgery. VTE Mechanical Devices: Intermittant Pneumatic CD Resuscitation Status: CPR: Attempt Resuscitation Nicole Lam DO Jan 16, 2017 10:49
[2017-01-16] MEDS: Insulin Human REGular Inj 100 UNIT in 0.9% Sodium Chloride-Pha MIX 100 ML IV SCH (11:49)
--- NOTE | 2017-01-16 13:24 | NUR ---
NUTRITION FOLLOW-UP Assess: 71 yo M admitted w/ septic shock, respiratory failure w/ hypoxia, bilateral pneumonia, and acute renal failure. Pt requiring mechanical ventilation. Pt w/ severe C. Diff colitis. He is s/p Ileostomy w/ partial colectomy. Pt is day 3 without nutrition. Discussed nutrition options during CCU rounds this morning. PMHx: CAD, CHF, Cirrhosis, Collapsed vertebrae, COPD, DM 2, Dyspnea, HLD, HTN, Insomnia, Obesity, Pneumonia, Prostate cancer, GERD, V-vib, Cyst removal from coccyx, skin cancer removal LABS: Cl 96, BUN 44, Cr 1.79, Glu 293, Lactic acid 2.3, Ca 6.4, T-bili 1.5, Prealbumin 5 MEDICATIONS: Reviewed. Insulin, Fentanyl, Propofol DIET: NPO x3 GI symptoms/stool: FMS in place - 170 ml 01/15 Skin integrity: No issues noted; Vincent: 9 ANTHROPOMETRICS: Current Wt: 118.8 kg BMI: 35.5 kg/m2 Admit Wt: 108 kg (BMI 32.3 kg/m2) IBW: 80.9 kg Recent wt changes: None noted ESTIMATED NEEDS: BMI/COPD/Vent (admit wt) - updated 01/16 Calories: 5952-5903 kcal/d (22-25 kcal/kg/d) Protein: 120-160 g/d (1.5-2.0 g/kg/d IBW) Fluids: ~2400 ml/d NUTRITION DIAGNOSIS: 1) Increased nutrient needs related to increased work of breathing as evidenced by COPD.---PERSISTS 2) Inadequate oral intake related to acute respiratory failure as evidenced by need for mechanical ventilation and NPO status. INTERVENTION: 1) Recommend consideration of trophic feedings to stimulate the gut. Pt may require enteral and parenteral nutrition. MONITOR/EVALUATE: PO intake, Labs, Wt, Nutrition status, POC. Will follow per high nutrition risk guidelines.
--- NOTE | 2017-01-16 13:50 | NUR ---
Social Work: Initial Assessment Data & Assessment: Lamp Assembler unable to complete initial assessment due to patient being vented and patient strict precautions. SW attempted to call patient Nadine COFFEY [phone], but there was no answer. SW completed patient initial assessment by obtaining information from patient's previous chart. EMR Reviewed. Pt is a 71 y/o male admitted for Sepsis and ARF per H&P. Patient's PCP is listed as Dr Fierro, pt's insurance is Medicare. Patient's readmit score is high at 4. Per EMR patient lives on [address] with his spouse in a single story home. Patient has history of HH with [facility] and history of SNF at [facility]. Patient does not have any documented LTC or VA benefits. Patient does not have an AD/DPOA on file. Lamp Assembler will continue to attempt to contact patient's [employer]. Lamp Assembler will continue to follow and assist patient for discharge planning needs. Plan: SW will continue to follow patient for discharge planning needs. Rolando Alvarado LMSW, [facility] Addendum: 01/16/17 at 1408 by ROLANDO ALVARADO Patient discharged to [facility] on 01/03/17 from [facility]. Addendum: 01/16/17 at 1410 by ROLANDO ALVARADO SS Amended: Links added.
[2017-01-16] MEDS: Thiamine Inj 200 MG in Dextrose 5% 50 ML IV SCH (15:20)
--- NOTE | 2017-01-16 15:41 | PROG NOTE ---
[address] [address] PROGRESS NOTE PATIENT: JAGDISH MATHIS : 1945 MR#: [id number] ADMIT: 01/13/2017 JOB ID: [id number] DATE: 01/16/2017 SUBJECTIVE: He is postop day two, subtotal colectomy for fulminant C. difficile colitis as well as abdominal compartment syndrome. His abdominal compartment pressure is transduced through his bladder, remains better. He remains intubated on pressors. His pulse is between 105 and 115 and his blood pressure is between 110 systolic and 124 systolic. Nasogastric tube has not put a whole lot out, ileostomy has not started putting anything out and his urine output is picking up to 725 over the previous 24 hours. His abdomen is a bit distended, but not as tense as it was preoperatively. His stoma is lost in his subcutaneous edema but his viable pseudomembranes are still present on the stoma. There is no gas or stool or succus in the bag. LABORATORIES: His white count is 21.4. His hematocrit is 27.6. Platelet count is down to 88,000. He does have immature white cells on his differential. Electrolytes are normal. His BUN is 44. His creatinine is 1.79. Glucose is up to 293. Albumin is 3. Procalcitonin was 1.38. Chest x-ray demonstrates bilateral consolidation consistent with either pneumonia or atelectasis. IMPRESSION/PLAN: Still quite ill, being treated for his C. difficile infection. Discussed with the primary care team regarding starting some trickle feeds, eventually starting TPN. In the short term, I would vote for getting his blood sugar under better control, even if this means an insulin drip. At this point, his surgical issues seem stable.
[2017-01-16] MEDS ORDERED: 0.9% Sodium Chloride 250 ML IV ONE (16:00)
[2017-01-16] MEDS ORDERED: Albumin 25% 25 GM in IV Premix 1 EACH IV ONE (16:00)
--- NOTE | 2017-01-16 16:40 | PCM.PNNEPH ---
Subjective Date of Service Jan 16, 2017 Subjective The patient's made some slow progress the last 24 hours. His blood pressure remains dependent on pressors however these are gradually being weaned down. Over the night he is systolic blood pressures average between 80 and 120. Also in the last 24 hours he has had 7 L in and 725 ML's of urine out. His hemoglobin is 9.0. Sodium this morning is 134, potassium 4.6, chloride of 96, bicarbonate 21, BUN and creatinine were 44 and 1.79. His lactic acid is improved to 2.3 and his albumin level is 3.0. His intra-abdominal pressure this morning is also markedly reduced at 12. Exam Vital Signs Vital Sign - Last Date Time Temp Pulse Resp B/P Pulse Ox O2 Delivery O2 Flow Rate FiO2 01/16/17 15:22 Ventilator 01/16/17 15:22 37.4 117 22 98/56 95 46 01/14/17 16:04 60 Intake and Output 01/15/17 01/15/17 01/16/17 Cumulative From/Thru 15:00 23:00 07:00 01/13/17 22:15 - 01/16/17 06:15 Intake Total 3957 ml 2088 ml 55031 ml Output Total 2105 ml 825 ml 4575 ml Balance 1852 ml 1263 ml 9036 ml Intake Oral 120 ml IV Total 3837 ml 1988 ml 17388 ml Tube Irrigant 120 ml 100 ml 220 ml Output Urine Total 275 ml 450 ml 1450 ml Stool Total 50 ml 75 ml 245 ml Gastric Drainage Total 100 ml 150 ml 380 ml Drainage Total 180 ml 150 ml 1000 ml Ultrafiltrate 1500 ml 1500 ml # Bowel Movements 3 Exam Patient is sedated and on a ventilator. Neck was supple without adenopathy, thyromegaly. Lungs shows scattered rhonchi and a few bibasal rales. Heart sounds were tachycardia and somewhat distant. Abdomen is distended however non- tense. There is tympany and absent bowel sounds however his abdomen looks considerably better and 24 hours ago. Extremities still show some generalized edema however this is also improved. Lab and Diagnostics Result Diagram: 01/16/17 0420 01/16/17 0420 Microbiology Blood cultures 2 show no growth after 24 hours. MRSA screening negative. Stool PCR positive for C. difficile NAP 1. Sputum culture has no growth to date. Peritoneal fluid has no growth to date. . X-Rays, CTs and MRIs X-RAY CHEST ONE VIEW, PORTABLE IMPRESSION: Bilateral airspace opacities likely related to pneumonia not significantly changed and stable cardiomegaly is present. Dictated by: Brian Wilson [facility] Interpreted: Izabela Stockton MD on 01/16/2017 at 8: 09 CT ABDOMEN AND PELVIS WITHOUT CONTRAST IMPRESSION: 1. Fluid-filled prominence of the colon with thickening in the transverse and left colon as above. Findings can be a reflective of colitis secondary to inflammatory or infectious etiology. Ischemic colitis should also be considered. Recommend interval followup should document resolution of thickening and exclude presence of mass lesion including obscured visualization of the rectum secondary to fluid. 2. Bibasilar areas of effusion and consolidation, with the latter guest service representative of atelectasis and/or pneumonia. Dictated by: Izabela Stockton M.D. on 01/14/2017 at 11:11 X-RAY CHEST ONE VIEW, PORTABLE IMPRESSION: 1. Central venous catheter as above. 2. Unchanged right upper lobe radiopacities. 3. Increased left basilar radiopacities. Short interval followup is recommended with resolution of the patient's symptoms to ensure there is no underlying pulmonary pathology. Dictated by: Cate Davila M.D. on 01/14/2017 at 10:49 . Plan Impression Impression #1 acute tubular necrosis secondary to sepsis from C. difficile colitis and intra-abdominal hypertension with abdominal compartment syndrome. # 3 acute interstitial nephritis number for lactic acidosis #5 diabetic nephropathy. Recommendations #1 at this point I do not feel we need to do another dialysis treatment today however since his urine output is beginning to increase O would like to give him 60 mg of furosemide to see how this affects his urine output balanced against his blood pressure. Obviously if he needs acute dialysis will provide this. Plan The patient will continue hyperbaric treatments. Will return () for treatment #() Delfin Pat DO Jan 16, 2017 16:40
--- NOTE | 2017-01-16 17:44 | NUR ---
Wound Care Pressure ulcer protocol received, spoke with nursing patient not stable to be turned, will recheck tomorrow.
--- NOTE | 2017-01-16 18:31 | PCM.PNMED ---
Subjective Date of Service Jan 16, 2017 Subjective overnight: BP dropped to 75-85 ranges with MAP 50-55 at the beginning of dialysis with 250ml bolus and 50gm total of albumin administered by drama professor and BP stabilized. Patient continued with Atrial fibrillation with RVR heart rate into the 170s overnight doctor started an amiodarone drip. today: Discussed with surgery and nutritional list and will consider trickle feeds and TPN within the coming days. Platelets continue to drop we will check heparin antibodies and DIC panel. Macrocytic anemia evaluated with B12 and folate levels and will start supplementing thiamine given the patient's history of alcohol use. Exam Vital Signs Vital Sign - Last Date Time Temp Pulse Resp B/P Pulse Ox O2 Delivery O2 Flow Rate FiO2 01/16/17 04:35 122/59 95 45 01/16/17 04:00 37.9 105 16 Mechanical Ventilator 01/14/17 16:04 60 Intake and Output 01/15/17 01/15/17 01/16/17 Cumulative From/Thru 15:00 23:00 07:00 01/13/17 22:15 - 01/15/17 17:38 Intake Total 3957 ml 50001 ml Output Total 2105 ml 3750 ml Balance 1852 ml 7773 ml Intake Oral 120 ml IV Total 3837 ml 75164 ml Tube Irrigant 120 ml 120 ml Output Urine Total 275 ml 1000 ml Stool Total 50 ml 170 ml Gastric Drainage Total 100 ml 230 ml Drainage Total 180 ml 850 ml Ultrafiltrate 1500 ml 1500 ml # Bowel Movements 3 Exam General: Obese elderly appearing male, intubated and sedated Eyes: Scleral Anicteric noninjected conjunctiva Mouth: Intubated, no central cyanosis Neck: Supple, no Thyromegaly, trachea central. No JVD Chest & Lungs: mild crackles in bilateral axillary bases, decreased air movement throughout no wheezing or rhonchi noted Cardiovascular: Decreased heart sounds Tachycardic with regular rhythm, Normal S1, Normal S2, No Murmurs/Rubs/Gallops, Pulses: Also is equal bilaterally at radial and dorsalis pedis with decreased pulses Abdomen: Soft, right-sided ileostomy, midline laparotomy clean with jessica nor erythema or fluctuance, improved distention, hypoactive bowel tones, WALDO drain with serosanguineous clean dry bandaging. Ecchymosis consistent in lower abdomen Musculoskeletal: no swollen or erythematous joints Extremities: no pitting edema, no cyanosis, no clubbing. abrasions and ecchymosis noted Skin: No rashes. Warm and dry, no erythematous areas Neurological: Intubated and sedated able to some commands Psych: Unable to assess : Molina in place Lab and Diagnostics Result Diagram: 01/16/1741901/16/17419 Microbiology Microbiology C DIFF TOXIN A AND B BY PCR Final 01/14/17-39 Organism 1 POS FOR CDIF TOXIN C DIF TOXIN A&B PCR DETECTED TIME CALLED: 936 DATE CALLED: 01/14/17 FLOOR/DOCTOR: BRY/KRUPA Brown CALLED BY: NORRIS PCR testing alone cannot distinquish C. difficile disease from a carrier state, and therefore correlation with clinical findings is required. X-Rays, CTs and MRIs CT ABDOMEN AND PELVIS WITHOUT CONTRAST IMPRESSION: 1. Fluid-filled prominence of the colon with thickening in the transverse and left colon as above. Findings can be a reflective of colitis secondary to inflammatory or infectious etiology. Ischemic colitis should also be considered. Recommend interval followup should document resolution of thickening and exclude presence of mass lesion including obscured visualization of the rectum secondary to fluid. 2. Bibasilar areas of effusion and consolidation, with the latter correspondence representative of atelectasis and/or pneumonia. Dictated by: Izabela Stockton M.D. on 01/14/2017 at 11:11 Approved by: Izabela Stockton M.D. on 01/14/2017 at 11:15 X-RAY CHEST ONE VIEW, PORTABLE IMPRESSION: 1. Central venous catheter as above. 2. Unchanged right upper lobe radiopacities. 3. Increased left basilar radiopacities. Short interval followup is recommended with resolution of the patient's symptoms to ensure there is no underlying pulmonary pathology. Dictated by: Cate Davila M.D. on 01/14/2017 at 10:49 Approved by: Cate Davila M.D. on 01/14/2017 at 10:52 Additional Diagnostics DateTimeAnalyzed 04:13:00 -_ pH ____7.327 - 7.350 7.450 pCO2 ___24.2__ -mmHg 35.0 45.0 pO2 ___70.8__ -mmHg 69.0 116 HCO3- ___12.3__ -mmol/L 22.0 26.0 DateTimeAnalyzed 10:42:00 -_ pH ____7.256 - 7.350 7.450 pCO2 ___31.5__ -mmHg 35.0 45.0 pO2 ___85.1__ -mmHg 69.0 116 HCO3- ___13.5__ -mmol/L 22.0 26.0 Assessment & Plan 71yoM with past medical history of recent hospitalization for pneumonia and COPD , DM2, HTN, chronic pain, and tobacco use transferred from [facility] with septic shock and CARIE. Hospital Day 3 1 severe sepsis secondary to Clostridium Difficile colitis, acute, POA, stable - patient transferred from OSH following near syncopal event, requiring norepinephrine - concern for bilateral pneumonia, CT abd pelvis noncon pending, new diarrhea - recent admission for pneumonia (d/c 01/03), started on levofloxacin as an outpatient - CT imaging shows thickened colonic mucosa consistent with infectious colitis - Biofire shows C. difficile PCR - Pulmonology and critical care, nephrology, infectious disease, general surgery all CONSULTED and appreciate recommendations from time - Polst form states patient's wish to not be intubated, however patient has given consent to be intubated this hospitalization, also has given consent for intubation if necessary - Patient is currently on norepinephrine and phenylephrine drips for pressor support including IV fluids - Hydrocortisone 100 mg IV every 8 changed to 50mg q 8 01/16 - IV albumin for oncotic pressor support given low albumin state - Gen. surgery performed and ileostomy and partial colectomy on the night of , Patient required potassium dialyzed per anesthesia requirements prior to surgery 2 Respiratory failure with hypoxia, acute, POA - patient with recent admission with for pneumonia with hypoxic / hypercapnic respiratory failure - Polst form states patient's wish to not be intubated, however patient has given consent to be intubated this hospitalization, also has given consent for intubation if necessary - patient continues to be hypoxic on presentation requiring oxygen currently intubated and sedated post surgery for ileostomy and partial colectomy - continue treatment as below, oxygen saturation 88-92% - Hydrocortisone 50 mg IV every 8 3 Clostridium Difficile colitis, present on admission, acute - CT imaging shows thickened colonic mucosa consistent with infectious colitis - Biofire shows C. difficile PCR - Triple antibiotic coverage with vancomycin oral, Flagyl IV, tigecycline IV - Gen. surgery performed and ileostomy and partial colectomy on the night of , Patient required potassium dialyzed per anesthesia requirements prior to surgery 13 Atrial fibrillation with rapid ventricular response, acute, POA -new diagnosis during last admission -aflutter noted at OSH, EKG reviewed on arrival -repeat EKG in AM -optimize electrolytes in the setting of CARIE - Esmolol drip - Amiodarone drip - Reevaluate daily 5 Acute renal failure, acute, POA -normal creatinine 0.88 on discharge 01/03 -elevated at 3.8 on presentation at OSH -likely prerenal / intrarenal given septic presentation - nephrology consulted, patient dialyzed to remove potassium per anesthesiology recommendations prior to surgery - Patient dialyzed on the and - Albumin given on the and for increased oncotic pressure - Continue to monitor 6 Hyperkalemia, acute, resolved -2/2 to carie - kayexalate given overnight 01/13/2017 by admitting team - nephrology consulted, patient dialyzed to remove potassium per anesthesiology recommendations prior to surgery - Patient dialyzed on the and 7 primary Metabolic acidosis with respiratory alkalosis compensation, acute, present on admission -Secondary to sepsis and lactic acidosis -Continue IV fluids, currently on bicarbonate and normal saline -nephrology consulted, patient is currently being dialyzed to remove potassium per anesthesiology recommendations prior to surgery 8 Diabetes mellitus type 2, insulin dependent, chronic POA -correction scale insulin discontinued - Insulin drip per non-DKA protocol started 9 Hyponatremia, acute, POA -Possibly secondary to SIADH secondary to long pathology/pneumonia -Continue IV fluid therapy with bicarbonate and normal saline -Nephrology following 10 Macrocytic anemia, unknown chronicity, present on admission - continue to monitor - B12 / folate levels ordered 11. COPD, chronic, POA -not acute exacerbation at this time -recent prednisone dosing however patient can't recall if he is on this at this time -consideration to steroid dosing, nebs PRN 12 possible upper gastrointestinal bleed, present on admission, unknown chronicity -concern expressed during the previous admission for UGIB -H&H is low on admission -repeat pending -discontinue PPI 40 BID and start Carafate - Surgery recommendations to start DVT prophylaxis with subcutaneous heparin -Trend H&H 13 possible Bilateral pneumonia, acute, POA -acute dyspnea as outpatient with suspected PNA (recent admit with RSV+, strep antigen + PNA) -piperacillin-tazobactam and vancomycin given at OSH -will continue broad spectrum to cover HCAP, cefepime and linezolid is continued in favor of tigecycline and Flagyl -ID consultation appreciate recommendations in time 14 history of Alcohol dependency, present on admission, chronic - Thiamine given daily -monitor for withdrawal 15. Elevated troponin, acute, POA -likely 2/2 to demand ischemic secondary to hypotension induced tachycardia 16 HTN, chronic, present on admission, present on admission - hold home antihypertensive medications 2/2 sepsis hypotension - Esmolol drip 17 HLD, chronic -continue statin when appropriate 18 Tobacco dependence, chronic, present on admission -discussed the importance of cessation with patient -nicotine replacement available upon request 19 Obesity, present on admission, chronic - BMI32 20 Chronic liver cirrhosis, chronic, POA -as per past documentation DVT prophylaxis heparin subcutaneous under surgery recommendations GI prophylaxis with Carafate High risk medications: fentanyl Bowel regimen with scheduled docusate given opiates Disposition: Patient will likely have a protracted hospital course given his current state of health, will require extensive rehabilitation likely secondary to the morbidity of the surgical procedure. VTE Prophylaxis: Sub-Q Heparin (Unfractionated) VTE Mechanical Devices: Intermittant Pneumatic CD Resuscitation Status: CPR: Attempt Resuscitation Attending Statement The patient was seen and examined together with Dr. Masters on 01-16-17 and I agree with the history, exam and plan as outlined in the note above. Dae Masters DO Jan 16, 2017 06:49 Corby Hernandez MD Jan 17, 2017 12:31
[2017-01-16] MEDS ORDERED: Calcium GLUCO 10% (mEq) Inj 9.3 MEQ in Dextrose 5% 100 ML IV ONE (19:25)
--- NOTE | 2017-01-16 19:40 | NUR ---
Low BP/Low calcium/WALDO output Patients vitals remained stable this morning. patient was given Lasix 60mg IV X1 slow push this morning per attending pole incisor operator order-vitals remained stable until after 1330 BP started to decrease to 75-85 with MAP in low to mid 50s without any changes to existing drips- Levophed drip was increased 0.2 mcg/kg/min with minimal improvement in BP. MD was notified and patient was given bolus of NS 250ml over 15min in addition to [id number] IV- BP/vitals stabilized. Patient was not able to tolerated turning/repositioning him in bed after earlier described changed in vitals. Elevating his extremities for ROM exercise was resulting in 15-25poins drop in BP- MD was made aware- continue assessment. Low calcium level based on afternoon labs at 5.8 with albumin of 2.5 and corrected calcium at 7.0- notified MD and ordered calcium gluconate to be given IV when available from RX- talking books library clerk RN made aware during shift change report. Increased left abdomen WALDO output of light serum-sanguineous drainage total of 550 ML today during 12h shift- surgical MD aware- may placed WALDO drain to low wall suction if output increased- continue assessment.
[2017-01-16] MEDS ORDERED: Albumin 25% 100 ML IV ONE ×3 (22:00)
[2017-01-17] VITALS (13 sets, daily range): BP systolic 86–117; BP diastolic 48–62; PULSE 102–130; RESP 15–18; O2SAT 85–99
[2017-01-17] MEDS: Heparin 5,000 Unit/mL Inj SUBQ SCH
[2017-01-17] MEDS: Vancomycin 100 mg/mL Oral Solution PO SCH ×5 (00:01→22:35)
[2017-01-17] MEDS: Esmolol 2,500 mg/250 mL NS 2,500,000 MCG in IV Premix 1 EACH IV SCH ×6 (00:08→21:39)
[2017-01-17] MEDS: Vasopressin Inj 20 UNIT in 0.9% Sodium Chloride 100 ML IV SCH ×2 (03:43→03:51)
[2017-01-17] MEDS: Propofol Inj 1,000,000 MCG in IV Premix 1 EACH IV SCH ×4 (03:50→22:28)
[2017-01-17] MEDS: Norepineph 8,000 mCg/250 mL NS 8,000 MCG in IV Premix 1 EACH IV SCH ×4 (03:50→20:49)
[2017-01-17] MEDS ORDERED: Albumin 25% 100 ML IV ONE ×2 (04:00)
[2017-01-17] MEDS: Phenylephrine Inj 20,000 MCG in 0.9% Sodium Chloride 250 ML IV SCH ×4 (04:10→18:05)
[2017-01-17] MEDS: Amiodarone 360 mg/200 mL D5W 360 MG in IV Premix 1 EACH IV SCH ×2 (04:35→13:42)
[2017-01-17] MEDS: Albuterol-Ipratropium 3 mL Inhalation Solution NEB SCH ×3 (05:00→14:44)
--- NOTE | 2017-01-17 05:25 | ABG ---
pH ____7.405 - 7.350 7.450 pCO2 ___30.1__ -mmHg 35.0 45.0 pO2 ___74.6__ -mmHg 69.0 116 HCO3- ___18.5__ -mmol/L ABE ___-4.9__ -mmol/L tHb ___10.2__ -g/dL O2Hb ___91.9__ -% COHb ____1.5__ -% MetHb ____1.1__ -% sO2 ___94.4__ -% FIO2 ___45.0__ -% B 760 -mmHg tO2 ___13.3__ -Vol%
[2017-01-17 05:54] LABS: Mean Corpuscular Hemoglobin 35.2 pg (27.0-35.0); Mean Corpuscular Volume 107.2 fL (81-100); Platelet Count 58 bil/L (150-400)
[2017-01-17] MEDS: Sucralfate 100 mg/mL 10 mL Suspension PO SCH ×4 (06:09→22:38)
[2017-01-17 06:13] LABS: NEUTROPHILS % (AUTO) 76 % (40-74)
[2017-01-17 06:14] LABS: BASOPHILS % (AUTO) 0 % (0-3); EOSINOPHILS % (AUTO) 0 % (0-5); MONOCYTES % (AUTO) 6 % (4-12)
[2017-01-17 06:26] LABS: Phosphorus 5.9 mg/dL (2.5-4.9)
[2017-01-17 06:37] LABS: INR 1.37 ratio
[2017-01-17 07:10] LABS: Vitamin B12 >1999 pg/mL (211-946)
--- NOTE | 2017-01-17 07:19 | NUR ---
Hypotension/respiratory/Skin/Lab Pt remain hypotensive with sbp 87-100's , on vasopressin and levophed gtt titrated up to keep MAP>65, notified hospitalist of lower CI and pt's hemodynamics with no new order, cvp 12-14, pt edematous, albumin given as ordered, WALDO x 1 drained total of 1650cc serous fluids through the night. Vent support, fio2 0.45, sp02 >92%, continued on propofol and fentanyl gtt sedation. Remain afib rate from 115-130, on amio and esmolol gtt (titrated up) Molina drained with 400cc sam uo, minimal output from ileostomy and FMS, Fingerstick BG as low as 94, insulin gtt off all night, restarted this am for BG 207. Skin: mid-line abd incision with intact jessica; this am observed left hand cyanotic compared to right hand, hospitalist notified of findings, may DC art line, repositioned pt on right side, left hand color improved, more so mottled to pale. AM lab : Ca 6.2, wbc 38, notified MD with no new order.
[2017-01-17] MEDS: Hydrocortisone 50 mg/mL 2 mL Inj IVPUSH SCH ×3 (08:03→16:24)
[2017-01-17] MEDS: Tigecycline Inj 50 MG in 0.9% Sodium Chloride 100 ML IV SCH ×2 (08:03→20:48)
[2017-01-17] MEDS: metroNIDAZOLE Inj 500 MG in IV Premix 1 EACH IV SCH ×3 (08:03→16:25)
[2017-01-17] MEDS: Thiamine Inj 200 MG in Dextrose 5% 50 ML IV SCH (08:04)
[2017-01-17] MEDS: Chlorhexidine 0.12% 15 mL Oral Solution MT SCH ×2 (08:04→20:49)
--- NOTE | 2017-01-17 09:03 | PCM.PNSURG ---
Subjective Date of Service: Jan 17, 2017 Visit Information: Reason for Visit Sepsis, Arf Surgery/Surgery Date Post-Op Day # 3 Date of Admission: Jan 13, 2017 at 20:50 Hospital Day # Pain Management: Other (fentanyl infusion. Intermittent IV Dilaudid) Postop Activity: Other (bedrest) Objective Vital Sign- Last 8 Hours Date Time Temp Pulse Resp B/P Pulse Ox O2 Delivery O2 Flow Rate FiO2 01/17/17 07:50 39.4 125 18 89/48 92 Mechanical Ventilator 55 01/17/17 07:50 Ventilator 01/17/17 07:27 117 91/50 88 45 01/17/17 04:05 Ventilator 01/17/17 04:05 38.0 121 15 90/53 93 Mechanical Ventilator 45 01/17/17 03:47 118 90/56 93 45 Intake and Output- Last 8 Hour 01/17/17 Cumulative From/Thru 07:00 01/13/17 22:15 - 01/17/17 06:07 Intake Total 2628 ml 24384 ml Output Total 2105 ml 7975 ml Balance 523 ml 82832 ml Intake Oral 120 ml IV Total 2528 ml 40195 ml Tube Irrigant 100 ml 440 ml Output Urine Total 400 ml 2425 ml Stool Total 25 ml 310 ml Gastric Drainage Total 50 ml 555 ml Drainage Total 1630 ml 3185 ml Ultrafiltrate 1500 ml # Bowel Movements 3 General: Other (intubated, ventilated, sedated) Lungs: Clear to Auscultation (in the anterolateral granda) Heart: Regular Rate/Rhythm Abdomen: Soft, Distended, Ostomy pink & viable (edematous. Minimal serous output.), Other (rising abdominal compartment pressures to 26) SURGICAL WOUND : Wound General Appearence: [place], Intact, No Erythema, No Discharge Wound Drainage Type: WALDO Drain #1 (1630 mL of serous output over the last 8 hours) Extremities: Anasarca Catheters: Urethral 2 Way Molina Result Diagram: 01/17/1735 01/17/1735 Lab & Micro Results: WBC 38,000 Assessment & Plan Impression Primary diagnoses: 1. Fulminant Clostridium difficile colitis. POD #4 following total colectomy with ileostomy, viable ostomy with intact wound closure. 2. Abdominal compartment syndrome with rising abdominal compartment pressures to 26. 3. Hepatitis C 4. Septic shock secondary to Clostridium difficile colitis, unstable with a rapidly rising leukocytosis. 5. Acute hypoxic respiratory failure. 6. Acute renal failure Other diagnoses: 1. CAD 2. CHF 3. Cirrhosis 4. Collapse of vertebrae 5. COPD 6. DM2, insulin dependent 7. Dyspnea 8. HLD 9. HTN 10. Insomnia 11. Obesity 12. History of Pneumonia 13. History of Prostate CA 14. GERD 15. History of V-fib 16. Daily cigarette smoker Problems: Plan Surgery continuing to follow. Pain Management: Fentanyl infusion Intermittent IV Dilaudid VTE Prophylaxis: Sub-Q Heparin (Unfractionated) Resuscitation Status: CPR: Attempt Resuscitation Misael Daniel PA-C Jan 17, 2017 09:03
[2017-01-17] MEDS ORDERED: Amiodarone 150 mg/100 mL D5W 150 MG in IV Premix 1 EACH IV ONE (09:05)
--- NOTE | 2017-01-17 09:10 | DRSVH ---
PROCEDURE: X-RAY CHEST ONE VIEW, PORTABLE ([id number]) INDICATIONS: acute respiratory failure TECHNIQUE: One view of the chest was acquired. COMPARISON: [facility], CR, XR CHEST 1VW (PORTABLE), 01/15/2017, 5:37. [facility], CR, XR CHEST 1VW (PORTABLE), 01/14/2017, 10:24. [facility], CR, XR CHEST 1VW (PORT ABLE), 01/16/2017, 5:07. FINDINGS: Surgical changes and devices: Stable position of ETT and right IJ CVL. Stable positioning of nasogas tric tube. Laparotomy jessica present within the upper abdomen. Lungs and pleura: Right upper lobe and bibasilar airspace opacities are Not requested.significant alejandro nge. Interstitium is prominent. No pneumothorax. Mediastinum: Mediastinal contours appear normal. Heart size is enlarged. Bones and chest wall: No suspicious bony lesions. Overlying soft tissues appear unremarkable. IMPRESSION: Persistent interstitial and airspace opacities suggesting either edema and/or bilateral p neumonia. Dictated by: Brian RILEY Interpreted: Konrad Fitzgerald MD on 01/17/2017 at 9:08 Transcribed by: EDGAR on 01/17/2017 at 9:09 Approved by: Konrad Fitzgerald M.D. on 01/17/2017 at 11:08
[2017-01-17] MEDS ORDERED: 0.9% Sodium Chloride 500 ML IV ONE (09:15)
[2017-01-17] MEDS ORDERED: Albumin 25% 25 GM in IV Premix 1 EACH IV ONE (09:15)
[2017-01-17] MEDS: Insulin Human REGular Inj 100 UNIT in 0.9% Sodium Chloride-Pha MIX 100 ML IV SCH (09:39)
--- NOTE | 2017-01-17 10:12 | PCM.PNMED ---
Subjective Date of Service Jan 17, 2017 Subjective Intensive/Pulmonology Progress Note: Attending Dr. Rosalio Ballard is a 71-year-old male with a complex past medical history most significant for recent RSV complicated by strep pneumonia requiring hospitalization who was transferred from [facility] for septic shock and an acute kidney injury. We were consulted for management of worsening septic shock secondary to acute severe life-threatening C. difficile colitis and abdominal compartment syndrome status post subtotal colectomy. Hospital day #5 and Post-op day #3. Overnight: WALDO drain put out a total of 1650cc serous fluid and Molina catheter drained 440 cc of urine throughout the night. The patient remained hypotensive and the norepinephrine was titrated up and fluid boluses and albumin were given. Telemetry overnight: Atrial fibrillation, heart rate 150's that gradually decreased to 100's early in the morning, with occasional PVC's. Subjective exam and review of system is unobtainable as patient is intubated and sedated. . Exam Vital Signs Vital Sign - Last Date Time Temp Pulse Resp B/P Pulse Ox O2 Delivery O2 Flow Rate FiO2 01/17/17 07:50 39.4 125 18 89/48 92 Mechanical Ventilator 55 01/14/17 16:04 60 Intake and Output 01/16/17 01/16/17 01/17/17 Cumulative From/Thru 15:00 23:00 07:00 01/13/17 22:15 - 01/17/17 06:07 Intake Total 2727 ml 2628 ml 91976 ml Output Total 1295 ml 2105 ml 7975 ml Balance 1432 ml 523 ml 69436 ml Intake Oral 120 ml IV Total 2607 ml 2528 ml 70875 ml Tube Irrigant 120 ml 100 ml 440 ml Output Urine Total 575 ml 400 ml 2425 ml Stool Total 40 ml 25 ml 310 ml Gastric Drainage Total 125 ml 50 ml 555 ml Drainage Total 555 ml 1630 ml 3185 ml Ultrafiltrate 1500 ml # Bowel Movements 3 Exam General: Elderly male lying in bed and in no acute distress, intubated and sedated. HEENT: Normocephalic, atraumatic. External ears without defect. Pupils equal, round, and reactive to light. Anicteric sclerae, moist conjunctivae, and no lid lag. Endotracheal and NG tube in place. Neck: No lymphadenopathy or thyromegaly. Cardiovascular: Irregularly irregular without murmurs, rubs, or gallops appreciated Pulmonary: Clear to auscultation bilaterally with no crackles, wheezes, or rhonchi. Abdomen: Soft, tenderness to palpation in mid abdomen, mildly distended, bowel sounds hypoactive. Surgical laparotomy scar with jessica in place no erythema or drainage. Genitourinary: Molina catheter and FMS in place. Extremities: SCD's in place. Slightly mottled and dusky left hand. Skin: Normal temperature, turgor, and texture; no rash, ulcers, or subcutaneous nodules appreciated. Neurological: The patient is able to open eyes, squeeze hands, wiggle toes on command. Ventilator settings: PRVC. Tidal volume 520. Respiratory rate 15. FiO2 45 %. PEEP 7.0. ABG: PH 7.473. PCO2 32.2. PO2 74.4. HCO3 23.3. On PRVC with an FiO2 of 50% and an SPO2 of 98.9%. IV drips and Sedatives: Esmolol 125 g/kg/min, amiodarone 0.5 mL/hr , norepinephrine 0.272 g/min/kg, vasopressin 0.3 g/kg/min, fentanyl 100 g/hr, propofol 25 g/kg/hr. IV lines: Right IJ, left radial arterial line, right radial peripheral IV, ileostomy in right mid abdomen, WALDO drain in left lower quadrant of abdomen, FMS and Molina catheter. I&O: Net [id number]. . IVs and Medications Medications Reviewed: Medications were reviewed in detail Lab and Diagnostics Item Value Date Time Lactic Acid Level 3.3 mmol/L H 01/16/17 1615 Lactic Acid Level 2.2 mmol/L H 01/17/17 0535 Item Value Date Time Procalcitonin 1.38 ng/mL H 01/16/17 0420 Procalcitonin 1.55 ng/mL H 01/17/17 0535 Item Value Date Time Calcium Level 6.2 mg/dL *L 01/17/17 0535 Phosphorus Level 5.9 mg/dL H 01/17/17 0535 Magnesium Level 2.0 mg/dL 01/17/17 0535 Total Bilirubin 1.4 mg/dL H 01/17/17 0535 Aspartate Amino Transf (AST/SGOT) 29 U/L 01/17/17 0535 Alanine Aminotransferase (ALT/SGPT) 11 U/L 01/17/17 0535 Alkaline Phosphatase 54 U/L 01/17/17 0535 Total Protein 4.8 g/dL L 01/17/17 0535 Albumin 3.1 g/dL L 01/17/17 0535 Result Diagram: 01/17/17 0535 01/17/17 0535 Microbiology Blood cultures 2 show no growth after 24 hours. MRSA screening negative. Stool PCR positive for C. difficile NAP 1. Sputum culture has no growth to date. Peritoneal fluid has no growth to date. . X-Rays, CTs and MRIs X-RAY CHEST ONE VIEW, PORTABLE IMPRESSION: Bilateral airspace opacities likely related to pneumonia not significantly changed and stable cardiomegaly is present. Dictated by: Brian Wilson [facility] Interpreted: Izabela Stockton MD on 01/16/2017 at 8: [address] CT ABDOMEN AND PELVIS WITHOUT CONTRAST IMPRESSION: 1. Fluid-filled prominence of the colon with thickening in the transverse and left colon as above. Findings can be a reflective of colitis secondary to inflammatory or infectious etiology. Ischemic colitis should also be considered. Recommend interval followup should document resolution of thickening and exclude presence of mass lesion including obscured visualization of the rectum secondary to fluid. 2. Bibasilar areas of effusion and consolidation, with the latter title insurance sales representative of atelectasis and/or pneumonia. Dictated by: Izabela Stockton M.D. on 01/14/2017 at 11:11 X-RAY CHEST ONE VIEW, PORTABLE IMPRESSION: 1. Central venous catheter as above. 2. Unchanged right upper lobe radiopacities. 3. Increased left basilar radiopacities. Short interval followup is recommended with resolution of the patient's symptoms to ensure there is no underlying pulmonary pathology. Dictated by: Cate Davila M.D. on 01/14/2017 at 10:49 . Assessment & Plan Rojelio Ballard is a 71-year-old male with a complex past medical history most significant for recent RSV complicated by strep pneumonia requiring hospitalization who was transferred from [facility] for septic shock and an acute kidney injury. We were consulted for management of worsening septic shock secondary to acute severe life-threatening C. difficile colitis and abdominal compartment syndrome status post subtotal colectomy. Hospital day #5 and Post-op day #3. 1. Acute severe septic shock, present on admission. Active. - SIRS criteria met include:Tachypnea (respiratory rate 30), tachycardic (pulse 106), bandemia 20% neutrophils, lactic acidosis 3.4, with GI as source and hypotension refractory to fluid resuscitation requiring vasopressors. - Early goal-directed therapy met including: Broad-spectrum antibiotic coverage and IV fluid resuscitation. - Continue vasopressin and norepinephrine (titrating down as tolerated. Adding phenylephrine. - The patient is on hydrocortisone 50 every 8 hours for refractory shock. 2. Acute severe life threatening C. difficile colitis, status post subtotal colectomy, present on admission. Active. - Patient was recently treated with antibiotics for RSV complicated by strep pneumonia. - Continue tigecycline, metronidazole and oral vancomycin per ID's recommendations. - CT abdomen and pelvis revealed colitis,as above. - PCR positive for C. difficile NAP [address] Palma is a very virulent strain. - Procalcitonin 1.97 and trending up. - Infectious disease consulted and following. We appreciate their time and care of the patient. - Dr. Burks of general surgery was consulted and performed a subtotal colectomy please see operative note for details. Surgery considered exploratory laparotomy but does not feel it is indicated at this time. 3. Acute hypoxemic respiratory failure, present on admission. Active. - Patient remains mechanically ventilated status post subtotal colectomy. - Discussed CODE STATUS with the patient's who agrees to intubation if temporary and/or as needed for surgery. - Continue mechanical ventilator settings, as above. - Continue daily ABG for vent management. - Chest x-ray continues to demonstrate resolving pneumonia, as above. - Once patient has stabilized we will consider sedation vacations and SBT. 4. Acute anion gap metabolic acidosis, present on admission. Active. - Anion gap of 20 initially with calculated correction for albumin. Today 19.5. - Lactic acidosis with initial lactic acid of 3.4. Labile but trending down. - Continue IV fluids per primary medical team and nephrology recommendations. - Correct underlying cause as above in problem #2. 5. Acute kidney injury, present on admission. Active. - Continue IV fluids as above under problem #4. - Avoid nephrotoxic agents. - Continue to monitor urine output and renal function daily. - Nephrology consulted and following.The patient received one round of temporary hemodialysis and small volume diurese yesterday. 6. Atrial fibrillation with RVR, present on admission. Active. - The patient is on esmolol and amiodarone gtt, as above. Plan for amiodarone bolus and discontinue gtt. 7. Abdominal compartment syndrome, present on admission. Resolving. - Status post subtotal colectomy as above under problem #2. - IAP 25 initially and likely contributed to acute kidney failure. Continue to monitor. - Dr. Burks of general surgery was consulted and performed a subtotal colectomy please see operative note for details. 8. Hyperkalemia, present on admission. Active. - See plan above under problem #6. - Recommend nephrology consultation for possible temporary hemodialysis. Chronic problems for management of primary team: DVT prophylaxis: Heparin subcutaneous every 8 hours. GI prophylaxis: Sucralfate 1 g every 6 hours. Disposition: Tenuous as patient is severely ill with severe septic shock secondary to virulent C. difficile colitis. . VTE Prophylaxis: Sub-Q Heparin (Unfractionated) VTE Mechanical Devices: Intermittant Pneumatic CD Resuscitation Status: CPR: Attempt Resuscitation Attending Statement I have seen and examined this patient with the resident physician. Vital signs , labs, imaging have been reviewed. I agree with the assessment and plan above. Please refer to my separately dictated progress note for any modifications to above. Leora Santamaria M.D. Pulmonary and Critical Care medicine Pager [phone] Nicole Lam DO Jan 17, 2017 10:12 Leora Santamaria MD Jan 17, 2017 18:10
--- NOTE | 2017-01-17 10:40 | NUR ---
Palliative Care Palliative Care received verbal order from Dr Hernandez 01/17/17 to assist with goals of care. Patient is a 71 year old man with hx of recent RSV complicated by strep pneumonia. Patient was admitted 01/13/17 for care of worsening septic shock secondary to acute severe life-threatening C. difficile colitis and abdominal compartment syndrome status post subtotal colectomy. Patient resides home with . Nadine Ballard () [phone] Tyler Ballard (brother) [phone] Palliative Care to follow. Geni Cota
--- NOTE | 2017-01-17 10:56 | PCM.PNSURG ---
Subjective Visit Information: Reason for Visit Sepsis, Arf Surgery/Surgery Date Post-Op Day # Date of Admission: Jan 13, 2017 at 20:50 Hospital Day # Subjective: pt intubated, esparza with visible urine output, abd compartment pressure now at 18, earlier was 20 Objective Objective Incision with jessica L sided WALDO with serosang drainage Platelet count 58 Vital Sign- Last 8 Hours Date Time Temp Pulse Resp B/P Pulse Ox O2 Delivery O2 Flow Rate FiO2 01/17/17 10:20 70 01/17/17 07:50 39.4 125 18 89/48 92 Mechanical Ventilator 55 01/17/17 07:50 Ventilator 01/17/17 07:27 117 91/50 88 45 01/17/17 04:05 Ventilator 01/17/17 04:05 38.0 121 15 90/53 93 Mechanical Ventilator 45 01/17/17 03:47 118 90/56 93 45 Intake and Output- Last 8 Hour 01/17/17 Cumulative From/Thru 07:00 01/13/17 22:15 - 01/17/17 06:07 Intake Total 2628 ml 90697 ml Output Total 2105 ml 7975 ml Balance 523 ml 58703 ml Intake Oral 120 ml IV Total 2528 ml 51716 ml Tube Irrigant 100 ml 440 ml Output Urine Total 400 ml 2425 ml Stool Total 25 ml 310 ml Gastric Drainage Total 50 ml 555 ml Drainage Total 1630 ml 3185 ml Ultrafiltrate 1500 ml # Bowel Movements 3 Result Diagram: 01/17/17 0535 01/17/17 0535 Assessment & Plan Impression s/p subtotal colectomy for fulminant C diff Problems: Plan Case discussed with Dr. Arnie Santamaria and Dr. Burks Will continue observation today and institute vancomycin irrigation thru ileosomy and thru anus If abd pressure rises --> need to give platelets prior to going back to OR for washout and leave him open. I was informed that his is currently in-house for c diff as well. Palliative care involved. VTE Prophylaxis: Sub-Q Heparin (Unfractionated) Resuscitation Status: CPR: Attempt Resuscitation Primitivo Martines MD Jan 17, 2017 10:56
--- NOTE | 2017-01-17 11:07 | NUR ---
Palliative care note D/A: New referral received on pt Rojelio Ballard. Case discussed in PC rounds. Note that spouse became ill with same illness and is also hospitalized and currently in MOC. Review of [employer] notes reveals attempts to reach spouse. Message left for [employer] as to location of spouse. P: Palliative care to continue to follow. Jovana LOZA, CCM
--- NOTE | 2017-01-17 11:38 | PCM.PNNEPH ---
Subjective Date of Service Jan 17, 2017 Subjective The patient's condition appears to have worsened overnight. He is having increased intra-abdominal pressure, all marked leukocytosis, increased output from his ileostomy. His urine output still remains fair. He is requiring increasing doses of multiple pressors. His blood pressures vary between 80s 121 8 range again on several pressors. For the last 24 hours he has had 4815 and with 2120 in ostomy drainage and 1025 and urine output. His 40s Arty had 523 and urine output. His white count is 38,000 with significant bands. Sodium is 132, potassium 4.8, chloride 98, bicarbonate 17, BUN and creatinine are 64 and 2.4 respectively Exam Vital Signs Vital Sign - Last Date Time Temp Pulse Resp B/P Pulse Ox O2 Delivery O2 Flow Rate FiO2 01/17/17 10:20 70 01/17/17 07:50 39.4 125 18 89/48 92 Mechanical Ventilator 01/14/17 16:04 60 Intake and Output 01/16/17 01/16/17 01/17/17 Cumulative From/Thru 15:00 23:00 07:00 01/13/17 22:15 - 01/17/17 06:07 Intake Total 2727 ml 2628 ml 33029 ml Output Total 1295 ml 2105 ml 7975 ml Balance 1432 ml 523 ml 11824 ml Intake Oral 120 ml IV Total 2607 ml 2528 ml 55606 ml Tube Irrigant 120 ml 100 ml 440 ml Output Urine Total 575 ml 400 ml 2425 ml Stool Total 40 ml 25 ml 310 ml Gastric Drainage Total 125 ml 50 ml 555 ml Drainage Total 555 ml 1630 ml 3185 ml Ultrafiltrate 1500 ml # Bowel Movements 3 Exam Patient remains ventilatory dependent and sedated. He has generalized anasarca. Lungs showed scattered rhonchi and end expiratory wheezes. Heart regular rhythm but distant. Abdomen is distended with intra-abdominal pressure of 20. Extremities once again show anasarca. Lab and Diagnostics Result Diagram: 01/17/17 0535 01/17/17 0535 Microbiology Blood cultures 2 show no growth after 24 hours. MRSA screening negative. Stool PCR positive for C. difficile NAP 1. Sputum culture has no growth to date. Peritoneal fluid has no growth to date. . X-Rays, CTs and MRIs X-RAY CHEST ONE VIEW, PORTABLE IMPRESSION: Bilateral airspace opacities likely related to pneumonia not significantly changed and stable cardiomegaly is present. Dictated by: Brian Wilson [facility] Interpreted: Izabela Stockton MD on 01/16/2017 at 8: 09 CT ABDOMEN AND PELVIS WITHOUT CONTRAST IMPRESSION: 1. Fluid-filled prominence of the colon with thickening in the transverse and left colon as above. Findings can be a reflective of colitis secondary to inflammatory or infectious etiology. Ischemic colitis should also be considered. Recommend interval followup should document resolution of thickening and exclude presence of mass lesion including obscured visualization of the rectum secondary to fluid. 2. Bibasilar areas of effusion and consolidation, with the latter applications sales representative of atelectasis and/or pneumonia. Dictated by: Izabela Stockton M.D. on 01/14/2017 at 11:11 X-RAY CHEST ONE VIEW, PORTABLE IMPRESSION: 1. Central venous catheter as above. 2. Unchanged right upper lobe radiopacities. 3. Increased left basilar radiopacities. Short interval followup is recommended with resolution of the patient's symptoms to ensure there is no underlying pulmonary pathology. Dictated by: Cate Davila M.D. on 01/14/2017 at 10:49 . 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 difficile colitis, intra-abdominal hypertension, acute interstitial nephritis. #2 lactic acidosis #3 diabetic nephropathy Recommendations #1 patient may be going back to surgery for reexploration of his abdomen. Based on the findings he may require dialysis either today or tomorrow. WOULD like to utilize renal function he does have remaining. Plan The patient will continue hyperbaric treatments. Will return () for treatment #() Delfin Pat DO Jan 17, 2017 11:38
[2017-01-17] MEDS ORDERED: WATER STERILE FOR IV ONE ×2 (12:30)
[2017-01-17] MEDS ORDERED: VANCOMYCIN IV ONE ×2 (12:30)
--- NOTE | 2017-01-17 13:08 | PCM.CONPAL ---
Date of Service Jan 17, 2017 Date of Hospital Admission: Jan 13, 2017 at 20:50 Date of Palliative Consult: Jan 17, 2017 Requesting Provider: Corby Hernandez MD Reason Palliative Care Consult: Goals of Care Discussion Hospital Unit @time of consult: Critical Care Palliative Care Recommendation 71-year-old gentleman admitted with acute respiratory and renal failure following viral and then S. pneumoniae pneumonia, ultimately with diagnosis of severe Clostridium difficile enterocolitis, necessitating colectomy/ileostomy, with persistent/worsening septic shock, etc. Palliative medicine consulted to assist patient's family in determining goals of care See below in HPI for more extensive details regarding conversation today with his spouse Summary of palliative recommendations: -Symptom management (Pain/other)- sedated and with fentanyl gtt, etc. for comfort; continued management by medical and critical care teams -DPOA/Advanced Directives/POLST- spoke at length with the patient's . They have never completed POA or advanced directive paperwork. She would be his POA by default. After extensive discussion and review of his status, prognosis, etc. she requested no aggressive resuscitation efforts in the event of a cardiac arrest. DO NOT RESUSCITATE orders therefore written. Will continue other ongoing medical care for the time being. -Family/emotional support- palliative medicine will continue to follow. Patient 's daughter Hodan is also a great support for patient and his . -Spiritual support- offered Patient Goals: 1. Patient's wants to be told the truth about his illness, even if it is unpleasant. 2. Patient's would like to be told prognosis when it can be predicted, to better guide treatment decisions. 3. Patient would choose quality of life over quantity of life, and defines quality as being able to recover and return home; minimize suffering. Additional Medical Diagnoses with primary management by Hospitalist team include : 1 severe sepsis secondary to Clostridium Difficile colitis, acute, POA, stable - patient transferred from OSH following near syncopal event, requiring norepinephrine - concern for bilateral pneumonia, CT abd pelvis noncon pending, new diarrhea - recent admission for pneumonia (d/c 01/03), started on levofloxacin as an outpatient - CT imaging shows thickened colonic mucosa consistent with infectious colitis - Bio[employer] shows C. difficile PCR - Pulmonology and critical care, nephrology, infectious disease, general surgery all CONSULTED and appreciate recommendations from time - Polst form states patient's wish to not be intubated, however patient has given consent to be intubated this hospitalization, also has given consent for intubation if necessary - Patient is currently on norepinephrine and vasopressin for pressor support including IV fluids - IV albumin for oncotic pressor support given low albumin state - Gen. surgery performed and ileostomy and partial colectomy on the night of , Patient required potassium dialyzed per anesthesia requirements prior to surgery 2 Respiratory failure with hypoxia, acute, POA 3 Clostridium Difficile colitis, present on admission, acute 4 Atrial fibrillation with rapid ventricular response, acute, POA 5 Acute renal failure, acute, POA 6 Hyperkalemia, acute, resolved 7 primary Metabolic acidosis with respiratory alkalosis compensation, acute, present on admission 8 Diabetes mellitus type 2, insulin dependent, chronic POA 9 Hyponatremia, acute, POA 10 Macrocytic anemia, unknown chronicity, present on admission 11. COPD, chronic, POA 12 possible upper gastrointestinal bleed, present on admission, unknown chronicity 13 possible Bilateral pneumonia, acute, POA 14 history of Alcohol dependency, present on admission, chronic 15. Elevated troponin, acute, POA 16 HTN, chronic, present on admission, present on admission 17 HLD, chronic 18 Tobacco dependence, chronic, present on admission 19 Obesity, present on admission, chronic 20 Chronic liver cirrhosis, chronic, POA Problems: End of Life Preferences DO NOT RESUSCITATE in event of cardiac arrest- no CPR, no defibrillation Goals of Care Patient's continues to hope for recovery but realizes his prognosis is poor. She expresses the wish "I do not want him to suffer". She was reassured that he remains sedated, appears comfortable in medication will be continued to prevent pain, distress or suffering. Disposition To be determined Resuscitation Status Resuscitation Status: DNR/DNI:Do Not Resuscitate/Intubate (patient remains intubated at this time but NOT a candidate for CPR/defibrillation) Limited Interventions: Intubation w Mech Vent (already intubated and for now continue mechanical ventilation), Medications and IV Fluid POLST Updates/Changes Previous POLST?: No . Advanced Care Planning Address: Code status change Pain: None Symptom management: Drowsiness/sleepiness (sedated/unresponsive on ventilator) Pt History History of Present Illness Per admission H&P: 71yoM with past medical history of COPD, DM2, HTN, chronic pain, and tobacco use transferred from [facility] with septic shock and CARIE. Patient history is limited d/t dyspnea and fatigue. Unable to speak at this time in more than a few words per sentence. Minimal documentation available from OSH. Patient states that following discharge from [facility] he became increasingly weak until prior to admission where he fell and was brought into the ED. At this time he denies chest pain, chest tightness, lightheadedness and dizziness but endorses fatigue, dyspnea and also diarrhea prior to admission in addition to a distended abdomen although non-tender. Imaging completed at OSH include c-spine and CXR. Concern for multifocal PNA with acute onset of dyspnea in the setting of CARIE prompted transfer d/t limited nephrology services at OSH. Images unavailable following transfer. 2L NS given prior to transfer and patient was then started on norepinephrine. Piperacillin-tazobactam and vancomycin started d/t concern for HCAP. Upon arrival patient was on norepinephrine at 0.05 with map >65, RR 30, HR 106 sat 96 % on 4L NC. Most recent admission at [facility] 12/24 -01/03 where he was treated with abx for PNA, COPD exacerbation and UGIB. Since admission, has deteriorated with development of respiratory failure necessitating intubation and mechanical ventilation, progressive renal failure, worsening sepsis with ultimate finding of severe Clostridium difficile enterocolitis (NAP-1 subtype) which necessitated complete colectomy with ileostomy. Patient remains intubated/mechanically ventilated in CCU, now on multiple pressors. With his continuing deterioration, there is concern he may require return to OR for exploration/washout. Palliative medicine consulted to provide support for and to assist patient's and family in determining goals of care. Prior to visiting patient, I reviewed his records in the EMR in detail, spoke with his bedside nurse and with medical team members. On my arrival, he is unresponsive, intubated. After my initial evaluation of the patient, I visited his , currently also in inpatient in the [facility]. She has experienced a similar series of medical events - an initial upper respiratory infection with RSV, complicated by apparent pneumococcal pneumonia and then, following patient antibiotic therapy, development of diarrhea, also now diagnosed as Clostridium difficile. Studies are still pending regarding her NAP-1 status, but she has empirically been started on aggressive antibiotic therapy with high-dose oral vancomycin as well as IV metronidazole. When I visited her, she was resting comfortably in bed. Says the frequency of her diarrhea has diminished markedly. Denies any pain, fevers, chills. We spoke at length, reviewing her 's past medical history, their life together and social history, her understanding of his current medical conditions and prognosis. I gently advised her regarding the severity of his illness, and the increasing concern his medical team members have- that he may require additional surgery which would be high risk, and that his overall prognosis is increasingly poor. She showed good understanding and insight and asked appropriate questions. We discussed advanced directive/resuscitation issues- she noted that she and her really had talked about such things only minimally- at some point he may have indicated he never wanted to be on mechanical ventilator but there is no documentation about this. They have never completed POA or advanced directive paperwork. Ultimately, while she continues to hope for his recovery, she expressed understanding that his survival is in doubt. After talking about aggressive resuscitation measures, she came to the decision that she would not want him to have CPR/defibrillation in the event of cardiac arrest. For the time being, she wanted to continue aggressive medical care short of those terminal interventions, and accepts his need for ongoing ventilator support. Past Medical History Significant PMH Noted: CAD CHF Cirrhosis Collapse of vertebrae COPD DM2, insulin dependent Dyspnea HLD HTN Insomnia Obesity Pneumonia Prostate CA GERD V-fib Surgical History Cyst removal from coccyx Appendectomy Fracture repair Skin CA removal Tonsillectomy Adenoidectomy Social History Occupation: Retired; lives with his in their own home She reports that his overall energy level and activity level have been deteriorating for some time as a consequence of his multiple medical problems. He used to do a lot of work out in the yard and was always very energetic and active, but over the last several years has declined to the point where he rarely goes outside, rarely is active even inside the house. He has increasingly had balance and gait difficulties, she thinks mostly due to his past hip fracture as well as degenerative arthritis. He is able to carry out all ADLs though his does most of the cooking and food preparation. He does not chronically use home oxygen. Family Members Issues: His recognizes that he has been deteriorating. They have been 25 years. She understands the seriousness of the situation and says that she "just do not want to see him suffer" Social Support: His has 6 children by previous marriage, most of whom live in [place] Living Situation: Has been living in his own home with his Palliative Performance Scale PPS Patient Status: Baseline PPS Ambulation: Reduced PPS Activity: Unable to do normal job/work PPS Self-Care: Full Self Care PPS Intake: Normal PPS Conscious Level: Full Performance Scale: 70% ADLs ADL Patient Status: Baseline ADL Ambulation: Reduced ADL Dressing: Full ADL Feeding: Full ADL Hygene/bathing: Full ADL Transfers: Full POLST at Time of Admission Previous POLST?: No Allergy Allergies Reviewed: Yes Medications Current Medications: Current Medications Heparin Sodium (Porcine) 5000 unit 5,000 unit Q8 SUBQ Last administered on 00:00; Admin Dose 5,000 UNIT; Start 01/15/17 at 16:30; Stop 01/17/17 at 07: 56; Status DC Albumin Human 100 ml @ 0 mls/hr Q1H IV; Start 01/15/17 at 15:00; Stop 01/15/17 at 15:00; Status DC Albumin Human 100 ml @ 0 mls/hr Q1H IV Last administered on 01/15/17 15:26; Admin Dose 0 MLS/HR; Start 01/15/17 at 16:00; Stop 01/15/17 at 17:01; Status DC Insulin Human Lispro Nutritional Dose to be given pr... Q6H SUBQ Last administered on 01/16/17 08:34; Admin Dose 3 UNIT; Start 01/15/17 at 16:09; Stop 01/16/17 at 09:45; Status DC Albumin Human 25 gm/Premix 100 ml @ 1 mls/min Q6 IV Last administered on 01:55; Admin Dose 1 MLS/MIN; Start 01/15/17 at 21:00; Stop 01/16/17 at 04: 39; Status DC Vasopressin 20 unit/Sodium Chloride 101 ml @ 9.09 mls/hr Q11H7M IV Last administered on 01/17/17 03:51; Admin Dose 9.09 MLS/HR; Start 01/15/17 at 20:00 Amiodarone HCL/ Dextrose 360 mg/ Premix 200 ml @ 0 mls/hr Q0M IV Last administered on 01/17/17 04:35; Admin Dose 16.7 MLS/HR; Start 01/15/17 at 23:10 Insulin Human Regular 100 unit/ Sodium Chloride 101 ml @ 0 mls/hr Q0M IV Last administered on 01/17/17 09:39; Admin Dose 400 MLS/HR; Start 01/16/17 at 09:40 Thiamine HCl/ Dextrose/Water 52 ml @ 104 mls/hr DAILY IV Last administered on 08:04; Admin Dose 104 MLS/HR; Start 01/16/17 at 13:55 Hydrocortisone Sodium Succinate 50 mg Q8 IVPUSH Last administered on 01/17/17 08:03; Admin Dose 50 MG; Start 01/17/17 at 00:30 Scheduled Alendronate/Vitamin D3 (Alendronate/Vitamin D3) 1 Each Tablet 1 TAB PO every friday Amlodipine (Amlodipine) 10 Mg Tablet 10 MG PO DAILY Aspirin (Aspirin) 81 Mg Tablet 81 MG PO DAILY Atorvastatin (Lipitor) 40 Mg Tablet 40 MG PO DAILY Bicalutamide (Bicalutamide) 50 Mg Tablet 100 MG PO DAILY Diltiazem ER (Cardizem CD) 240 Mg Cap.er.24h 240 MG PO DAILY Folic Acid (Folic Acid) 1 Mg Tablet 1 MG PO DAILY Insulin Glargine (Lantus U100 Insulin Vial) 100 Unit/Ml Vial 15 UNIT SUBQ HS Ipratropium/Albuterol Sulfate (Iprat-Albut 0.5-3(2.5) mg/3 mL Inhalant Soln) 3 Ml Ampul.neb 3 ML NEB Q6 Losartan/HCTZ 50-12.5 mg (Losartan/HCTZ 50-12.5 mg) 1 Each Tablet 1 EACH PO DAILY Meloxicam (Meloxicam) 15 Mg Tablet 15 MG PO DAILY Metoprolol Tartrate (Metoprolol Tartrate) 25 Mg Tablet 50 MG PO BID Nicotine 21 mg/24 hr Patch (Nicotine 21 mg/24 hr Patch) 1 Each Patch.td24 1 PATCH TOPICAL Q24H Pantoprazole Sodium (Protonix Granules) 40 Mg Granpkt.dr 40 MG PO DAILY Potassium Chloride (Potassium Chloride) 10 Meq Tab.er.prt 20 MEQ PO DAILY Tamsulosin ER (Tamsulosin ER) 0.4 Mg Cap.er.24h 0.4 MG PO HS Trazodone (Trazodone) 50 Mg Tablet 50-100 MG PO HS Scheduled PRN Acetaminophen (Acetaminophen) 325 Mg Tablet 325 MG PO PRN For Pain Albuterol Sulfate (Ventolin HFA Inhaler) 200 Puff/18 Gm Inhaler 2 PUFFS INH q4- 6 hours PRN PRN For Shortness of Breath Bisacodyl (Dulcolax) 5 Mg Tablet.dr 5 MG PO PRN For Constipation Insulin Aspart (NovoLOG U100 Insulin Vial) 100 Unit/Ml Mdv 5 UNITS SUBQ TIDWM PRN PRN hyperglycemia Ketoconazole (Ketoconazole) 120 Ml Shampoo 1 APPLIC TOP DAILY PRN PRN prn Sennosides (Senna) 8.6 Mg Tablet 8.6 MG PO PRN For Constipation oxyCODONE-Acetaminophen 5-325 mg (oxyCODONE-Acetaminophen 5-325 mg) 1 Each Tablet 1 TAB PO Q4H PRN PRN For Pain Current Treatments Ventilator: Yes Oxygen: Yes IV Fluids: Yes Antibiotics: Yes Telemetry: Yes Critical Care Unit: Yes Objective Findings Exam Vital Sign - Last Date Time Temp Pulse Resp B/P Pulse Ox O2 Delivery O2 Flow Rate FiO2 01/17/17 12:12 102 99/57 96 70 01/17/17 11:54 Ventilator 01/17/17 11:54 38.9 16 01/14/17 16:04 60 Intake and Output 01/16/17 01/16/17 01/17/17 Cumulative From/Thru 15:00 23:00 07:00 01/13/17 22:15 - 01/17/17 06:07 Intake Total 2727 ml 2628 ml 10218 ml Output Total 1295 ml 2105 ml 7975 ml Balance 1432 ml 523 ml 57200 ml Intake Oral 120 ml IV Total 2607 ml 2528 ml 05621 ml Tube Irrigant 120 ml 100 ml 440 ml Output Urine Total 575 ml 400 ml 2425 ml Stool Total 40 ml 25 ml 310 ml Gastric Drainage Total 125 ml 50 ml 555 ml Drainage Total 555 ml 1630 ml 3185 ml Ultrafiltrate 1500 ml # Bowel Movements 3 Objective Large man lying in CCU bed, intubated, unresponsive. Reviewed current pressor support with his nurse at bedside. Vital signs noted. Skin is warm and dry. Head and neck exam without acute changes other than those related to his intubation. Nasogastric tube in place as well. Lungs with good air movement and clear sounding anterolaterally. Heart sounds regular. Abdomen is rounded right mid abdominal surgical staple line in place without signs of secondary infection. Drainage tubes in place. No abdominal rigidity. Ecchymoses of the abdominal wall seen. Extremities with diffuse puffiness/edema. Neurologic exam not carried out in light of his deep sedation. Lab/Diagnostics Lab and Imaging results reviewed in detail in EMR. Time spent Total time 95 minutes; >50% face to face with patient and family, providing counselling regarding plans and recommendations, and in care coordination with his medical teams. Of the above total time, 25 minutes counseling for advanced care planning with the patient's , reviewing prior POA/advanced directive documentation, her perception of patient's wishes and her wishes for his ongoing care copies to: Luther Fierro MD, Sumeet Vazquez MD Jan 17, 2017 13:08
--- NOTE | 2017-01-17 13:55 | NUR ---
Note Patient was hypo-tensive this morning at shift change with SBP 70s-80s and MAP in low 50s. Heart rate at the time was also increased to 130-140 ranges and continued in A-fib. Cardiac index decreased to below 1.5- MD was made aware. Patient was given NS bolus of 500ml BP improved with change in drip titration- please see CCU flow sheet. In addition during morning CCU rounds MD ordered to re-blouse amiodorone 150mg- done- and to wean off esmolol drip. With the gradual decreased of esmolol drip during this morning from 125mcg/kg/min to 50mcg/kg/min heart rate increased to 140 ranges- esmolol drip increased- patient responded by decreased heart rate to 110-125 ranges. Dose of 25g albumin was given- patient stabilized. Please refer to CCU flow sheet for farther drip titration. This morning oral temp was 39.4 and noon time at 38.9. Patient had cold extremities and was cool tot eh touch through his abdomen and torso-- MD aware-no new orders were received. Abdominal pressure at 20 this morning and 19 at lunch time-Dr. Martines and attending hospitalist were made aware- continue WALDO to bulb suction, rectal and ileostomy irrigation with vancomycin in solution. Ileostomy irrigation with 500ml vancomycin solution per gravity flow- 500ml in and only 350ml out of light serum-sanguineous drainage post irrigation- MD aware. Continue assessment. Rectal irrigation thorough existing FMS- continue assessment.
[2017-01-17] MEDS ORDERED: Calcium GLUCO 10% (Gm) Inj 4 GM in Dextrose 5% 100 ML IV ONE (15:45)
--- NOTE | 2017-01-17 15:47 | NUR ---
Wound Care Ostomy appliance is changed today, stoma is pale with hint of wheeler, draining serous fluid. Device changed today and reinforced with tape will recheck on this patient on Saturday 01/20.
[2017-01-17] MEDS ORDERED: Ipratropium 0.02% 0.5 mg/2.5 mL Inhalation Solution NEB PRN (16:15)
[2017-01-17] MEDS: 0.9% Sodium Chloride 1,000 ML IV SCH ×2 (16:25→20:48)
[2017-01-17] MEDS: fentaNYL 2,500 mCg/250 mL 2,500 MCG in IV Premix 1 EACH IV SCH (16:56)
[2017-01-17] MEDS: Albumin 25% 25 GM in IV Premix 1 EACH IV SCH ×2 (16:56→22:35)
[2017-01-17] MEDS ORDERED: VANCOMYCIN IV SCH ×2 (18:00)
[2017-01-17] MEDS ORDERED: WATER STERILE FOR IV SCH ×2 (18:00)
--- NOTE | 2017-01-17 18:15 | PROG NOTE ---
[address] [address] PROGRESS NOTE PATIENT: JAGDISH MATHIS : 1945 MR#: [id number] ADMIT: 01/13/2017 JOB ID: [id number] DATE: 01/17/2017 PULMONARY CRITICAL CARE PROGRESS NOTE: The patient is a 71-year-old man seen for severe C. difficile colitis with septic shock, respiratory failure, and multiorgan failure. The patient was seen and examined with resident physician, Nicole Lam DO. Please refer to her separate detailed note for additional information. INTERVAL HISTORY: He underwent subtotal colectomy two days ago. Overnight he has had worsening urine output, hypotension requiring more pressors. REVIEW OF SYSTEMS: Unable to obtain. PHYSICAL EXAMINATION: Vital signs reviewed. T-max of 39.4 yesterday. Pulse 126, respirations 15, BP 92/57, sats 98% on 50% FiO2 and 10 cm of PEEP. General: Intubated, sedated. Unresponsive. Chest: Bilateral crackles. Abdomen distended and firm. Ileostomy in place. LABORATORIES: Reviewed. Labs are notable for WBC of 38. Creatinine up to 2.4, BUN of 64, and bicarbonate of 17. Lactate is 2.2 and calcium is 6.2. Procalcitonin is 1.55. Chest x-ray shows bilateral opacities. Arterial blood gas shows pH of 7.4, pCO2 of 30, pO2 of 74, bicarb of 18. ASSESSMENT: 1. Septic shock. 2. Severe Clostridium difficile colitis. 3. Acute hypoxic respiratory failure. 4. Acute respiratory distress syndrome. 5. Acute kidney injury, oliguric. 6. Status post subtotal colectomy on January 15, 2017, with ileostomy for Clostridium difficile colitis. 7. Severe hypocalcemia. RECOMMENDATIONS: This critically ill 71-year-old man has multiorgan dysfunction and septic shock due to severe Clostridium difficile colitis. He underwent a subtotal colectomy on January 15, but despite that seems to be worsening dramatically over the last 24-48 hours. His white count today is up to 38. He has had increased pressor requirement and has become more oliguric. His drain output from his WALDO is extremely high, around 2 L in a 24 hour period if not more. We are continuing IV albumin q.8 h. Maintenance IV fluids have been added to replace the output from the WALDO drain. He is also getting IV fluid boluses all day. We added vancomycin enemas through the rectum and through the ileostomy for the possibility that he is not getting his other meds delivered to the gut. Current medications for C. difficile include p.o. vancomycin, IV Flagyl, and IV tigecycline. As far as vasopressors, he is currently on norepinephrine and vasopressin, and phenylephrine was added this morning. With regard to respiratory status, we increased his PEEP to 10 cm and his FiO2 has improved somewhat with that. Palliative Care has been extremely helpful and spoke to the family at length. He is now DNR, with the exception of continuing current level of care. Surgery has also been in communication with us and does not think there would be any benefit to taking him back to the operating room. His intra-abdominal pressure is currently 20. If his oliguria continues to worsen, or he becomes anuric and his intra-abdominal pressure continues to rise, i.e. around 25-30, then they would consider opening his abdomen in order to relieve potential abdominal compartment syndrome but at this point there is no indication for surgical intervention. TIME: Critical care time 90 minutes.
[2017-01-17] MEDS: VANCOMYCIN IRRIGATION SCH ×2 (19:23→19:24)
[2017-01-17] MEDS: WATER STERILE FOR IRRIGATION SCH ×2 (19:23→19:24)
--- NOTE | 2017-01-17 21:25 | PCM.PNMED ---
Subjective Date of Service Jan 17, 2017 Subjective overnight: Patient remained hypotensive with systolic blood pressures between the high 80s and 100s on vasopressin and norepinephrine drips titrated to keep mean arterial pressure above 65 mmHg. WALDO drain put out 1650 mL of serous fluid. Esmolol drip titrated up for A. fib in the 130s. Insulin drip discontinued due to low glucose of 94. Calcium continues to require repletion. Today: Patient continued to be hypotensive and tachycardic. Surgery evaluation for possible laparotomy to relieve increased abdominal compartment pressure discussed but not pursued. Surgery was consulted about rectal vancomycin to treat C. difficile with consent obtained. Palliative consulted to discuss with CODE STATUS given patient's likely prognosis. CODE STATUS changed to DNR/ DNI. Exam Vital Signs Vital Sign - Last Date Time Temp Pulse Resp B/P Pulse Ox O2 Delivery O2 Flow Rate FiO2 01/17/17 07:27 117 91/50 88 45 01/17/17 04:05 Ventilator 01/17/17 04:05 38.0 15 01/14/17 16:04 60 Intake and Output 01/16/17 01/16/17 01/17/17 Cumulative From/Thru 15:00 23:00 07:00 01/13/17 22:15 - 01/17/17 06:07 Intake Total 2727 ml 2628 ml 22213 ml Output Total 1295 ml 2105 ml 7975 ml Balance 1432 ml 523 ml 17706 ml Intake Oral 120 ml IV Total 2607 ml 2528 ml 87622 ml Tube Irrigant 120 ml 100 ml 440 ml Output Urine Total 575 ml 400 ml 2425 ml Stool Total 40 ml 25 ml 310 ml Gastric Drainage Total 125 ml 50 ml 555 ml Drainage Total 555 ml 1630 ml 3185 ml Ultrafiltrate 1500 ml # Bowel Movements 3 Exam General: Obese elderly appearing male, intubated and sedated Eyes: Scleral Anicteric noninjected conjunctiva Mouth: Intubated, no central cyanosis Neck: Supple, no Thyromegaly, trachea central. No JVD Chest & Lungs: mild crackles in bilateral axillary bases, decreased air movement throughout no wheezing or rhonchi noted Cardiovascular: Decreased heart sounds Tachycardic with regular rhythm, Normal S1, Normal S2, No Murmurs/Rubs/Gallops, Pulses: equal bilaterally at radial and dorsalis pedis with decreased pulses Abdomen: moderate to severe distention, tense, right-sided ileostomy, midline laparotomy clean with jessica nor erythema or fluctuance, hypoactive bowel tones , WALDO drain with serosanguineous fluid. Ecchymosis consistent in lower abdomen Musculoskeletal: no swollen or erythematous joints Extremities: no pitting edema, mild cyanosis in distal digits 2-5 in left hand , no clubbing. abrasions and ecchymosis noted Skin: No rashes. Warm and dry, no erythematous areas Neurological: Intubated and sedated able to some commands Psych: Unable to assess : Molina in place Lab and Diagnostics Result Diagram: 01/17/1753401/17/17534 Microbiology Microbiology C DIFF TOXIN A AND B BY PCR Final 01/14/17-938 Organism 1 POS FOR CDIF TOXIN C DIF TOXIN A&B PCR DETECTED TIME CALLED: 936 DATE CALLED: 01/14/17 FLOOR/DOCTOR: BRY/KRUPA Brown CALLED BY: NORRIS PCR testing alone cannot distinquish C. difficile disease from a carrier state, and therefore correlation with clinical findings is required. X-Rays, CTs and MRIs CT ABDOMEN AND PELVIS WITHOUT CONTRAST IMPRESSION: 1. Fluid-filled prominence of the colon with thickening in the transverse and left colon as above. Findings can be a reflective of colitis secondary to inflammatory or infectious etiology. Ischemic colitis should also be considered. Recommend interval followup should document resolution of thickening and exclude presence of mass lesion including obscured visualization of the rectum secondary to fluid. 2. Bibasilar areas of effusion and consolidation, with the latter tax representative of atelectasis and/or pneumonia. Dictated by: Izabela Stockton M.D. on 01/14/2017 at 11:11 Approved by: Izabela Stockton M.D. on 01/14/2017 at 11:15 X-RAY CHEST ONE VIEW, PORTABLE IMPRESSION: 1. Central venous catheter as above. 2. Unchanged right upper lobe radiopacities. 3. Increased left basilar radiopacities. Short interval followup is recommended with resolution of the patient's symptoms to ensure there is no underlying pulmonary pathology. Dictated by: Cate Davila M.D. on 01/14/2017 at 10:49 Approved by: Cate Davila M.D. on 01/14/2017 at 10:52 Additional Diagnostics DateTimeAnalyzed 04:13:00 -_ pH ____7.327 - 7.350 7.450 pCO2 ___24.2__ -mmHg 35.0 45.0 pO2 ___70.8__ -mmHg 69.0 116 HCO3- ___12.3__ -mmol/L 22.0 26.0 DateTimeAnalyzed 10:42:00 -_ pH ____7.256 - 7.350 7.450 pCO2 ___31.5__ -mmHg 35.0 45.0 pO2 ___85.1__ -mmHg 69.0 116 HCO3- ___13.5__ -mmol/L 22.0 26.0 Assessment & Plan 71yoM with past medical history of recent hospitalization for pneumonia and COPD , DM2, HTN, chronic pain, and tobacco use transferred from [facility] with septic shock and CARIE. Hospital Day 4 1 severe sepsis and septic shock secondary to Clostridium Difficile colitis, acute, POA, stable - patient transferred from OSH following near syncopal event, requiring norepinephrine - concern for bilateral pneumonia, CT abd pelvis noncon pending, new diarrhea - recent admission for pneumonia (d/c 01/03), started on levofloxacin as an outpatient - CT imaging shows thickened colonic mucosa consistent with infectious colitis - Biofire shows C. difficile PCR - Pulmonology and critical care, nephrology, infectious disease, general surgery all CONSULTED and appreciate recommendations from time - Polst form states patient's wish to not be intubated, however patient has given consent to be intubated this hospitalization, also has given consent for intubation if necessary - Patient is currently on norepinephrine and vasopressin with consideration for restarting phenylephrine drips for pressor support including IV fluids - Hydrocortisone 100 mg IV every 8 changed to 50mg q 8 01/16 - IV albumin for oncotic pressor support given low albumin state - Gen. surgery performed and ileostomy and partial colectomy on the night of , Patient required potassium dialyzed per anesthesia requirements prior to surgery 2 Respiratory failure with hypoxia, acute, POA - patient with recent admission with for pneumonia with hypoxic / hypercapnic respiratory failure - Polst form states patient's wish to not be intubated, however patient has given consent to be intubated this hospitalization, also has given consent for intubation if necessary - patient continues to be hypoxic on presentation requiring oxygen currently intubated and sedated post surgery for ileostomy and partial colectomy - continue treatment as below, oxygen saturation 88-92% - Hydrocortisone 50 mg IV every 8 3 Clostridium Difficile colitis, present on admission, acute - CT imaging shows thickened colonic mucosa consistent with infectious colitis - Biofire shows C. difficile PCR - Triple antibiotic coverage with vancomycin rectally through FMS, Flagyl IV continued however biliary excretion will not reach rectum, tigecycline IV - Gen. surgery performed and ileostomy and partial colectomy on the night of , Patient required potassium dialyzed per anesthesia requirements prior to surgery 13 Atrial fibrillation with rapid ventricular response, acute, POA -new diagnosis during last admission -aflutter noted at OSH, EKG reviewed on arrival -repeat EKG in AM -optimize electrolytes in the setting of CARIE - Esmolol drip - Amiodarone drip - Reevaluate daily 5 Acute renal failure, acute, POA -normal creatinine 0.88 on discharge 01/03 -elevated at 3.8 on presentation at OSH -likely prerenal / intrarenal given septic presentation - nephrology consulted, patient dialyzed to remove potassium per anesthesiology recommendations prior to surgery - Patient dialyzed on the and - Albumin given on the and for increased oncotic pressure - Continue to monitor 6 Hyperkalemia, acute, resolved -/ to carie - kayexalate given overnight 01/13/2017 by admitting team - nephrology consulted, patient dialyzed to remove potassium per anesthesiology recommendations prior to surgery - Patient dialyzed on the and 7 primary Metabolic acidosis with respiratory alkalosis compensation, acute, present on admission -Secondary to sepsis and lactic acidosis -Continue IV fluids, currently on bicarbonate and normal saline -nephrology consulted, patient is currently being dialyzed to remove potassium per anesthesiology recommendations prior to surgery 8 Diabetes mellitus type 2, insulin dependent, chronic POA -correction scale insulin discontinued - Insulin drip per non-DKA protocol started 9 Hyponatremia, acute, POA, stable -Possibly secondary to SIADH secondary to long pathology/pneumonia -Continue IV fluid therapy with bicarbonate and normal saline -Nephrology following 10 hypocalcemia, present on admission, treated stable - Continue to supplement with calcium gluconate IV 11 thrombocytopenia, present on admission, under evaluation - DIC panel appears negative with increased fibrinogen and mildly elevated d- dimer - Heparin antibodies pending 12. COPD, chronic, POA -not acute exacerbation at this time -recent prednisone dosing however patient can't recall if he is on this at this time -consideration to steroid dosing, nebs PRN 13 possible upper gastrointestinal bleed, present on admission, unknown chronicity -concern expressed during the previous admission for UGIB -H&H is low on admission -repeat pending -discontinue PPI 40 BID and start Carafate - Surgery recommendations to start DVT prophylaxis with subcutaneous heparin -Trend H&H 14 possible Bilateral pneumonia, acute, POA -acute dyspnea as outpatient with suspected PNA (recent admit with RSV+, strep antigen + PNA) -piperacillin-tazobactam and vancomycin given at OSH -will continue broad spectrum to cover HCAP, cefepime and linezolid is continued in favor of tigecycline and Flagyl -ID consultation appreciate recommendations in time 15 history of Alcohol dependency, present on admission, chronic - Thiamine given daily -monitor for withdrawal 16 HTN, chronic, present on admission, present on admission - hold home antihypertensive medications 2/2 sepsis hypotension - Esmolol drip 17 HLD, chronic -continue statin when appropriate 18 Tobacco dependence, chronic, present on admission -discussed the importance of cessation with patient -nicotine replacement available upon request 19 Obesity, present on admission, chronic - BMI32 20 Chronic liver cirrhosis, chronic, POA -as per past documentation 21 Macrocytic anemia, unknown chronicity, present on admission - Likely due to rapid RBC proliferation for anemia - B12 / folate levels both normal 22. Elevated troponin, acute, POA -likely 2/2 to demand ischemic secondary to hypotension induced tachycardia DVT prophylaxis heparin subcutaneous under surgery recommendations GI prophylaxis with Carafate High risk medications: fentanyl Bowel regimen with scheduled docusate given opiates Disposition: Patient will likely have a protracted hospital course if he can survive this condition given his current state of health. VTE Prophylaxis: Sub-Q Heparin (Unfractionated) VTE Mechanical Devices: Intermittant Pneumatic CD Resuscitation Status: CPR: Attempt Resuscitation Attending Statement The patient was seen and examined together with Dr. Masters on 01-17-17 and I agree with the history, exam and plan as outlined in the note above. Dae Masters DO Jan 17, 2017 07:44 Corby Hernandez MD Jan 18, 2017 13:27
--- NOTE | 2017-01-17 23:13 | ABG ---
DateTimeAnalyzed 23:10:00 -_ pH ____7.238 - 7.350 7.450 pCO2 ___36.1__ -mmHg 35.0 45.0 pO2 ___86.5__ -mmHg 69.0 116 HCO3- ___14.8__ -mmol/L 22.0 26.0 ABE __-11.4__ -mmol/L -2.0 2.0 tHb ___10.9__ -g/dL O2Hb ___91.7__ -% COHb ____1.2__ -% MetHb ____1.4__ -% sO2 ___94.1__ -% 25.0 FIO2 ___70.0__ -% PEEP ___10.0__ -cmH2O Set_RR ___15.0__ -b/min Vt __520.0__ -L Drawn By MD - Date/Time Notified____ 23:13:00 -_ Spontaneous_RR ___15.0__ -b/min Oxygen Device 1 VENTILATOR - Notified By MD - Notified Whom RN A.LIZ - B 749 -mmHg tO2 ___14.2__ -Vol% Reza test N/A -
[2017-01-17] MEDS: Dextrose 5% 0.9% NaCl 1,000 ML IV SCH (23:15)
[2017-01-18] VITALS (12 sets, daily range): BP systolic 79–122; BP diastolic 54–74; PULSE 58–105; RESP 15–18; O2SAT 60–97
[2017-01-18] MEDS: Phenylephrine Inj 20,000 MCG in 0.9% Sodium Chloride 250 ML IV SCH ×4 (00:01→17:41)
[2017-01-18] MEDS: Hydrocortisone 50 mg/mL 2 mL Inj IVPUSH SCH ×4 (00:43→23:58)
[2017-01-18] MEDS: metroNIDAZOLE Inj 500 MG in IV Premix 1 EACH IV SCH ×4 (00:43→23:58)
[2017-01-18] MEDS: Norepineph 8,000 mCg/250 mL NS 8,000 MCG in IV Premix 1 EACH IV SCH ×5 (01:30→20:08)
[2017-01-18] MEDS: Amiodarone 360 mg/200 mL D5W 360 MG in IV Premix 1 EACH IV SCH ×2 (02:58→14:58)
[2017-01-18] MEDS: Esmolol 2,500 mg/250 mL NS 2,500,000 MCG in IV Premix 1 EACH IV SCH ×4 (02:58→18:44)
[2017-01-18] MEDS: Vasopressin Inj 20 UNIT in 0.9% Sodium Chloride 100 ML IV SCH ×2 (04:38→15:29)
[2017-01-18] MEDS: Propofol Inj 1,000,000 MCG in IV Premix 1 EACH IV SCH ×4 (04:38→20:31)
[2017-01-18] MEDS: Albumin 25% 25 GM in IV Premix 1 EACH IV SCH ×4 (04:46→22:13)
[2017-01-18] MEDS: Vancomycin 100 mg/mL Oral Solution PO SCH ×4 (04:47→23:58)
[2017-01-18] MEDS: Sucralfate 100 mg/mL 10 mL Suspension PO SCH ×4 (05:52→20:31)
[2017-01-18] MEDS: WATER STERILE FOR IRRIGATION SCH ×12 (05:52→23:57)
[2017-01-18] MEDS: VANCOMYCIN IRRIGATION SCH ×12 (05:52→23:57)
--- NOTE | 2017-01-18 05:52 | ABG ---
DateTimeAnalyzed 05:49:00 -_ pH ____7.188 - 7.350 7.450 pCO2 ___36.0__ -mmHg 35.0 45.0 pO2 ___74.6__ -mmHg 69.0 116 HCO3- ___13.1__ -mmol/L 22.0 26.0 ABE __-14.0__ -mmol/L -2.0 2.0 tHb ___11.1__ -g/dL O2Hb ___88.6__ -% COHb ____1.1__ -% MetHb ____1.2__ -% sO2 ___90.7__ -% 25.0 FIO2 ___70.0__ -% PEEP ___10.0__ -cmH2O Set_RR ___15.0__ -b/min Vt __520.0__ -L Drawn By MD - Spontaneous_RR ___15.0__ -b/min Oxygen Device 1 VENTILATOR - Notified By MD - Notified Whom ABU, K RN - B 747 -mmHg tO2 ___14.0__ -Vol% Reza test N/A -
[2017-01-18 06:13] LABS: Mean Corpuscular Volume 109.5 fL (81-100)
[2017-01-18 06:24] LABS: Platelet Count 34 bil/L (150-400)
[2017-01-18 06:32] LABS: Magnesium 2.2 mg/dL (1.6-2.6); Phosphorus 9.7 mg/dL (2.5-4.9)
[2017-01-18 06:34] LABS: INR 1.66 ratio
[2017-01-18 07:25] LABS: BASOPHILS % (AUTO) 1 % (0-3); EOSINOPHILS % (AUTO) 1 % (0-5); MONOCYTES % (AUTO) 4 % (4-12); NEUTROPHILS % (AUTO) 70 % (40-74)
[2017-01-18] MEDS: Sodium Bicarb(50 mEq) 8.4% Inj 150 MEQ in Dextrose 5% 1,000 ML IV SCH ×3 (07:36→22:14)
--- NOTE | 2017-01-18 07:57 | NUR ---
Hemodynamcis Pt remains critically ill. He is worsening. Left UE appears mottled. Poor perfusing. Poor UOP. pH and SPO2 dropping. BP will drop while changing pressors bags. Unable to tolerate off pressors. BG reading varies when obtained from left finger =40s, from left ART line = 135, from right fingers =135. Abd pressure = 22. All findings and labs related to ITKA GEORGE.
[2017-01-18] MEDS ORDERED: SODIUM CHLORIDE ONE (08:05)
[2017-01-18] MEDS ORDERED: DEXTROSE 5% IV ONE (08:10)
[2017-01-18] MEDS ORDERED: CALCIUM GLUCO IV ONE (08:10)
[2017-01-18] MEDS: Tigecycline Inj 50 MG in 0.9% Sodium Chloride 100 ML IV SCH ×2 (08:13→20:07)
[2017-01-18] MEDS: Chlorhexidine 0.12% 15 mL Oral Solution MT SCH ×2 (08:14→20:07)
[2017-01-18] MEDS: Dextrose 5% 0.9% NaCl 1,000 ML IV SCH ×3 (08:14→21:03)
--- NOTE | 2017-01-18 09:13 | DRSVH ---
PROCEDURE: X-RAY CHEST ONE VIEW, PORTABLE ([id number]) INDICATIONS: acute respiratory failure TECHNIQUE: One view of the chest was acquired. COMPARISON: [facility], CR, XR CHEST 1VW (PORTABLE), 01/17/2017, 5:20. FINDINGS: Surgical changes and devices: ET tube is 2.7 cm superior to agusto and should be pulled back approxim ately 1.5 cm. Centimeters catheter stable.. Lungs and pleura: Lungs are hypoinflated. Interstitial prominence and bibasilar opacities are noted. Mediastinum: Mediastinal contours appear normal. Heart size is enlarged Bones and chest wall: No suspicious bony lesions. Overlying soft tissues appear unremarkable. IMPRESSION: Interstitial prominence and bibasilar opacities compatible with pulmonary edema and/or pn eumonia not definitely changed compared to 01/17/17. Dictated by: Monica Raman MD, PhD on 01/18/2017 at 9:10 Approved by: Monica Raman MD, PhD on 01/18/2017 at 9:12
[2017-01-18] MEDS: Thiamine Inj 200 MG in Dextrose 5% 50 ML IV SCH (09:37)
--- NOTE | 2017-01-18 11:24 | NUR ---
NUTRITION FOLLOW-UP: Assess: 71 YO male with past medical history of recent hospitalization for pneumonia and COPD, DM2, HTN, chronic pain, and tobacco use transferred from [facility] with CARIE, septic shock secondary to Clostridium Difficile colitis. Ileostomy and partial colectomy performed 01/14. Pt remains critically ill, with worsening hemodynamics. Left UE appears mottled, with poor perfusion. Urine output is minimal. pH and SPO2 continue to drop. His pressor support requirement is significant. Per Palliative team note, code status changed to DNR. He has had no nutrition since admit x 5 D; however there would be concern related to bowel ischemia with such high pressor requirements in the event enteral feeding initiated. PMHx: CAD, CHF, Cirrhosis, Collapsed vertebrae, COPD, DM 2, Dyspnea, HLD, HTN, Insomnia, Obesity, Pneumonia, Prostate cancer, GERD, V-vib, Cyst removal from coccyx, skin cancer removal LABS: Na 132, K+ 5.9, CO2 12, BUN 74, Cr 3.65, Glu 119, Lactic Acid 3.7, Ca 5.8, Phos 9.7, AST 116, PAB 35, Procalcitonin 2.23. MEDICATIONS: Vasopressin, esmolol, phenylephrine, norepi, insulin, solu-cortef, albumin, fentanyl. DIET: NPO x 5 D, GI symptoms/stool: Ileostomy with FMS in place - 495 ml output (01/17). WALDO drain - 3180 ml output (01/17). Skin integrity: No issues noted; Vincent: 9. ANTHROPOMETRICS: Current Wt: 126.6 kg BMI: 37.0 kg/m2 Admit Wt: 108 kg (BMI 32.3 kg/m2) IBW: 80.9 kg Recent wt changes: None noted ESTIMATED NEEDS: BMI/COPD/Vent (admit wt) - updated 01/16 Calories: 4096-4164 kcal/d (22-25 kcal/kg/d) Protein: 120-160 g/d (1.5-2.0 g/kg/d IBW) Fluids: ~2400 ml/d NUTRITION DIAGNOSIS: 1) Increased nutrient needs related to increased work of breathing as evidenced by COPD - PERSISTS. 2) Inadequate oral intake related to acute respiratory failure as evidenced by need for mechanical ventilation and NPO status - PERSISTS. INTERVENTION: 1) TPN would likely be the only alternative for this patient at this time. If desired, recommend macronutrient content at 25% goal to mitigate refeeding issues: dextrose 1075 g, amino acid 30 g, 11 g lipids. Recommend advance slowly to goal macronutrient content: dextrose 430 g, amino acid 120 g, lipids 45 g (61% dextrose, 20% amino acid, 19% lipid); would provide 2392 kcal, 120 g protein, sufficient to meet 100% nutrient needs. MONITOR/EVALUATE: PO intake, Labs, Wt, Nutrition status, POC. Will follow per high nutrition risk guidelines.
[2017-01-18] MEDS: fentaNYL 2,500 mCg/250 mL 2,500 MCG in IV Premix 1 EACH IV SCH (12:00)
[2017-01-18] MEDS ORDERED: DOBUTamine 500 mg/250 mL D5W Premix IV ONE (12:38)
[2017-01-18] MEDS: DOBUTamine 500 mg/250 D5W 500,000 MCG in IV Premix 1 EACH IV SCH (12:51)
--- NOTE | 2017-01-18 12:53 | ABG ---
DateTimeAnalyzed 12:50:00 -_ pH ____7.238 - 7.350 7.450 pCO2 ___32.4__ -mmHg 35.0 45.0 pO2 ___75.2__ -mmHg 69.0 116 HCO3- ___13.3__ -mmol/L 22.0 26.0 ABE __-12.7__ -mmol/L -2.0 2.0 tHb ___10.7__ -g/dL O2Hb ___90.8__ -% COHb ____1.1__ -% MetHb ____1.1__ -% sO2 ___92.8__ -% 25.0 FIO2 __100.0__ -% PEEP ___10.0__ -cmH2O Set_RR ___18.0__ -b/min Vt __520.0__ -L Drawn By as - Date/Time Notified____ 12:53:00 -_ Spontaneous_RR ___18.0__ -b/min Oxygen Device 1 VENTILATOR - Notified By ams - Notified Whom Dr Hasandras - B 753 -mmHg tO2 ___13.7__ -Vol% Reza test N/A -
--- NOTE | 2017-01-18 13:17 | PROG NOTE ---
[address] [address] PROGRESS NOTE PATIENT: JAGDISH MATHIS : 1945 MR#: [id number] ADMIT: 01/13/2017 JOB ID: [id number] DATE: 01/18/2017 PULMONARY CRITICAL CARE FOLLOW UP NOTE: PROBLEMS: 1. C. difficile NAP1 enterocolitis. 2. ARDS. 3. Intra-abdominal hypertension secondary to #1. 4. Acute renal failure. 5. Persistent lactic acidemia. 6. Shock. 7. Thrombocytopenia, probable DIC. 8. Hepatitis C. SUBJECTIVE: None. OBJECTIVE: Temperature 36.9 with T-max 37.8, pulse 102, respiratory rate of 15 with ventilator set at 15, blood pressure 107/52 on norepinephrine 0.25 mcg/kg/minute, vasopressin 0.03 units/minute and phenylephrine at 0.5 mg/kg per minute. O2 sat on FiO2 of 100% PEEP at 10 is 91%. I and O shows 6.5 liters in, 4.6 liters out, of which only 0.7 L is urine, the rest being various GI drainage tubes. General appearance: Unresponsive. Eyes: Conjunctivae are pink. Pupils about 2 mm. Nose and throat could not be examined. Chest has fairly good breath sounds on the right, markedly diminished at the left base, if not absent. With a tidal volume of 520, PEEP of 10, peak inspiratory pressure 36, plateau is 29. PEEP is set at 10, measured at 10. Abdomen distended. Firm. Quiet. Molina draining bloody fluid. Extremities: Ice cold and pale. LABORATORY: Shows a white count of 49,700, up from 38,000 yesterday. Seventy polymorphonuclears, 8 bands, 4 metamyelocytes, 7 myelocytes, 4 nucleated RBCs, 5 lymphocytes, 4 monocytes, 1 eosinophil, 1 basophil. Hemoglobin stable at 11.4. Platelet count falling at 34,000, continuing to decrease from a peak of 246,000 four days ago. Sodium 132, potassium 5.9, chloride 99, CO2 is 12. BUN 74, creatinine 3.65 up from 2.43 in 24 hours. Lactic acid is 3.7, yesterday being 2.2. Calcium is 5.8, with an albumin of 3.2. Phosphorus markedly elevated at 9.7. Magnesium normal at 2.2. Total bilirubin 1. AST 116, ALT 43, alkaline phos 49. Procalcitonin 2.23 rising from 1.55 yesterday. INR 1.66. ASSESSMENT: 1. C. difficile NAP1 enterocolitis. Currently intra-abdominal pressure is 20. Chest x-ray shows markedly cephalad movement of the diaphragm. Intra-abdominal pressure reported to be 21. 2. Intra-abdominal hypertension as above. The patient in marked renal failure. However, that has been present since inception. Therefore, cannot make any statements about abdominal compartment syndrome with regard to the renal failure. Perfusion is probably quite poor from the severe pressors. Blood pressure may certainly be due to the intra-abdominal hypertension with the marked decrease in venous return. Apparently attempts at raising PEEP have been unsuccessful with marked diminution in systolic and diastolic blood pressures suggesting decrease in venous return which would be consistent with abdominal compartment syndrome. Therefore, the specter of abdominal compartment syndrome intrudes upon us and the question is whether a surgical decompression might be warranted. No real good answer. Discussed at length with both the primary care team as well as surgery. I guess at this point we should employ anesthesia as I suspect his risk of surgery is related more to movement and general anesthesia than the surgical procedure itself. Will ask for their opinion regarding his surgical risks which might very well be inordinate and make the decision for us. 3. Acute respiratory distress syndrome. The patient with probable abdominal compartment syndrome driving the issue along with the sepsis. Would consider decreasing the tidal volume a bit, maybe decreasing the pressure if he is on the flat part of the pulmonary pressure volume curve and that might decrease the intrathoracic pressure somewhat. However, if the abdominal hypertension is truly present then that will not make much of a difference. In any case, we can allow him to be a bit more acidotic and see if this might help venous return though again the intra-abdominal hypertension may be the driving factor and not the subsequent intrathoracic pressure. 4. Renal failure. Total renal shut down. Might be considering dialysis for a potassium of 5.9. Not sure he will be able to tolerate the same. 5. Thrombocytopenia, probable DIC. Heparin antibodies are pending. Starting to bleed from the Molina catheter. Some bleeding around the ileostomy site though that has been chronic. 6. Lactic acidosis. Probably in this case does truly represent ischemia to the tissues. Its recurrence is severely problematic. PLAN: 1. Will decrease tidal volume to maybe 480, 490 and assess its effect on his hemodynamics. The Vigileo is not connected now. Do not know that it makes much of a difference at this point. Given all pressors and alpha, could conceivably consider inotropes. Echocardiogram of December 30, 2016 showed mild concentric hypertrophy with ejection fraction 60%-65% with normal right ventricular size and function suggesting good cardiac function prior to the C. difficile intrusion. 2. Continue albumin. 3. Consider dobutamine. Might consider resetting up the Vigileo to assess cardiac function given his high alpha load at this point. Suspect the cardiac output is quite low at this point. 4. Discuss surgery with General Surgery as well as with Anesthesiology getting their opinion about operative risk which might be prohibitive. TIME SPENT: Time spent so far in critical care is 90 minutes.
--- NOTE | 2017-01-18 15:42 | NUR ---
Sedation/Hemodynamics/UOP/Resp/GI/Activity Patient is well sedated/comfortble on Fentanyl and propofol. No sedation vacation today, too unstable on 3 pressors. Remains on Levophed, Vasopressen, Phenylephrine, Esmolol, and Amiodarone. BP with Maps >65 on this. MD did want to trial Dobutamine to help Cardiac Index (1.6), and this made patient too hypotensive. Dobutamine was stopped. When pressors stop for any reason, BP plummets to 50s/30s. Minimal UOP this shift. Urine with some blood clots making urine diggs color. MDs all aware of UOP and bleeding. Left hand mottled/dusky in color. MDs aware. Suggested f/u labs for today. Remains on vent 100%, 10, 18, 520. Sats anywhere from 86-97%. MDs aware of low sats. Ileostomy stoma infused with Vanco as well as FMS irrigated with vanco as ordered. IAP, 21 and then 28 and abdomen is distended and firm--MDs aware. MIdline incision is well aproximated with jessica. WALDO with 800 mls serosang fluid out so far this shift. MDs aware. NO stool out, just serousang fluid from ileostomy. Turning patient in bed. Continuing to monitor closely.
--- NOTE | 2017-01-18 16:00 | PCM.PNMED ---
Subjective Date of Service Jan 18, 2017 Subjective Overnight: The patient's pressure continued to drop the patient was placed on a phenylephrine drip for increased pressor support. Bicarbonate drip started for significant acidosis. WALDO drain continues to put out for patient serous drainage. Abdominal compartment pressure is increasing. Vancomycin given in both ostomy and rectal via FMS system. Today: Patient's respiratory rate was increased to allow for decrease in CO2 and hopefully improvement in acidosis. Dobutamine drip attempted however pressures would not allow continuation likely due to poor venous return from increased abdominal pressure, less likely new onset heart failure however cannot rule out. Surgery considering opening laparotomy to decrease abdominal pressures and hopefully give this gentleman some chance of surviving this illness. Surgery is currently pending anesthesia support. Exam Vital Signs Vital Sign - Last Date Time Temp Pulse Resp B/P Pulse Ox O2 Delivery O2 Flow Rate FiO2 01/18/17 04:41 87 79/55 92 70 01/18/17 04:30 37.1 15 Mechanical Ventilator 01/14/17 16:04 60 Intake and Output 01/17/17 01/17/17 01/18/17 Cumulative From/Thru 15:00 23:00 07:00 01/13/17 22:15 - 01/18/17 06:26 Intake Total 3884 ml 4256 ml 34645 ml Output Total 2545 ml 750 ml 83642 ml Balance 1339 ml 3506 ml 10433 ml Intake Oral 120 ml IV Total 3764 ml 4256 ml 09258 ml Tube Irrigant 120 ml 560 ml Output Urine Total 375 ml 100 ml 2900 ml Stool Total 470 ml 780 ml Gastric Drainage Total 150 ml 100 ml 805 ml Drainage Total 1550 ml 550 ml 5285 ml Ultrafiltrate 1500 ml # Bowel Movements 3 Exam General: Obese elderly appearing male, intubated and sedated Eyes: Scleral Anicteric noninjected conjunctiva Mouth: Intubated, no central cyanosis Neck: Supple, no Thyromegaly, trachea central. No JVD Chest & Lungs: mild crackles in bilateral axillary bases, decreased air movement throughout no wheezing or rhonchi noted Cardiovascular: Decreased heart sounds Tachycardic with regular rhythm, Normal S1, Normal S2, No Murmurs/Rubs/Gallops, Pulses: equal bilaterally at radial and dorsalis pedis with decreased pulses Abdomen: severe distention, tense, right-sided ileostomy without any output, midline laparotomy clean with jessica nor erythema or fluctuance, hypoactive bowel tones, WALDO drain with serosanguineous fluid. Ecchymosis consistent in lower abdomen Musculoskeletal: no swollen or erythematous joints Extremities: no pitting edema, mild cyanosis in distal digits up to PIP joint 2 -5 in left hand, no clubbing. abrasions and ecchymosis noted Skin: No rashes. Warm and dry on abdomen cool and dry on extremities, no erythematous areas Neurological: Intubated and sedated able to some commands Psych: Unable to assess : Molina in place Lab and Diagnostics Result Diagram: 01/17/17 0535 01/18/17 0550 Microbiology Microbiology C DIFF TOXIN A AND B BY PCR Final 01/14/17-938 Organism 1 POS FOR CDIF TOXIN C DIF TOXIN A&B PCR DETECTED TIME CALLED: 936 DATE CALLED: 01/14/17 FLOOR/DOCTOR: BRY/KRUPA Brown CALLED BY: NORRIS PCR testing alone cannot distinquish C. difficile disease from a carrier state, and therefore correlation with clinical findings is required. X-Rays, CTs and MRIs CT ABDOMEN AND PELVIS WITHOUT CONTRAST IMPRESSION: 1. Fluid-filled prominence of the colon with thickening in the transverse and left colon as above. Findings can be a reflective of colitis secondary to inflammatory or infectious etiology. Ischemic colitis should also be considered. Recommend interval followup should document resolution of thickening and exclude presence of mass lesion including obscured visualization of the rectum secondary to fluid. 2. Bibasilar areas of effusion and consolidation, with the latter freight representative of atelectasis and/or pneumonia. Dictated by: Izabela Stockton M.D. on 01/14/2017 at 11:11 Approved by: Izabela Stockton M.D. on 01/14/2017 at 11:15 X-RAY CHEST ONE VIEW, PORTABLE IMPRESSION: 1. Central venous catheter as above. 2. Unchanged right upper lobe radiopacities. 3. Increased left basilar radiopacities. Short interval followup is recommended with resolution of the patient's symptoms to ensure there is no underlying pulmonary pathology. Dictated by: Cate Davila M.D. on 01/14/2017 at 10:49 Approved by: Cate Davila M.D. on 01/14/2017 at 10:52 PROCEDURE: X-RAY CHEST ONE VIEW, PORTABLE ([id number]) IMPRESSION: Interstitial prominence and bibasilar opacities compatible with pulmonary edema and/or pneumonia not definitely changed compared to 01/17/17. Dictated by: Monica Raman MD, PhD on 01/18/2017 at 9:10 Approved by: Monica Raman MD, PhD on 01/18/2017 at 9:12 Additional Diagnostics DateTimeAnalyzed 04:13:00 -_ pH ____7.327 - 7.350 7.450 pCO2 ___24.2__ -mmHg 35.0 45.0 pO2 ___70.8__ -mmHg 69.0 116 HCO3- ___12.3__ -mmol/L 22.0 26.0 DateTimeAnalyzed 10:42:00 -_ pH ____7.256 - 7.350 7.450 pCO2 ___31.5__ -mmHg 35.0 45.0 pO2 ___85.1__ -mmHg 69.0 116 HCO3- ___13.5__ -mmol/L 22.0 26.0 DateTimeAnalyzed 12:50:00 -_ pH ____7.238 - 7.350 7.450 pCO2 ___32.4__ -mmHg 35.0 45.0 pO2 ___75.2__ -mmHg 69.0 116 HCO3- ___13.3__ -mmol/L 22.0 26.0 Assessment & Plan 71yoM with past medical history of recent hospitalization for pneumonia and COPD , DM2, HTN, chronic pain, and tobacco use transferred from [facility] with septic shock and CARIE. Hospital Day 5 1 severe sepsis and septic shock secondary to Clostridium Difficile colitis, acute, POA, unstable - patient transferred from OSH following near syncopal event, requiring norepinephrine - concern for bilateral pneumonia, CT abd pelvis noncon pending, new diarrhea - recent admission for pneumonia (d/c 01/03), started on levofloxacin as an outpatient - CT imaging shows thickened colonic mucosa consistent with infectious colitis - Biofire shows extremely very on nap 1 C. difficile PCR - Pulmonology and critical care, nephrology, infectious disease, general surgery all CONSULTED and appreciate recommendations from time - Polst form states patient's wish to not be intubated, however patient has given consent to be intubated this hospitalization, also has given consent for intubation if necessary - Patient is currently on norepinephrine and vasopressin and phenylephrine drips for pressor support including IV fluids - Hydrocortisone 100 mg IV every 8 changed to 50mg q 8 01/16 - IV albumin for oncotic pressor support given low albumin state - Gen. surgery performed and ileostomy and partial colectomy on the night of , Patient required potassium dialyzed per anesthesia requirements prior to surgery - Dobutamine drip was attempted however was discontinued due to low blood pressure likely consistent with poor venous return due to increased abdominal pressures most likely acute cardiac failure - Increasing white blood cell count now likely consistent not with steroid use but with worsening infection 2 Respiratory failure with hypoxia, acute, POA, stable - patient with recent admission with for pneumonia with hypoxic / hypercapnic respiratory failure - Polst form states patient's wish to not be intubated, however patient has given consent to be intubated this hospitalization, also has given consent for intubation if necessary - patient continues to be hypoxic on presentation requiring oxygen currently intubated and sedated post surgery for ileostomy and partial colectomy - continue treatment as below, oxygen saturation 88-92% - Hydrocortisone 50 mg IV every 8 - RT to increase respiratory rate in an attempt to improve acidosis status with decreased CO2 3 Clostridium Difficile colitis, present on admission, acute unstable - CT imaging shows thickened colonic mucosa consistent with infectious colitis - Biofire shows C. difficile PCR - Triple antibiotic coverage with vancomycin rectally through FMS, Flagyl IV continued however biliary excretion will not reach rectum, tigecycline IV - Gen. surgery performed and ileostomy and partial colectomy on the night of , Patient required potassium dialyzed per anesthesia requirements prior to surgery 4 abdominal compartment syndrome, present on admission, acute unstable - Gen. surgery performed and ileostomy and partial colectomy on the night of - Surgery is currently considering a new operation to open abdominal compartment to relieve pressure pending anesthesia at this point 5 Atrial fibrillation with rapid ventricular response, acute, POA, stable -new diagnosis during last admission -aflutter noted at OSH, EKG reviewed on arrival -repeat EKG in AM -optimize electrolytes in the setting of CARIE - Esmolol drip - Amiodarone drip - Reevaluate daily - Dobutamine drip was attempted however was discontinued due to low blood pressure likely consistent with poor venous return due to increased abdominal pressures most likely acute cardiac failure 6. Thrombocytosis, not present on admission, unstable under evaluation - Heparin subcutaneous initiated on 01/14 for DVT prophylaxis post surgical operation - Heparin antibodies ordered 01/16/2017 with Heparin discontinued - DIC panel with fibrinogen, haptoglobin, d-dimer ordered inconsistent with acute DIC - Platelets continue to drop - Continue to monitor and evaluate for future transfusion requirement - Drop is likely due to acute phase reactant given illness 7 Acute renal failure, acute, POA, unstable -normal creatinine 0.88 on discharge 01/03 -elevated at 3.8 on presentation at OSH -likely prerenal / intrarenal given septic presentation - nephrology consulted, patient dialyzed to remove potassium per anesthesiology recommendations prior to surgery - Patient dialyzed on the and - Albumin given on the and for increased oncotic pressure - Continue to monitor - Patient creatinine continues to rise, nephrology following does not consider patient a dialysis candidate at this time 8 Hyperkalemia, acute, unstable -2/2 to carie - kayexalate given overnight 01/13/2017 by admitting team - nephrology consulted, patient dialyzed to remove potassium per anesthesiology recommendations prior to surgery - Patient dialyzed on the and 9 primary Metabolic acidosis with respiratory alkalosis compensation, acute, present on admission, unstable -Secondary to sepsis and lactic acidosis -Continue IV fluids, currently on bicarbonate and normal saline -nephrology consulted, patient dialyzed to remove potassium on January 13 and - Increased respiratory rate for respiratory alkalosis to improve overall pH - Bicarbonate drip started overnight 01/18/2017 10 Diabetes mellitus type 2, insulin dependent, chronic POA, stable -correction scale insulin discontinued - Insulin drip per non-DKA protocol started 11 Hyponatremia, acute, POA, stable -Possibly secondary to SIADH secondary to lung pathology/pneumonia -Continue IV fluid therapy with bicarbonate and normal saline -Nephrology following 12 hypocalcemia, present on admission, treated unstable - Continue to supplement with calcium gluconate IV 13 thrombocytopenia, present on admission, under evaluation, unstable - DIC panel appears negative with increased fibrinogen and mildly elevated d- dimer - Heparin antibodies pending 14. COPD, chronic, POA, -not acute exacerbation at this time -recent prednisone dosing however patient can't recall if he is on this at this time -consideration to steroid dosing, nebs PRN 15 unlikely possible upper gastrointestinal bleed, present on admission, unknown chronicity -concern expressed during the previous admission for UGIB -H&H is low on admission -repeat pending -discontinue PPI 40 BID and start Carafate -Trend H&H currently stable 16 unlikely possible Bilateral pneumonia, acute, POA -acute dyspnea as outpatient with suspected PNA (recent admit with RSV+, strep antigen + PNA) -piperacillin-tazobactam and vancomycin given at OSH -will continue broad spectrum to cover HCAP, cefepime and linezolid is continued in favor of tigecycline and Flagyl -ID consultation appreciate recommendations in time 17 history of Alcohol dependency, present on admission, chronic - Thiamine given daily -monitor for withdrawal 18 HTN, chronic, present on admission, present on admission - hold home antihypertensive medications 2/2 sepsis hypotension - Esmolol drip 19 HLD, chronic -continue statin when appropriate 20 Tobacco dependence, chronic, present on admission -discussed the importance of cessation with patient -nicotine replacement available upon request 21 Obesity, present on admission, chronic - BMI32 22 Chronic liver cirrhosis, chronic, POA -as per past documentation 23 Macrocytic anemia, unknown chronicity, present on admission - Likely due to rapid RBC proliferation for anemia - B12 / folate levels both normal 24. Elevated troponin, acute, POA -likely 2/2 to demand ischemic secondary to hypotension induced tachycardia 25 chronic hepatitis C, present on admission - Possibly contributing to thrombocytopenia DVT prophylaxis heparin subcutaneous under surgery recommendations GI prophylaxis with Carafate High risk medications: fentanyl Bowel regimen with scheduled docusate given opiates Disposition: Patient will likely have a protracted hospital course if he can survive this condition given his current state of health. Pain Evaluation: Adequate Pain Control GI Prophylaxis: Other (karafate) VTE Prophylaxis: SCDs VTE Mechanical Devices: Intermittant Pneumatic CD Resuscitation Status: DNR/DNI:Do Not Resuscitate/Intubate Limited Interventions: [facility] (already intubated and for now continue mechanical ventilation), Medications and IV Fluid Attending Statement The patient was seen and examined together with Dr. Masters on 01-18-17 and I agree with the history, exam and plan as outlined in the note above. Overall prognosis very poor at this point in time, family aware that patient is not doing well and most likely will not survive this admission. Dae Masters DO Jan 18, 2017 06:58 Corby Hernandez MD Jan 19, 2017 10:34
--- NOTE | 2017-01-18 16:29 | ABG ---
DateTimeAnalyzed 16:26:00 -_ pH ____7.235 - 7.350 7.450 pCO2 ___34.7__ -mmHg 35.0 45.0 pO2 ___81.0__ -mmHg 69.0 116 HCO3- ___14.2__ -mmol/L 22.0 26.0 ABE __-12.0__ -mmol/L -2.0 2.0 tHb ___10.6__ -g/dL O2Hb ___91.4__ -% COHb ____1.1__ -% MetHb ____1.2__ -% sO2 ___93.6__ -% 25.0 FIO2 __100.0__ -% PEEP ___10.0__ -cmH2O Set_RR ___18.0__ -b/min Vt __520.0__ -L Drawn By as - Date/Time Notified____ 16:28:00 -_ Spontaneous_RR ___18.0__ -b/min Oxygen Device 1 VENTILATOR - Notified By ams - Notified Whom Dr Israel - B 757 -mmHg tO2 ___13.7__ -Vol% Reza test N/A -
--- NOTE | 2017-01-18 16:36 | PROG NOTE ---
[address] [address] PROGRESS NOTE PATIENT: JAGDISH MATHIS : 1945 MR#: [id number] ADMIT: 01/13/2017 JOB ID: [id number] DATE: 01/18/2017 The patient remains in the ICU, critically ill. He is no better, having started intraluminal vancomycin infusions as of yesterday. His intra-abdominal compartment pressures remain at the high end of acceptable on the order of 21. His abdomen remains tense. His stoma remains viable. His white count continues to rise at 49.7. His hematocrit is 34.7. His electrolytes show a potassium of 5.9. His lactic acid was 2.2 yesterday and is 3.7 today. Liver function tests are unremarkable. His procalcitonin is rising at 2.23. IMPRESSION AND PLAN: He is critically ill. We have discussed the pros and cons of whether we should or should not take him to the operating room to open his abdomen. I will discuss this with Dr. Hernandez and Dr. Salas as well as without our anesthesiologist of the day.
[2017-01-18] MEDS: Insulin Human REGular Inj 100 UNIT in 0.9% Sodium Chloride-Pha MIX 100 ML IV SCH (20:32)
[2017-01-19] MEDS: Phenylephrine Inj 20,000 MCG in 0.9% Sodium Chloride 250 ML IV SCH ×3 (00:13→10:50)
[2017-01-19] MEDS: Amiodarone 360 mg/200 mL D5W 360 MG in IV Premix 1 EACH IV SCH ×2 (00:27→13:17)
[2017-01-19] MEDS: Norepineph 8,000 mCg/250 mL NS 8,000 MCG in IV Premix 1 EACH IV SCH ×4 (00:31→15:33)
[2017-01-19 00:32] VITALS: BP 118/72; PULSE 90; RESP 18; O2SAT 97
[2017-01-19] MEDS: Vasopressin Inj 20 UNIT in 0.9% Sodium Chloride 100 ML IV SCH ×3 (00:37→15:23)
[2017-01-19] MEDS: Esmolol 2,500 mg/250 mL NS 2,500,000 MCG in IV Premix 1 EACH IV SCH (01:56)
[2017-01-19 03:54] VITALS: BP 90/62; PULSE 92; RESP 18; O2SAT 97
[2017-01-19 04:09] VITALS: BP 107/73; O2SAT 94
--- NOTE | 2017-01-19 04:15 | ABG ---
DateTimeAnalyzed 04:12:00 -_ pH ____7.290 - 7.350 7.450 pCO2 ___27.8__ -mmHg 35.0 45.0 pO2 115 -mmHg 69.0 116 HCO3- ___12.9__ -mmol/L 22.0 26.0 ABE __-12.1__ -mmol/L -2.0 2.0 tHb ____9.6__ -g/dL O2Hb ___95.5__ -% COHb ____1.2__ -% MetHb ____1.1__ -% sO2 ___97.7__ -% 25.0 FIO2 ___21.0__ -% PEEP ___10.0__ -cmH2O Set_RR ___18.0__ -b/min Vt __520.0__ -L Drawn By MD - Date/Time Notified____ 04:14:00 -_ Spontaneous_RR ___18.0__ -b/min Oxygen Device 1 VENTILATOR - Notified By MD - Notified Whom RN J.PATEL - B 763 -mmHg tO2 ___13.1__ -Vol% Reza test N/A -
[2017-01-19] MEDS: WATER STERILE FOR IRRIGATION SCH ×4 (05:46→13:56)
[2017-01-19] MEDS: Sucralfate 100 mg/mL 10 mL Suspension PO SCH ×2 (05:46→11:15)
[2017-01-19] MEDS: VANCOMYCIN IRRIGATION SCH ×4 (05:46→13:56)
[2017-01-19] MEDS: Vancomycin 100 mg/mL Oral Solution PO SCH ×2 (05:46→11:15)
[2017-01-19] MEDS: Sodium Bicarb(50 mEq) 8.4% Inj 150 MEQ in Dextrose 5% 1,000 ML IV SCH ×2 (05:47→13:41)
[2017-01-19 05:54] LABS: BASOPHILS % (AUTO) 0 % (0-3); EOSINOPHILS % (AUTO) 1 % (0-5); MONOCYTES % (AUTO) 7 % (4-12); Mean Corpuscular Volume 107.3 fL (81-100); NEUTROPHILS % (AUTO) 58 % (40-74); Platelet Count 19 bil/L (150-400)
[2017-01-19 05:55] LABS: INR 1.93 ratio
[2017-01-19 05:59] LABS: Phosphorus 9.9 mg/dL (2.5-4.9)
--- NOTE | 2017-01-19 06:14 | NUR ---
Hemodynamics/GI Patient on multiple pressors, BP decreases rapidly if pressors are off for under a minute, very fragile, maintaining BP 90's/70's, see RN flow sheet for gtt titrations resting on vent, no purposeful movements and not following commands, 100% FIO2 on vent, coarse and wheezy, no stool from FMS, multiple critical labs, Dr. Albarran notified, no new orders at this time, uneventful shift, will continue to monitor. Addendum: 01/19/17 at 0621 by PAM PATEL RN Amended: Links added.
[2017-01-19] MEDS: fentaNYL 2,500 mCg/250 mL 2,500 MCG in IV Premix 1 EACH IV SCH (06:45)
[2017-01-19] MEDS: Hydrocortisone 50 mg/mL 2 mL Inj IVPUSH SCH (07:49)
[2017-01-19] MEDS: Tigecycline Inj 50 MG in 0.9% Sodium Chloride 100 ML IV SCH (07:49)
[2017-01-19] MEDS: Chlorhexidine 0.12% 15 mL Oral Solution MT SCH (07:49)
[2017-01-19] MEDS: Propofol Inj 1,000,000 MCG in IV Premix 1 EACH IV SCH ×2 (07:49→13:18)
[2017-01-19] MEDS: metroNIDAZOLE Inj 500 MG in IV Premix 1 EACH IV SCH (07:50)
[2017-01-19 08:00] VITALS: BP 96/68; PULSE 81; RESP 18; O2SAT 95
[2017-01-19 08:47] VITALS: BP 100/69; O2SAT 94
[2017-01-19] MEDS: Thiamine Inj 200 MG in Dextrose 5% 50 ML IV SCH (09:36)
--- NOTE | 2017-01-19 10:39 | PCM.PNMED ---
Subjective Date of Service Jan 19, 2017 Subjective Patient is intubated and sedated in the ICU so no ROS could be obtained. Overnight, pressor support could not be decreased as patient would not tolerate this. No purposeful movements noted and that patient is not following commands. Vent FiO2 set to 100%. Platelet level noted to decrease with continued elevation of WBC. Exam Vital Signs Vital Sign - Last Date Time Temp Pulse Resp B/P Pulse Ox O2 Delivery O2 Flow Rate FiO2 01/19/17 08:47 70 100/69 94 90 01/19/17 08:00 Ventilator 01/19/17 08:00 35.9 18 01/14/17 16:04 60 Intake and Output 01/18/17 01/18/17 01/19/17 Cumulative From/Thru 15:00 23:00 07:00 01/13/17 22:15 - 01/19/17 05:54 Intake Total 4170 ml 4437 ml 89979 ml Output Total 1225 ml 2035 ml 05821 ml Balance 2945 ml 2402 ml 84038 ml Intake Oral 120 ml IV Total 4170 ml 4437 ml 28974 ml Tube Irrigant 560 ml Output Urine Total 125 ml 30 ml 3055 ml Stool Total 780 ml Gastric Drainage Total 200 ml 50 ml 1055 ml Drainage Total 900 ml 1955 ml 8140 ml Ultrafiltrate 1500 ml # Bowel Movements 3 Exam General: Obese elderly appearing male, intubated and sedated in the ICU Eyes: Scleral Anicteric, noninjected conjunctiva Mouth: Intubated, no central cyanosis, no oral thrush appreciated Neck: Supple, no Thyromegaly, trachea central. No JVD. Right IJ in place. Chest & Lungs: mild crackles in bilateral axillary bases, decreased air movement throughout no wheezing or rhonchi noted Cardiovascular: Decreased heart sounds Tachycardic with regular rhythm, No Murmurs/Rubs/Gallops, Pulses: equal bilaterally at radial and dorsalis pedis with decreased pulses Abdomen: severe distention, tense, right-sided ileostomy with minimal output, midline laparotomy clean with jessica nor erythema or fluctuance, no bowel tones appreciated, WALDO drain with serosanguineous fluid in wall container. Musculoskeletal: no swollen or erythematous joints; right femoral dialysis catheter, left radial art line Extremities: no pitting edema, mild cyanosis in distal digits up to PIP joint 2 -5 in left hand, no clubbing. abrasions and ecchymosis noted Skin: No rashes. Warm and dry on abdomen cool and dry on extremities, no erythematous areas : Molina in place FMS in place Ventilator settings: FiO2 1.0, PEEP 10, Rate 18, TV 520 IVs and Medications Medications Reviewed: Medications were reviewed in detail Lab and Diagnostics Result Diagram: 01/19/17 0515 01/19/17 0515 X-Rays, CTs and MRIs CT ABDOMEN AND PELVIS WITHOUT CONTRAST IMPRESSION: 1. Fluid-filled prominence of the colon with thickening in the transverse and left colon as above. Findings can be a reflective of colitis secondary to inflammatory or infectious etiology. Ischemic colitis should also be considered. Recommend interval followup should document resolution of thickening and exclude presence of mass lesion including obscured visualization of the rectum secondary to fluid. 2. Bibasilar areas of effusion and consolidation, with the latter development representative of atelectasis and/or pneumonia. Dictated by: Izabela Stockton M.D. on 01/14/2017 at 11:11 Approved by: Izabela Stockton M.D. on 01/14/2017 at 11:15 X-RAY CHEST ONE VIEW, PORTABLE IMPRESSION: 1. Central venous catheter as above. 2. Unchanged right upper lobe radiopacities. 3. Increased left basilar radiopacities. Short interval followup is recommended with resolution of the patient's symptoms to ensure there is no underlying pulmonary pathology. Dictated by: Cate Davila M.D. on 01/14/2017 at 10:49 Approved by: Cate Davila M.D. on 01/14/2017 at 10:52 PROCEDURE: X-RAY CHEST ONE VIEW, PORTABLE ([id number]) IMPRESSION: Interstitial prominence and bibasilar opacities compatible with pulmonary edema and/or pneumonia not definitely changed compared to 01/17/17. Dictated by: Monica Raman MD, PhD on 01/18/2017 at 9:10 Approved by: Monica Raman MD, PhD on 01/18/2017 at 9:12 Additional Diagnostics DateTimeAnalyzed 04:12:00 -_ pH ____7.290 - 7.350 7.450 pCO2 ___27.8__ -mmHg 35.0 45.0 pO2 115 -mmHg 69.0 116 HCO3- ___12.9__ -mmol/L 22.0 26.0 Assessment & Plan 71yoM with past medical history of recent hospitalization for pneumonia and COPD , DM2, HTN, chronic pain, and tobacco use transferred from [facility] with septic shock and CARIE. Hospital Day 7 1. Severe sepsis and septic shock, acute, POA, ongoing. - Criteria met: tachypnea (30), tachycardia (117), fulminant C.diff infection, lactic acidosis (3.4), and hypotension. - Patient continues to require pressor with norepinephrine, vasopressin, and phenylephrine. - Continue hydrocortisone 50 mg IV Q8 due to concern of adrenal insufficiency. - Continue IV fluids D5 bicarb at 150 ml/hr. - IV albumin as needed for oncotic pressor support given low albumin state. - Continue to monitor CBC as patient now has significant leukocytosis. - Continue to monitor lactic acid as is now persistently elevated. - Will plan to discuss with the patient's how she would like us to proceed in light of the patient's critical status. 2. Acute hypoxic respiratory failure, present on admission. - Likely secondary to severe sepsis. - Patient remains on mechanical ventilator. - Fentanyl and propofol for sedation. - ABG each AM and as needed for vent management. - Dr. Salas of pulmonology has been consulted for vent management and we appreciate his expertise. 3. Clostridium Difficile colitis, present on admission, acute unstable - Triple antibiotic coverage with vancomycin rectally through FMS, Flagyl IV continued however biliary excretion will not reach rectum, tigecycline IV. - Dr. Palma of infectious disease has been consulted and we appreciate his expertise. 4. Abdominal compartment syndrome, present on admission, acute unstable - Gen. surgery performed and ileostomy and partial colectomy on the night of . - Intraabdominal pressure remains elevated at 35 mmHg this AM. - WALDO drain attached to wall suction and large output continues. - Family currently declining further surgical intervention as patient continues to be critical. 5. Atrial fibrillation with rapid ventricular response, acute, POA, stable - Optimize electrolytes in the setting of CARIE and sepsis. - Esmolol drip - titrate down as tolerated due to hypotension. - Amiodarone drip - Reevaluate daily 6. Thrombocytopenia, acute, present on admission, ongoing. - Heparin antibodies pending. - Continue to monitor CBC. 7. Acute renal failure, acute, POA, ongoing. - Likely prerenal / intrarenal given septic presentation - Continuing IV fluids with D5 bicarb. - Continue to monitor with BMP. - Nephrology is following along and we appreciate their input. 8. Hyperkalemia, acute, present on admission, ongoing. - Likely secondary to acute kidney injury. - Patient dialyzed last 01/15/17. Nephrology continues to follow along and we appreciate their input. - Continue to monitor with BMP. 9. Primary metabolic acidosis with respiratory alkalosis compensation, acute, present on admission, ongoing. - Secondary to severe sepsis and lactic acidosis. - Continue IV fluids, currently on D5 bicarbonate drip at 150 ml/hr. - Continue to monitor ABG and BMP. 10. Diabetes mellitus type 2, insulin using, chronic POA, stable - Continue insulin drip per non-DKA protocol. 11. Hyponatremia, acute, POA, ongoing. - Patient has received significant fluid resuscitation. - Ongoing IV fluid with D5 bicarbonate. - Continue to monitor BMP. 12. Hypocalcemia, present on admission, treated unstable - Continue to monitor BMP and supplement with calcium gluconate IV. 13. COPD, chronic, presume stable. - Atrovent nebs available PRN. - Patient receiving solu-cortef IV. 14. Unlikely upper gastrointestinal bleed, present on admission, unknown chronicity - H&H stable. - Continuing scheduled carafate. - Monitor CBC. 15. Unlikely acute bilateral pneumonia, POA - Recent admit with RSV+, strep antigen + PNA at [facility]. Received full course of appropriate treatment. - Abnormalities noted on initial chest x-ray may have been persistent infiltrates from that pneumonia. - Fulminant C. diff infection the most likely cause of sepsis. 16. History of Alcohol dependency, present on admission, chronic - Thiamine given daily - Patient is critically ill and sedated. No evidence of withdrawal noted. 17. HTN, chronic, presume stable. - Patient has been hypotensive during admission requiring pressor support. Holding all home anti-hypertensives. 18. HLD, chronic, presume stable. - Continue statin when appropriate 19. Tobacco dependence, chronic, present on admission - If patient survives admission with strongly recommend he quit smoking once and for all. 20. Obesity, present on admission, chronic - BMI 32 21. Chronic liver cirrhosis, POA - as per past documentation 22. Macrocytic anemia, unknown chronicity, present on admission - Likely due to rapid RBC proliferation for anemia - B12 / folate levels both normal 23. Elevated troponin, acute, POA. - Likely secondary to demand ischemic secondary to hypotension induced tachycardia 24. Chronic hepatitis C, presume stable. - Possibly contributing to thrombocytopenia - Antiemetic available PRN. - Colace bowel regimen scheduled. Disposition: Patient will likely have a protracted hospital course if he can survive this condition given his current state of health. GI Prophylaxis: Other (karafate) VTE Prophylaxis: SCDs, Other (Holding heparin awaiting HIT Ab. Consider fondaparinux if Ab positive.) VTE Mechanical Devices: Intermittant Pneumatic CD Resuscitation Status: DNR/DNI:Do Not Resuscitate/Intubate Limited [facility]ventions: [facility]already intubated and for now continue mechanical ventilation), Medications and IV Fluid Attending Statement The patient was seen and examined together with Dr. Shane on 01-19-17 and I agree with the history, exam and plan as outlined in the note above. Patient did later in the day, discharge note to follow. Graciela Shane DO Jan 19, 2017 10:39 Corby Hernandez MD Feb 03, 2017 16:10 17 history of Alcohol dependency, present on admission, chronic - Thiamine given daily -monitor for withdrawal 18 HTN, chronic, present on admission, present on admission - hold home antihypertensive medications 2/2 sepsis hypotension - Esmolol drip 19 HLD, chronic -continue statin when appropriate 20 Tobacco dependence, chronic, present on admission -discussed the importance of cessation with patient -nicotine replacement available upon request 21 Obesity, present on admission, chronic - BMI32 22 Chronic liver cirrhosis, chronic, POA -as per past documentation 23 Macrocytic anemia, unknown chronicity, present on admission - Likely due to rapid RBC proliferation for anemia - B12 / folate levels both normal 24. Elevated troponin, acute, POA -likely 2/2 to demand ischemic secondary to hypotension induced tachycardia 25 chronic hepatitis C, present on admission - Possibly contributing to thrombocytopenia DVT prophylaxis heparin subcutaneous under surgery recommendations GI prophylaxis with Carafate High risk medications: fentanyl Bowel regimen with scheduled docusate given opiates Disposition: Patient will likely have a protracted hospital course if he can survive this condition given his current state of health. GI Prophylaxis: Other (karafate) VTE Prophylaxis: SCDs VTE Mechanical Devices: Intermittant Pneumatic CD Resuscitation Status: DNR/DNI:Do Not Resuscitate/Intubate Limited Interventions: Intubation w Mech Vent (already intubated and for now continue mechanical ventilation), Medications and IV Fluid Graciela Shane DO Jan 19, 2017 10:39
[2017-01-19] MEDS ORDERED: DEXTROSE 5% IV ONE (10:50)
[2017-01-19] MEDS ORDERED: CALCIUM GLUCO IV ONE (10:50)
--- NOTE | 2017-01-19 11:16 | DRSVH ---
PROCEDURE: X-RAY CHEST ONE VIEW, PORTABLE ([id number]) INDICATIONS: acute respiratory failure TECHNIQUE: One view of the chest was acquired. COMPARISON: [facility], CR, XR CHEST 1VW (PORTABLE), 01/18/2017, 3:44. FINDINGS: Surgical changes and devices: The endotracheal tube is 3 cm above agusto. There is a nasogastric tube and right IJ central line, stable in position. Lungs and pleura: Bilateral airspace infiltrates and small bilateral pleural effusions. There is incr eased left basilar airspace opacity. Aeration in the right lung is slightly improved. diastinum: Mediastinal contours appear normal. Heart size is moderately increased. Bones and chest wall: No suspicious bony lesions. Overlying soft tissues appear unremarkable. IMPRESSION: 1. Increased left basilar airspace opacity compatible with worsening of pneumonia or asymmetric pulmo nary edema. 2. Improved aeration in right lung. Dictated by: Italo Dallas M.D. on 01/19/2017 at 11:11 Approved by: Italo Dallas M.D. on 01/19/2017 at 11:14
[2017-01-19] MEDS: Insulin Human REGular Inj 100 UNIT in 0.9% Sodium Chloride-Pha MIX 100 ML IV SCH (11:23)
[2017-01-19 12:07] VITALS: BP 77/55; O2SAT 90
[2017-01-19] MEDS: DOBUTamine 500 mg/250 D5W 500,000 MCG in IV Premix 1 EACH IV SCH (12:30)
[2017-01-19] MEDS: Dextrose 5% 0.9% NaCl 1,000 ML IV SCH (15:15)
[2017-01-19] MEDS ORDERED: Atropine 1% 5 mL Ophthalmic Solution PO PRN (15:50)
--- NOTE | 2017-01-19 15:51 | PROG NOTE ---
[address] [address] PROGRESS NOTE PATIENT: JAGDISH BALLARD : 1945 MR#: [id number] ADMIT: 01/13/2017 JOB ID: [id number] DATE: 01/19/2017 The patient remains critically ill. Yesterday, late afternoon, Dr. Salas, myself, and Dr. Israel had a meeting with his and daughter and son-in-law. We laid out the critical situation, discussed the possible therapy of opening up his abdomen to relieve intra-abdominal pressure at the bedside with placement of an ABThera dressing at the bedside. After a full discussion with family, his did not want us to proceed with surgery but wanted to confer with her brother and contemplate treatment options. This morning, I have spoken with Mrs. Ballard, and she has expressed to me that she does not want any further operative intervention and that she and the patient's family feel that it would be best for him if he was allowed to "pass peacefully." She did express some thoughts about seeing him prior to withdrawal of support, and I told her that I would be available for further discussion but that I would pass on our discussion to primary care and ICU team.
--- NOTE | 2017-01-19 16:16 | NUR ---
Extubation to comfort care Orders received to extubate to comfort care. Patient was extubated to comfort care at 1545 and at 1555. All drips were stopped at time of extubation except Fentanyl. Once Fentanyl dcd. Notified [facility] unit when patient as patients spouse is admitted there. Spoke with Tammy, the nurse there. Donor Referral notified prior to and then again notified of TOD. Awaiting a phone call back regarding eye and skin donation.
--- NOTE | 2017-01-19 16:50 | PCM.DC.MED ---
Discharge Summary Date of Service Jan 19, 2017 Dates of Hospitalization Date of Hospital Admission Jan 13, 2017 at 20:50 Date of Discharge: Jan 19, 2017 Providers: Admitting Physician: Julieth Albarran DO Primary Care Physician: Luther Fierro MD Attending Physician: Julieth Albarran DO Diagnosis at Time of Discharge Diagnosis at Time of Discharge MEDICAL SUMMARY Diagnoses at time of 15:55 on 01/19/17: 1. Severe sepsis and septic shock, acute, POA, ongoing. 2. Acute hypoxic respiratory failure, present on admission. 3. Clostridium Difficile colitis, present on admission, acute unstable 4. Abdominal compartment syndrome, present on admission, acute unstable 5. Atrial fibrillation with rapid ventricular response, acute, POA, stable 6. Thrombocytopenia, acute, present on admission, ongoing. 7. Acute renal failure, acute, POA, ongoing. 8. Hyperkalemia, acute, present on admission, ongoing. 9. Primary metabolic acidosis with respiratory alkalosis compensation, acute, present on admission, ongoing. 10. Diabetes mellitus type 2, insulin using, chronic POA, stable 11. Hyponatremia, acute, POA, ongoing. 12. Hypocalcemia, present on admission, treated unstable 13. COPD, chronic, presume stable. 14. Unlikely upper gastrointestinal bleed, present on admission, unknown chronicity 15. Unlikely acute bilateral pneumonia, POA 16. History of Alcohol dependency, present on admission, chronic 17. HTN, chronic, presume stable. 18. HLD, chronic, presume stable. 19. Tobacco dependence, chronic, present on admission 20. Obesity, present on admission, chronic 21. Chronic liver cirrhosis, POA 22. Macrocytic anemia, unknown chronicity, present on admission 23. Elevated troponin, acute, POA. 24. Chronic hepatitis C, presume stable. Consultations Delfin Pat DO (nephrology) Sumeet Burks MD (general surgery) Fidel Salas MD (pulmonology, critical care) Procedures XRay, CTs & MRIs CT ABDOMEN AND PELVIS WITHOUT CONTRAST IMPRESSION: 1. Fluid-filled prominence of the colon with thickening in the transverse and left colon as above. Findings can be a reflective of colitis secondary to inflammatory or infectious etiology. Ischemic colitis should also be considered. Recommend interval followup should document resolution of thickening and exclude presence of mass lesion including obscured visualization of the rectum secondary to fluid. 2. Bibasilar areas of effusion and consolidation, with the latter passenger relations representative of atelectasis and/or pneumonia. Dictated by: Izabela Stockton M.D. on 01/14/2017 at 11:11 Approved by: Izabela Stockton M.D. on 01/14/2017 at 11:15 X-RAY CHEST ONE VIEW, PORTABLE IMPRESSION: 1. Central venous catheter as above. 2. Unchanged right upper lobe radiopacities. 3. Increased left basilar radiopacities. Short interval followup is recommended with resolution of the patient's symptoms to ensure there is no underlying pulmonary pathology. Dictated by: Cate Davila M.D. on 01/14/2017 at 10:49 Approved by: Cate Davila M.D. on 01/14/2017 at 10:52 PROCEDURE: X-RAY CHEST ONE VIEW, PORTABLE ([id number]) IMPRESSION: Interstitial prominence and bibasilar opacities compatible with pulmonary edema and/or pneumonia not definitely changed compared to 01/17/17. Dictated by: Monica Raman MD, PhD on 01/18/2017 at 9:10 Approved by: Monica Raman MD, PhD on 01/18/2017 at 9:12 Other Diagnostics DateTimeAnalyzed 04:12:00 -_ pH ____7.290 - 7.350 7.450 pCO2 ___27.8__ -mmHg 35.0 45.0 pO2 115 -mmHg 69.0 116 HCO3- ___12.9__ -mmol/L 22.0 26.0 Brief History Per admission H&P by Dr. Albarran on 01/13/17: 71yoM with past medical history of COPD, DM2, HTN, chronic pain, and tobacco use transferred from [facility] with septic shock and CARIE. Patient history is limited d/t dyspnea and fatigue. Unable to speak at this time in more than a few words per sentence. Minimal documentation available from OSH. Patient states that following discharge from [facility] he became increasingly weak until prior to admission where he fell and was brought into the ED. At this time he denies chest pain, chest tightness, lightheadedness and dizziness but endorses fatigue, dyspnea and also diarrhea prior to admission in addition to a distended abdomen although non-tender. Imaging completed at OSH include c-spine and CXR. Concern for multifocal PNA with acute onset of dyspnea in the setting of CARIE prompted transfer d/t limited nephrology services at OSH. Images unavailable following transfer. 2L NS given prior to transfer and patient was then started on norepinephrine. Piperacillin-tazobactam and vancomycin started d/t concern for HCAP. Upon arrival patient was on norepinephrine at 0.05 with map >65, RR 30, HR 106 sat 96 % on 4L NC. Most recent admission at [facility] 12/24 -01/03 where he was treated with abx for PNA, COPD exacerbation and UGIB. Hospital Course Treatment outlined below was ongoing until the patient's family decided the patient should be made comfort care at approximately 1530 on 01/19/17. Patient was prepared for extubation and compassionately extubated to comfort care at 1545 on 01/19/17. He at 1555. 1. Severe sepsis and septic shock, acute, POA, ongoing. - Criteria met: tachypnea (30), tachycardia (117), fulminant C.diff infection, lactic acidosis (3.4), and hypotension. - Patient continues to require pressor with norepinephrine, vasopressin, and phenylephrine. - Continue hydrocortisone 50 mg IV Q8 due to concern of adrenal insufficiency. - Continue IV fluids D5 bicarb at 150 ml/hr. - IV albumin as needed for oncotic pressor support given low albumin state. - Continue to monitor CBC as patient now has significant leukocytosis. - Continue to monitor lactic acid as is now persistently elevated. - Will plan to discuss with the patient's how she would like us to proceed in light of the patient's critical status. 2. Acute hypoxic respiratory failure, present on admission. - Likely secondary to severe sepsis. - Patient remains on mechanical ventilator. - Fentanyl and propofol for sedation. - ABG each AM and as needed for vent management. - Dr. Salas of pulmonology has been consulted for vent management and we appreciate his expertise. 3. Clostridium Difficile colitis, present on admission, acute unstable - Triple antibiotic coverage with vancomycin rectally through [facility], Flagyl IV continued however biliary excretion will not reach rectum, tigecycline IV. - Dr. Palma of infectious disease has been consulted and we appreciate his expertise. 4. Abdominal compartment syndrome, present on admission, acute unstable - Gen. surgery performed and ileostomy and partial colectomy on the night of . - Intraabdominal pressure remains elevated at 35 mmHg this AM. - WALDO drain attached to wall suction and large output continues. - Family currently declining further surgical intervention as patient continues to be critical. 5. Atrial fibrillation with rapid ventricular response, acute, POA, stable - Optimize electrolytes in the setting of CARIE and sepsis. - Esmolol drip - titrate down as tolerated due to hypotension. - Amiodarone drip - Reevaluate daily 6. Thrombocytopenia, acute, present on admission, ongoing. - Heparin antibodies pending. - Continue to monitor CBC. 7. Acute renal failure, acute, POA, ongoing. - Likely prerenal / intrarenal given septic presentation - Continuing IV fluids with D5 bicarb. - Continue to monitor with BMP. - Nephrology is following along and we appreciate their input. 8. Hyperkalemia, acute, present on admission, ongoing. - Likely secondary to acute kidney injury. - Patient dialyzed last 01/15/17. Nephrology continues to follow along and we appreciate their input. - Continue to monitor with BMP. 9. Primary metabolic acidosis with respiratory alkalosis compensation, acute, present on admission, ongoing. - Secondary to severe sepsis and lactic acidosis. - Continue IV fluids, currently on D5 bicarbonate drip at 150 ml/hr. - Continue to monitor ABG and BMP. 10. Diabetes mellitus type 2, insulin using, chronic POA, stable - Continue insulin drip per non-DKA protocol. 11. Hyponatremia, acute, POA, ongoing. - Patient has received significant fluid resuscitation. - Ongoing IV fluid with D5 bicarbonate. - Continue to monitor BMP. 12. Hypocalcemia, present on admission, treated unstable - Continue to monitor BMP and supplement with calcium gluconate IV. 13. COPD, chronic, presume stable. - Atrovent nebs available PRN. - Patient receiving solu-cortef IV. 14. Unlikely upper gastrointestinal bleed, present on admission, unknown chronicity - H&H stable. - Continuing scheduled carafate. - Monitor CBC. 15. Unlikely acute bilateral pneumonia, POA - Recent admit with RSV+, strep antigen + PNA at [facility]. Received full course of appropriate treatment. - Abnormalities noted on initial chest x-ray may have been persistent infiltrates from that pneumonia. - Fulminant C. diff infection the most likely cause of sepsis. 16. History of Alcohol dependency, present on admission, chronic - Thiamine given daily - Patient is critically ill and sedated. No evidence of withdrawal noted. 17. HTN, chronic, presume stable. - Patient has been hypotensive during admission requiring pressor support. Holding all home anti-hypertensives. 18. HLD, chronic, presume stable. - Continue statin when appropriate 19. Tobacco dependence, chronic, present on admission - If patient survives admission with strongly recommend he quit smoking once and for all. 20. Obesity, present on admission, chronic - BMI 32 21. Chronic liver cirrhosis, POA - as per past documentation 22. Macrocytic anemia, unknown chronicity, present on admission - Likely due to rapid RBC proliferation for anemia - B12 / folate levels both normal 23. Elevated troponin, acute, POA. - Likely secondary to demand ischemic secondary to hypotension induced tachycardia 24. Chronic hepatitis C, presume stable. - Possibly contributing to thrombocytopenia - Antiemetic available PRN. - Colace bowel regimen scheduled. Disposition: Patient will likely have a protracted hospital course if he can survive this condition given his current state of health. Exam Vital Signs (Last) Date Time Temp Pulse Resp B/P Pulse Ox O2 Delivery O2 Flow Rate FiO2 01/19/17 12:07 74 77/55 90 90 01/19/17 08:00 Ventilator 01/19/17 08:00 35.9 18 01/14/17 16:04 60 Test 01/13/17 21:05 01/14/17 14:30 01/14/17 16:30 01/16/17 10:10 Troponin T 0.019ug/L (0.0-0.011) Cortisol Baseline 45.0ug/dL (.) Cortisol Stimulation Collect Time 2 38.8ug/dL (Not Estab.) Cortisol Stimulation Collect Time 3 47.4ug/dL (Not Estab.) Hepatitis B Surface Antigen Negative (Negative) Hepatitis B Surface Antibody Non reactive (.) Hepatitis B Core Total Antibody Negative (Negative) Hepatitis C Antibody >11.0s/co ratio Haptoglobin 211mg/dL (34-200) Fibrinogen 453mg/dL (157-380) D-Dimer 1.0mg/L (<0.50) Test 01/16/17 10:50 01/16/17 13:51 01/17/17 05:35 01/17/17 12:05 Hold Urine Received (Received) Vitamin B12 Level >1999pg/mL (211-946) Folate > 19.9ng/mL (>3.0) Activated Partial Thromboplast Time 78.7sec (22.8-33.0) Test 01/18/17 05:50 01/19/17 05:15 01/19/17 11:34 Myelocytes % 7% (0-0) Hematology Comments Rbc Prealbumin 35mg/dL (20-40) White Blood Count 40.2th/mm3 (3.8-10.1) Corrected White Blood Count 37.9th/mm3 (3.8-10.1) Red Blood Count 3.03mil/mm3 (4.40-5.80) Hemoglobin 10.6g/dL (13.8-17.2) Hematocrit 32.5% (41.0-50.0) Mean Corpuscular Volume 107.3fL (81-100) Mean Corpuscular Hemoglobin 35.0pg (27.0-35.0) Mean Corpuscular Hemoglobin Concent 32.0% (32.0-37.0) Red Cell Distribution Width 17.8% (12.3-15.4) Platelet Count 19bil/L (150-400) Neutrophils (%) (Auto) 58% (40-74) Lymphocytes (%) (Auto) 18% (14-46) Monocytes (%) (Auto) 7% (4-12) Eosinophils (%) (Auto) 1% (0-5) Basophils (%) (Auto) 0% (0-3) Band Neutrophils % 8% (1-5) Metamyelocytes % 8% (0-0) Nucleated Red Blood Cells 6/100 WBC (0-24) Prothrombin Time 20.9sec (8.1-12.5) Prothromb Time International Ratio 1.93ratio Sodium Level 130mEq/L (134-144) Potassium Level 5.8mEq/L (3.5-5.2) Chloride Level 92mEq/L (97-108) Carbon Dioxide Level 12mmol/L (18-29) Blood Urea Nitrogen 80mg/dL (8-27) Creatinine 4.02mg/dL (0.76-1.27) Estimat Glomerular Filtration Rate 16mL/min (>59) Glucose Level 214mg/dL (60-99) Calcium Level 5.4mg/dL (8.5-10.1) Phosphorus Level 9.9mg/dL (2.5-4.9) Magnesium Level 2.0mg/dL (1.6-2.6) Total Bilirubin 1.6mg/dL (0.0-1.2) Aspartate Amino Transf (AST/SGOT) 541U/L (0-50) Alanine Aminotransferase (ALT/SGPT) 210U/L (0-44) Alkaline Phosphatase 42U/L (25-160) Total Protein 3.8g/dL (6.4-8.4) Albumin 2.7g/dL (3.4-5.0) Lipase 26U/L (13-60) Procalcitonin 3.49ng/mL (0.00-0.08) Lactic Acid Level 9.4mmol/L (0.4-2.0) Discharge Medications Discharge Medications Alendronate/Vitamin D3 (Alendronate/Vitamin D3) 1 Each Tablet 1 TAB PO every gordon (Reported) Amlodipine (Amlodipine) 10 Mg Tablet 10 MG PO DAILY (Reported) Aspirin (Aspirin) 81 Mg Tablet 81 MG PO DAILY (Reported) Atorvastatin (Lipitor) 40 Mg Tablet 40 MG PO DAILY Prescribed by: DAVI WADDELL DO Bicalutamide (Bicalutamide) 50 Mg Tablet 100 MG PO DAILY (Reported) Diltiazem ER (Cardizem CD) 240 Mg Cap.er.24h 240 MG PO DAILY Prescribed by: DAVI WADDELL DO Folic Acid (Folic Acid) 1 Mg Tablet 1 MG PO DAILY (Reported) Insulin Glargine (Lantus U100 Insulin Vial) 100 Unit/Ml Vial 15 UNIT SUBQ HS ( Reported) Ipratropium/Albuterol Sulfate (Iprat-Albut 0.5-3(2.5) mg/3 mL Inhalant Soln) 3 Ml Ampul.neb 3 ML NEB Q6 Prescribed by: DAVI WADDELL DO Losartan/HCTZ 50-12.5 mg (Losartan/HCTZ 50-12.5 mg) 1 Each Tablet 1 EACH PO DAILY (Reported) Meloxicam (Meloxicam) 15 Mg Tablet 15 MG PO DAILY (Reported) Metoprolol Tartrate (Metoprolol Tartrate) 25 Mg Tablet 50 MG PO BID Prescribed by: DAVI WADDELL DO Nicotine 21 mg/24 hr Patch (Nicotine 21 mg/24 hr Patch) 1 Each Patch.td24 1 PATCH TOPICAL Q24H Prescribed by: DAVI WADDELL DO Pantoprazole Sodium (Protonix Granules) 40 Mg Granpkt.dr 40 MG PO DAILY ( Reported) Potassium Chloride (Potassium Chloride) 10 Meq Tab.er.prt 20 MEQ PO DAILY ( Reported) Tamsulosin ER (Tamsulosin ER) 0.4 Mg Cap.er.24h 0.4 MG PO HS (Reported) Trazodone (Trazodone) 50 Mg Tablet 50-100 MG PO HS (Reported) As needed Acetaminophen (Acetaminophen) 325 Mg Tablet 325 MG PO PRN For Pain (Reported) Albuterol Sulfate (Ventolin HFA Inhaler) 200 Puff/18 Gm Inhaler 2 PUFFS INH q4- 6 hours PRN PRN For Shortness of Breath (Reported) Bisacodyl (Dulcolax) 5 Mg Tablet.dr 5 MG PO PRN For Constipation (Reported) Insulin Aspart (NovoLOG U100 Insulin Vial) 100 Unit/Ml Mdv 5 UNITS SUBQ TIDWM PRN PRN hyperglycemia (Reported) Ketoconazole (Ketoconazole) 120 Ml Shampoo 1 APPLIC TOP DAILY PRN PRN prn ( Reported) Sennosides (Senna) 8.6 Mg Tablet 8.6 MG PO PRN For Constipation (Reported) oxyCODONE-Acetaminophen 5-325 mg (oxyCODONE-Acetaminophen 5-325 mg) 1 Each Tablet 1 TAB PO Q4H PRN PRN For Pain Prescribed by: DAVI WADDELL DO Attending Statement The patient was seen and examined together with Dr. Shane on 01-19-17 and I agree with the history, exam and plan as outlined in the note above. Patient was extubated to comfort and quickly . I was present and discussed this with who requested extubation to comfort, as was Dr. Shane. Over 30 minutes of my time was spent discharging and managing this patient today in addition to the time I spent with this patient discussing with resident. copies to: Luther Fierro MD, Jennifer E DO Jan 19, 2017 16:50 Corby Hernandez MD Jan 19, 2017 17:26
--- NOTE | 2017-01-19 17:48 | PROG NOTE ---
[address] [address] PROGRESS NOTE PATIENT: JAGDISH MATHIS : 1945 MR#: [id number] ADMIT: 01/13/2017 JOB ID: [id number] DATE: 01/19/2017 PROBLEMS: 1. C. difficile NAP1 enterocolitis. 2. ARDS. 3. Abdominal compartment syndrome. 4. Acute renal failure. 5. Persistent lactic acidosis, worsening. 6. Shock refractory to pressors. 7. Worsening thrombocytopenia, probable DIC. 8. Hepatitis C. SUBJECTIVE: None. OBJECTIVE: Temperature 35.9. Peripherally, it is probably half that. Pulse 73, rare PVCs, blood pressure 81/58 on norepi at 0.5 mcg/kg/minute, phenylephrine 0.5 mcg/kg/minute and vasopressin at 0.03 units/minute. O2 sat unable to obtain with peripheral monitors due to his intense coldness. Patient currently on an FiO2 of 90%, PEEP of 10, rate of 18, tidal volume of 520. Blood gases this morning showed a pO2 of 115, pCO2 27.8, pH 7.29 on an unknown concentration of oxygen, PEEP supposedly at 10. With those settings, peak inspiratory pressure 36, plateau 33, PEEP is set at 10, measured at 10. Sedated and unresponsive. Pupils about 2-3 mm. Chest: Markedly distant breath sounds with some air entry in the mid and upper lung granda. Absent breath sounds at the bases. Heart: Heart tones seem relatively normal. Regular rhythm. Abdomen tight. Quiet. Cannot visualize the colostomy very well, but it appears to be possibly quit dusky. Extremities: Ice cold, both upper and lower extremities. Mottling of feet. LABORATORY DATA: Shows a white count of 37,900 with 58 polymorphonuclears, 8 bands, 8 metamyelocytes, 6 nucleated RBCs, lymphs 18, monos 7. Hemoglobin 10.6 and relatively stable platelet count of 19,000 and continuing to decrease. Sodium 130, potassium 5.8, chloride 92, CO2 is 12 with the patient receiving bicarbonate infusion. BUN 80, creatinine 4.0 and continuing to rise, lactic acid 9.4 and rising, was 3.7 yesterday, 6.0 this morning, calcium 5.4 with albumin of 2.7, phosphorus elevated 9.9, magnesium 2, total bilirubin 1.6, AST rising with significant rise to 541 from 116, ALT 210 up from 43 yesterday. Chest x-ray shows bilateral infiltrates. ASSESSMENT: 1. Clostridium difficile NAP1 enterocolitis with abdominal compartment syndrome. Having made the decision yesterday not to proceed with decompressing the abdomen, the patient continues to worsen and I do not see an end to this without decompression. Probably, we are beyond decompression at this point. Patient's survival is essentially zero. We continued to struggle with blood pressure, electrolytes and acid-base abnormalities which are unsolvable given the intra-abdominal pressure. 2. Shock. Unsure the abdominal compartment syndrome is driving his low blood pressure. Also, likely sepsis with tissue dying as we speak. Receiving a bicarbonate in order to maintain a bicarb of 12. CO2 driving off some of the CO2 to give him a reasonable pH. However, the fluids are making his abdominal compartment worse, again insoluble without opening the abdomen, a decision which was declined yesterday. 3. Thrombocytopenia. Likely represents overwhelming DIC from the egregious extent of tissue damage. Can replete the platelets if bleeding occurs. Certainly, he is getting to be high-risk for bleeding. Currently, has dropped through the level 4 possibility of spontaneous hemorrhage. If we are to continue proceeding, will need platelet transfusions. PLAN: We will continue to deal with abnormalities as they arise. However, they are insoluble without resolution of the abdominal compartment syndrome. Continuing on with medical therapy in the presence of the abdominal compartment syndrome seems to my mind to be futile. Spoke briefly with the family. They have not made a decision as of yet.
--- NOTE | 2017-01-21 09:54 | PATH ---
SURGICAL PATHOLOGY Attending Physician:Sumeet Burks MD CASE STATUS: Signed Out PATIENT NAME: JAGDISH MATHIS PID: [id number] : 1945 DATE COLLECTED:01/14/2017 00:00 SPECIMEN: Colon, Segment Resection, Non-Tumor CLINICAL HISTORY: SEPSIS, TOXIC COLITIS 1.SUBTOTAL COLECTOMY FINAL DIAGNOSIS: 1.COLON, SUBTOTAL COLECTOMY (133 CM, INCLUDING 5.4 CM OF TERMINAL ILEUM): ACUTE NECROTIZING COLITIS WITH PSEUDOMEMBRANE FORMATION (PLEASE SEE COMMENT). Negative for atypia and malignancy. ICD10 code K52.1 NOTE: The histologic findings are not specific, but have features consistent with pseudomembranous colitis. However, other potential infectious agents can produce similar histologic features. These would include a toxic E. coli colitis. The specific etiology would require microbiological culture and/or serum markers. GROSS DESCRIPTION: The specimen is received in formalin, labeled with the patient's name, sublabeled as subtotal colectomy and consists of a 2 segments of colon. The first segment is received open and consists of terminal ileum (length-5.4 cm, proximal diameter- 2.8 cm), cecum and colon (length-110.8 cm, distal diameter-5.0 cm) with attached adipose tissue (up to 4.5 cm in depth). The appendix is absent. The second segment (length-17.3, resection margin #1 diameter-4.2 cm, resection margin #2 diameter-4.8 cm, attached adipose tissue-up to 4.5 cm in depth) cannot be oriented. The resection margins are received stapled. The mucosa of both segments is pale swenson smooth and shiny and covered in diffuse pale green-yellow glistening plaques. The serosa is swenson smooth and shiny. The wall is focally thin. No nodules or masses are identified. Ink code: purple-resection margin. Section code: (A) segment #1 proximal resection margin, longitudinally sectioned, aircraft sales representative; (B) segment #1, distal resection margin, longitudinally sectioned, aircraft sales representative; (C-F) segment #1, serially sectioned and submitted proximal to distal, sections submitted approximately every 10 cm; (G) segment #2, resection margin #1, longitudinally sectioned, aircraft sales representative; (H) segment #2, resection margin #2, longitudinally sectioned, (I) segment #2, serially sectioned, aircraft sales representative. 01/16/17 JM MICRO DESCRIPTION: See diagnosis. ICD-9 CODES: CPT CODES: 1: 84296 Electronically Signed Out Matt Alexander MD, PhD [facility] Pathology [facility] [address], [place] [address] Technical component performed at [facility], [facility] [address], [place], [address]
== END 2017-01-19 15:55 | disposition expired | DRG 853 ==
LOC: CCU 20:50
PROVIDERS: ADMIT Internal Medicine; ATTEND Internal Medicine
PROC: 0D1B0Z4 Bypass Ileum to Cutaneous, Open Approach (ICD-10-PCS; 2017-01-14)
PROC: 0DTL0ZZ Resection of Transverse Colon, Open Approach (ICD-10-PCS; 2017-01-14)
PROC: 4A033R1 Measurement of Arterial Saturation, Peripheral, Percutaneous Approach (ICD-10-PCS; 2017-01-14)
PROC: 03HY32Z Insertion of Monitoring Device into Upper Artery, Percutaneous Approach (ICD-10-PCS; 2017-01-14)
PROC: 0BH17EZ Insertion of Endotracheal Airway into Trachea, Via Natural or Artificial Opening (ICD-10-PCS; 2017-01-14)
PROC: 5A1955Z Respiratory Ventilation, Greater than 96 Consecutive Hours (ICD-10-PCS; 2017-01-14)
PROC: 0DTN0ZZ Resection of Sigmoid Colon, Open Approach (ICD-10-PCS; principal; 2017-01-14 18:30)
PROC: 5A1D00Z (ICD-10-PCS; 2017-01-15)
DX: A41.9 Sepsis, unspecified organism (principal); R65.21 Severe sepsis with septic shock; N17.0 Acute kidney failure with tubular necrosis; J96.01 Acute respiratory failure with hypoxia; A04.7 Enterocolitis due to Clostridium difficile; E87.2 Acidosis; E87.1 Hypo-osmolality and hyponatremia; M79.A3 Nontraumatic compartment syndrome of abdomen; J44.9 Chronic obstructive pulmonary disease, unspecified; I10 Essential (primary) hypertension; I25.10 Atherosclerotic heart disease of native coronary artery without angina pectoris; E78.5 Hyperlipidemia, unspecified; F17.210 Nicotine dependence, cigarettes, uncomplicated; I48.0 Paroxysmal atrial fibrillation; Z79.4 Long term (current) use of insulin; F10.21 Alcohol dependence, in remission; E11.21 Type 2 diabetes mellitus with diabetic nephropathy; Z51.5 Encounter for palliative care; D69.6 Thrombocytopenia, unspecified